=== PATIENT | female | born 1950 | race Caucasian/White ===

== ENCOUNTER 2017-04-09 06:48 | Emergency (ER) | payer MEDICARE ==
[~2017-04-09] VITALS: Ht 170.2 cm; Wt 129.7 kg
[~2017-04-09 06:48] MED LIST: ALPR0.5T PO; AMLO10TA4 PO; Aspirin PO; HYDR-971 PO; LEXAPRO10 MG PO; LIDO700A4 TD; LOSA1TAB22 PO; MELO7.5T5 PO
--- NOTE | 2017-04-09 07:13 | PHYS DOC ---
Past History Past Medical History: COPD, Hypertension Past Surgical History: Tonsillectomy Additional Past Surgical Histo: bilateral chest tubes, left wrist repair Smoking: Non-smoker Alcohol Use: None Drug Use: None Adult General Chief Complaint Chief Complaint: LACERATION/AVULSION HPI HPI This patient is a pleasant 66-year-old female with a known history of COPD who presents with a laceration to the dorsum of the left hand over the index finger MCP joint. Patient was cleaning up some glass had broken this morning was placing in the trash which picked up trash bag she actually cut herself with the glass that was in the trash bag. She has a small laceration measuring about 1 cm on the dorsum of the hand that she came in for because she could not get the bleeding to stop. She applied direct pressure but unfortunately cannot completely to subside. She denies being on any aspirin or blood thinning medication. She denies any foreign body sensation or weakness distal to the injury. She denies any loss of sensation distal to the injury patient denies any heart injury to this finger in the past. She has no weakness or locking or popping within the joint. Her immunizations are not up-to-date. Patient is right -hand dominant, this injury occurred 20 minutes prior to arrival Review of Systems Review of Systems Musculoskeletal: Positive for finger pain over the laceration itself on the dorsum of the left hand Integument: Denies rash or skin lesions [] Neurologic: Denies headache, focal weakness or sensory changes [] All other systems were reviewed and found to be within normal limits, except as documented in this note. Allergies Allergies Allergies Coded Allergies Type Severity Reaction Last Updated Verified Penicillins Allergy Intermediate rash 11/08/14 Yes Physical Exam Physical Exam Other vital signs noted on the chart patient is hypertensive Constitutional: Well developed, well nourished, no acute distress, non-toxic appearance. [] Cardiovascular:Heart rate regular rhythm, no murmur [] Lungs & Thorax: Bilateral breath sounds clear to auscultation [] Skin: Warm, dry, no erythema, no rash. [] Extremities: Small linear clean laceration noted on the dorsum of the hand over the MCP joint of the index finger it is well approximated, no active bleeding is noted. There is a small area of avulsed tissue, there is brisk capillary refill +2 distal to the injury, normal sensation to light touch and proprioception and 2. discrimination over the finger itself, good range of motion at the MCP joint with no obvious joint involvement or foreign body noted to the floor the wound. Patient has normal +2 peripheral pulses at the radial artery, patient is no locking or popping within the joint. No other injury is on the hand noted. She denies fight bite Neurologic: Alert and oriented X 3, normal motor function, normal sensory function, no focal deficits noted. [] Psychologic: Patient is mildly anxious but judgment is intact EKG EKG [] Radiology/Procedures Radiology/Procedures [] IMAGING REPORT Signed PATIENT: RIDDHI GARCIA ACCOUNT: [id number] : 1950 LOCATION: ER AGE: 66 SEX: F EXAM STATUS: REG ER ORD. PHYSICIAN: LIZETTE BUSTAMANTE MD REASON: mcp joint injury PROCEDURE: HAND LEFT 3V Left hand, 3 views, 04/09/2017: History: Laceration There are mild to moderate degenerative changes at scattered inner phalangeal and MCP joints, the first CMC joint and the radiocarpal articulation. No acute fracture or dislocation is identified. There is deformity of the distal radius compatible with an old healed fracture. IMPRESSION: No acute bony abnormality is detected. DICTATED AND SIGNED BY: VENU AMEZQUITA MD DATE: 04/09/17 0719 CC: LIZETTE BUSTAMANTE MD; VÍCTOR ALVARADO MD ~ Course & Med Decision Making Course & Med Decision Making Pertinent Labs and Imaging studies reviewed. (See chart for details) []Patient and x-ray completed her hand to ensure that no radiopaque foreign body was lodged within the tissues. That x-ray 3 view read by me demonstrated no foreign body, no subcutaneous air. Procedure note: Laceration repair noted on the dorsum of the left hand over the MCP joint not involving the joint measures 1 cm in length 1 mm in depth and width. Wound is clean is been clean with soap and water and manual scrubbing. Boostrix is been given. He had wound approximated with direct pressure and placed skin tissue adhesive over the surface without complication or excessive bleeding. Patient tolerated procedure well discharge: I've spoken with the patient and/or caregivers. I've explained the patient's condition, diagnosis and treatment plan based on information available to me at this time. I've answered the patient's and/or caregivers questions and addressed any concerns. The patient and/or caregivers have a good understanding the patient's diagnosis, condition and treatment plan as can be expected at this point. Vital signs have been stabilized. The patient's condition is stable for discharge from the emergency department. The patient will pursue further outpatient evaluation with her primary care provider or other designated consulting physician as outlined in the discharge instructions. Patient and/or caregivers are agreeable to this plan of care and follow-up instructions have been explained in detail. The patient and/or caregivers have received these instructions in written format and expressed understanding of these discharge instructions. The patient and her caregivers are aware that if any significant change in condition or worsening of symptoms should prompt him to immediately return to this of the closest emergency department. If an emergent department is not readily available I would encourage him to call 911. Dragon Disclaimer Dragon Disclaimer This electronic medical record was generated, in whole or in part, using a voice recognition dictation system. Departure Departure: Impression: Primary Impression: Laceration Disposition: 01 HOME, SELF-CARE Condition: STABLE Referrals: VÍCTOR ALVARADO MD (PCP) Patient Instructions: Tissue Adhesive Wound Care Additional Instructions: discharge: I've spoken with the patient and/or caregivers. I've explained the patient's condition, diagnosis and treatment plan based on information available to me at this time. I've answered the patient's and/or caregivers questions and addressed any concerns. The patient and/or caregivers have a good understanding the patient's diagnosis, condition and treatment plan as can be expected at this point. Vital signs have been stabilized. The patient's condition is stable for discharge from the emergency department. The patient will pursue further outpatient evaluation with her primary care provider or other designated consulting physician as outlined in the discharge instructions. Patient and/or caregivers are agreeable to this plan of care and follow-up instructions have been explained in detail. The patient and/or caregivers have received these instructions in written format and expressed understanding of these discharge instructions. The patient and her caregivers are aware that if any significant change in condition or worsening of symptoms should prompt him to immediately return to this of the closest emergency department. If an emergent department is not readily available I would encourage him to call 911. LIZETTE BUSTAMANTE MD Apr 09, 2017 07:13
--- NOTE | 2017-04-09 07:23 | RAD ---
Left hand, 3 views, 04/09/2017: History: Laceration There are mild to moderate degenerative changes at scattered inner phalangeal and MCP joints, the first CMC joint and the radiocarpal articulation. No acute fracture or dislocation is identified. There is deformity of the distal radius compatible with an old healed fracture. IMPRESSION: No acute bony abnormality is detected.
[2017-04-09] MEDS ORDERED: DIPHTH,PERTUSS(ACELL),TET TOX 0.5 ML DISP.SYRIN. VAX IM ONE (07:30)
[2017-04-09 07:42] VITALS: BP 161/85
== END 2017-04-09 07:42 | disposition home or self-care (01) ==
LOC: ER 06:48
DX: S61.412A Laceration without foreign body of left hand, initial encounter (principal); J44.9 Chronic obstructive pulmonary disease, unspecified; I10 Essential (primary) hypertension; Z88.0 Allergy status to penicillin; W25.XXXA Contact with sharp glass, initial encounter; Y93.G1 Activity, food preparation and clean up; Y99.8 Other external cause status; Y92.89 Other specified places as the place of occurrence of the external cause
CPT/HCPCS: 12001; 73130; 90471; 90715; 99284-25

== ENCOUNTER → 2017-05-05 | Outpatient (CLI) | payer MEDICARE ==
[2017-04-09 07:42] VITALS: BP 161/85
--- NOTE | 2017-05-05 08:57 | RAD ---
Examination: 3 views of the bilateral knees History: History of bilateral knee pain. Comparison: 05/02/2016 Findings: Left knee: There is moderate severe joint loss in medial compartment of the left knee. There is moderate joint space loss identified in the lateral, patellofemoral compartments the left knee. Large osteophyte formation identified in the medial, patellofemoral compartment. Small osteophyte formation in the lateral compartment Right knee: Severe joint space loss identified in the medial, lateral compartment, patellofemoral compartments the right knee with large osteophyte formation. 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 Impression: Tricompartmental degenerative changes bilateral knees, most severe in the right knee.
== END | disposition home or self-care (01) ==
LOC: DXRAD 08:14
PROVIDERS: ATTEND Physician Assistant Medical
DX: M17.0 Bilateral primary osteoarthritis of knee (principal); M25.761 Osteophyte, right knee
CPT/HCPCS: 73562

== ENCOUNTER → 2017-09-17 | Outpatient (CLI) | payer MEDICARE ==
[~2017-09-17] MED LIST changes: +BUPIVACAINE MPF 0.25% 10 ML VIAL. ONE; +IOHEXOL 300 MG/ML 50 ML VIAL. ONE; +LIDOCAINE 1% PF 30 ML VIAL. ONE; +methylPREDNISolone ACETATE 80 MG/ML VIAL. ONE
== END ==
LOC: SURG 08:22
PROVIDERS: ATTEND Anesthesiology Pain Medicine
DX: M17.11 Unilateral primary osteoarthritis, right knee (principal); I10 Essential (primary) hypertension; Z87.39 Personal history of other diseases of the musculoskeletal system and connective tissue; Z98.890 Other specified postprocedural states
CPT/HCPCS: 20610; 77002; J1040; J2001; J3490; 20611; Q9967

== ENCOUNTER → 2017-09-30 | Outpatient (CLI) | payer MEDICARE ==
[~2017-09-30] MED LIST changes: -BUPIVACAINE MPF 0.25% 10 ML VIAL. ONE; -IOHEXOL 300 MG/ML 50 ML VIAL. ONE; -LIDOCAINE 1% PF 30 ML VIAL. ONE; -methylPREDNISolone ACETATE 80 MG/ML VIAL. ONE
--- NOTE | 2017-10-01 10:46 | CARD ---
MR#: [id number] Date of Study: 09/30/2017 Ordering Physician: AMIRA YEBOAH, Referring Physician: AMIRA YEBOAH, Tech: TITO Miller APPROVED REPORT EXAM: Two-dimensional and M-mode echocardiogram with Doppler and color Doppler. Other Information Quality : Technically Difficult Technically limited study due to morbid obesity. INDICATION Dyspnea Murmur Bilateral Leg Edema 2D DIMENSIONS Left Atrium(2D)4.0 (1.6-4.0cm)IVSd1.3 (0.7-1.1cm) LVDd5.0 (3.9-5.9cm)LVOT Diameter2.1 (1.8-2.4cm) PWd1.3 (0.7-1.1cm)LVDs3.4 (2.5-4.0cm) FS (%) 32.7 %SV72.4 ml LVEF(%)60.9 (>50%) Aortic Valve AoV Peak Hayden.255.5cm/sAoV VTI51.8cm AO Peak GR.26.0mmHgLVOT Peak Hayden.88.9cm/s LVOT VTI 15.15cmAO Mean GR.17mmHg CURLY (VMAX)1.33yh9TDN (VTI)0.98cm2 Mitral Valve MV E Utkfnddk445.2cm/sMV DECEL GXEB078lm MV A Vmxcyfvj783.0cm/sE/A Ratio1.0 Tricuspid Valve TR P. Wfoudsda175ax/sTR Peak Gr.31mmHg LEFT VENTRICLE The left ventricle is normal size. There is mild concentric left ventricular hypertrophy. The left ve ntricular systolic function is normal and the ejection fraction is within normal range. The Ejection Fraction is 60-65%. There is normal LV segmental wall motion. Tissue Doppler imaging reveals mild lef t ventricular diastolic dysfunction. RIGHT VENTRICLE The right ventricle is mildly dilated. There is normal right ventricular wall thickness. The right ve ntricular systolic function is normal. ATRIA The left atrium is severely dilated. The right atrium is mildly dilated. The interatrial septum is in tact with no evidence for an atrial septal defect or patent foramen ovale as noted on 2-D or Doppler imaging. AORTIC VALVE The aortic valve is not well visualized. Doppler and Color Flow revealed trace aortic regurgitation. There is probable mild valvular aortic stenosis, due to technically limited images, cannot rule out m ore significant low gradient low flow . MITRAL VALVE Mitral annular calcification is moderate. There is no mitral valve stenosis. Doppler and Color-flow r evealed mild mitral regurgitation. TRICUSPID VALVE Doppler and Color Flow revealed mild tricuspid regurgitation. There is no tricuspid valve stenosis. PULMONIC VALVE The pulmonic valve is not well visualized. Doppler and Color Flow revealed trace pulmonic valvular re gurgitation. There is no pulmonic valvular stenosis. GREAT VESSELS The aortic root is normal in size. The pulmonary artery and branches are moderately dilated. Due to p oor image quality, the IVC could not be assessed. PERICARDIAL EFFUSION There is no evidence of significant pericardial effusion. Critical Notification Physician Notified Physician Name:XOCHITL Lanier Critical Value: No <Conclusion> The left ventricular systolic function is normal and the ejection fraction is within normal range. Th e Ejection Fraction is 60-65%. There is mild concentric left ventricular hypertrophy. There is normal LV segmental wall motion. The right ventricle is mildly dilated. The left atrium is severely dilated. There is probable mild valvular aortic stenosis, due to technically limited images, cannot rule out m ore significant low gradient low flow . The pulmonary artery and branches are moderately dilated. Consider for obesity-hypoventilation and secondary pulmonary HTN. May benefit from CT chest versus MIC. Clinical correlation recommended. Signed by : Sridhar Montano, Electronically Approved : 10/01/2017 10:45:17
== END | disposition home or self-care (01) ==
LOC: ECHO 13:09
PROVIDERS: ATTEND Physician Assistant
DX: I08.1 Rheumatic disorders of both mitral and tricuspid valves (principal); M17.0 Bilateral primary osteoarthritis of knee; E78.2 Mixed hyperlipidemia; I10 Essential (primary) hypertension; J44.9 Chronic obstructive pulmonary disease, unspecified; Z87.39 Personal history of other diseases of the musculoskeletal system and connective tissue
CPT/HCPCS: 93306

== ENCOUNTER → 2017-10-15 | Outpatient (CLI) | payer MEDICARE ==
[~2017-10-15] MED LIST changes: +BUPIVACAINE MPF 0.5% 30 ML VIAL. ONE; +IOHEXOL 300 MG/ML 50 ML VIAL. ONE; +LIDOCAINE 1% PF 30 ML VIAL. ONE; +methylPREDNISolone ACETATE 80 MG/ML VIAL. ONE
== END | disposition home or self-care (01) ==
LOC: SURG 13:26
PROVIDERS: ATTEND Anesthesiology Pain Medicine
DX: M17.12 Unilateral primary osteoarthritis, left knee (principal); Z88.0 Allergy status to penicillin; F41.0 Panic disorder [episodic paroxysmal anxiety]; F32.9 Major depressive disorder, single episode, unspecified; J44.9 Chronic obstructive pulmonary disease, unspecified; I10 Essential (primary) hypertension; E78.2 Mixed hyperlipidemia; E66.9 Obesity, unspecified; Z79.82 Long term (current) use of aspirin; Z98.890 Other specified postprocedural states; Z87.39 Personal history of other diseases of the musculoskeletal system and connective tissue; I08.1 Rheumatic disorders of both mitral and tricuspid valves; Z79.899 Other long term (current) drug therapy
CPT/HCPCS: 20610; 77002; J1040; J2001; J3490; Q9967; 20611

== ENCOUNTER 2017-11-26 07:35 | Emergency (ER) | payer MEDICARE ==
[~2017-11-26] VITALS: Ht 170.2 cm; Wt 122.5 kg
[~2017-11-26 07:35] MED LIST changes: -BUPIVACAINE MPF 0.5% 30 ML VIAL. ONE; -IOHEXOL 300 MG/ML 50 ML VIAL. ONE; -LIDOCAINE 1% PF 30 ML VIAL. ONE; -methylPREDNISolone ACETATE 80 MG/ML VIAL. ONE
--- NOTE | 2017-11-26 08:11 | PHYS DOC ---
Past History Past Medical History: COPD, Hypertension Past Surgical History: Other Additional Past Surgical Histo: bilateral chest tubes, left wrist repair Smoking: Non-smoker Alcohol Use: None Drug Use: None Adult General Chief Complaint Chief Complaint: CHEST PAIN HPI HPI 67-year-old female presents via EMS with chest pain. The patient states that she had right sided sharp chest pain that was intermittent last night. She was able to go to sleep. She woke up tonight restroom continued to have this sharp feeling. She also had some dizziness and had to hold onto furniture to go to the bathroom and back. She was able to get to the restroom and back without injury. She decided she would try to go back to sleep and see if it got better. She was able to fall asleep for a few more hours. When she woke up she had this chest pain again more central in the chest and it was persistent. She called EMS. After EMS gave her 4 baby aspirin, the pain has resolved. She denies pain at this time. The patient has had a cardiac catheter in the last 1 year that she reports was negative. She denies having any stents or other interventions. The patient admits that she has had some increased lower extremity swelling but that is not a new finding. They placed her on blood pressure medicine with hydrochlorothiazide. She has been taking her medications, but didn't take it this morning. She denies fever or chills. She denies dysuria or urinary frequency. Review of Systems Review of Systems Constitutional: Denies fever or chills [] Eyes: Denies change in visual acuity, redness, or eye pain [] HENT: Denies nasal congestion or sore throat [] Respiratory: Shortness of breath at baseline [] Cardiovascular: No additional information not addressed in HPI [] GI: Denies abdominal pain, nausea, vomiting, bloody stools or diarrhea [] : Denies dysuria or hematuria [] Musculoskeletal: Denies back pain or joint pain [] Integument: Denies rash or skin lesions [] Neurologic: Denies headache, focal weakness or sensory changes [] Endocrine: Denies polyuria or polydipsia [] All other systems were reviewed and found to be within normal limits, except as documented in this note. Current Medications Current Medications Current Medications Medications (Trade) Dose Ordered Sig/Kris Start Time Stop Time Status Last Admin Dose Admin Metoprolol Tartrate (Lopressor Vial) 5 mg 1X ONCE 11/26/17 08:00 11/26/17 08:01 Allergies Allergies Allergies Coded Allergies Type Severity Reaction Last Updated Verified Penicillins Allergy Intermediate rash 11/26/17 Yes Physical Exam Physical Exam Constitutional: Well developed, obese, well nourished, no acute distress, non- toxic appearance. [] HENT: Normocephalic, atraumatic, bilateral external ears normal, oropharynx moist, no oral exudates, nose normal. [] Eyes: PERRLA, EOMI, conjunctiva normal, no discharge. [] Neck: Normal range of motion, no tenderness, supple, no stridor. [] Cardiovascular:Heart rate regular rhythm, no murmur [] Lungs & Thorax: Bilateral breath sounds moderately to severely decreased[] Abdomen: Bowel sounds normal, soft, no tenderness, no masses, no pulsatile masses. [] Skin: Warm, dry, no erythema, no rash. [] Back: No tenderness, no CVA tenderness. [] Extremities: No tenderness, no cyanosis, no clubbing, ROM intact, 2+ non- pitting edema. [] Neurologic: Alert and oriented X 3, normal motor function, normal sensory function, no focal deficits noted. [] Psychologic: Affect normal, judgement normal, mood normal. [] Current Patient Data Vital Signs Vital Signs Date Time Temp Pulse Resp B/P (MAP) Pulse Ox O2 Delivery O2 Flow Rate FiO2 11/26/17 07:35 97.9 87 22 94 Room Air EKG EKG [] Radiology/Procedures Radiology/Procedures [] Impressions: PORTABLE CHEST 1V History: COPD, chest pain Comparison: March 10, 2015 Findings: Single view of the chest is submitted. Pericardial cardiac silhouette is stable. There is no significant pleural fluid or pneumothorax. There is relative fullness of the right hilar region in part present previously although appears somewhat increased. Impression: 1. Right hilar fullness is somewhat greater than previously for which either two-view chest follow-up or CT follow-up recommended, underlying lymphadenopathy not excluded by this radiograph. Electronically signed by: Pernell Milton MD (11/26/2017 8:26 AM) [id number] DICTATED AND SIGNED BY: PERNELL MILTON MD DATE: 11/26/17821 CC: PANDA RIZVI DO; AMIRA YEBOAH ~ CT CHEST W/CONTRAST Indication: COPD, Abnormal CXR, right hilar fullness. Technique: Postcontrast CT imaging was performed of the chest, multiplanar reconstruction images submitted. One or more of the following individualized dose reduction techniques were utilized for this examination: 1. Automated exposure control 2. Adjustment of the mA and/or kV according to patient size 3. Use of iterative reconstruction technique. Contrast: 75 cc Omnipaque 300 Comparison: Chest radiograph the same day and previous chest CT March 10, 2015 routine Findings: There is some motion degradation. Right hilar fullness on radiograph is due to the vasculature, no mass. There is mitral annular calcification. Thoracic aortic caliber is stable, ascending thoracic aorta about 3.5 cm, no intraluminal flap. Not fully evaluated, there is heterogeneous nodule of the right thyroid gland probably unchanged up to about 2.1 cm in size. There is no pleural or pericardial effusion or pneumothorax. There is mild the liver linear-appearing density of the right upper lobe likely due to fibrotic change. There is also minimal fibrotic change or atelectasis of the lingula. The major airways are patent. There are multiple old right posterior rib fractures. There is probable hepatic steatosis. There is cholelithiasis. There is no new significant lymphadenopathy of the chest. There is thoracic levoscoliosis. There is multilevel thoracic spondylosis. IMPRESSION: 1. There is no right hilar mass, radiographic findings due to the vasculature. 2. There is likely hepatic steatosis. There is cholelithiasis. 3. There is stable heterogeneous right thyroid nodule. Electronically signed by: Pernell Milton MD (11/26/2017 10:39 AM) [id number] Course & Med Decision Making Course & Med Decision Making Pertinent Labs and Imaging studies reviewed. (See chart for details) Patient's labs are unremarkable. Her troponin is negative. Her EKG does have what appear to be Q waves in leads 2 and aVF. Lead 3 there is no discharge prior to the downward deflection of the QRS. The chest x-ray was remarkable for a right hilar fullness. Follow-up CT was recommended. I have ordered a CT of the chest with contrast. The patient's CT of the chest is unremarkable. The x- ray finding appears to be vascular and not a mass. The patient is feeling better at this time. She has a negative workup. The patient had a left heart catheterization November 04, 2017 that was also unremarkable. The patient is stable for discharge at this time. [] Dragon Disclaimer Dragon Disclaimer This electronic medical record was generated, in whole or in part, using a voice recognition dictation system. Departure Departure: Referrals: AMIRA YEBOAH (PCP) PANDA RIZVI DO Nov 26, 2017 08:11
[2017-11-26 08:12] LABS: BASO % 1 % (0-3); EOS # 0.1 x10^3/uL (0.0-0.7); EOS % 1 % (0-3); HEMATOCRIT 42.4 % (36.0-47.0); HEMOGLOBIN 14.1 g/dL (12.0-15.5); LYMPH # 1.9 x10^3/uL (1.0-4.8); LYMPH % 21 % (24-48); MEAN CORPUSCULAR HEMOGLOBIN 27 pg (25-35); MEAN CORPUSCULAR HGB CONC 33 g/dL (31-37); MEAN CORPUSCULAR VOLUME 81 fL (79-100); MONO # 0.6 x10^3/uL (0.0-1.1); MONO % 6 % (0-9); NEUT # 6.5 x10^3uL (1.8-7.7); NEUT % 71 % (31-73); PLATELET COUNT 177 x10^3/uL (140-400); RED BLOOD COUNT 5.24 x10^6/uL (3.50-5.40); RED CELL DISTRIBUTION WIDTH 14.6 % (11.5-14.5); WHITE BLOOD COUNT 9.1 x10^3/uL (4.0-11.0)
--- NOTE | 2017-11-26 08:30 | RAD ---
PORTABLE CHEST 1V History: COPD, chest pain Comparison: March 10, 2015 Findings: Single view of the chest is submitted. Pericardial cardiac silhouette is stable. There is no significant pleural fluid or pneumothorax. There is relative fullness of the right hilar region in part present previously although appears somewhat increased. Impression: 1. Right hilar fullness is somewhat greater than previously for which either two-view chest follow-up or CT follow-up recommended, underlying lymphadenopathy not excluded by this radiograph. Electronically signed by: Brant Morgan MD (11/26/2017 8:26 AM) [facility]
[2017-11-26 08:38] LABS: ALBUMIN 3.1 g/dL (3.4-5.0); ALBUMIN/GLOBULIN RATIO 0.8 (1.0-1.7); CALCIUM 8.1 mg/dL (8.5-10.1); CREATININE 0.5 mg/dL (0.6-1.0); GFR 123.4; POTASSIUM 4.2 mmol/L (3.5-5.1); TOTAL BILIRUBIN 1.1 mg/dL (0.2-1.0); TOTAL PROTEIN 6.9 g/dL (6.4-8.2)
[2017-11-26] MEDS: ONDANSETRON PF 4 MG/2 ML VIAL. IV ONE (09:23)
[2017-11-26] MEDS: METOPROLOL TARTRATE 5 MG/5 ML VIAL. IV ONE (09:23)
--- NOTE | 2017-11-26 09:32 | EKG ---
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
[2017-11-26] MEDS: IOHEXOL 300 MG/ML 75 ML VIAL. IV ONE (10:00)
[2017-11-26] MEDS: IV NORMAL SALINE 1,000ML 1,000 ML IV ONE (10:36)
--- NOTE | 2017-11-26 10:43 | RAD ---
CT CHEST W/CONTRAST Indication: COPD, Abnormal CXR, right hilar fullness. Technique: Postcontrast CT imaging was performed of the chest, multiplanar reconstruction images submitted. One or more of the following individualized dose reduction techniques were utilized for this examination: 1. Automated exposure control 2. Adjustment of the mA and/or kV according to patient size 3. Use of iterative reconstruction technique. Contrast: 75 cc Omnipaque 300 Comparison: Chest radiograph the same day and previous chest CT March 10, 2015 routine Findings: There is some motion degradation. Right hilar fullness on radiograph is due to the vasculature, no mass. There is mitral annular calcification. Thoracic aortic caliber is stable, ascending thoracic aorta about 3.5 cm, no intraluminal flap. Not fully evaluated, there is heterogeneous nodule of the right thyroid gland probably unchanged up to about 2.1 cm in size. There is no pleural or pericardial effusion or pneumothorax. There is mild the liver linear-appearing density of the right upper lobe likely due to fibrotic change. There is also minimal fibrotic change or atelectasis of the lingula. The major airways are patent. There are multiple old right posterior rib fractures. There is probable hepatic steatosis. There is cholelithiasis. There is no new significant lymphadenopathy of the chest. There is thoracic levoscoliosis. There is multilevel thoracic spondylosis. IMPRESSION: 1. There is no right hilar mass, radiographic findings due to the vasculature. 2. There is likely hepatic steatosis. There is cholelithiasis. 3. There is stable heterogeneous right thyroid nodule. Electronically signed by: Brant Morgan MD (11/26/2017 10:39 AM) [id number]
[2017-11-26 11:11] VITALS: BP 153/66
== END 2017-11-26 11:35 | disposition home or self-care (01) ==
LOC: ER 07:35
DX: R07.89 Other chest pain (principal); R42 Dizziness and giddiness; E04.1 Nontoxic single thyroid nodule; K80.20 Calculus of gallbladder without cholecystitis without obstruction; J44.9 Chronic obstructive pulmonary disease, unspecified; I10 Essential (primary) hypertension; Z88.0 Allergy status to penicillin
CPT/HCPCS: 36415; 71045; 71260; 80053; 83880; 84484; 85025; 93005; 96361; 96374; 96375; 99285; J2405; J3490; Q9967; J7030

== ENCOUNTER → 2018-01-07 | Outpatient (CLI) | payer MEDICARE ==
[~2018-01-07] MED LIST changes: +BUPIVACAINE MPF 0.5% 30 ML VIAL. ONE; +LIDOCAINE 1% PF 2 ML VIAL. ONE; +methylPREDNISolone ACETATE 80 MG/ML VIAL. ONE
== END | disposition home or self-care (01) ==
LOC: SURG 08:11
PROVIDERS: ATTEND Anesthesiology Pain Medicine
DX: M17.11 Unilateral primary osteoarthritis, right knee (principal); M79.10 Myalgia, unspecified site; J44.9 Chronic obstructive pulmonary disease, unspecified; Z88.0 Allergy status to penicillin; Z91.030 Bee allergy status; Z79.82 Long term (current) use of aspirin; Z79.899 Other long term (current) drug therapy
CPT/HCPCS: 20610; J1040; J3490

== ENCOUNTER 2018-01-30 22:31 | Inpatient (IN) | payer MEDICARE ==
[~2018-01-30] VITALS: Ht 170.2 cm; Wt 122.9 kg
[~2018-01-30 22:31] MED LIST changes: -BUPIVACAINE MPF 0.5% 30 ML VIAL. ONE; +HYDR-3165 PO; -HYDR-971 PO; -LIDOCAINE 1% PF 2 ML VIAL. ONE; -methylPREDNISolone ACETATE 80 MG/ML VIAL. ONE
--- NOTE | 2018-01-30 22:45 | ED.ADGEN ---
Past History Past Medical History: COPD, Hypertension Past Surgical History: Other Additional Past Surgical Histo: bilateral chest tubes, left wrist repair Smoking: Non-smoker Alcohol Use: None Drug Use: None Adult General Chief Complaint Chief Complaint ".. I was at home and got this sharp chest pain.. here in the center of my chest..." HPI HPI Patient is a 67 year old female who presents with central sharp chest pain. Pt. does have hx prior episodes of chest pain. Has had eval. by Dr. Montano in the past. Has planned EGD for upper GI evaluation as cause of her chest pain. Pt. does have hx of HTN and follow with Dr. Polanco for care. Pt. denies any trauma, recent travel or specific ill contacts. Pt. states pain has become much more severe tonight. She states there is nothing seems to make it better. Deep breaths and coughing seem to make it worse. Review of Systems Review of Systems Constitutional: Denies fever or chills [] Eyes: Denies change in visual acuity, redness, or eye pain [] HENT: Denies nasal congestion or sore throat [] Respiratory: Denies cough or shortness of breath [] Cardiovascular: No additional information not addressed in HPI [] GI: Denies abdominal pain, nausea, vomiting, bloody stools or diarrhea [] : Denies dysuria or hematuria [] Musculoskeletal: Denies back pain or joint pain [] Integument: Denies rash or skin lesions [] Neurologic: Denies headache, focal weakness or sensory changes [] Endocrine: Denies polyuria or polydipsia [] All other systems were reviewed and found to be within normal limits, except as documented in this note. Family History Family History Hypertension Current Medications Current Medications Current Medications Medications (Trade) Dose Ordered Sig/Kris Start Time Stop Time Status Last Admin Dose Admin Aspirin (Children'S Aspirin) 81 mg DAILY 01/31/18 09:00 Enoxaparin Sodium (Lovenox 120mg Syringe) 120 mg Q12HR 01/31/18 00:30 Info (Anti-Coagulation Monitoring By Pharmacy) 1 each PRN DAILY PRN 01/31/18 00:15 Ketorolac Tromethamine (Toradol 15mg Vial) 15 mg 1X ONCE 01/30/18 23:00 01/30/18 23:01 DC 11/23/18 23:18 15 MG Lactated Ringer's 1,000 ml @ 100 mls/hr Q10H 01/30/18 23:00 01/31/18 08:59 01/30/18 23:18 100 MLS/HR Nitroglycerin (Nitro-Bid Oint) 1 inch TID 01/31/18 09:00 Ondansetron HCl (Zofran) 4 mg PRN Q4HRS PRN 01/31/18 00:00 01/31/18 23:59 Allergies Allergies Allergies Coded Allergies Type Severity Reaction Last Updated Verified Penicillins Allergy Intermediate rash 11/26/17 Yes Physical Exam Physical Exam Constitutional: Moderately acute distress, non-toxic appearance. [] HENT: Normocephalic, atraumatic, bilateral external ears normal, oropharynx moist, no oral exudates, nose normal. [] Eyes: PERRLA, EOMI, conjunctiva normal, no discharge. [] Neck: Normal range of motion, no tenderness, supple, no stridor. [] Cardiovascular:Heart rate regular rhythm, no murmur [] Lungs & Thorax: Bilateral breath sounds equal apex scattered wheezes on auscultation []CT scars. Abdomen: Bowel sounds normal, soft, no tenderness, no masses, no pulsatile masses. [Obese. Skin: Warm, dry, no erythema, no rash. [] Back: No tenderness, no CVA tenderness. [] Extremities: No tenderness, no cyanosis, no clubbing, ROM intact, leg edema. [] Scar Lt wrist. Neurologic: Alert and oriented X 3, normal motor function, normal sensory function, no focal deficits noted. [] Psychologic: Affect anxious, judgement normal, mood normal. [] Current Patient Data Vital Signs Vital Signs Date Time Temp Pulse Resp B/P (MAP) Pulse Ox O2 Delivery O2 Flow Rate FiO2 01/31/18 00:07 73 170/89 (116) 96 Room Air 01/30/18 22:44 98.1 16 Lab Results Laboratory Tests Test 01/30/18 22:48 01/30/18 23:00 Urine Collection Type Unknown Urine Color Yellow Urine Clarity Hazy Urine pH 5.0 Urine Specific [place] >=1.030 Urine Protein Neg (NEG-TRACE) Urine Glucose (UA) Neg mg/dL (NEG) Urine Ketones (Stick) Trace mg/dL (NEG) Urine Blood Neg (NEG) Urine Nitrite Neg (NEG) Urine Bilirubin Neg (NEG) Urine Urobilinogen Dipstick 0.2 mg/dL (0.2 mg/dL) Urine Leukocyte Esterase Neg (NEG) Urine RBC 0 /HPF (0-2) Urine WBC Occ /HPF (0-4) Urine Squamous Epithelial Cells Many /LPF Urine Amorphous Sediment Present /HPF Urine Bacteria Few /HPF (0-FEW) Urine Mucus Mod /LPF Urine Opiates Screen Neg (NEG) Urine Methadone Screen Neg (NEG) Urine Barbiturates Neg (NEG) Urine Phencyclidine Screen Neg (NEG) Urine Amphetamine/Methamphetamine Neg (NEG) Urine Benzodiazepines Screen Neg (NEG) Urine Cocaine Screen Neg (NEG) Urine Cannabinoids Screen Neg (NEG) Urine Ethyl Alcohol Neg (NEG) White Blood Count 11.2 x10^3/uL (4.0-11.0) H Red Blood Count 5.36 x10^6/uL (3.50-5.40) Hemoglobin 14.1 g/dL (12.0-15.5) Hematocrit 43.5 % (36.0-47.0) Mean Corpuscular Volume 81 fL (79-100) Mean Corpuscular Hemoglobin 26 pg (25-35) Mean Corpuscular Hemoglobin Concent 33 g/dL (31-37) Red Cell Distribution Width 15.3 % (11.5-14.5) H Platelet Count 170 x10^3/uL (140-400) Neutrophils (%) (Auto) 73 % (31-73) Lymphocytes (%) (Auto) 17 % (24-48) L Monocytes (%) (Auto) 8 % (0-9) Eosinophils (%) (Auto) 2 % (0-3) Basophils (%) (Auto) 0 % (0-3) Neutrophils # (Auto) 8.2 x10^3uL (1.8-7.7) H Lymphocytes # (Auto) 1.9 x10^3/uL (1.0-4.8) Monocytes # (Auto) 0.9 x10^3/uL (0.0-1.1) Eosinophils # (Auto) 0.2 x10^3/uL (0.0-0.7) Basophils # (Auto) 0.0 x10^3/uL (0.0-0.2) Prothrombin Time 9.3 SEC (9.4-11.4) L Prothrombin Time INR 0.9 (0.9-1.1) PTT 31 SEC (23-33) D-Dimer (Maranda) 0.78 mg/L (0.00-0.50) H Sodium Level 139 mmol/L (136-145) Potassium Level 3.7 mmol/L (3.5-5.1) Chloride Level 103 mmol/L (98-107) Carbon Dioxide Level 26 mmol/L (21-32) Anion Gap 10 (6-14) Blood Urea Nitrogen 15 mg/dL (7-20) Creatinine 0.6 mg/dL (0.6-1.0) Estimated GFR (Cockcroft-Gault) 100.0 Glucose Level 112 mg/dL (70-99) H Calcium Level 8.8 mg/dL (8.5-10.1) Magnesium Level 2.0 mg/dL (1.8-2.4) Total Bilirubin 0.9 mg/dL (0.2-1.0) Direct Bilirubin 0.2 mg/dL (0.0-0.2) Aspartate Amino Transferase (AST) 15 U/L (15-37) Alanine Aminotransferase (ALT) 25 U/L (14-59) Alkaline Phosphatase 117 U/L (46-116) H Creatine Kinase 49 U/L (26-192) Troponin I Quantitative < 0.017 ng/mL (0-0.055) ZM-Jul-H-Type Natriuretic Peptide 211 pg/mL (0-124) H Total Protein 7.2 g/dL (6.4-8.2) Albumin 3.4 g/dL (3.4-5.0) Lipase 80 U/L (73-393) EKG EKG My interpretation of EKG shows a sinus rhythm at 83. Left axis deviation. Some nonspecific inferior and anterior lead changes. But no findings acute STEMI with contralateral changes[] Radiology/Procedures Radiology/Procedures My interpretation of chest x-ray shows findings consistent with cardiomegaly. Some increased cephalization. And fluid in the fissure . Course & Med Decision Making Course & Med Decision Making Pertinent Labs and Imaging studies reviewed. (See chart for details). She'll be admitted to Dr. Alvarado. Consult to Dr. Montano. [] Final Impression Final Impression 1. Chest Pain 2. Accelerated HTN 3. Leukocytosis 11.2 4. Elevated D-dimer 0.78 5. Morbid Obesity and Deconditioned Dragon Disclaimer Dragon Disclaimer This electronic medical record was generated, in whole or in part, using a voice recognition dictation system. JOSE LUNA MD Jan 30, 2018 22:45
--- NOTE | 2018-01-30 22:52 | EKG ---
[address] [address] Test Date: 2018-01-30 Test Time: 22:41:32 Pat Name: RIDDHI GARCIA Department: Room: Gender: F Milling Machine Set Up Operator: : [id number] Requested By: JOSE LUNA Order Number: [id number] Reading MD: Sridhar Montano MD Measurements Intervals [place] Rate: 83 P: 41 WA: 172 QRS: -34 QRSD: 84 T: 6 QT: 378 QTc: 445 Interpretive Statements SINUS RHYTHM PRIOR INFERIOR INFARCT Electronically Signed On 02-02-2018 8:48:21 WAITER/WAITRESS INFORMAL by Sridhar Montano MD
[2018-01-30] MEDS ORDERED: IV RINGERS SOLUTION,LACTATED 1,000 ML IV SCH (23:00)
[2018-01-30] MEDS ORDERED: ASPIRIN 81 MG TAB.CHEW PO ONE (23:00)
[2018-01-30] MEDS ORDERED: KETOROLAC 15 MG/ML VIAL. IV ONE (23:00)
[2018-01-30] MEDS ORDERED: NITROGLYCERIN OINT 1 GM PACKET. TP ONE (23:00)
--- NOTE | 2018-01-30 23:05 | RAD ---
Indication:SHORT OF BREATH WITH CHEST PAIN TECHNIQUE:Portable AP chest X-ray COMPARISON:11/26/2017 FINDINGS: Patient is slightly rotated to the right side. Heart is top normal in size. Diffuse bilateral interstitial opacities are seen with preservation of pulmonary mass lesion. No pneumothorax or pleural effusion. Visualized bony thorax within normal limits. IMPRESSION: Chronic Congestive changes with mild interstitial pulmonary edema. Electronically signed by: Ho Bolivar DO (01/30/2018 11:01 PM) [facility]
[2018-01-30 23:19] LABS: BASO % 0 % (0-3); EOS # 0.2 x10^3/uL (0.0-0.7); EOS % 2 % (0-3); HEMATOCRIT 43.5 % (36.0-47.0); HEMOGLOBIN 14.1 g/dL (12.0-15.5); LYMPH # 1.9 x10^3/uL (1.0-4.8); LYMPH % 17 % (24-48); MEAN CORPUSCULAR HEMOGLOBIN 26 pg (25-35); MEAN CORPUSCULAR HGB CONC 33 g/dL (31-37); MEAN CORPUSCULAR VOLUME 81 fL (79-100); MONO # 0.9 x10^3/uL (0.0-1.1); MONO % 8 % (0-9); NEUT # 8.2 x10^3uL (1.8-7.7); NEUT % 73 % (31-73); PLATELET COUNT 170 x10^3/uL (140-400); RED BLOOD COUNT 5.36 x10^6/uL (3.50-5.40); RED CELL DISTRIBUTION WIDTH 15.3 % (11.5-14.5); WHITE BLOOD COUNT 11.2 x10^3/uL (4.0-11.0)
[2018-01-30 23:25] LABS: AMPHETAMINE/METHAMPHETAMINE NEG (NEG); BARBITURATES NEG (NEG); BENZODIAZEPINES NEG (NEG); CANNABINOIDS NEG (NEG); COCAINE NEG (NEG); METHADONE NEG (NEG); OPIATES NEG (NEG); PHENCYCLIDINE NEG (NEG)
[2018-01-30 23:38] LABS: BILIRUBIN,URINE NEG (NEG); CLARITY,URINE HAZY; COLOR,URINE YELLOW; GLUCOSE,URINE NEG (NEG)
[2018-01-30 23:39] LABS: AMORPHOUS SEDIMENT,UR PRESENT /HPF; BACTERIA,URINE FEW /HPF (0-FEW); NITRITE,URINE NEG (NEG); RBC,URINE 0 /HPF (0-2); SQUAMOUS EPITHELIAL CELL,UR MANY /LPF; UROBILINOGEN,URINE 0.2 mg/dL (0.2 mg/dL); WBC,URINE OCC /HPF (0-4)
[2018-01-30 23:39] LABS: ALBUMIN 3.4 g/dL (3.4-5.0); TOTAL PROTEIN 7.2 g/dL (6.4-8.2)
[2018-01-30 23:40] LABS: CALCIUM 8.8 mg/dL (8.5-10.1); CREATININE 0.6 mg/dL (0.6-1.0); DIRECT BILIRUBIN 0.2 mg/dL (0.0-0.2); POTASSIUM 3.7 mmol/L (3.5-5.1); TOTAL BILIRUBIN 0.9 mg/dL (0.2-1.0)
[2018-01-31] MEDS ORDERED: ONDANSETRON PF 4 MG/2 ML VIAL. IV PRN
[2018-01-31] MEDS ORDERED: ANTI-COAG MONITOR BY PHARMACY. MC PRN (00:15)
[2018-01-31] MEDS: ENOXAPARIN ** NOTE DOSE ** SYRINGE SQ SCH ×2 (00:30→09:21)
[2018-01-31 01:21] VITALS: BP 172/85
[2018-01-31] MEDS ORDERED: METO50TA29 PO (02:00)
[2018-01-31] MEDS ORDERED: TRAM50TA PO (02:00)
[2018-01-31] MEDS ORDERED: OLME40TA16 PO (02:00)
[2018-01-31] MEDS ORDERED: OXYB5TAB7 PO (02:00)
[2018-01-31] MEDS ORDERED: DICL100G18 TOP (02:03)
[2018-01-31 05:33] VITALS: BP 123/67
[2018-01-31] MEDS ORDERED: NITROGLYCERIN SUBLINGUAL 0.4 MG BOTTLE OF 25. SL ONE (06:23)
[2018-01-31] MEDS ORDERED: traMADol 50 MG TABLET PO PRN (06:30)
[2018-01-31] MEDS ORDERED: NITROGLYCERIN SUBLINGUAL 0.4 MG BOTTLE OF 25. SL PRN (06:30)
[2018-01-31 07:14] LABS: BASO # 0.3 x10^3/uL (0.0-0.2); BASO % 3 % (0-3); EOS # 0.2 x10^3/uL (0.0-0.7); EOS % 2 % (0-3); HEMATOCRIT 39.2 % (36.0-47.0); LYMPH # 2.2 x10^3/uL (1.0-4.8); LYMPH % 23 % (24-48); MEAN CORPUSCULAR HEMOGLOBIN 27 pg (25-35); MEAN CORPUSCULAR HGB CONC 33 g/dL (31-37); MEAN CORPUSCULAR VOLUME 81 fL (79-100); MONO # 0.8 x10^3/uL (0.0-1.1); MONO % 9 % (0-9); NEUT # 5.8 x10^3uL (1.8-7.7); NEUT % 63 % (31-73); PLATELET COUNT 145 x10^3/uL (140-400); RED BLOOD COUNT 4.84 x10^6/uL (3.50-5.40); WHITE BLOOD COUNT 9.3 x10^3/uL (4.0-11.0)
[2018-01-31 07:22] LABS: CALCIUM 8.2 mg/dL (8.5-10.1); CREATININE 0.5 mg/dL (0.6-1.0); GFR 123.4; POTASSIUM 3.8 mmol/L (3.5-5.1)
[2018-01-31] MEDS ORDERED: ASPIRIN 81 MG TAB.CHEW PO SCH (09:00)
[2018-01-31] MEDS: NITROGLYCERIN OINT 1 GM PACKET. TP SCH ×2 (09:00→14:00)
[2018-01-31] MEDS ORDERED: POTA10TA10 PO (10:25)
[2018-01-31] MEDS ORDERED: MECL25TA3 PO (10:25)
[2018-01-31] MEDS ORDERED: ALPR1TAB2 PO (10:25)
[2018-01-31] MEDS ORDERED: VALS1TAB22 PO (10:25)
[2018-01-31] MEDS ORDERED: CHOL100013 PO (10:25)
[2018-01-31] MEDS ORDERED: ESCITALOPRAM OX10 MG PO (10:25)
[2018-01-31] MEDS ORDERED: FURO-69 PO (10:25)
--- NOTE | 2018-01-31 11:04 | RAD ---
Bilateral Lower extremity venous Doppler. 01/31/2018 HISTORY: Bilateral lower extremity pain/swelling. COMPARISON: None. FINDINGS: Grayscale, Color and Doppler analysis of the Bilateral Lower extremity deep venous system was performed with serial graded compression and augmentation. The bilateral common femoral, femoral, and popliteal veins are widely patent with normal color Doppler imaging. Limited images of the bilateral calf veins are unremarkable. IMPRESSION: No evidence of DVT in the bilateral lower extremities. Electronically signed by: Lalo Ladd MD (01/31/2018 11:01 AM) [facility]
[2018-01-31 11:36] VITALS: BP 143/74
--- NOTE | 2018-01-31 11:48 | HP ---
ADMIT DATE: 01/31/2018 HISTORY OF PRESENT ILLNESS: The patient is a 67-year-old female patient who came to the Emergency Room complaining of a central severe retrosternal chest pain that she rated about 10/10 in severity while going to bed. She tried baby aspirin without much improvement. The pain started around 6:00 in the evening and she called ambulance around 10:00. The pain is associated with shortness of breath, but no nausea or vomiting. She said she has diarrhea as well as diaphoresis. She has tingling and numbness of both hands and feet and by the time she came to the Emergency Room, she was given sublingual nitroglycerin and the pain resolved. Her initial lab work showed that her first troponin was less than 0.017. Her EKG showed that she was in sinus rhythm with a heart rate of [address]-segment elevation or depression. She does have left axis deviation, nonspecific inferior and anterior leads changes, but no findings suggestive of ST-segment elevation myocardial infarction. The patient was admitted to rule out myocardial infarction. We will do 2 more sets of cardiac enzyme and consult the cardiology team. PAST MEDICAL HISTORY: Significant for hypertension, chronic obstructive pulmonary disease, osteoarthritis. Upon looking back into her records, she apparently has had a cardiac catheterization done on 11/04/2017, which basically showed that she has no significant coronary disease. She has normal left-sided filling pressure and left ventricular systolic function. Apparently, she was supposed to have the electrical cad designer-recommended aggressive medical treatment and weight loss reduction program. She has also had a sleep study and arrangement was made for her to have upper GI endoscopy. She has had an echocardiogram done at the same time, which showed that her left ventricular systolic function is normal with ejection fraction within normal range. Ejection fraction was 55-60%. There is no thrombus noted in the left atrial appendage, no significant valvular disease. PAST SURGICAL HISTORY: Significant for left wrist fracture, status post open reduction and internal fixation, tonsillectomy, left oophorectomy and left heart catheterization. ALLERGIES: She is allergic to PENICILLIN AND BEE STINGS. FAMILY HISTORY: She is adopted and does not know her biological parents. SOCIAL HISTORY: She is , has no children of her own. She does not smoke, drink alcohol or use illicit drugs. REVIEW OF SYSTEMS: The patient denied any blurring of vision, cataract, glaucoma or macular degeneration. Denied any earache, tinnitus or sensorineural deafness. Denied any nosebleeds, stuffy nose or postnasal drip. Denied any sore throat, sore tongue, toothache, hoarseness of voice or difficulty swallowing. Denied any hematemesis, melena or hematochezia. Denied any dysuria, frequency or hematuria. He did complain of chest pain, shortness of breath and diaphoresis. Denied any nausea or vomiting. Denied any cough, phlegm or hemoptysis. Denied any dizziness, lightheadedness, or vertigo. Did complain of tingling and numbness in both hands and feet. PHYSICAL EXAMINATION: GENERAL: On examining her, she looked well and was clearly in no apparent respiratory distress. No pallor, jaundice, cyanosis, lymphadenopathy or thyromegaly. No jugular venous distension. No limb edema. VITAL SIGNS: Her heart rate was 75, blood pressure was 123/67, temperature was 98.3, respiratory rate 20, and oxygen saturation was 92% on room air. HEENT: Showed she is normocephalic, atraumatic. NECK: Supple. HEART: Showed normal first and second heart sounds with no gallop, rub or murmur. CHEST: Clear to auscultation. No crepitation or rhonchi. ABDOMEN: Distended, soft, nontender. No guarding or rigidity. No organomegaly. All hernial orifice intact. Bowel sounds normal. NEUROLOGIC: She was awake, alert, responding appropriately. All cranial nerves intact. EXTREMITIES: She moves extremities without difficulty. She ambulates with a walker and a cane. LABORATORY DATA: On arrival to the Emergency Room showed her serum sodium was 139, potassium 3.7, chloride 103, bicarbonate 26, anion gap of 10, BUN 15, creatinine 0.6, estimated GFR was 100 mL per minute. Her glucose was 112, calcium was 8.8, magnesium 2. Total bilirubin, AST, ALT, alkaline phosphatase were normal. Her CK was 48. Troponin was less than 0.017. Her beta-natriuretic peptide was 211. Total protein was 7.2, albumin 3.4. Serum lipase was 60. Her white cell count was 11,200, hemoglobin 14, hematocrit 42, MCV was 81 and platelet count of 170,000. Her prothrombin time was 9.3, INR of 0.9, aPTT was 31 and D-dimer was 0.78. Her urinalysis was essentially unremarkable. RADIOLOGICAL DATA: She did have bilateral lower extremity venous Doppler ultrasound, which showed that there is no evidence of deep vein thrombosis in both lower extremities. Her chest x-ray showed the heart is slightly at the top normal in size. She has diffuse bilateral interstitial opacities seen with preservation of pulmonary mass lesion, no pneumothorax or pleural effusion, visualized bony thorax within normal limits. PLAN: To admit the patient to do 2 more sets of cardiac enzyme and to consult the electrical cad designer, although she has extensive workup done in October, which makes the myocardial infarction extremely unlikely. DANAY MONTENEGRO MD DR: SONY/rob JOB#: [id number] / [id number]
--- NOTE | 2018-01-31 14:20 | PDOC ---
PROVIDER NOTE PROVIDER NOTE PROVIDER NOTE Cardiology Brief Note: Well known to our service. Underwent extensive w/u in October as follows: 1. Echo - MIC - no valvular disease. Normal LV function. 2. cath - No coronary disease. Normal LVEDP On exam: VSS Tele - occassional PAT Normal heart tones Normal lung sounds Labs reviewed - Trop negative. CXR negative D -dimer elevated LE u/s negative. Impression: 1. Non-cardiac chest pain 2. HTN Plan 1. Start low dose Metoprolol and Amlodipine 2. F/u in the office prn 3. Remainder of w/u per PCP. Thanks. Pls call with questions. NAVA ONTIVEROS MD Jan 31, 2018 14:20
[2018-01-31] MEDS ORDERED: amLODIPine BESYLATE 5 MG TABLET PO ONE (14:30)
[2018-01-31] MEDS ORDERED: METOPROLOL TART IMMED RELEASE 25 MG TABLET PO ONE (14:30)
[2018-01-31 15:17] VITALS: BP 161/85
[2018-01-31] MEDS ORDERED: ENOXAPARIN 40 MG/0.4 ML SYRINGE. SQ SCH (21:00)
[2018-01-31] MEDS ORDERED: METOPROLOL TART IMMED RELEASE 25 MG TABLET PO SCH (21:00)
[2018-02-01] MEDS ORDERED: amLODIPine BESYLATE 5 MG TABLET PO SCH (09:00)
--- NOTE | 2018-02-01 16:50 | DS ---
DATE OF DISCHARGE: 01/31/2018 HOSPITAL COURSE: The patient is a 67-year-old female patient who came to the Emergency Room complaining of chest pain. She was extensively investigated in the Emergency Room. She transpired that she has had an angiogram, echocardiogram and cardiac catheterization on November 05, showed that she has no evidence of any ____. She had an echocardiogram with transesophageal echocardiogram. No valvular disease, normal left ventricular function and no coronary artery disease with normal left ventricular end-diastolic pressure. Her troponin was negative. ____ was negative. D-dimer was elevated, but her ultrasound was negative and a decision was made to basically discharge her home to continue on metoprolol and amlodipine to follow up with the Cardiology office as needed, chest pain that is noncardiac and hypertension. DANAY MONTENEGRO MD DR: SONY/rob JOB#: [id number] / [id number]
== END 2018-01-31 16:06 | disposition home or self-care (01) | DRG 392 ==
LOC: ER 22:31 → 1 SOUTH 01-31 01:09
PROVIDERS: ADMIT Internal Medicine; ATTEND Internal Medicine
DX: K21.9 Gastro-esophageal reflux disease without esophagitis (principal); G47.33 Obstructive sleep apnea (adult) (pediatric); I10 Essential (primary) hypertension; M19.90 Unspecified osteoarthritis, unspecified site; J44.9 Chronic obstructive pulmonary disease, unspecified; Z82.49 Family history of ischemic heart disease and other diseases of the circulatory system; Z90.721 Acquired absence of ovaries, unilateral
CPT/HCPCS: 36415; 71045; 80048; 80076; 80307; 81001; 82550; 83690; 83735; 83880; 84443; 84484; 85025; 85379; 85610; 85730; 93005; 93970; J1650; J1885; J7120

== ENCOUNTER 2018-06-14 12:35 | Inpatient (IN) | payer MEDICARE ==
[~2018-06-14] VITALS: Ht 170.2 cm; Wt 120.4 kg
[~2018-06-14 12:35] MED LIST changes: +ALPR1TAB2 PO; +CHOL100013 PO; +DICL100G18 TOP; +ESCITALOPRAM OX10 MG PO; +FURO-69 PO; +MECL25TA3 PO; +METO50TA29 PO; +OLME40TA16 PO; +OXYB5TAB7 PO; +POTA10TA10 PO; +TRAM50TA PO; +VALS1TAB22 PO
[2018-06-14] MEDS ORDERED: ONDANSETRON ODT 4 MG TAB.RAPDIS ONE (13:04)
[2018-06-14] MEDS ORDERED: ONDANSETRON ODT 4 MG TAB.RAPDIS PO ONE (13:15)
--- NOTE | 2018-06-14 13:39 | PHYS DOC ---
Past History Past Medical History: Anxiety, COPD, Depression, Hypertension Past Surgical History: Other Additional Past Surgical Histo: bilateral chest tubes, left wrist repair Smoking: Non-smoker Alcohol Use: None Drug Use: None Adult General Chief Complaint Chief Complaint: NAUSEA/VOMITING/DIARRHEA HPI HPI Patient is a 67-year-old female who presents with weakness, dizziness, nausea, vomiting, and headache. This started last night. Patient has had fevers and sweats. She did receive the flu vaccination this season. There is been no blood in the emesis. She reports the dizziness as a lightheadedness with standing up. Unable to get up and perform ADLs today. No diarrhea at this time. Nothing seems to make the symptoms better, worse with standing up.[] Review of Systems Review of Systems Constitutional: See history of present illness[] Eyes: Denies change in visual acuity, redness, or eye pain [] HENT: Denies nasal congestion or sore throat [] Respiratory: Denies cough or shortness of breath [] Cardiovascular: No chest pain or palpitations[] GI: See history of present illness[] : Denies dysuria or hematuria [] Musculoskeletal: Denies back pain or joint pain [] Integument: Denies rash or skin lesions [] Neurologic: Denies headache, focal weakness or sensory changes [] Endocrine: Denies polyuria or polydipsia [] All other systems were reviewed and found to be within normal limits, except as documented in this note. Current Medications Current Medications Current Medications Medications (Trade) Dose Ordered Sig/Kris Start Time Stop Time Status Last Admin Dose Admin Ondansetron HCl (Zofran Odt) 4 mg 1X ONCE 06/14/18 13:15 06/14/18 13:16 DC 06/14/18 13:10 4 MG Allergies Allergies Allergies Coded Allergies Type Severity Reaction Last Updated Verified Penicillins Allergy Intermediate rash 11/26/17 Yes Physical Exam Physical Exam Constitutional: Well developed, well nourished, mild to moderate discomfort, non -toxic appearance. [] HENT: Normocephalic, atraumatic, bilateral external ears normal, oropharynx moist, no oral exudates, nose with clear rhinorrhea. [] Eyes: PERRLA, EOMI, conjunctiva normal, no discharge. [] Neck: Normal range of motion, no tenderness, supple, no stridor. [] Cardiovascular:Heart rate regular rhythm, no murmur [] Lungs & Thorax: Bilateral breath sounds clear to auscultation [] Abdomen: Bowel sounds normal, soft, no tenderness, no masses, no pulsatile masses. [] Skin: Warm, dry, no erythema, no rash. [] Back: No tenderness, no CVA tenderness. [] Extremities: No tenderness, no cyanosis, no clubbing, ROM intact, no edema. [] Neurologic: Alert and oriented X 3, normal motor function, normal sensory function, no focal deficits noted. [] Psychologic: Affect normal, judgement normal, mood normal. [] Current Patient Data Vital Signs Vital Signs Date Time Temp Pulse Resp B/P (MAP) Pulse Ox O2 Delivery O2 Flow Rate FiO2 06/14/18 13:02 98.0 82 20 95 EKG EKG EKG shows sinus rhythm at 76 bpm, left axis at -36, QTC of 476 ms, no ST elevations. Interpreted by me at 1353. Compared with EKG of 01/30/2018, no acute changes are present.[] Radiology/Procedures Radiology/Procedures PORTABLE CHEST 1V Clinical indications: weakness with vomiting and dizziness. Findings: No acute lung infiltrate or pleural effusion or pulmonary edema or lung mass or pneumothorax is seen. The heart size, pulmonary vasculature, mediastinum and both lyndsey are stable. Impression: No acute radiographic abnormality is seen. CT HEAD WO CONTRAST Date: 06/14/2018 1:54 PM Clinical Indication: headache/dizziness, weakness with vomiting Comparison: None. Findings: Mild generalized cerebral and cerebellar volume loss. Mild nonspecific periventricular hypoattenuation, most commonly seen with chronic small vessel ischemic disease. No intra- or extra-axial mass or fluid collection. No acute hemorrhage. The ventricles are normal in size, shape, and morphology. The bañuelos-white matter junction is normal. The basilar cisterns are patent. Large left maxillary mucous retention cyst. Mild ethmoid sinus mucosal thickening.. The orbits are normal. The globes are intact. The mastoid air cells are clear. No aggressive osseous lesion or fracture. IMPRESSION: 1. No acute intracranial process. 2. Mild cerebral volume loss. Mild chronic small vessel ischemic disease. 3 Large left maxillary sinus mucus retention cyst. Mild ethmoid sinus mucosal thickening.[] Course & Med Decision Making Course & Med Decision Making Pertinent Labs and Imaging studies reviewed. (See chart for details) ED course: Patient arrived, was placed in bed, and tolerated exam well. She was transported to and from radiology with out any complications. She received judicious IV fluids which allowed her to micturate. After the return of lab and imaging studies, these were discussed with the patient who voiced understanding. All questions were answered. Consultation was made with the hospitalist service for admission and they graciously accepted. Patient was admitted in improved condition. Medical decision making: There is no evidence of intracranial mass, bleed, no flu, no pneumonia, no significant electrolyte abnormalities. Ketones are noted in urine consistent with her inability to tolerate oral intake. No evidence of urinary tract infection. No evidence of this being an acute coronary syndrome.[] Dragon Disclaimer Dragon Disclaimer This electronic medical record was generated, in whole or in part, using a voice recognition dictation system. Departure Departure: Impression: Primary Impression: Nausea and vomiting Additional Impression: Weakness Disposition: 09 ADMITTED INPATIENT Admitting Physician: Ragini Alvarado Condition: IMPROVED Referrals: AMIRA YEBOAH (PCP) Problem Qualifiers Primary Impression: Nausea and vomiting Vomiting type: unspecified Vomiting Intractability: unspecified Qualified Codes: R11.2 - Nausea with vomiting, unspecified STEFFEN RAMIREZ DO Jun 14, 2018 13:39
[2018-06-14] MEDS ORDERED: IV NORMAL SALINE 500ML 500 ML IV ONE (13:45)
[2018-06-14] MEDS ORDERED: METOCLOPRAMIDE HCL 10 MG/2 ML VIAL. IV ONE (13:45)
--- NOTE | 2018-06-14 14:25 | RAD ---
CT HEAD WO CONTRAST Date: 06/14/2018 1:54 PM Clinical Indication: headache/dizziness, weakness with vomiting Comparison: None. Findings: Mild generalized cerebral and cerebellar volume loss. Mild nonspecific periventricular hypoattenuation, most commonly seen with chronic small vessel ischemic disease. No intra- or extra-axial mass or fluid collection. No acute hemorrhage. The ventricles are normal in size, shape, and morphology. The bañuelos-white matter junction is normal. The basilar cisterns are patent. Large left maxillary mucous retention cyst. Mild ethmoid sinus mucosal thickening.. The orbits are normal. The globes are intact. The mastoid air cells are clear. No aggressive osseous lesion or fracture. IMPRESSION: 1. No acute intracranial process. 2. Mild cerebral volume loss. Mild chronic small vessel ischemic disease. 3 Large left maxillary sinus mucus retention cyst. Mild ethmoid sinus mucosal thickening. Electronically signed by: Rafa Humphrey MD (06/14/2018 2:22 PM) [facility]
[2018-06-14 14:39] LABS: BASO # 0.1 x10^3/uL (0.0-0.2); BASO % 1 % (0-3); EOS % 0 % (0-3); HEMATOCRIT 44.3 % (36.0-47.0); HEMOGLOBIN 14.7 g/dL (12.0-15.5); LYMPH # 1.1 x10^3/uL (1.0-4.8); LYMPH % 11 % (24-48); MEAN CORPUSCULAR HEMOGLOBIN 27 pg (25-35); MEAN CORPUSCULAR HGB CONC 33 g/dL (31-37); MEAN CORPUSCULAR VOLUME 80 fL (79-100); MONO # 0.4 x10^3/uL (0.0-1.1); MONO % 4 % (0-9); NEUT % 84 % (31-73); PLATELET COUNT 146 x10^3/uL (140-400); RED BLOOD COUNT 5.57 x10^6/uL (3.50-5.40); WHITE BLOOD COUNT 9.5 x10^3/uL (4.0-11.0)
--- NOTE | 2018-06-14 14:45 | RAD ---
PORTABLE CHEST 1V Clinical indications: weakness with vomiting and dizziness. Findings: No acute lung infiltrate or pleural effusion or pulmonary edema or lung mass or pneumothorax is seen. The heart size, pulmonary vasculature, mediastinum and both lyndsey are stable. Impression: No acute radiographic abnormality is seen. Electronically signed by: Jc Arce MD (06/14/2018 2:42 PM) [facility] [place]
[2018-06-14 14:59] LABS: ALBUMIN 3.7 g/dL (3.4-5.0); CALCIUM 8.8 mg/dL (8.5-10.1); CREATININE 0.5 mg/dL (0.6-1.0); GFR 123.4; MAGNESIUM 1.8 mg/dL (1.8-2.4); POTASSIUM 3.8 mmol/L (3.5-5.1); TOTAL BILIRUBIN 1.8 mg/dL (0.2-1.0); TOTAL PROTEIN 7.4 g/dL (6.4-8.2)
[2018-06-14 16:05] LABS: BACTERIA,URINE 0 /HPF (0-FEW); BILIRUBIN,URINE NEG (NEG); CLARITY,URINE CLOUDY; COLOR,URINE AMBER; GLUCOSE,URINE NEG (NEG); NITRITE,URINE NEG (NEG); RBC,URINE 0 /HPF (0-2); SQUAMOUS EPITHELIAL CELL,UR FEW /LPF; UROBILINOGEN,URINE 0.2 mg/dL (0.2 mg/dL); WBC,URINE 0 /HPF (0-4)
[2018-06-14 16:54] LABS: INFLUENZA A PATIENT NEGATIVE (NEGATIVE); INFLUENZA B PATIENT NEGATIVE (NEGATIVE)
[2018-06-14] MEDS ORDERED: ONDANSETRON PF 4 MG/2 ML VIAL. IV PRN (17:30)
[2018-06-14] MEDS ORDERED: ACETAMINOPHEN 325 MG TABLET PO PRN (17:30)
--- NOTE | 2018-06-14 18:02 | NUR ---
NSG NOTE; ADMISSION ADMIT TO ROOM 121 AT 1755 VIA CART ACCOMP BY EMS PERSONNEL C/O N/V
[2018-06-14 18:05] VITALS: BP 186/91
--- NOTE | 2018-06-14 18:13 | EKG ---
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
[2018-06-14] MEDS ORDERED: ALPRAZolam 0.5 MG TABLET PO PRN (18:45)
[2018-06-14] MEDS ORDERED: MECLIZINE 12.5 MG TABLET. PO PRN (18:45)
[2018-06-14] MEDS: IV NORMAL SALINE 1,000ML 1,000 ML IV SCH (19:27)
[2018-06-14] MEDS: LOSARTAN 50 MG TABLET. PO SCH (19:28)
[2018-06-14] MEDS: traMADol 50 MG TABLET PO PRN (19:29)
[2018-06-14] MEDS: OXYBUTYNIN CHLORIDE 5 MG TABLET PO SCH (19:39)
[2018-06-14 19:41] VITALS: BP 170/81
[2018-06-14 22:43] VITALS: BP 132/72
[2018-06-15] MEDS: IV NORMAL SALINE 1,000ML 1,000 ML IV SCH ×2 (04:04→15:30)
[2018-06-15 06:22] VITALS: BP 125/72
[2018-06-15 06:59] LABS: BASO # 0.1 x10^3/uL (0.0-0.2); BASO % 1 % (0-3); EOS # 0.2 x10^3/uL (0.0-0.7); EOS % 2 % (0-3); HEMATOCRIT 39.5 % (36.0-47.0); HEMOGLOBIN 12.9 g/dL (12.0-15.5); LYMPH % 22 % (24-48); MEAN CORPUSCULAR HEMOGLOBIN 26 pg (25-35); MEAN CORPUSCULAR HGB CONC 33 g/dL (31-37); MEAN CORPUSCULAR VOLUME 81 fL (79-100); MONO # 0.8 x10^3/uL (0.0-1.1); MONO % 8 % (0-9); NEUT # 6.2 x10^3uL (1.8-7.7); NEUT % 67 % (31-73); PLATELET COUNT 144 x10^3/uL (140-400); RED CELL DISTRIBUTION WIDTH 14.8 % (11.5-14.5); WHITE BLOOD COUNT 9.2 x10^3/uL (4.0-11.0)
[2018-06-15 07:16] LABS: ALBUMIN/GLOBULIN RATIO 0.9 (1.0-1.7); CALCIUM 8.4 mg/dL (8.5-10.1); CREATININE 0.5 mg/dL (0.6-1.0); GFR 123.4; POTASSIUM 3.6 mmol/L (3.5-5.1); TOTAL BILIRUBIN 1.7 mg/dL (0.2-1.0); TOTAL PROTEIN 6.2 g/dL (6.4-8.2)
[2018-06-15] MEDS ORDERED: MELOXICAM 7.5 MG TABLET PO PRN (09:00)
[2018-06-15] MEDS: CHOLECALCIFEROL (VITAMIN D3) 1,000 UNIT TABLET PO SCH (09:00)
[2018-06-15] MEDS: POTASSIUM CHLORIDE 10 MEQ TABLET.ER. PO SCH (09:00)
[2018-06-15] MEDS ORDERED: LOSARTAN 50 MG TABLET. PO SCH (09:00)
[2018-06-15] MEDS: CITALOPRAM 20 MG TABLET. PO SCH (09:01)
[2018-06-15] MEDS: ASPIRIN ENTERIC COATED 81 MG TABLET.DR. PO SCH (09:01)
[2018-06-15] MEDS: FUROSEMIDE 20 MG TABLET PO SCH (09:01)
[2018-06-15] MEDS: OXYBUTYNIN CHLORIDE 5 MG TABLET PO SCH ×2 (09:01→21:15)
[2018-06-15] MEDS: LOSARTAN 50 MG TABLET. PO SCH (09:01)
[2018-06-15 11:11] VITALS: BP 144/79
--- NOTE | 2018-06-15 14:21 | HP ---
ADMIT DATE: 06/14/2018 HISTORY OF PRESENT ILLNESS: This is a 67-year-old female patient who came to the Emergency Room complaining of recurrent bouts of nausea, vomiting, generalized weakness, dizziness as well as headache. According to her, this has started about in the middle of May. At that time, she thought this was a flu. She stated that she is feeling things spinning around and has been unable to get up and perform her ADLs. No diarrhea and nothing seemed to make her symptoms better and her symptoms are worse with standing up. She was extensively investigated in the Emergency Room. She had lab work, which was basically mostly unremarkable. Urinalysis was unremarkable as well as her influenza A and B were negative. Her CT scan of the head was also unremarkable except that she had large maxillary sinus mucous retention cyst, mild ethmoid sinus mucosal thickening. The patient was admitted with generalized weakness, nausea, and vomiting and also dizziness with things spinning around likely due to acute labyrinthitis. She was started on IV fluid and was admitted to continue on her current medications and continue with IV fluid. PAST MEDICAL HISTORY: Significant for hypertension, COPD, morbid obesity, obstructive sleep apnea. She also has anxiety and depression. PAST SURGICAL HISTORY: Significant for tonsillectomy, bilateral chest tube placement, and left wrist repair. She has also had left oophorectomy and left heart catheterization. ALLERGIES: She is allergic to PENICILLIN and BEE STING. FAMILY HISTORY: She is adopted, does not know her biological parents. SOCIAL HISTORY: She is , has no children of her own. She does not smoke, drink alcohol or use any illicit drugs. She is retired from [employer] where she worked for 38 years. REVIEW OF SYSTEMS: The patient denied any blurring of vision, cataract, glaucoma or macular degeneration. Denied any earache. Did complain of tinnitus or sensorineural deafness. Denied any nosebleeds, stuffy nose or postnasal drip. Denied any sore throat, sore tongue, toothache, hoarseness of voice or difficulty swallowing. Denied any hematemesis, melena or hematochezia, but did complain of recurrent bouts of nausea and vomiting, but no diarrhea. She denied any dysuria, frequency or hematuria. Denied any chest pain, shortness of breath, orthopnea or paroxysmal nocturnal dyspnea. Did complain of dizziness and things spinning around. She also did complain of tingling in both hands and feet. PHYSICAL EXAMINATION: GENERAL: On arrival to the Emergency Room, she looked well and was clearly in no apparent respiratory distress. No pallor, jaundice, cyanosis, or thyromegaly. No jugular venous distention. No limb edema. VITAL SIGNS: Her heart rate was 82, blood pressure was 199/106, temperature was 97.7, respiratory rate was 22, and oxygen saturation was 95%. HEAD, EYES, EARS, NOSE AND THROAT: Showed normocephalic, atraumatic. NECK: Supple. HEART: Showed normal first and second heart sounds with no gallop, rub or murmur. CHEST: Clear to auscultation. No crepitation or rhonchi. ABDOMEN: Distended, soft, nontender. NEUROLOGIC: She was awake, alert, responding appropriately. All cranial nerves intact. She moves extremities without difficulty. She ambulates with a walker and cane. LABORATORY DATA: Her lab work on arrival to the Emergency Room showed a serum sodium 142, potassium 3.8, chloride 106, bicarbonate 26, anion gap of 10, BUN 14, creatinine 0.5, estimated GFR was 123 mL per minute. Her glucose was 127, calcium was 8.8, magnesium was 1.8. Total bilirubin was 1.8. AST, ALT, alkaline phosphatase were normal. Her troponin I was less than 0.017. B-type natriuretic peptide was 187. Total protein was 7.4, albumin was 3.7. Her prothrombin time was 9.9, INR of 1. Urinalysis showed the urine was cloudy with a pH of 6, specific gravity of 1.025. There is small amount of protein. The urine was negative for glucose, positive for ketones, negative for blood, nitrite and leukocyte esterase. There are no rbc's, no wbc's, and no bacteria. Her influenza A and B were negative. IMPRESSION AND PLAN: In summary, this is a 67-year-old who was admitted with recurrent bouts of nausea, vomiting, generalized weakness, dizziness and lightheadedness. She thinks she feels things are spinning around such that she is unable to get up and perform her ADLs today. She was admitted and was given losartan potassium 100 mg to control her blood pressure and continued on IV fluid at 125 mL per hour. She was started on meclizine and all her other medications. We will obviously consult Dr. Hare to assist in her management. Her CT scan was unremarkable and her chest x-ray showed no acute radiographic abnormality seen. DANAY MONTENEGRO MD DR: SONY/rob JOB#: [id number] / [id number]
[2018-06-15 14:44] VITALS: BP 127/74
[2018-06-15] MEDS ORDERED: MECLIZINE 12.5 MG TABLET. PO PRN (15:45)
[2018-06-15 19:15] VITALS: BP 157/89
[2018-06-15 23:11] VITALS: BP 156/89
--- NOTE | 2018-06-16 05:08 | PN ---
DATE: 06/15/2018 SUBJECTIVE: The patient is sitting comfortably in her chair, continued to complain that things are spinning around. She has had no further episodes of nausea and vomiting. She is tolerating her liquid diet without any problem. She did work with physical therapy. PHYSICAL EXAMINATION: GENERAL: When I examined her this afternoon, she looked well and was clearly in no apparent respiratory distress. No pallor, jaundice, cyanosis, or thyromegaly. No jugular venous distension. No lower limb edema. VITAL SIGNS: Her heart rate was 78, blood pressure 144/79, temperature was 97.8, respiratory rate 20, and oxygen saturation was 92%. HEAD, EYES, EARS, NOSE AND THROAT: Showed normocephalic, atraumatic. NECK: Supple. HEART: Showed normal first and second heart sounds. No gallop, rub or murmur. CHEST: Clear to auscultation. No crepitation or rhonchi. ABDOMEN: Distended, soft, nontender. No guarding or rigidity. No organomegaly. All hernial orifice intact. Bowel sounds normal. NEUROLOGIC: She was awake, alert, responding appropriately. All her cranial nerves intact. She moves extremities without difficulty. She ambulates with a walker. Her intake over the last 24 hours was 1916, no output was recorded. LABORATORY DATA: Her lab work this morning showed that her white cell count was 9200, hemoglobin 12.3, hematocrit 39.5, MCV 81 and platelet count 244,000 with normal manual differential. Her chemistry showed a serum sodium 144, potassium 3.6, chloride 109, bicarbonate 31, anion gap of 4, BUN 14, creatinine 0.5. Estimated GFR was 123 mL per minute. Her glucose was 85, calcium was 8.4, magnesium was 1.7. Bilirubin 1.7. AST, ALT, alkaline phosphatase were normal. Total protein was 6.2, albumin 3. ASSESSMENT AND PLAN: Vertigo with nausea, vomiting and difficulty getting up and perform her ADLs. She also has tingling and numbness in both upper and lower extremities; however, no lateralizing sign. We will consult Dr. Hare and decide on further management accordingly. DANAY MONTENEGRO MD DR: SONY/rob JOB#: [id number] / [id number]
[2018-06-16 05:37] VITALS: BP 152/84
[2018-06-16] MEDS: ASPIRIN ENTERIC COATED 81 MG TABLET.DR. PO SCH (07:57)
[2018-06-16] MEDS: FUROSEMIDE 20 MG TABLET PO SCH (08:00)
[2018-06-16] MEDS: CITALOPRAM 20 MG TABLET. PO SCH (08:00)
[2018-06-16] MEDS: OXYBUTYNIN CHLORIDE 5 MG TABLET PO SCH ×2 (08:00→20:47)
[2018-06-16] MEDS: LOSARTAN 50 MG TABLET. PO SCH (08:00)
[2018-06-16] MEDS: CHOLECALCIFEROL (VITAMIN D3) 1,000 UNIT TABLET PO SCH (08:00)
[2018-06-16] MEDS: POTASSIUM CHLORIDE 10 MEQ TABLET.ER. PO SCH (08:01)
[2018-06-16] MEDS: traMADol 50 MG TABLET PO PRN (08:04)
[2018-06-16 10:24] VITALS: BP 166/82
--- NOTE | 2018-06-16 14:18 | CONS ---
DATE OF CONSULTATION: 06/15/2018 REFERRING PHYSICIAN: Dr. Alvarado. REASON FOR CONSULTATION: Nausea, vomiting and dizziness. HISTORY OF PRESENT ILLNESS: This is a 67-year-old right-handed female, who was admitted through Emergency Room after she presented with chief complaint of dizziness, described as a spinning associated with nausea and vomiting. The patient stated in the middle of May that she started having flu-like symptoms described as generalized aches and associated with intermittent nausea and vomiting. She did not see her primary care physicians. The patient was completely asymptomatic 4 days prior to this admission, but the day before admission, she started having recurrent vomiting and generalized weakness. She vomited four times. She also complains of global headaches. She denies photophobia or phonophobia. The patient also complains of chronic numbness and paresthesia of the distal upper and lower extremities. She denies any recent falls, head injuries, syncope, chest pain, shortness of breath or palpitation, dysarthria, dysphagia. In the Emergency Room, influenza A and B were negative and initial nonenhanced head CT scan revealed no acute intracranial process, but a mild cerebral atrophy with mild chronic small vessel ischemic changes along with the large left maxillary sinus mucous retention cyst. During the interview, the patient stated her dizziness has been better since admission. PAST MEDICAL HISTORY: Significant for morbid obesity, obstructive sleep apnea on CPAP, COPD, anxiety and depressions. PAST SURGICAL HISTORY: Positive for heart catheterization with no evidence of coronary artery disease, left wrist surgery, left oophorectomy, tonsillectomy, and history of bilateral chest tube placement. FAMILY HISTORY: The patient was adopted. SOCIAL HISTORY: The patient is . She denies smoking, alcohol drinking, or illicit drug use. REVIEW OF SYSTEMS: A 10-point review of system was performed as mentioned above in history of present illness. CURRENT HOME MEDICATIONS: Alprazolam, aspirin, citalopram, furosemide, losartan, oxybutynin, potassium, tramadol, and vitamin D. ALLERGIES: PENICILLIN. PHYSICAL EXAMINATION: GENERAL: Obese female, not in acute distress. VITAL SIGNS: She weighs 265 pounds, blood pressure 127/74, respiratory rate 20, pulse is 76, temperature 98, oxygen saturation 93% on room air. HEENT: Normocephalic, atraumatic, otherwise unremarkable. NECK: Supple. Negative for carotid bruit, lymphadenopathy or thyromegaly. LUNGS: Clear to A and P. CARDIOVASCULAR: Regular rate and rhythm, normal S1, S2. There is no S3, S4 or murmur. ABDOMEN: Soft. Bowel sounds positive. EXTREMITIES: Negative for cyanosis, clubbing, pitting edema. NEUROLOGICAL: 1. Mental status: The patient is alert and oriented x 3. Speech is fluent. There is no language dysfunction. Memory, judgment, and abstract thinking are normal. The patient denies hallucination or delusion. 2. CRANIAL NERVES: Visual iqbal are full. Pupils are reactive to light and accommodation. The extraocular movements are intact. There is no nystagmus. There is no facial motor or sensory deficit. Hearing is intact bilaterally. The palate is elevated symmetrically. Sternocleidomastoid muscles are powerful bilaterally. The patient shrugs her shoulders symmetrically, protrudes her tongue in the midline without fasciculation or atrophy. 3. MOTOR: No focal muscle bulk was seen. The tone is normal. The strength is 4/5 throughout. Sensory examination revealed diminished pinprick and light touch senses in patchy distributions and in the glove and stocking distributions bilaterally. Deep tendon reflexes were asymmetric and hypoactive with absent Achilles responses. Gait: The stance is steady. The patient uses a walker for ambulation. DIAGNOSTIC DATA: Head CT scan as described above in history of present illness. Chest x-ray, no evidence of acute cardiopulmonary process. LABORATORY DATA: CBC revealed white blood cells of 9.2 thousand, hemoglobin 12.9, hematocrit 39.5, and platelet count 144,000. Chemistry revealed sodium of 144, potassium 3.6, chloride 109, CO2 of 31, BUN 14, creatinine 0.5, glucose 85, and calcium 8.4. Liver enzymes are normal. Total bilirubin is 1.7. Troponin level is normal. NPB is high at 187. Urinalysis is negative for urinary tract infections. IMPRESSION: 1. Generalized weakness, probably multifactorial due to morbid obesity, obstructive sleep apnea and arthritis. 2. Nausea, vomiting and vertigo, probably due to vestibulopathy or vestibulitis. 3. Numbness and paresthesia on the distal upper and lower extremities, rule out an entrapment neuropathy versus peripheral neuropathy or radiculopathy. RECOMMENDATIONS: 1. Continue with current management initiated by Dr. Alvarado including hydration and meclizine. 2. Physical therapy evaluation. 3. We will arrange for EMG/NCS of the upper and lower extremities on an outpatient basis. M Tomi DOMINGUEZ MD DR: HUE/rob JOB#: [id number] / [id number]
--- NOTE | 2018-06-16 14:43 | PN ---
DATE: 06/16/2018 SUBJECTIVE: The patient denies any new medical or neurological complaints. She did have one spell of vertigo yesterday; however, the vertigo has improved significantly with meclizine. The patient received only one tablet of meclizine. Physical therapy started working with her. The patient denies headaches, chest pain, shortness of breath or palpitation, dysarthria or dysphagia. OBJECTIVE: GENERAL: Obese female, not in acute distress. VITAL SIGNS: Blood pressure 152/84, respiratory rate 20, pulse is 75 and regular, temperature 97.9, oxygen saturation is 95% on 2 liters by nasal cannula. HEENT: Normocephalic, atraumatic, otherwise unremarkable. NECK: Supple. Negative for carotid bruit, lymphadenopathy or thyromegaly. LUNGS: Clear to A and P. CARDIOVASCULAR: Regular rate and rhythm. Normal S1, S2. There is a 2/6 systolic murmur. ABDOMEN: Soft. Bowel sounds positive. EXTREMITIES: Negative for cyanosis, clubbing or pitting edema. NEUROLOGICAL EXAM: Mental Status: The patient is alert and oriented x 3. Speech is fluent. There is no language dysfunction. Memory, judgment, and abstract thinking are normal. The patient denies hallucination or delusion. Cranial nerves are intact. No focal motor deficit. The strength was 4/5 throughout. Sensory examination revealed diminished pinprick and light touch senses in the glove and stocking distributions bilaterally. Deep tendon reflexes were symmetric and hypoactive with absent Achilles responses. Gait: The stance is steady. The patient ambulates with using a walker. IMPRESSION: 1. Acute vertigo -- improved with meclizine; however, benign paroxysmal positional vertigo may have contributed to the current symptoms. 2. Cardiac murmur. 3. Multiple medical problems include morbid obesity, chronic obstructive pulmonary disease, obstructive sleep apnea, anxiety and depressions. Rule out peripheral neuropathy versus entrapment neuropathy in the upper and lower extremities. RECOMMENDATIONS: 1. Carotid Doppler study. 2. Physical therapy. 3. Continue with current management initiated by Dr. Alvarado. 4. Vestibular exercise. 5. We will arrange for EMG/NCS is to be done on an outpatient basis. 6. Aggressive weight loss. M Tomi DOMINGUEZ MD DR: HUE/rob JOB#: [id number] / [id number]
[2018-06-16 16:00] VITALS: BP 145/85
--- NOTE | 2018-06-16 19:04 | PN ---
DATE: 06/16/2018 SUBJECTIVE: The patient is sitting comfortably in her chair, in no apparent distress. She apparently has worked with physical therapy and does not have any dizziness today; however, she continued to have generalized weakness and deconditioning. We have discussed with her the option of going to rehab and we will consult our case finisher to see whether she qualifies go to [facility] to continue the process of rehabilitation. OBJECTIVE: GENERAL: When I examined her, she looked well and was clearly in no apparent respiratory distress. No pallor, jaundice, cyanosis, or thyromegaly. No jugular venous distension. No lower limb edema. VITAL SIGNS: Her heart rate was 84, blood pressure 166/82, temperature was 97.8, respiratory rate 20, and oxygen saturation was 92% on 2 liters of oxygen. The rest of clinical examination is stable, has not really changed. Her intake was 1960, no output was recorded. LABORATORY DATA: As of yesterday showed a serum sodium 144, potassium 103.6, chloride 109, bicarbonate 31, anion gap of 4, BUN 14, creatinine 0.5, estimated GFR was 123 mL per minute. Her white cell count was 9200, hemoglobin 13, hematocrit 39, MCV 81 and platelet count 244,000. ASSESSMENT: 1. Vertigo with nausea and vomiting and difficulty getting up with unsteady gait, has resolved. 2. Generalized weakness and deconditioning. Other problems include hypertension, chronic obstructive pulmonary disease, morbid obesity, obstructive sleep apnea as well as anxiety and depression. PLAN: To continue with meclizine. Continue with all her other medication and we will arrange for her to be admitted to a custodial facility. We will consult our case finisher to see whether she qualifies to go for further rehabilitation or custodial facility. DANAY MONTENEGRO MD DR: SONY/rob JOB#: [id number] / [id number]
[2018-06-16 19:30] VITALS: BP 141/83
[2018-06-17 00:09] VITALS: BP 125/71
[2018-06-17] MEDS: traMADol 50 MG TABLET PO PRN ×2 (01:43→08:09)
[2018-06-17 06:11] VITALS: BP 129/77
[2018-06-17 07:05] LABS: C REACTIVE PROTEIN 4.6 mg/L (0-3.3); CALCIUM 8.4 mg/dL (8.5-10.1); CREATININE 0.5 mg/dL (0.6-1.0); GFR 123.4; POTASSIUM 3.7 mmol/L (3.5-5.1)
[2018-06-17] MEDS: ASPIRIN ENTERIC COATED 81 MG TABLET.DR. PO SCH (08:04)
[2018-06-17] MEDS: FUROSEMIDE 20 MG TABLET PO SCH (08:04)
[2018-06-17] MEDS: POTASSIUM CHLORIDE 10 MEQ TABLET.ER. PO SCH (08:04)
[2018-06-17] MEDS: CITALOPRAM 20 MG TABLET. PO SCH (08:04)
[2018-06-17] MEDS: CHOLECALCIFEROL (VITAMIN D3) 1,000 UNIT TABLET PO SCH (08:04)
[2018-06-17] MEDS: OXYBUTYNIN CHLORIDE 5 MG TABLET PO SCH (08:04)
[2018-06-17 08:06] VITALS: BP 129/77
[2018-06-17] MEDS: LOSARTAN 50 MG TABLET. PO SCH (08:06)
--- NOTE | 2018-06-17 08:56 | RAD ---
Exam : Carotid Duplex with Grayscale Ultrasound and Spectral and Color Doppler Analysis 06/17/2018 8:51 AM Clinical Indications:. Episodic dizziness Comparison study: PQRS Compliance Statement - Stenosis calculations for CT, MR and conventional angiography are based upon measurement of the distal ICA diameter in accordance with the NASCET methodology. Stenosis calculations for carotid ultrasound studies are derived from validated velocity criteria which are known to correlate with the NASCET methodology. Findings: The common, internal and external carotid arteries were examined by grayscale, color and spectral Doppler ultrasound. Mild diffuse aphthous chronic vascular disease is noted with mild calcified plaque involving the bilateral carotid bulbs. No high-grade visual stenosis is seen on color Doppler imaging. Bilateral vertebral arteries demonstrate antegrade flow. The following are the velocities and ratios in the carotid arteries on both sides: RIGHT ICA PV: 114cm/sec RIGHT CCA PV: 86cm/sec RIGHT ICA ED: 32cm/sec RIGHT IC/CCPV: Less than 2 RIGHT VERTEBRAL: antegrade flow LEFT ICA PV: 108cm/sec LEFT CCA PV: 99cm/sec LEFT ICA ED: 34cm/sec LEFT IC/CCPV: Less than 2 LEFT VERTEBRAL: antegrade flow <50% ICA Stenosis: PSV < 125cm/s (EDV < 40cm/s; SVR < 2.0) 50-69% ICA Stenosis: PSV < 125-229cm/s (EDV 40-99cm/s; SVR 2.0-3.9) >70% ICA Stenosis: PSV > 230cm/s (EDV >100cm/s; SVR >4.0) Impression: Mild atherosclerotic vascular disease with less than 50% stenosis of the bilateral internal carotid arteries by ultrasound Electronically signed by: Fili Villegas MD (06/17/2018 8:53 AM) [id number]
--- NOTE | 2018-06-17 09:40 | NUR ---
NURSING NOTE DISCHARGE PT DISCHARGED TO SWING UNIT ROOM 103 AT 0940 FOR PT OT EVAL AND TREAT STRENGTHENING. WRITTEN AND VERBAL DISCHARGE INSTRUCTIONS GIVEN TO PT. FOLLOW UP INSTRUCTIONS GIVEN TO PT. JEFFERY LAGOS.
--- NOTE | 2018-06-17 13:18 | DS ---
DATE OF DISCHARGE: 06/17/2018 HOSPITAL COURSE: The patient is a 67-year-old female patient who was admitted originally on 06/15/2018 with a complaint of dizziness together with nausea, vomiting, and things spinning around and was seen by Dr. Hare. His impression probably has some form of vestibulopathy or vestibulitis, which has responded well to meclizine. She was also somewhat dehydrated and has responded well to IV fluid. She actually did well in terms of her vertigo, nausea, and vomiting, but the patient continued to have generalized weakness and marked deconditioning, and a decision was made to discharge her to swing bed to continue the process of rehabilitation. PHYSICAL EXAMINATION: GENERAL: When I saw her today, she looked well and was clearly in no apparent respiratory distress. No pallor, jaundice, cyanosis, or thyromegaly. No jugular venous distension. No lower limb edema. VITAL SIGNS: Her heart rate was 77, blood pressure 129/77, temperature was 98, respiratory rate was 18 and oxygen saturation was 95%. HEAD, EYES, EARS, NOSE, AND THROAT: Normocephalic, atraumatic. NECK: Supple. HEART: Showed normal first and second heart sounds. No gallop, rub, or murmur. CHEST: Clear to auscultation. No crepitation or rhonchi. ABDOMEN: Distended, soft, nontender. No guarding or rigidity. No organomegaly. All hernial orifices are intact. Bowel sounds normal. NEUROLOGIC: She is awake, alert, responding appropriately. All cranial nerves intact. She moves extremities without difficulty. She continues to be very weak and deconditioned; however, her intake over the last 24 hours was 2900, no output was recorded. LABORATORY DATA: Her lab work this morning showed a serum sodium 141, potassium 3.7, chloride was 103, bicarbonate 32, anion gap of 6, BUN 13, creatinine 0.5, estimated GFR was 123 mL per minute. Her glucose was 85, calcium was 8.7. Total protein 6.2, albumin 3. Her white cell count was 9200, hemoglobin 12.9, hematocrit 39, MCV 81, and platelet count of 144,000. Her sed rate was 77 mm per hour and C-reactive protein was 4.6 mg/dL. DISCHARGE MEDICATIONS: She was discharged to swing bed to continue on alprazolam 1 mg p.o. b.i.d. for anxiety and agitation, aspirin 81 mg once a day, cholecalciferol for vitamin D 1000 international unit once a day, escitalopram oxalate 10 mg once a day, furosemide 20 mg once a day, meclizine 25 mg daily p.r.n. for dizziness, meloxicam 7.5 mg once a day, oxybutynin chloride 5 mg daily, potassium chloride 10 mEq once a day, and tramadol 50 mg every 6 hours as needed. FINAL DISCHARGE DIAGNOSES: 1. Nausea, vomiting, and vertigo, resolved. 2. Generalized weakness and deconditioning for which she was switched to a swing bed. 3. Hypertension. 4. Chronic obstructive pulmonary disease. 5. Morbid obesity. 6. Obstructive sleep apnea. 7. Anxiety and depression. DANAY MONTENEGRO MD DR: SONY/rob JOB#: [id number] / [id number]
--- NOTE | 2018-06-17 20:35 | PN ---
DATE: SUBJECTIVE: The patient denies any new medical or neurological complaints. She denies dizziness, nausea, vomiting, chest pain, shortness of breath or palpitation, headaches or vertigo. The patient has been active and she ambulates yesterday with a walker without significant problems. A carotid Doppler study yesterday revealed no evidence of significant internal carotid artery stenosis, otherwise unremarkable. OBJECTIVE: GENERAL: Obese female, not in acute distress. VITAL SIGNS: Blood pressure 129/77, respiratory rate 18, pulse is 77 and regular, temperature is 98, oxygen saturation 95% on room air. HEENT: Normocephalic, atraumatic, otherwise unremarkable. NECK: Supple, negative for carotid bruit, lymphadenopathy or thyromegaly. LUNGS: Clear to A and P. CARDIOVASCULAR: Regular rate and rhythm, normal S1, S2. There is a 2/6 systolic murmur. ABDOMEN: Soft. Bowel sounds positive. EXTREMITIES: Negative for cyanosis, clubbing or pitting edema. NEUROLOGIC: 1. Mental status is normal. Cranial nerves are intact. 2. Motor Examination: No focal muscle bulk was seen. 3. The strength is 4/5 throughout. 4. Sensory examination revealed diminished pinprick and light touch senses in patchy distributions in both distal upper and lower extremities. Deep tendon reflexes were symmetric and hypoactive with absent Achilles responses. Gait: The patient ambulates with a walker. The stance is steady. IMPRESSION: 1. Vertigo -- possible paroxysmal benign positional vertigo, resolved. 2. Multiple medical problems include morbid obesity, sleep apnea, chronic obstructive pulmonary disease, anxiety, depressions, rule out peripheral neuropathy in the upper and lower extremities. RECOMMENDATIONS: 1. Continue with current management initiated by Dr. Alvarado. 2. We will arrange for EMG/NCS on an outpatient basis. M Tomi DOMINGUEZ MD DR: HUE/rob JOB#: [id number] / [id number]
== END 2018-06-17 09:41 | DRG 149 ==
LOC: ER 12:35 → 1 SOUTH 17:09
PROVIDERS: ADMIT Internal Medicine; ATTEND Internal Medicine
DX: H83.09 Labyrinthitis, unspecified ear (principal); Z68.41 Body mass index [BMI] 40.0-44.9, adult; E86.0 Dehydration; F41.9 Anxiety disorder, unspecified; F32.9 Major depressive disorder, single episode, unspecified; I10 Essential (primary) hypertension; J44.9 Chronic obstructive pulmonary disease, unspecified; E66.01 Morbid (severe) obesity due to excess calories; G47.33 Obstructive sleep apnea (adult) (pediatric); M19.90 Unspecified osteoarthritis, unspecified site; Z90.721 Acquired absence of ovaries, unilateral; Z88.0 Allergy status to penicillin; Z91.030 Bee allergy status; R20.2 Paresthesia of skin; R20.0 Anesthesia of skin
CPT/HCPCS: 36415; 70450; 71045; 80048; 80053; 81001; 83735; 83880; 84484; 85025; 85610; 85651; 86140; 87040; 87804; 93005; 93880; J2405; J2765; J7040; J8597; Q0162; 97110; 97530; 97535; J7030

== ENCOUNTER 2018-06-17 08:15 | Inpatient (IN) | payer MEDICARE ==
[~2018-06-17] VITALS: Ht 170.2 cm; Wt 118.9 kg
[2018-06-17 10:10] VITALS: BP 163/77
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
[2018-06-17] MEDS ORDERED: MECLIZINE 12.5 MG TABLET. PO PRN (10:15)
[2018-06-17] MEDS ORDERED: traMADol 50 MG TABLET PO PRN (10:15)
[2018-06-17] MEDS ORDERED: ALPRAZolam 0.5 MG TABLET PO PRN (10:15)
[2018-06-17 15:42] VITALS: BP 155/79
[2018-06-17 19:30] VITALS: BP 143/74
[2018-06-17 19:36] VITALS: BP 143/74
[2018-06-17] MEDS: OXYBUTYNIN CHLORIDE 5 MG TABLET PO SCH (20:54)
--- NOTE | 2018-06-18 00:58 | NUR ---
Swing Bed Nursing Note [facility] for [facility] given to patient. Nursing Problem: [facility] in order to return home with roommate. Cognitive/Behavioral: Pt is A/Ox3, pleasant and interactive. Pt in good spirits, sitting up in bed watching TV upon assessment. Cooperative with cares. Pain: Pt c/o left foot pain, rated 10/10. Pt attributes her pain to working with PT so much today. Given PRN tramadol per request, pt reports relief upon reassessment. Respiratory Status: Lungs CTA. Pt on RA during the day and placed on 2L via NC at [facility] for DEAN. Pt does not have her CPAP with her. Skin: Skin is dry, fragile/friable but intact. Noted 2-3+ generalized edema in BLE. Bowel/Bladder Continence: Pt is continent of B+B with occasional stress incontinence. Wears pad. Reports LBM on 06/18. ADL Functional Status: Pt is up with standby assist, utilizes walker appropriately. Pt in gown for HS. Able to eat/drink independently. Takes meds whole.
[2018-06-18 05:44] VITALS: BP 153/81
[2018-06-18] MEDS: CHOLECALCIFEROL (VITAMIN D3) 1,000 UNIT TABLET PO SCH (07:42)
[2018-06-18] MEDS: FUROSEMIDE 20 MG TABLET PO SCH (07:42)
[2018-06-18] MEDS: POTASSIUM CHLORIDE 10 MEQ TABLET.ER. PO SCH (07:42)
[2018-06-18] MEDS: OXYBUTYNIN CHLORIDE 5 MG TABLET PO SCH ×2 (07:42→20:31)
[2018-06-18] MEDS: ASPIRIN 81 MG TAB.CHEW PO SCH (07:42)
[2018-06-18] MEDS: CITALOPRAM 20 MG TABLET. PO SCH (07:42)
[2018-06-18 15:19] VITALS: BP 146/85
[2018-06-18] MEDS ORDERED: ACETAMINOPHEN 325 MG TABLET PO ONE (16:17)
[2018-06-18] MEDS: ACETAMINOPHEN 325 MG TABLET PO PRN (16:25)
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
--- NOTE | 2018-06-19 01:03 | NUR ---
Swing Bed Nursing Note Nursing Problem: [facility] for PT/OT strengthening to return home with roommate. Cognitive/Behavioral: Pt is A/Ox3, pleasant and interactive. Pt in good spirits, sitting up in bed. Cooperative with cares. Pain: Pt stated she was not having any pain. Respiratory Status: Lungs CTA. Pt on RA during the day and placed on 2L via NC at [facility] for DEAN. Pt has CPAP at home but does not have it with her. Skin: Skin is dry, intact. Noted 2+ generalized edema in BLE, non-pitting. Bowel/Bladder Continence: Pt is continent of B+B with occasional stress incontinence. Wears pad. Reports LBM on 06/18. ADL Functional Status: Pt is up with standby assist, utilizes walker appropriately. Pt changed to gown for HS. Able to eat/drink independently. Takes meds whole. Zulay Gutiérrez RN
[2018-06-19 05:48] VITALS: BP 156/84
[2018-06-19] MEDS: OXYBUTYNIN CHLORIDE 5 MG TABLET PO SCH ×2 (08:40→20:33)
[2018-06-19] MEDS: CITALOPRAM 20 MG TABLET. PO SCH (08:40)
[2018-06-19] MEDS: FUROSEMIDE 20 MG TABLET PO SCH (08:40)
[2018-06-19] MEDS: ASPIRIN 81 MG TAB.CHEW PO SCH (08:40)
[2018-06-19] MEDS: POTASSIUM CHLORIDE 10 MEQ TABLET.ER. PO SCH (08:40)
[2018-06-19] MEDS: CHOLECALCIFEROL (VITAMIN D3) 1,000 UNIT TABLET PO SCH (08:40)
[2018-06-19 15:18] VITALS: BP 148/87
[2018-06-19] MEDS: ACETAMINOPHEN 325 MG TABLET PO PRN (17:14)
--- NOTE | 2018-06-19 18:35 | NUR ---
Swing Bed Nursing Note Nursing Problem: Pt [facility] to [facility] for PT/OT strengthening to return home with roommate. Cognitive/Behavioral: Pt is A/Ox3, pleasant and interactive. Pt in good spirits, sitting up in bed. Cooperative with cares. Pain: Pt stated that she had a head ache earlier but the pain went away with the PRN dose of Tylenol that this nurse administered per order. Respiratory Status: Lungs CTA. Pt on RA during the day and placed on 2L via NC at [facility] for DEAN. Pt has CPAP at home but does not have it with her. Skin: Skin is dry, intact. Noted 2+ generalized edema in BLE, non-pitting. Bowel/Bladder Continence: Pt is continent of B+B with occasional stress incontinence. Wears pad. Reports LBM on 06/19 ADL Functional Status: Pt is up with standby assist, utilizes walker appropriately. Pt changed to gown for HS. Able to eat/drink independently. Takes meds whole.
[2018-06-19 19:05] VITALS: BP 150/83
--- NOTE | 2018-06-19 20:53 | NUR ---
Swing Bed Nursing Note Nursing Problem: Pt admitted to [facility] for PT/OT strengthening to return home with roommate. Cognitive/Behavioral: Pt is A/Ox3, pleasant and interactive. Pt in good spirits, sitting up in bed. Cooperative with cares. Pain: Pt stated she was not having any pain. Respiratory Status: Lungs CTA. Pt on RA during the day and placed on 2L via NC at [facility] for DEAN. Pt has CPAP at home but does not have it with her. Skin: Skin is dry, intact. Noted 2+ generalized edema in BLE, non-pitting. Bowel/Bladder Continence: Pt is continent of B+B with occasional stress incontinence. Wears pad. Reports LBM on 06/19. ADL Functional Status: Pt is up with standby assist, utilizes walker appropriately. Pt changed to gown for HS. Able to eat/drink independently. Takes meds whole. Elsi Reeder RN
[2018-06-20 06:07] VITALS: BP 167/77
[2018-06-20 06:41] LABS: HEMATOCRIT 43.2 % (36.0-47.0); HEMOGLOBIN 14.2 g/dL (12.0-15.5); RED BLOOD COUNT 5.4 x10^6/uL (3.50-5.40); RED CELL DISTRIBUTION WIDTH 14.9 % (11.5-14.5); WHITE BLOOD COUNT 7.6 x10^3/uL (4.0-11.0)
[2018-06-20 06:59] LABS: ALBUMIN 3.5 g/dL (3.4-5.0); CREATININE 0.5 mg/dL (0.6-1.0); GFR 123.4; POTASSIUM 3.9 mmol/L (3.5-5.1); TOTAL BILIRUBIN 1.4 mg/dL (0.2-1.0); TOTAL PROTEIN 7.1 g/dL (6.4-8.2)
[2018-06-20] MEDS: FUROSEMIDE 20 MG TABLET PO SCH (09:08)
[2018-06-20] MEDS: POTASSIUM CHLORIDE 10 MEQ TABLET.ER. PO SCH (09:08)
[2018-06-20] MEDS: METOPROLOL SUCC 24HR ER 25 MG TAB.ER.24H. PO SCH (09:08)
[2018-06-20] MEDS: OXYBUTYNIN CHLORIDE 5 MG TABLET PO SCH ×2 (09:08→21:55)
[2018-06-20] MEDS: CITALOPRAM 20 MG TABLET. PO SCH (09:08)
[2018-06-20] MEDS: MELOXICAM 7.5 MG TABLET PO PRN (09:08)
[2018-06-20] MEDS: ASPIRIN 81 MG TAB.CHEW PO SCH (09:08)
[2018-06-20] MEDS: CHOLECALCIFEROL (VITAMIN D3) 1,000 UNIT TABLET PO SCH (09:09)
[2018-06-20 15:01] VITALS: BP 122/71
[2018-06-20] MEDS: quiNINE 324 MG CAPSULE. PO SCH (21:54)
--- NOTE | 2018-06-20 22:49 | NUR ---
Swing Bed Nursing Note Nursing Problem: Pt admitted to [facility] for PT/OT strengthening to return home with roommate. Cognitive/Behavioral: Pt is A/Ox3, pleasant and interactive. Pt in good spirits, sitting up in bed. Cooperative with cares. Pain: Pt stated she was not having any pain. Respiratory Status: Lungs CTA. Pt on RA during the day and placed on 2L via NC at [facility] for DEAN. Pt has CPAP at home but does not have it with her. Skin: Skin is dry, intact. Noted 2+ generalized edema in BLE, non-pitting. Bowel/Bladder Continence: Pt is continent of B+B with occasional stress incontinence. Wears pad. Reports LBM on 06/20. ADL Functional Status: Pt is up with standby assist, utilizes walker appropriately. Pt changed to gown for HS. Able to eat/drink independently. Takes meds whole.
--- NOTE | 2018-06-21 00:22 | PN ---
DATE: SUBJECTIVE: A 67-year-old female. She is on the skilled unit and denies any nausea, vomiting, or chest discomfort. She is receiving PT, OT and the patient is making fairly good progress overall. The patient's labs have been basically stable as well as her electrolytes. The patient continues with PT and OT. OBJECTIVE: VITAL SIGNS: Blood pressure 122/70, respiratory rate 20, pulse 80, afebrile. LUNGS: Diminished, but clear. CARDIOVASCULAR: Stable. PLAN: As above. Continue with PT, OT on the skilled unit. IMPRESSION: Paroxysmal benign positional vertigo. Multiple medical problems including morbid obesity, sleep apnea, chronic obstructive lung disease, anxiety, depression, possible peripheral neuropathy. ANIRUDH WEBSTER MD DR: GRACE/rob JOB#: [id number] / [id number]
[2018-06-21 05:10] VITALS: BP 154/80
[2018-06-21] MEDS: CITALOPRAM 20 MG TABLET. PO SCH (08:29)
[2018-06-21] MEDS: CHOLECALCIFEROL (VITAMIN D3) 1,000 UNIT TABLET PO SCH (08:29)
[2018-06-21] MEDS: POTASSIUM CHLORIDE 10 MEQ TABLET.ER. PO SCH (08:29)
[2018-06-21] MEDS: FUROSEMIDE 20 MG TABLET PO SCH (08:29)
[2018-06-21] MEDS: METOPROLOL SUCC 24HR ER 25 MG TAB.ER.24H. PO SCH (08:30)
[2018-06-21] MEDS: OXYBUTYNIN CHLORIDE 5 MG TABLET PO SCH ×2 (08:30→21:26)
[2018-06-21] MEDS: ASPIRIN 81 MG TAB.CHEW PO SCH (08:30)
[2018-06-21] MEDS: MELOXICAM 7.5 MG TABLET PO PRN (08:30)
[2018-06-21 15:54] VITALS: BP 139/84
[2018-06-21 19:00] VITALS: BP 136/75
[2018-06-21] MEDS: quiNINE 324 MG CAPSULE. PO SCH (21:26)
[2018-06-22 05:00] VITALS: BP 149/82
[2018-06-22] MEDS: POTASSIUM CHLORIDE 10 MEQ TABLET.ER. PO SCH (09:09)
[2018-06-22] MEDS: CITALOPRAM 20 MG TABLET. PO SCH (09:09)
[2018-06-22] MEDS: FUROSEMIDE 20 MG TABLET PO SCH (09:09)
[2018-06-22] MEDS: OXYBUTYNIN CHLORIDE 5 MG TABLET PO SCH (09:09)
[2018-06-22] MEDS: CHOLECALCIFEROL (VITAMIN D3) 1,000 UNIT TABLET PO SCH (09:09)
[2018-06-22 09:10] VITALS: BP 149/82
[2018-06-22] MEDS: METOPROLOL SUCC 24HR ER 25 MG TAB.ER.24H. PO SCH (09:10)
[2018-06-22] MEDS: ASPIRIN 81 MG TAB.CHEW PO SCH (09:10)
[2018-06-22] MEDS ORDERED: QUIN324C PO (13:12)
[2018-06-22] MEDS ORDERED: METO-239 PO (13:14)
--- NOTE | 2018-06-22 13:25 | DISCH ---
HOME HEALTH DISCHARGE/MEDS DISCHARGE INFORMATION: Condition on Discharge: Stable CODE STATUS: Code Status: Full HOME HEALTH: Face to Face: I certify this patient is under my care and that I, or a nurse practitioner or physician's assistant professor of marine biology working with me, had a face to face encounter that meets the physician face to face encounter requirements with this patient on [Date]. Physical Therapy For: Evalulation/Treatment Occupational Therapy For: Evaluation/Treatment Home Health Aide For: Self-care POST DISCHARGE ORDERS: Activity Instructions for Disc: Resume previous activity DIET AFTER DISCHARGE: Regular CERTIFICATION STATEMENT: Certification Statement: Based on the above finding, I certify that this patient is confined to the home and needs intermittent senior living care, physical therapy and/or speech therapy, or continues to need occupational therapy.~ This patient is under my care, and I have initiated the establishment of the plan of care.~ This patient will be followed by myself or a community physician who will periodically review the plan of care. DISCHARGE MEDICATIONS: Home Meds Active Scripts [Aspirin] 81 [address]T.DR Lafleur Conflict Check, 81 MG PO DAILYWBKFT Prov:RENE SHANKAR 11/09/14 Reported Medications Escitalopram Oxalate (ESCITALOPRAM OXALATE) 10 Mg Tablet, 1 TAB PO DAILY for DEPRESSION LAST DOSE GIVEN: DATE: TIME: NEXT DOSE DUE: DATE: TIME: 01/31/18 Alprazolam (XANAX) 1 Mg Tablet, 1 TAB PO PRN BID PRN for ANXIETY / AGITATION LAST DOSE GIVEN: DATE: TIME: NEXT DOSE DUE: DATE: TIME: 01/31/18 Potassium Chloride (POTASSIUM CHLORIDE) 10 Meq Tablet.er, 10 MEQ PO DAILY for SUPPLEMENT LAST DOSE GIVEN: DATE: TIME: NEXT DOSE DUE: DATE: TIME: 01/31/18 Furosemide (LASIX) 20 Mg Tablet, 1 TAB PO DAILY for HIGH BLOOD PRESSURE LAST DOSE GIVEN: DATE: TIME: NEXT DOSE DUE: DATE: TIME: 01/31/18 Cholecalciferol (Vitamin D3) (VITAMIN D) 1,000 Unit Capsule, 1 CAP PO DAILY for SUPPLEMENT LAST DOSE GIVEN: DATE: TIME: NEXT DOSE DUE: DATE: TIME: 01/31/18 Meclizine Hcl (MECLIZINE HCL) 25 Mg Tablet, 25 MG PO DAILY PRN for DIZZINESS LAST DOSE GIVEN: DATE: TIME: NEXT DOSE DUE: DATE: TIME: 01/31/18 Tramadol Hcl (TRAMADOL HCL) 50 Mg Tablet, 1 TAB PO PRN Q6HRS PRN for PAIN LAST DOSE GIVEN: DATE: TIME: NEXT DOSE DUE: DATE: TIME: 01/31/18 Oxybutynin Chloride (OXYBUTYNIN CHLORIDE) 5 Mg Tablet, 1 TAB PO BID for BLADDER SPASMS LAST DOSE GIVEN: DATE: TIME: NEXT DOSE DUE: DATE: TIME: 01/31/18 Meloxicam (MOBIC) 7.5 Mg Tablet, 7.5 MG PO DAILY PRN for JOINT PAIN LAST DOSE GIVEN: DATE: TIME: NEXT DOSE DUE: DATE: TIME: 11/08/14 Discontinued Reported Medications Olmesartan Medoxomil (Olmesartan Medoxomil) 40 Mg Tablet, 1 TAB PO DAILY for HIGH BLOOD PRESSURE LAST DOSE GIVEN: DATE: TIME: NEXT DOSE DUE: DATE: TIME: 01/31/18 DANAY MONTENEGRO MD Jun 22, 2018 13:25
--- NOTE | 2018-06-22 14:37 | DS ---
DATE OF DISCHARGE: 06/22/2018 HOSPITAL COURSE: The patient is a 67-year-old female patient, who was originally admitted with dizziness and was diagnosed with benign positional paroxysmal vertigo that has eventually resolved. The patient, however, continued to complain of marked weakness and deconditioning and therefore, she was admitted to swing bed and she was treated with physical and occupational therapy and a decision was made to discharge her home with home health to continue the post-rehabilitation there. PHYSICAL EXAMINATION: GENERAL: When I saw her today, she looked well and was clearly in no apparent respiratory distress. No pallor, jaundice, cyanosis, or thyromegaly. No jugular venous distension. No limb edema. VITAL SIGNS: Her heart rate was 69, blood pressure 149/82, temperature was 98, respiratory rate was 18 and oxygen saturation was 95% on room air. HEAD, EYES, EARS, NOSE AND THROAT: Showed normocephalic, atraumatic. NECK: Supple. HEART: Showed normal first and second sounds. No gallop, rub or murmur. CHEST: Clear to auscultation. No crepitation or rhonchi. ABDOMEN: Distended, soft, nontender. NEUROLOGIC: She is awake, alert, responding appropriately. All cranial nerves intact. She moves extremities without difficulty. She ambulates with a walker. Her intake over the last 24 hours was 750 and no output was recorded. LABORATORY DATA: Showed a white cell count of 7600, hemoglobin 14, hematocrit 43, MCV 80 and platelet count of 158,000. Serum sodium 140, potassium 3.9, chloride 104, bicarbonate 31, anion gap of 5, BUN 10, creatinine 0.5, estimated GFR was 123 mL per minute. Her glucose was 90, calcium was 9. Total bilirubin is 1.4. AST, ALT, alkaline phosphatase were normal. Total protein was 7.1 and albumin was 3.5. FINAL DISCHARGE DIAGNOSES: Benign positional paroxysmal vertigo, resolved. The patient has multiple other medical problems including morbid obesity, obstructive sleep apnea, chronic obstructive pulmonary disease, anxiety and depression, peripheral neuropathy. DANAY MONTENEGRO MD DR: SONY/rob JOB#: [id number] / [id number]
--- NOTE | 2018-06-22 14:38 | NUR ---
Discharge Note: RIDDHI GARCIA [facility] Discharge instructions and discharge home medications reviewed with patient and and a copy given. All questions have been answered and understanding verbalized. The following instructions and handouts were given: medications, follow up instructions, prescriptions and educational handouts given. Patient discharged to home with spouse via private vehicle. Nursing Problem: [facility]/OT [facility] to return home with roommate. Cognitive/Behavioral: Pt is A/Ox3, pleasant and interactive. Pt in good spirits, sitting up in chair. Cooperative with cares. Pain: Pt stated she was not having any pain. Respiratory Status: Lungs CTA. Pt on RA during the day and placed on 2L via NC at HS for DEAN. Pt has CPAP at home but does not have it with her. Skin: Skin is dry, intact. Noted 2+ generalized edema in BLE, non-pitting. Bowel/Bladder Continence: Pt is continent of B+B with occasional stress incontinence. Wears pad. Reports LBM on 06/22. ADL Functional Status: Pt is up with standby assist, utilizes walker appropriately. Pt changed to gown for HS. Able to eat/drink independently. Takes meds whole.
== END 2018-06-22 14:35 | disposition home health service (06) | DRG 149 ==
LOC: 1 SOUTH 09:45
PROVIDERS: ADMIT Internal Medicine; ATTEND Internal Medicine
DX: H81.10 Benign paroxysmal vertigo, unspecified ear (principal); Z68.41 Body mass index [BMI] 40.0-44.9, adult; E66.01 Morbid (severe) obesity due to excess calories; F32.9 Major depressive disorder, single episode, unspecified; F41.9 Anxiety disorder, unspecified; G47.33 Obstructive sleep apnea (adult) (pediatric); G62.9 Polyneuropathy, unspecified; J44.9 Chronic obstructive pulmonary disease, unspecified
CPT/HCPCS: 36415; 80053; 85027; J8597; 97110; 97112; 97116; 97530; 97535

== ENCOUNTER → 2019-07-13 | Outpatient (CLI) | payer MEDICARE ==
[~2019-07-13] MED LIST changes: +MECL-75 PO; -MECL25TA3 PO; +METO-239 PO; +OXYB5TAB10 PO; -OXYB5TAB7 PO; +QUIN324C PO
--- NOTE | 2019-07-13 10:21 | RAD ---
MR#: [id number] Date of Study: 07/13/2019 Ordering Physician: NAVA MONTANO, Referring Physician: NAVA MONTANO, Tech: An Alejandro, Martha,[facility] APPROVED REPORT Patient Location: OUT-PATIENT Laterality:Bilateral Indications Grayscale images of the bilateral common carotid, external and internal carotid vessels reveals mild diffuse plaque without any focal obstructive lesion noted. Spectral waveforms are grossly unremarkab le. Velocities are elevated in the right internal carotid artery suggestive of moderate stenosis bas ed on velocity criteria. The left common carotid also has mildly elevated velocities suggestive of m oderate stenosis. Bilateral vertebral velocities are antegrade. Bilateral ICA to CCA ratios are unr emarkable. Risk Factors Hypertension: PAD Doppler Spectral Velocity Analysis Right Left pCCA 101/18 cm/spCCA 165/30 cm/s mCCA 136/24 cm/smCCA 130/22 cm/s dCCA 99/24 cm/sdCCA 118/20 cm/s ECA 178/24 cm/sECA 128/11 cm/s pICA 144/35 cm/spICA 91/27 cm/s Ivan 105/28 cm/smICA 88/30 cm/s dICA 118/32 cm/sdICA 108/36 cm/s Vert. 81/23 cm/sVert. 59/18 cm/s ICA/CCA 1.06ICA/CCA 0.65 Critical Notification Critical Value: No <Conclusion> 1. Moderate bilateral carotid occlusive disease without any focal significant obstruction noted. Signed by : Nava Montano, Electronically Approved : 07/13/2019 10:21:05
== END | disposition home or self-care (01) ==
LOC: US 08:36
PROVIDERS: ATTEND Internal Medicine Cardiovascular Disease
DX: I65.23 Occlusion and stenosis of bilateral carotid arteries (principal)
CPT/HCPCS: 93880

== ENCOUNTER → 2019-07-30 | Outpatient (CLI) | payer MEDICARE ==
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
== END | disposition home or self-care (01) ==
LOC: PMG 11:05
PROVIDERS: ATTEND Physician Assistant
DX: M51.37 Other intervertebral disc degeneration, lumbosacral region (principal); M48.07 Spinal stenosis, lumbosacral region; M25.78 Osteophyte, vertebrae; M47.816 Spondylosis without myelopathy or radiculopathy, lumbar region
CPT/HCPCS: 72100

== ENCOUNTER 2019-08-13 17:42 | Inpatient (IN) | payer MEDICARE ==
[~2019-08-13] VITALS: Ht 170.2 cm; Wt 112.2 kg
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
[2019-08-13] MEDS: HYDROcodon/IBUPROFEN 7.5/200MG 1 TAB TABLET PO ONE ×2 (18:00→18:35)
[2019-08-13] MEDS ORDERED: IV RINGERS SOLUTION,LACTATED 1,000 ML IV SCH (18:17)
[2019-08-13] MEDS ORDERED: ONDANSETRON PF 4 MG/2 ML VIAL. IVP ONE (18:30)
--- NOTE | 2019-08-13 18:50 | RAD ---
Exam: Left knee 4 views INDICATION: Fall TECHNIQUE: Frontal, lateral, oblique and sunrise views of the left knee. Comparisons: None FINDINGS: Severe tricompartmental osteoarthritic change. Bone mineralization is normal. No acute or healed fractures. Soft tissues are unremarkable. IMPRESSION: No acute osseous abnormality. Severe degenerative changes. Electronically signed by: Marycruz Kraft MD (08/13/2019 6:47 PM) [id number]
[2019-08-13 19:03] LABS: BASO # 0.1 x10^3/uL (0.0-0.2); BASO % 1 % (0-3); EOS % 0 % (0-3); HEMATOCRIT 41.4 % (36.0-47.0); HEMOGLOBIN 13.8 g/dL (12.0-15.5); LYMPH # 1.1 x10^3/uL (1.0-4.8); LYMPH % 8 % (24-48); MEAN CORPUSCULAR HEMOGLOBIN 28 pg (25-35); MEAN CORPUSCULAR HGB CONC 33 g/dL (31-37); MEAN CORPUSCULAR VOLUME 83 fL (79-100); MONO # 0.8 x10^3/uL (0.0-1.1); MONO % 6 % (0-9); NEUT # 11.7 x10^3uL (1.8-7.7); NEUT % 86 % (31-73); PLATELET COUNT 154 x10^3/uL (140-400); RED BLOOD COUNT 4.99 x10^6/uL (3.50-5.40); RED CELL DISTRIBUTION WIDTH 14.1 % (11.5-14.5); WHITE BLOOD COUNT 13.7 x10^3/uL (4.0-11.0)
[2019-08-13 19:10] LABS: CREATININE 0.6 mg/dL (0.6-1.0); GFR 99.7; POTASSIUM 4.3 mmol/L (3.5-5.1)
[2019-08-13] MEDS ORDERED: MORPHINE SULFATE 10 MG/ML SYRINGE. SQ ONE (19:15)
[2019-08-13 19:22] LABS: ALBUMIN 3.7 g/dL (3.4-5.0); DIRECT BILIRUBIN 0.3 mg/dL (0.0-0.2); TOTAL BILIRUBIN 1.8 mg/dL (0.2-1.0)
--- NOTE | 2019-08-13 19:27 | RAD ---
CT Head W/O Contrast: History: Reason: fall- near sycope while feeding her cat 'baby' Comparison: June 14, 2018 Axial images were obtained without contrast. There is mild diffuse atrophy. There is no mass effect, extraaxial fluid collections or hydrocephalus. There is no gross bleed. Mild, patchy periventricular and subcortical white matter hypoattenuation is seen. There is no focal loss of bañuelos-white matter distinction to suggest acute ischemia, i.e. stroke. There is a 3 cm polyp versus mucous retention cyst in the floor of the left maxillary sinus. Impression: No acute findings. End impression CT C-Spine without contrast: Clinical History: Reason: fall- near sycope while feeding her cat 'baby' / Spl. Instructions: / History: Technique: Axial helical images of the cervical spine were obtained without contrast, axial coronal and sagittal reconstruction was performed. Findings: There is no loss of vertebral body stature. There is no prevertebral soft tissue swelling. The vertebral bodies are well aligned. There is straightening of the normal cervical lordosis which can be positional or could be chronic. The C1-C2 relationship is normal. The visualized osseous structures appear normal. Evaluation of the central canal is limited without contrast. There is multiple posterior disc bulges resulting in flattening of the thecal sac. At C3-C4 and C4-C5 is complete effacement of CSF around the cord. There is mild impression on the anterior surface the cervical cord at C4-C5. At C5-C6 there is mild flattening of the cervical cord on the left to 5 mm due to large osteophytic ridge. This makes the patient susceptible possible cord contusion. There is moderate to marked narrowing of the neuroforamen bilaterally at this level. Impression: Marked degenerative changes of the cervical spine with multilevel central and neuroforaminal stenosis. No evidence of an acute fracture or malalignment. Clinical correlation is suggested. End impression PQRS Compliance Statement: One or more of the following individualized dose reduction techniques were utilized for this examination: 1. Automated exposure control 2. Adjustment of the mA and/or kV according to patient size 3. Use of iterative reconstruction technique Electronically signed by: Louis Carnes III, MD (08/13/2019 7:24 PM) [id number]
--- NOTE | 2019-08-13 19:35 | RAD ---
2 views right forearm and acute L series HISTORY: Pain status post fall Two-view right forearm: AP lateral views The visualized osseous structures appear normal. IMPRESSION: No acute findings. End impression Acute Abdominal Series: Technique: PA view of the chest and supine and upright views of the abdomen were obtained. History: Pain. Comparison: None. Findings: The heart and pulmonary vessels appear normal. There is bilateral perihilar linear opacities.. Deformity right chest wall is likely old rib fractures. There is air scattered throughout portions of the colon. There is a paucity small bowel gas. There is no free air. Impression: 1. Normal bowel gas pattern. 2. Bilateral perihilar linear opacities could be mild CHF or atypical pneumonia. Electronically signed by: Louis Carnes III, MD (08/13/2019 7:32 PM) [id number]
[2019-08-13] MEDS ORDERED: ASPIRIN 325 MG TABLET PO ONE ×2 (20:00→20:15)
[2019-08-13 20:06] LABS: BILIRUBIN,URINE NEG (NEG); CLARITY,URINE CLEAR; COLOR,URINE AMBER; GLUCOSE,URINE NEG (NEG); NITRITE,URINE NEG (NEG); RBC,URINE 0 /HPF (0-2); UROBILINOGEN,URINE 0.2 mg/dL (0.2 mg/dL)
[2019-08-13 20:07] LABS: BACTERIA,URINE FEW /HPF (0-FEW); BARBITURATES NEG (NEG); BENZODIAZEPINES NEG (NEG); CANNABINOIDS NEG (NEG); COCAINE NEG (NEG); METHADONE NEG (NEG); OPIATES NEG (NEG); PHENCYCLIDINE NEG (NEG); SQUAMOUS EPITHELIAL CELL,UR MOD /LPF
[2019-08-13 20:08] LABS: AMPHETAMINE/METHAMPHETAMINE NEG (NEG)
[2019-08-13] MEDS ORDERED: ACETAMINOPHEN 325 MG TABLET PO PRN (20:15)
[2019-08-13] MEDS: NITROGLYCERIN OINT 1 GM PACKET. TP SCH (20:17)
[2019-08-13] MEDS ORDERED: ONDANSETRON PF 4 MG/2 ML VIAL. IVP PRN (20:20)
[2019-08-13] MEDS ORDERED: ENOXAPARIN ** NOTE DOSE ** SYRINGE SQ ONE (21:00)
[2019-08-13 21:36] VITALS: BP 178/85
[2019-08-13 21:37] VITALS: BP 160/80
[2019-08-13 21:38] VITALS: BP 178/102
[2019-08-13 23:00] VITALS: BP 151/67
[2019-08-13] MEDS ORDERED: MECLIZINE 12.5 MG TABLET. PO PRN (23:00)
[2019-08-13] MEDS: traMADol 50 MG TABLET PO PRN (23:14)
[2019-08-13] MEDS: OXYBUTYNIN CHLORIDE 5 MG TABLET PO SCH (23:14)
[2019-08-14 03:21] LABS: BASO # 0.2 x10^3/uL (0.0-0.2); BASO % 1 % (0-3); EOS # 0.2 x10^3/uL (0.0-0.7); EOS % 1 % (0-3); HEMATOCRIT 38.9 % (36.0-47.0); HEMOGLOBIN 12.9 g/dL (12.0-15.5); LYMPH % 15 % (24-48); MEAN CORPUSCULAR HEMOGLOBIN 28 pg (25-35); MEAN CORPUSCULAR HGB CONC 33 g/dL (31-37); MEAN CORPUSCULAR VOLUME 83 fL (79-100); MONO % 7 % (0-9); NEUT # 10.4 x10^3uL (1.8-7.7); NEUT % 75 % (31-73); PLATELET COUNT 160 x10^3/uL (140-400); RED CELL DISTRIBUTION WIDTH 14.2 % (11.5-14.5); WHITE BLOOD COUNT 13.8 x10^3/uL (4.0-11.0)
[2019-08-14 03:35] LABS: CALCIUM 8.4 mg/dL (8.5-10.1); CREATININE 0.6 mg/dL (0.6-1.0); GFR 99.7; POTASSIUM 3.7 mmol/L (3.5-5.1)
[2019-08-14] MEDS: IPRATRPIUM/ALBUTEROL 0.5/2.5MG 3 ML NEBU. NEB SCH ×2 (03:43→11:26)
[2019-08-14 05:53] VITALS: BP 134/69
[2019-08-14] MEDS ORDERED: ASPIRIN 81 MG PO SCH (08:00)
[2019-08-14] MEDS: ASPIRIN ENTERIC COATED 81 MG TABLET.DR. PO SCH (08:47)
[2019-08-14] MEDS: CHOLECALCIFEROL (VITAMIN D3) 1,000 UNIT TABLET PO SCH (08:47)
[2019-08-14] MEDS: POTASSIUM CHLORIDE 10 MEQ TABLET.ER. PO SCH (08:48)
[2019-08-14] MEDS: METOPROLOL SUCC 24HR ER 25 MG TAB.ER.24H. PO SCH (08:48)
[2019-08-14] MEDS: OXYBUTYNIN CHLORIDE 5 MG TABLET PO SCH ×2 (08:49→21:20)
[2019-08-14] MEDS: CITALOPRAM 20 MG TABLET. PO SCH (08:49)
[2019-08-14] MEDS: NITROGLYCERIN OINT 1 GM PACKET. TP SCH ×2 (09:00→14:00)
[2019-08-14] MEDS ORDERED: ENOXAPARIN ** NOTE DOSE ** SYRINGE SQ SCH (09:00)
--- NOTE | 2019-08-14 10:18 | RAD ---
Bilateral lower extremity venous duplex Doppler ultrasound HISTORY: Bilateral leg edema. FINDINGS: No DVT evident by grayscale imaging with compressibility, patent color Doppler blood flow and augmentation of blood flow the common femoral veins, profunda femoral veins, superficial femoral veins and popliteal veins. There is limited visualization of the deep calf veins with grossly patent color Doppler blood flow the posterior tibial peroneal veins without thrombosis evident. IMPRESSION: Negative bilateral legs for DVT. Carotid artery duplex Doppler ultrasound Stenosis calculations for CT, MR, and conventional angiography are based upon measurements of the distal ICA diameter in accordance with the NASCET methodology. Stenosis calculations for carotid ultrasound studies are derived from validated velocity criteria which are known to correlate with the NASCET methodology. HISTORY: Dizziness. Syncope. Lightheaded. FINDINGS: Right carotid artery demonstrates mild echogenic nonshadowing flat plaquing at the bifurcation without significant stenosis by grayscale and color Doppler sonography with an estimated narrowing of no more than 10 percent. External carotid artery peak systolic velocity 163 cm/s without visible stenosis is may be due to mild vessel tortuosity. ICA peak systolic velocity 110 cm/s, end-diastolic velocity 20 cm/s. ICA/CC velocity ratio 1.0. Right vertebral artery antegrade blood flow. Left carotid artery demonstrates minimal subintimal hypoechoic flat soft plaque at the bifurcation without measurable stenosis by grayscale and color Doppler sonography. ICA peak systolic velocity 109 cm/s, end-diastolic velocity 24 cm/s. ICA/CC velocity ratio 1.0. Left vertebral artery antegrade blood flow. IMPRESSION: Mild plaquing of the cervical carotid arteries without evidence of significant stenosis or occlusion. Bilateral vertebral artery antegrade blood flow. Electronically signed by: Malachi Mehta MD (08/14/2019 10:15 AM) [id number]
[2019-08-14 11:33] VITALS: BP 125/71
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
[2019-08-14 15:22] VITALS: BP 129/70
[2019-08-14] MEDS ORDERED: IPRATRPIUM/ALBUTEROL 0.5/2.5MG 3 ML NEBU. NEB PRN (15:45)
[2019-08-14] MEDS ORDERED: CONTRAST GIVEN MC PRN (16:00)
[2019-08-14] MEDS ORDERED: IOHEXOL 350 MG/ML 100 ML VIAL. IV ONE (16:00)
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
--- NOTE | 2019-08-14 16:37 | RAD ---
PQRS Compliance Statement: One or more of the following individualized dose reduction techniques were utilized for this examination: 1. Automated exposure control 2. Adjustment of the mA and/or kV according to patient size 3. Use of iterative reconstruction technique CT CHEST WITH CONTRAST, PULMONARY ANGIOGRAM History: Reason: syncopal episode and elevated D Dimer / Comparison: None. Technique: Helical CT of the chest was performed after the administration of contrast. Great cc of Omnipaque 350 intravenous contrast according to PE protocol. Axial and coronal reconstructions were obtained. 3-D MIP images were constructed to better evaluate the pulmonary arteries. Findings: Pulmonary arteries are adequately opacified. There is no evidence of pulmonary embolism. The pulmonary trunk is dilated, can be seen secondary to pulmonary arterial hypertension. There is no thoracic aortic dissection. There are subcentimeter mediastinal lymph nodes. No adenopathy in the chest is seen. There is mitral annular calcification. There is left atrial enlargement. There is mild symmetrically. There is no pericardial effusion. There is no pleural effusion. The central airways are patent. There is mosaic attenuation pattern of groundglass opacities most apparent in the bilateral lower lobes. Linear opacity in the lingula and in the posterior right upper lobe is probably discoid atelectasis or scarring. There is otherwise no lung consolidation. The visualized upper abdomen is unremarkable. Degenerative spondylosis of the thoracic spine. There are old right posterior lateral rib fractures. IMPRESSION: 1. There is no CT evidence of pulmonary embolus. 2. Pulmonary trunk is dilated, can be secondary to pulmonary arterial hypertension. 3. There are basilar predominant groundglass opacities with mosaic attenuation pattern. Common etiology is small airways disease. 4. There is discoid atelectasis or scarring in the posterior right upper lobe and in the lingula. Electronically signed by: Jordy Cortez MD (08/14/2019 4:34 PM) [facility]
--- NOTE | 2019-08-14 18:42 | PN ---
DATE: 08/14/2019 SUBJECTIVE: The patient was sitting comfortably in her chair, in no apparent respiratory distress. She has continued to complain of pain in both knee joints and her back. She also apparently orthostatic. PHYSICAL EXAMINATION: GENERAL: When I examined her, she looked well and was clearly in no apparent respiratory distress. No pallor, jaundice, cyanosis or thyromegaly. No jugular venous distention. No limb edema. VITAL SIGNS: Her heart rate was 66, blood pressure was 125/71, her temperature was 98.1, respiratory rate was 20, and oxygen saturation was 92%. HEAD, EYES, EARS, NOSE AND THROAT: Showed normocephalic, atraumatic. NECK: Supple. HEART: Showed normal first and second heart sounds. No gallop or murmur. CHEST: Clear to auscultation. No crepitation or rhonchi. ABDOMEN: Distended, soft, nontender. NEUROLOGIC: She was grossly intact. Her intake over the last 24 hours and output incompletely recorded. LABORATORY DATA: Showed a white cell count of 13,800, hemoglobin 12, hematocrit 38, MCV 83, and platelet count of 160,000. Her chemistry this morning showed a serum sodium 139, potassium 3.7, chloride 102, bicarbonate 30, anion gap of 7, BUN 17, creatinine 0.6, estimated GFR was 99 mL per minute. Her glucose was 104, calcium was 8.4. She has 3 sets of cardiac enzymes, showed troponin to be 0.338, 0.357 and 0.291. Her TSH was slightly low at 0.339. Her fasting lipid profile showed serum triglycerides ____, total cholesterol 216, LDL cholesterol 130, VLDL was 10, HDL cholesterol was 76 and the ratio was 2. My plan is to arrange for her to have a CT chest angiogram. We did consult the physical and occupational therapy to evaluate and if she continued obviously to be weak she might require halfway facility for further rehabilitation. She continued to complain of pain, might have to arrange for a total body bone scan to see if there is any fracture. DANAY MONTENEGRO MD DR: SONY/rob JOB#: [id number] / [id number]
[2019-08-14 19:00] VITALS: BP 125/51
[2019-08-14] MEDS: quiNINE 324 MG CAPSULE. PO SCH ×2 (21:00)
[2019-08-14] MEDS: traMADol 50 MG TABLET PO PRN (21:39)
[2019-08-14 23:30] VITALS: BP 143/70
[2019-08-15 06:10] LABS: HEMATOCRIT 38.9 % (36.0-47.0); RED BLOOD COUNT 4.69 x10^6/uL (3.50-5.40); RED CELL DISTRIBUTION WIDTH 14.3 % (11.5-14.5); WHITE BLOOD COUNT 8.6 x10^3/uL (4.0-11.0)
[2019-08-15 06:22] VITALS: BP_SYST 140; BP_SYST 153; BP_DIAS 71; BP_DIAS 75
[2019-08-15 06:27] LABS: ALBUMIN 3.1 g/dL (3.4-5.0); ALBUMIN/GLOBULIN RATIO 0.9 (1.0-1.7); CALCIUM 8.3 mg/dL (8.5-10.1); CREATININE 0.5 mg/dL (0.6-1.0); GFR 123.1; POTASSIUM 4.2 mmol/L (3.5-5.1); TOTAL BILIRUBIN 1.1 mg/dL (0.2-1.0); TOTAL PROTEIN 6.6 g/dL (6.4-8.2)
[2019-08-15] MEDS: CHOLECALCIFEROL (VITAMIN D3) 1,000 UNIT TABLET PO SCH (08:24)
[2019-08-15] MEDS: OXYBUTYNIN CHLORIDE 5 MG TABLET PO SCH ×2 (08:24→20:03)
[2019-08-15] MEDS: CITALOPRAM 20 MG TABLET. PO SCH (08:24)
[2019-08-15] MEDS: ASPIRIN ENTERIC COATED 81 MG TABLET.DR. PO SCH (08:24)
[2019-08-15] MEDS: METOPROLOL SUCC 24HR ER 25 MG TAB.ER.24H. PO SCH (08:24)
[2019-08-15] MEDS: POTASSIUM CHLORIDE 10 MEQ TABLET.ER. PO SCH (08:24)
[2019-08-15] MEDS: ENOXAPARIN 40 MG/0.4 ML SYRINGE. SQ SCH (08:25)
--- NOTE | 2019-08-15 10:50 | PN ---
DATE: 08/15/2019 SUBJECTIVE: The patient is resting slightly propped up in bed, no apparent distress. She apparently has nausea and vomiting after she has eaten breakfast, but denied any other complaints, in particular denied any cough, phlegm. Denied any chest pain or shortness of breath. Denied any fever, chills, or rigors. PHYSICAL EXAMINATION: GENERAL: When I examined her this morning, she looked well and was clearly in no apparent respiratory distress. No pallor, jaundice, cyanosis or thyromegaly. No jugular venous distention. No limb edema. VITAL SIGNS: Her heart rate was 71, blood pressure 153/75, her temperature was 96.1, respiratory rate was 18 and oxygen saturation was 94% on 2 liters of oxygen. HEAD, EYES, EARS, NOSE AND THROAT: Showed normocephalic, atraumatic. NECK: Supple. HEART: Showed normal first and second heart sounds with no gallop, rub or murmur. CHEST: Clear to auscultation. No crepitation or rhonchi. ABDOMEN: Distended, soft, nontender. No guarding or rigidity. No organomegaly. All hernial orifice intact. Bowel sounds normal. NEUROLOGIC: She is awake, alert, responding appropriately. All cranial nerves intact. She moves extremities without difficulty. She ambulates without assistance or assistive devices. Her intake and output were incompletely recorded. LABORATORY DATA: As of this morning, her white cell count is 8600, hemoglobin 13, hematocrit 38, MCV was 83 and platelet count of 128,000. Her chemistry this morning showed a serum sodium of 138, potassium 4.2, chloride 102, bicarbonate 32, anion gap of 4, BUN 16, creatinine 0.5, estimated GFR was 123 mL per minute. Her glucose 100, calcium was 8.3. Total bilirubin was 1.1. However, AST, ALT, alkaline phosphatase were normal. Total protein was 6.6, albumin 3.1. Her prothrombin time, INR normal, aPTT was 37 and D-dimer was high at 3.57. Urinalysis was essentially unremarkable and toxic screen was negative. She did have a CT angio of the chest which showed that there is no CT evidence of pulmonary embolism; however, the pulmonary trunk is dilated, can be secondary to pulmonary arterial hypertension. There are basilar predominant ground glass opacities and with mosaic attenuation pattern, common etiology is small airways disease. There is also discoid atelectasis or scarring at the posterior right upper lobe and in the lingula. ASSESSMENT: 1. Syncope and fall without any obvious injury. 2. The patient has had elevated D-dimer; however, CT scan showed no evidence of pulmonary embolism. 3. Other medical problems include: A. Hypertension. B. Hyperlipidemia. C. Chronic obstructive pulmonary disease. D. Morbid obesity, obstructive sleep apnea. E. Anxiety and depression. 4. The CT scan revealed ground glass opacities in both lung bases and therefore, the patient was brought in with droplet precaution. We tested her for COVID-19, the result of which is still pending at the time of this dictation. DANAY MONTENEGRO MD DR: SONY/rob JOB#: [id number] / [id number]
[2019-08-15 11:00] VITALS: BP 142/73
[2019-08-15] MEDS: ONDANSETRON PF 4 MG/2 ML VIAL. IVP PRN (12:15)
[2019-08-15 15:00] VITALS: BP 137/76
[2019-08-15] MEDS: traMADol 50 MG TABLET PO PRN ×2 (15:52→20:03)
[2019-08-15] MEDS: NYSTATIN TOPICAL POWDER 15GM BOTTLE. TP SCH ×2 (17:15→20:05)
[2019-08-15 19:45] VITALS: BP 160/76
[2019-08-15] MEDS: quiNINE 324 MG CAPSULE. PO SCH (20:05)
[2019-08-15 23:26] VITALS: BP 143/57
[2019-08-16] MEDS: traMADol 50 MG TABLET PO PRN ×4 (03:16→21:30)
--- NOTE | 2019-08-16 07:14 | EKG ---
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
[2019-08-16] MEDS: ASPIRIN ENTERIC COATED 81 MG TABLET.DR. PO SCH (08:00)
[2019-08-16] MEDS: POTASSIUM CHLORIDE 10 MEQ TABLET.ER. PO SCH (08:00)
[2019-08-16] MEDS: METOPROLOL SUCC 24HR ER 25 MG TAB.ER.24H. PO SCH (08:06)
[2019-08-16] MEDS: CHOLECALCIFEROL (VITAMIN D3) 1,000 UNIT TABLET PO SCH (08:06)
[2019-08-16] MEDS: CITALOPRAM 20 MG TABLET. PO SCH (08:06)
[2019-08-16] MEDS: OXYBUTYNIN CHLORIDE 5 MG TABLET PO SCH ×2 (08:06→20:39)
[2019-08-16] MEDS: NYSTATIN TOPICAL POWDER 15GM BOTTLE. TP SCH ×2 (08:06→20:38)
[2019-08-16] MEDS: ENOXAPARIN 40 MG/0.4 ML SYRINGE. SQ SCH (08:07)
[2019-08-16 08:18] VITALS: BP 133/65
--- OUTSIDE RECORDS SUMMARY | 2019-08-16 08:26 | XMS REPORT | Patient Health Record ---
Author Author [facility] Organization [facility] Address Unknown Phone Unavailable Care Team Providers Care Horticultural Specialty Grower Name Role Phone AMIRA YEBOAH Unavailable [phone] NAVA ONTIVEROS Unavailable [phone] SIOBHAN DE LUNA Unavailable [phone] MILLI GONZALEZ Unavailable [phone] EARLE PEREZ Unavailable [phone] Rupert Welch Unavailable [phone] BEATRIZ URIARTE Unavailable [phone] PROBLEMS Type Condition ICD9-CM Code CNR84-NP Code Onset Dates Condition S tatus SNOMED Code Notes Problem Encounter for long-term (current) use of medications V58.69 Active (null) Problem Muscle cramps 729.82 Active (null) Problem URI (upper respiratory infection) 465.9 Active (null) Problem Osteoarthritis of left knee 715.96 Active (nul l) Problem Wheezing on auscultation 786.07 Active (null) Problem Peripheral arterial disease I73.9 Active 3999 19566 Problem Lipoma of arm 214.8 Active 285171538 Problem RLS (restless legs syndrome) G25.81 Active 329 48370 Problem Viral URI 465.9 Active 16638360 Problem Hypertensive crisis 401.9 Active (null) Problem Left anterior knee pain 719.46 Active (null) Problem Osteoarthritis 715.90 Active (null) Problem Medication adverse effect 995.20 Active (null) Problem Essential (primary) hypertension I10 Active 27210602 Problem Drug dependence 304.90 Active (null) Problem CAP (community acquired pneumonia) J18.9 Activ e 776601710 Problem Dyspnea R06.00 Active 066047180 Problem Thyromegaly E04.9 Active 9517331 Problem Hospital discharge follow-up Z09 Active 308 920661 Problem 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 (null) Problem Uncontrolled stage 2 hypertension 401.9 Active (null) Problem Dyspnea 786.09 Active (null) Problem Substance addiction 304.90 Active (null) Problem Chest pain 786.50 Active (null) Problem Depression, unspecified depression type F32.9 Active 65888185 Problem Primary osteoarthritis of right knee M17.11 Act lai 885776540 Problem Stress incontinence of urine N39.3 Active 222 48972 Problem Hypertension, uncontrolled I10 Active 49585 003 Problem OAB (overactive bladder) N32.81 Active 3969552 02 Problem Bilateral hand numbness R20.0 Active 59787405 4 Problem Primary osteoarthritis of both knees M17.0 Act lai 996845844 Problem Bronchitis J40 Active 94821970 Problem Osteoarthritis of left knee M17.9 Active 2398 37560 Problem URI (upper respiratory infection) J06.9 Active 08570361 Problem COPD (chronic obstructive pulmonary disease) J44.9 Active 68893483 Problem Aortic stenosis I35.0 Active 94783292 Problem Median neuropathy G56.10 Active 349109023 Problem Hypertensive urgency I16.0 Active 416212909 Problem Urinary incontinence, unspecified type R32 A ctive 648956957 Problem Diastolic CHF I50.30 Active 447345833 Problem Fall due to stumbling E885.9 Active 302223775 Problem HTN (hypertension) I10 Active 33428491 Problem Elevated BP 796.2 Active 53161110 Problem Carotid atherosclerosis I65.29 Active 27456845 4 Problem Hypertension 401.9 Active 38516080 Problem Aortic stenosis Q25.3 Active 232140721 Problem Depression with anxiety 300.4 Active 73477772 6 Problem Gait instability R26.81 Active 849320427 Problem HTN (hypertension) I10 Active 73999336 Problem MDD (major depressive disorder), recurrent episode, mild F33.0 Active 324875910 Problem Neuropathy of right foot G57.91 Active 2692822 00 Problem Morbid obesity E66.01 Active 863524719 Problem BMI 38.0-38.9,adult Z68.38 Active 037126497 Problem Urinary incontinence R32 Active 820904635 Problem Anxiety F41.9 Active 46027272 Problem Afib I48.91 Active 71389662 Problem Screening V82.9 Active 174939987 Problem CAD (coronary artery disease) I25.10 Active 53 386978 Problem MDD (major depressive disorder), recurrent episode, modera te F33.1 Active 856173705 Problem Neuropathy of left foot G57.92 Active 44700018 9090753 Problem Morbid obesity with BMI of 45.0-49.9, adult 278.01 Active 087705359 ALLERGIES Allergen (clinical drug ingredient) Drug/Non Drug Allergy do cumented on EMR Reaction Allergy Type Onset Date Status penicillin Unknown Drug Allergy Active ENCOUNTERS from 1950 to 2019-08-16 Encounter Location Date Provider Diagnosis [facility] [address] [place] [address] Oct, [place]AH [facility] [place] [facility] [address] [place] [address] Sep, NAVA ONTIVEROS [facility] [place] [facility] [address] [place] [address] July, AMIRA YEBOAH Radicular pain of right lowe r extremity M54.10 ; BMI 38.0- 38.9,adult Z68.38 ; Radicular pain of left lower extremity M54.10 ; Neuropathy of right foot G57.91 ; Neuropathy of left foot G57.92 ; CAD (coronary artery disease) I25.10 ; HTN (hypertension) I10 ; Urinary incontinence R32 ; RLS (restless legs syndrome) G25.81 ; OAB (overactive bladder) N32.81 ; Lumbar back pain M54.5 ; Morbid obesity E66.01 and MDD (major depressive disorder), recurrent episode, moderate F33.1 [facility] [address] [place], [place] [phone] Jun, NAVA ONTIVEROS [facility] [place] [facility] [address] [place] [address] Feb, AMIRA YEBOAH Myalgia M79.10 ; HTN (hypert ension) I10 ; Anxiety F41.9 ; Morbid obesity E66.01 ; OAB (overactive bladder) N32.81 ; Diastolic CHF I50.30 ; MDD (major depressive disorder), recurrent episode, mild F33.0 and RLS (restless legs syndrome) G25.81 [facility] [address] [place] [address] Feb, AMIRA YEBOAH RLS (restless legs syndrome) G25.81 [facility] [address] [place] [address] Feb, AMIRALINDSEY YEBOAH HTN (hypertension) I10 ; Anx iety F41.9 ; Morbid obesity E66.01 ; OAB (overactive bladder) N32.81 ; Diastolic CHF I50.30 ; MDD (major depressive disorder), recurrent episode, mild F33.0 and RLS (restless legs syndrome) G25.81 [facility] [address] [place] [address] Feb, AMIRALINDSEY YEBOAH [facility] [address] [place] [address] Nov, AMIRALINDSEY YEBOAH HTN (hypertension) I10 ; Anx iety F41.9 ; Morbid obesity E66.01 ; OAB (overactive bladder) N32.81 ; Thoracic back pain M54.6 and Diastolic CHF I50.30 [facility] [address] [place] [address] Aug, AMIRALINDSEY YEBOAH HTN (hypertension) I10 ; Rig ht shoulder pain M25.511 ; Anxiety F41.9 ; Morbid obesity E66.01 and OAB (overactive bladder) N32.81 [facility] [address] [place] [address] Aug, AMIRALINDSEY YEBOAH Anxiety F41.9 [facility] [address] [place] [address] July, AMIRALINDSEY YEBOAH Dysuria R30.0 [facility] [address] [place] [address] July, AMIRALINDSEY YEBOAH [facility] [address] [place] [address] July, MILLI GONZALEZ Suture check Z48.89 [facility] [address] [place] [address] July, AMIRA EDILIA Sebaceous cyst L72.3 ; Hyper tension I10 ; Dysuria R30.0 ; OAB (overactive bladder) N32.81 ; Urinary frequency R35.0 ; Morbid obesity E66.01 ; Primary osteoarthritis of right knee M17.11 and Osteoarthritis of left knee M17.9 [facility] [address] [place] [address] July, AMIRA EDILIA Sebaceous cyst L72.3 and Hyp ertension I10 [facility] [address] [place] [address] July, AMIRA YEBOAH Diastolic CHF I50.30 [facility] [address] [place] [address] July, NAVA CEDILLOPATI Diastolic CHF I50.30 ; Morbi d obesity E66.01 ; HTN (hypertension) I10 and Peripheral arterial disease I73.9 [facility] [address] [place] [address] July, AMIRA EDILIA [facility] [address] [place] [address] July, AMIRA EDILIA URI (upper respiratory infec tion) J06.9 ; Hypertension I10 ; COPD (chronic obstructive pulmonary disease) J44.9 ; OAB (overactive bladder) N32.81 ; Sebaceous cyst L72.3 and Gait instability R26.81 [facility] [address] [place] [address] Jun, AMIRA EDILIA [facility] [address] [place] [address] Jun, AMIRA EDILIA [facility] [address] [place] [address] Jun, AMIRA EDILIA [facility] [address] [place], [place] [phone] Jun, NAVA ONTIVEROS [facility] [address] [place] [address] Jun, AMIRA YEBOAH COPD (chronic obstructive pu lmonary disease) J44.9 [facility] [address] [place] [address] Jun, AMIRA YEBOAH [facility] [address] [place] [address] Jun, AMIRA YEBOAH BPV (benign positional verti go) H81.10 ; Hypertension I10 ; COPD (chronic obstructive pulmonary disease) J44.9 ; Aortic stenosis I35.0 ; Morbid obesity E66.01 ; LVH (left ventricular hypertrophy) I51.7 ; Hospital discharge follow-up Z09 ; OAB (overactive bladder) N32.81 ; Anxiety F41.9 ; MARCO ANTONIO (generalized anxiety disorder) F41.1 ; RLS (restless legs syndrome) G25.81 ; Sebaceous cyst L72.3 ; Carotid atherosclerosis I65.29 and Pneumococcal vaccination administered at current visit Z23 [facility] [address] [place] [address] Jun, AMIRA YEBOAH [facility] [address] [place] [address] Jun, AMIRA YEBOAH [facility] [address] [place] [address] Jun, AMIRA YEBOAH [facility] [address] [place] [address] Mar, AMIRA YEBOAH [facility] [address] [place] [address] Feb, NAVA ONTIVEROS Aortic stenosis Q25.3 ; Martinez tolic CHF I50.30 ; Morbid obesity E66.01 and HTN (hypertension) I10 [facility] [address] [place] [address] Feb, AMIRA YEBOAH Obstructive sleep apnea G47. 33 ; Hypertension I10 ; Aortic stenosis I35.0 ; SOB (shortness of breath) R06.02 ; Hospital discharge follow-up Z09 ; Radicular pain in left arm M79.2 and Radicular pain in right arm M79.2 [facility] [address] [place] [address] Feb, AMIRA EDILIA [facility] [address] [place] [address] Jan, AMIRA EDILIA [facility] [address] [facility] [address] [place] [phone] Dec, NAVA ONTIVEROS [facility] [address] [place] [address] Dec, MILLI LISA Immunization due Z23 [facility] [address] [place] [address] Nov, AMIRA YEBOAH Urinary incontinence R32 [facility] [address] [place] [address] Nov, AMIRA YEBOAH Vertigo R42 ; Dizziness R42 ; HTN (hypertension) I10 ; Chest pain R07.9 and Urinary incontinence R32 [facility] [address] [place] [address] Nov, AMIRA EDILIA [facility] [address] [facility] [address] [place] [phone] Nov, NAVA ONTIVEROS [facility] [address] [place] [address] Oct, AMIRA YEBOAH Hypertensive urgency I16.0 ; Aortic stenosis I35.0 ; Morbid obesity E66.01 ; LVH (left ventricular hypertrophy) I51.7 ; Urinary incontinence, unspecified type R32 and Nontraumatic hematoma of soft tissue M79.81 [facility] [address] [place], [place] [phone] Oct, NAVA ONTIVEROS Aortic stenosis I35. 0 [facility] [address] [place] [phone] Oct, NAVA ONTIVEROS Aortic stenosis I35. 0 [facility] [address] [place] [phone] Oct, NAVA ONTIVEROS [facility] [address] [place] [phone] Oct, NAVA ONTIVEROS [facility] [address] [place] [address] Oct, NAVA ONTIVEROS Dyspnea R06.00 [facility] [address] [place] [address] Oct, AMIRA EDILIA Aortic stenosis I35.0 ; Peda l edema R60.0 ; Hypertension I10 ; Heart murmur R01.1 ; Dyspnea R06.00 ; Morbid obesity E66.01 ; LVH (left ventricular hypertrophy) I51.7 ; Median neuropathy G56.10 ; COPD (chronic obstructive pulmonary disease) J44.9 and Anxiety F41.9 [facility] [address] [place] [address] Sep, AMIRA EDILIA Pedal edema R60.0 ; Hyperten karsten I10 ; Heart murmur R01.1 ; Dyspnea R06.00 ; Morbid obesity E66.01 and Urinary incontinence R32 [facility] [address] [place] [address] Jun, MILLI GONZALEZ COPD (chronic obstructive pu lmonary disease) J44.9 ; OAB (overactive bladder) N32.81 and Primary osteoarthritis of right knee M17.11 [facility] [address] [place] [address] Apr, MILLI GONZALEZ Hypertension, uncontrolled I 10 ; Primary osteoarthritis of right knee M17.11 ; Bilateral hand numbness R20.0 and OAB (overactive bladder) N32.81 [facility] [address] [place], [place] [id number] Apr, EARLE PEREZ knee pain, right M25 .561 and Primary osteoarthritis of both knees M17.0 [facility] [address] [place], [place] [phone] Apr, MILLI GONZALEZ [facility] [place] [address] [place] [address] Mar, MILLI GONZALEZ Hypertension, uncontrolled I 10 ; COPD (chronic obstructive pulmonary disease) J44.9 ; Primary osteoarthritis of right knee M17.11 ; MARCO ANTONIO (generalized anxiety disorder) F41.1 ; MDD (major depressive disorder) F32.9 ; OAB (overactive bladder) N32.81 ; Pedal edema R60.0 and SOB (shortness of breath) R06.02 [facility] [address] [place] [address] Sep, AMIRA YEBOAH Hypertension, uncontrolled I 10 ; COPD (chronic obstructive pulmonary disease) J44.9 ; Primary osteoarthritis of right knee M17.11 ; MARCO ANTONIO (generalized anxiety disorder) F41.1 ; MDD (major depressive disorder) F32.9 ; OAB (overactive bladder) N32.81 and Pedal edema R60.0 [facility] [address] [place] [address] July, MILLI GONZALEZ [facility] [address] [place] [address] Jun, MILLI GONZALEZ Dysuria R30.0 ; COPD (chroni c obstructive pulmonary disease) J44.9 ; Hypertension I10 ; Stress incontinence of urine N39.3 ; Depression, unspecified depression type F32.9 and Primary osteoarthritis of right knee M17.11 [facility] [address] [place] [address] Oct, MILLI GONZALEZ [facility] [address] [place] [address] Oct, MILLI GONZALEZ URI (upper respiratory infec tion) J06.9 ; COPD (chronic obstructive pulmonary disease) J44.9 and Bronchitis J40 [facility] [address] [place] [address] Oct, zzzPATREVOR zfredrickMARTIS Right knee pain M25.561 ; Hy pertensive chronic kidney disease with stage 1 through stage 4 chronic kidney disease, or unspecified chronic kidney disease I12.9 and MARCO ANTONIO (generalized anxiety disorder) F41.1 [facility] [address] [place] [address] Aug, zzzPAUL zzzMARTIS Fatigue R53.83 ; Status post fine needle aspiration Z98.89 ; Follicular adenoma of thyroid gland D34 ; Hypertensive crisis I10 ; Paresthesia R20.2 ; Vitamin D deficiency E55.9 and History of prediabetes Z87.898 [facility] [address] [place] [phone] July, BEATRIZ URIARTE Thyroid mass E07.9 [facility] [address] [facility] [address] [place] [phone] Jun, BEATRIZ URIARTE Thyroid mass E07.9 [facility] [address] [place] [phone] Jun, BEATRIZ URIARTE Thyroid mass E07.9 [facility] [address] [place] [address] Jun, zzzPAUL zzzMARTIS [facility] [address] [place] [address] Jun, zzzPAUL zzzMARTIS [facility] [address] [place] [address] May, zzzPAUL zzzMARTIS [facility] [address] [place] [address] May, zzzPAUL zzzMARTIS [facility] [address] [place] [address] May, zzzPAUL zzzMARTIS MDD (major depressive disord er) F32.9 ; Restrictive lung disease J98.4 ; Hypertension I10 and Thyromegaly E04.9 [facility] [address] [place] [address] Apr, zzzPAUL zzzMARTIS [facility] [address] [place] [address] Apr, zzzPAUL zzzMARTIS [facility] [address] [place] [address] Apr, zzzPAUL zzzMARTIS [facility] [address] [place] [address] Apr, zzzPAUL zzzMARTIS [facility] [address] [place] [address] Apr, zzzPATREVOR katzMARTIS Hypertension I10 ; Osteoarth ritis of left knee M17.9 and Thyromegaly E04.9 [facility] [address] [place] [address] Mar, zJean-Pierre AbarcaTIS Hypertensive crisis I10 and Vitamin D deficiency E55.9 [facility] [address] [place] [address] Mar, Rupert Welch Hospital discharge follow-up Z09 and CAP (community acquired pneumonia) J18.9 [facility] [address] [place] [address] Feb, zzzPAUL zzzMARTIS [facility] [address] [place] [address] Feb, zzzPAUL zzzMARTIS [facility] [address] [place] [address] Feb, zzzPAUL zzzMARTIS [facility] [address] [place] [address] Feb, zJean-Pierre AbarcaTIS Dyspnea R06.00 and Essential (primary) hypertension I10 [facility] [address] [place] [address] Dec, Rupert mccallumChristopheTIS [facility] [address] [place] [address] Nov, Rupert Welch Uncontrolled stage 2 hyperte nsion 401.9 ; Depression with anxiety 300.4 ; Hyperlipidemia LDL goal <100 272.4 ; Morbid obesity with BMI of 45.0-49.9, adult 278.01 and Hospital discharge follow-up V67.59 [facility] [address] [place] [address] Oct, Rupert Welch Depression with anxiety 300. 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 4 ; Uncontrolled stage 2 hypertension 401.9 ; Osteoarthritis of left knee 715.96 and Wheezing on auscultation 786.07 [facility] [address] [place] [address] July, Rupert Welch URI (upper respiratory infec tion) 465.9 ; Muscle cramps 729.82 ; Encounter for long-term (current) use of medications V58.69 and Osteoarthritis 715.90 [facility] [address] [place] [address] Jun, Rupert AbarcaTIS [facility] [address] [place] [address] May, Rupert Welch Depression with anxiety 300. 4 [facility] [address] [place] [address] May, zJean-Pierre katzMARTIS Hypertension 401.9 ; Morbid obesity with BMI of 45.0- 49.9, adult 278.01 ; Left anterior knee pain 719.46 ; Medication adverse effect 995.20 and Lipoma of arm 214.8 [facility] [address] [place] [address] Apr, zfredrickPATREVOR katzMARTIS Hypertensive crisis 401.9 ; Depression with anxiety 300.4 ; Morbid obesity with BMI of 45.0-49.9, adult 278.01 and Left anterior knee pain 719.46 [facility] [address] [place] [address] Jan, zzzPATREVOR zfredrickMARTIS Hypertension 401.9 ; Depress ion with anxiety 300.4 and Morbid obesity with BMI of 45.0-49.9, adult 278.01 [facility] [address] [place] [address] Dec, zfredrickPATREVOR zfredrickMARTIS [facility] [address] [place] [address] Dec, zfredrickPATREVOR zfredrickMARTIS Morbid obesity with BMI of 4 5.0-49.9, adult 278.01 ; Hypertension 401.9 ; Depression with anxiety 300.4 ; Lipoma of arm 214.8 and Viral URI 465.9 [facility] [address] [place] [address] Nov, zzzPAUL zzzMARTIS Hypertension 401.9 ; Depress ion with anxiety 300.4 and Morbid obesity with BMI of 45.0-49.9, adult 278.01 [facility] [address] [place] [address] Nov, zzzPAUL zzzMARTIS Hypertension 401.9 ; Depress ion with anxiety 300.4 and Morbid obesity with BMI of 45.0-49.9, adult 278.01 [facility] [address] [place] [address] 08 Nov, 2013 Rupert Welch Fall due to stumbling E885.9 ; Elevated BP 796.2 ; Morbid obesity with BMI of 45.0-49.9, adult 278.01 and Screening V82.9 IMMUNIZATIONS Vaccine Route Administration Date Status Kenalog 40mg Unknown August 06, 2014 Pending Prevnar IM Intramuscular June 24, 2018 Administered Fluad 65 years and older IM Intramuscular Dec 27, 2017 Admini stered Kenalog 40mg IM Intramuscular Apr 11, 2015 Administered zzzAluria IM Intramuscular Dec 09, 2014 Administered SOCIAL HISTORY Tobacco Use: Social History Observation Description Date Details (start date - stop date) Never Smoker Sex Assigned At : Social History Observation Description Sex Assigned At Unknown Tobacco Questionnaire: Question Answer Notes Are you a: never smoker Alcohol Screening SF: Question Answer Notes How often did you have a drink containing alcohol in t he past year? never (0 points) REASON FOR REFERRAL from 1950 to 2019-08-16 Reason CCD Referring Provider First Name BRYAN Referring Provider Last Name KATHIE Referring Provider Specialty Neurology Referring Provider email [email or web address] Referred Provider N/A, [email or web address] VITAL SIGNS from 1950 to 2019-08-16 Height 67 in July, Weight 248.0 lbs July, BMI 38.84 kg/m2 July, Temperature 99.1 degrees Fahrenheit July, Oximetry 98 % July, Blood pressure systolic 141 mm Hg July, Blood pressure diastolic 68 mm Hg July, MEDICATIONS Medication SIG (Take, Route, Frequency, Duration) Start Date En d Date Status oxybutynin 5 mg 1 tab(s) orally bid for 30 day(s) Active Aspirin Low Dose 81 mg 1 tab(s) orally once a day Active Cymbalta 60 mg 1 cap(s) orally once a day for 90 day(s) Active ibuprofen 400 mg 1 tab(s) orally q 8hr prn Active Benicar 40 mg TAKE 1 TABLET BY MOUTH ONCE DAILY orally once a day for 90 day(s) Active Requip 1 mg 1 tab(s) orally 3 times a day for 30 day(s) Active Albuterol Nebulized 2.5mg 3ml 0.083 solution 1/2-1 neb ule via nebulizer every 4- 6 hours as needed for wheezing, cough Ac tive Metoprolol Succinate ER 25 mg 1 tab(s) orally once a day for 90 day (s) Active PROCEDURES from 1950 to 2019-08-16 Procedure Date Ordered Result Body Site Right and Left Heart Cath with Coronaries 2017-10-22 N/A Right and Left Heart Cath with Coronaries 2017-11-04 result document attached REMOVAL OF SUTURES 2018-07-31 N/A RESULTS Component Value Reference Range COMPREHENSIVE METABOLIC PANEL Reviewed date:08/03/2019 14:01:23 Interpretation: Performing Lab:[facility] JESUS TODD, [facility], [place], [address] Mk Dodson D.O., MPH, ,[place] [address] GLUCOSE 97 65-139 UREA NITROGEN (BUN) 16 7-25 CREATININE 0.71 0.50-0.99 eGFR NON-AFR. EQUATORIAL GUINEAN 88 > OR = 60 eGFR 102 > OR = 60 BUN/CREATININE RATIO NOT APPLICABLE 6-22 SODIUM 143 135-146 POTASSIUM 4.4 3.5-5.3 CHLORIDE 106 98-110 CARBON DIOXIDE 28 20-32 CALCIUM 9.1 8.6-10.4 PROTEIN, TOTAL 6.6 6.1-8.1 ALBUMIN 4.0 3.6-5.1 GLOBULIN 2.6 1.9-3.7 ALBUMIN/GLOBULIN RATIO 1.5 1.0-2.5 BILIRUBIN, TOTAL 1.0 0.2-1.2 ALKALINE PHOSPHATASE 104 37-153 AST 13 10-35 ALT 14 6-29 B TYPE NATRIURETIC PEPTIDE (BNP) Reviewed date:08/03/2019 14:01:23 Interpretation: Performing Lab:[facility] JESUS TODD, [facility], [address] [place], [address] Mk Dodson D.O., MPH, ,[place] [address] B TYPE NATRIURETIC PEPTIDE (BNP) 94 <100 MAGNESIUM Reviewed date:08/03/2019 14:01:23 Interpretation: Performing Lab:[place], [facility], [address] [place], [address] Mk Dodson D.O., MPH, ,[place] [address] MAGNESIUM 1.9 1.5-2.5 CBC (INCLUDES DIFF/PLT) Reviewed date:08/03/2019 14:01:23 Interpretation: Performing Lab:[place], [facility], [address] [place], [address] Mk Dodson D.O., MPH, ,[place] [address] WHITE BLOOD CELL COUNT 10.9 3.8-10.8 RED BLOOD CELL COUNT 5.04 3.80-5.10 HEMOGLOBIN 13.6 11.7-15.5 HEMATOCRIT 42.6 35.0-45.0 MCV 84.5 80.0-100.0 MCH 27.0 27.0-33.0 MCHC 31.9 32.0-36.0 RDW 12.9 11.0-15.0 PLATELET COUNT 205 140-400 MPV 12.0 7.5-12.5 ABSOLUTE NEUTROPHILS 7663 [phone] ABSOLUTE LYMPHOCYTES [phone] ABSOLUTE MONOCYTES 883 200-950 ABSOLUTE EOSINOPHILS 185 15-500 ABSOLUTE BASOPHILS 33 0-200 NEUTROPHILS 70.3 LYMPHOCYTES 19.6 MONOCYTES 8.1 EOSINOPHILS 1.7 BASOPHILS 0.3 VITAMIN B12/FOLATE, SERUM PANEL Reviewed date:08/03/2019 14:01:23 Interpretation: Performing Lab:[place], [facility], [address] [place], [address] Mk Dodson D.O., MPH, ,[place] [address] VITAMIN B12 [phone] FOLATE, SERUM 5.5 LIPID PANEL Reviewed date:08/03/2019 14:01:23 Interpretation: Performing Lab:[place], [facility], [address] [place], [address] Mk Dodson D.O., MPH, ,[place] [address] CHOLESTEROL, TOTAL 198 <200 HDL CHOLESTEROL 60 > OR = 50 TRIGLYCERIDES 160 <150 LDL-CHOLESTEROL 110 CHOL/HDLC RATIO 3.3 <5.0 NON HDL CHOLESTEROL 138 <130 D-DIMER, QUANTITATIVE Reviewed date:08/03/2019 14:01:23 Interpretation: Performing Lab:[place], [facility], [address] [place], [address] Mk Dodson D.O., MPH, ,[place] [address] D-DIMER, QUANTITATIVE 0.65 <0.50 TSH+FREE T4 Reviewed date:08/03/2019 14:01:23 Interpretation: Performing Lab:[place], [facility], [address] [place], [address] Mk Dodson D.O., MPH, ,[place] [address] TSH 0.17 0.40-4.50 T4, FREE 0.9 0.8-1.8 Lumbar 2-3 VWS Reviewed date:07/30/2019 13:48:36 Interpretation: Performing Lab:[facility], ,[place] [address] REASON FOR VISIT 3 MONTH FOLLOW UP, fu after testing, rx [facility] [place] 90 day, 1 yr w/ carotid/echo, 1 year carotid/echo, Auth- echo/carotid, 5.5.2019, check up, One-month follow up, pain all over, Requip, been out of medicine for over a month refills to [facility], needs to change Cyalta cant afford, Medication, 3 month follow up, me d refill Xanax, rx refills to [facility], FU 6MTH, Suture removal, cyst on breanne k removal, loraine cyst removal back, Lab, moved up , Bumps on back, sinus, Headache , left earache, PA Spiriva, Med list, PA Stiolto Respimat , TCM [facility] Admitted: -06/22/18, TCM, TCM, Follow up , Follow up, error, fu , TCM [facility] D/C 01/31/18 Short of breath, chest pain, TCM Discharge, TCM, FYI, fu with sleep study, Flu s hot, Blood pressure check was in ER today has appt for ER f/u tomorrow morning, Pt is confused about which medication she should be taking , Er Discharge, Sleep study, Rt wrist red from IV on Friday procedure with Dr. Ontiveros, Pt stopped Valsartan 2 weeks ago , MIC, RIGHT AND LEFT HEART CATH AND MIC, Home sleep study referral, *MIC @ [email or web address] & Heart [email or web address], REF EDILIA AORTIC STENOSIS , F/U echo results , Rx refill Lasix, Potassium and Xanax , Change Diovan , Swelling of feet x 1 week , f/u, follow up, FU ortho appointment, Bilat knee pain patient has had x rays done , F/U, start vit d, follow up, Right knee pain, med refill elevated bp, F/U,flu shot, BP FU/Swelling in feet, BP and feet swelling, Pt reports she is out of numerous medications for > 1.5 weeks., Med check, BP check , Head congestion, Blood pressure, Med refill, F/U, med refill HTN, fu from bx of thyroid, consult-thyroid, swelling of her feet often and feels like she can not get full, refer to gen. surg., thyroid BX, discuss thyroid uptake scan , wrong order? , F/U, appt at [facility], Out of network, One-week FU, high BP, hospital follow-up, pneumonia, regarding Ct chest , bad cold/ chest pain, Follow up , 1 month follow-up, FU hospital, blood pressure check, recheck B/P, fu, BP, trouble breathing, Coughing when lying supine onset two weeks, Reports fall on Friday,08/03/14 hit head on cabinet states due to weakness, bad cough/cold, check up, follow-up/left message for pt, escitalopram RF , med ck , BP follow up , fu, follow up on BP, med refills, 1 mo fu, 2 week follow up, Blood pressure Checked, Establish care had a fall MEDICAL (GENERAL) HISTORY Type Description Date Medical History hypertension Medical History obesity Medical History COPD Medical History anxiety Surgical History stomach surgery Surgical History wrist surgery Hospitalization History see surgeries above Hospitalization History Fall 01/2015 Hospitalization History Sick/SOB 03/2015 Hospitalization History [facility] ER laceration/avulsion 03/22/17 Hospitalization History [facility] ER chest pain Hospitalization History [facility] chest pain 01/31/18 Hospitalization History [facility] dizziness, n/v 06/14-06/17/18 Goals Section No Information Health Concerns No Information MEDICAL EQUIPMENT No Information MENTAL STATUS No Information FUNCTIONAL STATUS No Information ASSESSMENTS Encounter Date Diagnosis Notes Feb, Anxiety (ICD-10 - F41.9) July, HTN (hypertension) (ICD-10 - I10) Nov, Morbid obesity (ICD-10 - E66.01) Feb, Morbid obesity (ICD-10 - E66.01) July, Radicular pain of left lower extremity ( ICD-10 - M54.10) July, MDD (major depressive disord er), recurrent episode, moderate (ICD- 10 - F33.1) Aug, Anxiety (ICD-10 - F41.9) July, HTN (hypertension) (ICD-10 - I10) July, MDD (major depressive disord er), recurrent episode, moderate (ICD- 10 - F33.1) July, Dysuria (ICD-10 - R30.0) Jun, Pneumococcal vaccination adm inistered at current visit (ICD-10 - Z23) July, Radicular pain of left lower extremity ( ICD-10 - M54.10) Nov, Screening (ICD9-CM - V82.9) Dec, Lipoma of arm (ICD9-CM - 214.8) Nov, Morbid obesity with BMI of 45.0-49.9, ad ult (ICD9-CM - 278.01) May, Thyromegaly (ICD-10 - E04.9) Aug, Left anterior knee pain (ICD9-CM - 719.4 6) Oct, Chest pain (ICD9-CM - 786.50) July, Osteoarthritis (ICD9-CM - 715.90) July, Wheezing on auscultation (ICD9-CM - 786. 07) 27 Apr, 2014 Left anterior knee pain (ICD9-CM - 719.4 6) May, Medication adverse effect (ICD9-CM - 995 .20) Feb, Obstructive sleep apnea (ICD-10 - G47.33 ) Jun, Stress incontinence of urine (ICD-10 - N 39.3) Feb, Aortic stenosis (ICD-10 - Q25.3) Sep, MARCO ANTONIO (generalized anxiety disorder) (ICD- 10 - F41.1) Aug, Hypertensive crisis (ICD-10 - I10) Oct, COPD (chronic obstructive pulmonary dise ase) (ICD-10 - J44.9) Jun, Anxiety (ICD-10 - F41.9) Feb, RLS (restless legs syndrome) (ICD-10 - G 25.81) July, Urinary incontinence (ICD-10 - R32) July, Osteoarthritis of left knee (ICD-10 - M1 7.9) July, HTN (hypertension) (ICD-10 - I10) Oct, Median neuropathy (ICD-10 - G56.10) Jun, OAB (overactive bladder) (ICD-10 - N32.8 1) July, Urinary incontinence (ICD-10 - R32) July, RLS (restless legs syndrome) (ICD-10 - G 25.81) Oct, Anxiety (ICD-10 - F41.9) Jun, Sebaceous cyst (ICD-10 - L72.3) July, Lumbar back pain (ICD-10 - M54.5) July, OAB (overactive bladder) (ICD-10 - N32.8 1) July, Lumbar back pain (ICD-10 - M54.5) July, OAB (overactive bladder) (ICD-10 - N32.8 1) Jun, RLS (restless legs syndrome) (ICD-10 - G 25.81) Jun, MARCO ANTONIO (generalized anxiety disorder) (ICD- 10 - F41.1) July, RLS (restless legs syndrome) (ICD-10 - G 25.81) July, Morbid obesity (ICD-10 - E66.01) Jun, Carotid atherosclerosis (ICD-10 - I65.29 ) July, COPD (chronic obstructive pulmonary dise ase) (ICD-10 - J44.9) July, Morbid obesity (ICD-10 - E66.01) July, Muscle cramps (ICD9-CM - 729.82) Jun, Depression, unspecified depression type (ICD-10 - F32.9) July, Uncontrolled stage 2 hypertension (ICD9- CM - 401.9) Nov, Vertigo (ICD-10 - R42) Apr, Depression with anxiety (ICD9-CM - 300.4 ) Nov, Hospital discharge follow-up (ICD9-CM - V67.59) Oct, Hypertensive urgency (ICD-10 - I16.0) May, Morbid obesity with BMI of 45.0-49.9, ad ult (ICD9-CM - 278.01) Aug, Paresthesia (ICD-10 - R20.2) Dec, Immunization due (ICD-10 - Z23) Dec, Hypertension (ICD9-CM - 401.9) May, Lipoma of arm (ICD9-CM - 214.8) Nov, Urinary incontinence (ICD-10 - R32) Jan, Depression with anxiety (ICD9-CM - 300.4 ) Oct, Dyspnea (ICD9-CM - 786.09) Sep, Pedal edema (ICD-10 - R60.0) Feb, Essential (primary) hypertension (ICD-10 - I10) Sep, Morbid obesity (ICD-10 - E66.01) Jun, COPD (chronic obstructive pulmonary dise ase) (ICD-10 - J44.9) Mar, CAP (community acquired pneumonia) (ICD- 10 - J18.9) Oct, Dyspnea (ICD-10 - R06.00) Oct, Dyspnea (ICD-10 - R06.00) Oct, Hypertension (ICD9-CM - 401.9) Apr, MDD (major depressive disorder) (ICD-10 - F32.9) Oct, Aortic stenosis (ICD-10 - I35.0) Nov, Depression with anxiety (ICD9-CM - 300.4 ) Apr, Morbid obesity (ICD-10 - E66.01) Sep, MDD (major depressive disorder) (ICD-10 - F32.9) Aug, Substance addiction (ICD9-CM - 304.90) Mar, MDD (major depressive disorder) (ICD-10 - F32.9) Apr, Hypertension, uncontrolled (ICD-10 - I10 ) Apr, knee pain, right (ICD-10 - M25.561) Apr, Hypertension (ICD-10 - I10) Aug, Status post fine needle aspiration (ICD- 10 - Z98.89) Sep, Hypertension, uncontrolled (ICD-10 - I10 ) May, Restrictive lung disease (ICD-10 - J98.4 ) Feb, Hospital discharge follow-up (ICD-10 - Z 09) Jun, Dysuria (ICD-10 - R30.0) Jun, Thyroid mass (ICD-10 - E07.9) Jun, Morbid obesity (ICD-10 - E66.01) Apr, Hypertension, uncontrolled (ICD-10 - I10 ) Mar, Vitamin D deficiency (ICD-10 - E55.9) Oct, Urinary incontinence, unspecified type ( ICD-10 - R32) Mar, Hypertension, uncontrolled (ICD-10 - I10 ) Apr, Osteoarthritis of left knee (ICD-10 - M1 7.9) Nov, Urinary incontinence (ICD-10 - R32) Oct, Right knee pain (ICD-10 - M25.561) Mar, COPD (chronic obstructive pulmonary dise ase) (ICD-10 - J44.9) Feb, Diastolic CHF (ICD-10 - I50.30) Aug, Fatigue (ICD-10 - R53.83) Apr, COPD (chronic obstructive pulmonary dise ase) (ICD-10 - J44.9) Feb, OAB (overactive bladder) (ICD-10 - N32.8 1) Oct, URI (upper respiratory infection) (ICD-1 0 - J06.9) Jun, COPD (chronic obstructive pulmonary dise ase) (ICD-10 - J44.9) Aug, OAB (overactive bladder) (ICD-10 - N32.8 1) Oct, Right knee pain (ICD-10 - M25.561) Sep, COPD (chronic obstructive pulmonary dise ase) (ICD-10 - J44.9) Nov, Thoracic back pain (ICD-10 - M54.6) Oct, Hypertensive chronic kidney disease with stage 1 through stage 4 chronic kidney disease, or unspecified chronic kidney disease (ICD-10 - I12.9) July, Urinary frequency (ICD-10 - R35.0) Oct, COPD (chronic obstructive pulmonary dise ase) (ICD-10 - J44.9) July, Neuropathy of left foot (ICD-10 - G57.92 ) July, Thyroid mass (ICD-10 - E07.9) July, Sebaceous cyst (ICD-10 - L72.3) Jun, Thyroid mass (ICD-10 - E07.9) July, Sebaceous cyst (ICD-10 - L72.3) Oct, LVH (left ventricular hypertrophy) (ICD- 10 - I51.7) May, MDD (major depressive disorder) (ICD-10 - F32.9) July, Suture check (ICD-10 - Z48.89) July, Diastolic CHF (ICD-10 - I50.30) Sep, Dyspnea (ICD-10 - R06.00) July, Sebaceous cyst (ICD-10 - L72.3) Oct, Heart murmur (ICD-10 - R01.1) Mar, Hospital discharge follow-up (ICD-10 - Z 09) July, URI (upper respiratory infection) (ICD-1 0 - J06.9) Apr, Dyspnea (ICD-10 - R06.00) Feb, Dyspnea (ICD-10 - R06.00) July, Diastolic CHF (ICD-10 - I50.30) Apr, OAB (overactive bladder) (ICD-10 - N32.8 1) Apr, Hypertension (ICD-10 - I10) Jun, BPV (benign positional vertigo) (ICD-10 - H81.10) Mar, MARCO ANTONIO (generalized anxiety disorder) (ICD- 10 - F41.1) Mar, Hypertensive crisis (ICD-10 - I10) Jun, COPD (chronic obstructive pulmonary dise ase) (ICD-10 - J44.9) Apr, MARCO ANTONIO (generalized anxiety disorder) (ICD- 10 - F41.1) Aug, Hypertensive crisis (ICD9-CM - 401.9) July, Dysuria (ICD-10 - R30.0) Feb, HTN (hypertension) (ICD-10 - I10) July, Depression with anxiety (ICD9-CM - 300.4 ) July, Radicular pain of right lower extremity (ICD-10 - M54.10) Jun, Aortic stenosis (ICD-10 - I35.0) Nov, Uncontrolled stage 2 hypertension (ICD9- CM - 401.9) Nov, Chest pain (ICD-10 - R07.9) Oct, Depression with anxiety (ICD9-CM - 300.4 ) July, Dysuria (ICD-10 - R30.0) Feb, SOB (shortness of breath) (ICD-10 - R06. 02) May, Depression with anxiety (ICD9-CM - 300.4 ) July, CAD (coronary artery disease) (ICD-10 - I25.10) May, Hypertension (ICD9-CM - 401.9) Feb, RLS (restless legs syndrome) (ICD-10 - G 25.81) Aug, Morbid obesity (ICD-10 - E66.01) July, URI (upper respiratory infection) (ICD9- CM - 465.9) Feb, Myalgia (ICD-10 - M79.10) Nov, OAB (overactive bladder) (ICD-10 - N32.8 1) Dec, Morbid obesity with BMI of 45.0-49.9, ad ult (ICD9-CM - 278.01) Nov, HTN (hypertension) (ICD-10 - I10) July, OAB (overactive bladder) (ICD-10 - N32.8 1) Nov, Hypertension (ICD9-CM - 401.9) Feb, HTN (hypertension) (ICD-10 - I10) July, Neuropathy of right foot (ICD-10 - G57.9 1) Apr, Hypertensive crisis (ICD9-CM - 401.9) Aug, Anxiety (ICD-10 - F41.9) July, OAB (overactive bladder) (ICD-10 - N32.8 1) Jan, Hypertension (ICD9-CM - 401.9) Aug, HTN (hypertension) (ICD-10 - I10) July, Peripheral arterial disease (ICD-10 - I7 3.9) Nov, Depression with anxiety (ICD9-CM - 300.4 ) July, Neuropathy of right foot (ICD-10 - G57.9 1) 24 Nov, 2013 Depression with anxiety (ICD9-CM - 300.4 ) Dec, Viral URI (ICD9-CM - 465.9) Nov, Hypertension (ICD9-CM - 401.9) July, Radicular pain of right lower extremity (ICD-10 - M54.10) Feb, Morbid obesity (ICD-10 - E66.01) 08 Nov, 2013 Fall due to stumbling (ICD9-CM - E885.9) Nov, Elevated BP (ICD9-CM - 796.2) July, Carotid atherosclerosis (ICD-10 - I65.29 ) Feb, OAB (overactive bladder) (ICD-10 - N32.8 1) July, BMI 38.0-38.9,adult (ICD-10 - Z68.38) Apr, Pedal edema (ICD-10 - R60.0) 08 Nov, 2013 Morbid obesity with BMI of 45.0-49.9, ad ult (ICD9-CM - 278.01) Oct, LVH (left ventricular hypertrophy) (ICD- 10 - I51.7) 10 Nov, 2013 Morbid obesity with BMI of 45.0-49.9, ad ult (ICD9-CM - 278.01) Feb, Radicular pain in right arm (ICD-10 - M7 9.2) July, Osteoarthritis of left knee (ICD9-CM - 7 15.96) Mar, SOB (shortness of breath) (ICD-10 - R06. 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 02) May, Left anterior knee pain (ICD9-CM - 719.4 6) Feb, MDD (major depressive disord er), recurrent episode, mild (ICD-10 - F33.0) July, Encounter for long-term (cur rent) use of medications (ICD9-CM - V58.69) July, HTN (hypertension) (ICD-10 - I10) Jan, Morbid obesity with BMI of 45.0-49.9, ad ult (ICD9-CM - 278.01) July, Afib (ICD-10 - I48.91) Apr, Morbid obesity with BMI of 45.0-49.9, ad ult (ICD9-CM - 278.01) Feb, RLS (restless legs syndrome) (ICD-10 - G 25.81) Nov, Morbid obesity with BMI of 45.0-49.9, ad ult (ICD9-CM - 278.01) Jun, Hospital discharge follow-up (ICD-10 - Z 09) Dec, Depression with anxiety (ICD9-CM - 300.4 ) July, Primary osteoarthritis of right knee (IC D-10 - M17.11) Oct, Drug dependence (ICD9-CM - 304.90) Nov, Hyperlipidemia LDL goal <100 (ICD9-CM - 272.4) Apr, Thyromegaly (ICD-10 - E04.9) Mar, Primary osteoarthritis of right knee (IC D-10 - M17.11) Apr, Primary osteoarthritis of right knee (IC D-10 - M17.11) Jun, Hypertension (ICD-10 - I10) Sep, Primary osteoarthritis of right knee (IC D-10 - M17.11) Oct, MARCO ANTONIO (generalized anxiety disorder) (ICD- 10 - F41.1) Oct, Bronchitis (ICD-10 - J40) May, Hypertension (ICD-10 - I10) Aug, Follicular adenoma of thyroid gland (ICD -10 - D34) Jun, OAB (overactive bladder) (ICD-10 - N32.8 1) Aug, Vitamin D deficiency (ICD-10 - E55.9) Sep, Hypertension (ICD-10 - I10) Apr, Primary osteoarthritis of both knees (IC D-10 - M17.0) July, Neuropathy of left foot (ICD-10 - G57.92 ) Apr, Primary osteoarthritis of right knee (IC D-10 - M17.11) Oct, Osteoarthritis (ICD9-CM - 715.90) Feb, Hypertension (ICD-10 - I10) Oct, Nontraumatic hematoma of soft tissue (IC D-10 - M79.81) Feb, Diastolic CHF (ICD-10 - I50.30) Feb, Radicular pain in left arm (ICD-10 - M79 .2) Oct, Aortic stenosis (ICD-10 - I35.0) Sep, Urinary incontinence (ICD-10 - R32) Nov, Dizziness (ICD-10 - R42) Oct, Morbid obesity (ICD-10 - E66.01) Oct, Aortic stenosis (ICD-10 - I35.0) Mar, OAB (overactive bladder) (ICD-10 - N32.8 1) Oct, Aortic stenosis (ICD-10 - I35.0) Apr, OAB (overactive bladder) (ICD-10 - N32.8 1) Jun, Primary osteoarthritis of right knee (IC D-10 - M17.11) Oct, Pedal edema (ICD-10 - R60.0) Sep, OAB (overactive bladder) (ICD-10 - N32.8 1) July, Morbid obesity (ICD-10 - E66.01) Jun, Hypertension (ICD-10 - I10) Jun, LVH (left ventricular hypertrophy) (ICD- 10 - I51.7) July, Hypertension (ICD-10 - I10) July, Gait instability (ICD-10 - R26.81) July, Morbid obesity (ICD-10 - E66.01) Feb, HTN (hypertension) (ICD-10 - I10) Sep, Pedal edema (ICD-10 - R60.0) July, Afib (ICD-10 - I48.91) Mar, Pedal edema (ICD-10 - R60.0) Nov, Anxiety (ICD-10 - F41.9) July, CAD (coronary artery disease) (ICD-10 - I25.10) Feb, Anxiety (ICD-10 - F41.9) Aug, History of prediabetes (ICD-10 - Z87.898 ) July, BMI 38.0-38.9,adult (ICD-10 - Z68.38) Feb, MDD (major depressive disord er), recurrent episode, mild (ICD-10 - F33.0) Aug, Right shoulder pain (ICD-10 - M25.511) Feb, Diastolic CHF (ICD-10 - I50.30) July, Hypertension (ICD-10 - I10) July, CAD (coronary artery disease) (ICD-10 - I25.10) July, Hypertension (ICD-10 - I10) Nov, Diastolic CHF (ICD-10 - I50.30) Apr, Bilateral hand numbness (ICD-10 - R20.0) Jun, Primary osteoarthritis of right knee (IC D-10 - M17.11) Apr, Heart murmur (ICD-10 - R01.1) Jun, COPD (chronic obstructive pulmonary dise ase) (ICD-10 - J44.9) Feb, Aortic stenosis (ICD-10 - I35.0) Feb, Morbid obesity (ICD-10 - E66.01) Oct, Morbid obesity (ICD-10 - E66.01) Nov, HTN (hypertension) (ICD-10 - I10) Sep, Heart murmur (ICD-10 - R01.1) Oct, Hypertension (ICD-10 - I10) PLAN OF TREATMENT Medication Medication Name Sig Start Date Stop Date Cymbalta 60 mg 1 cap(s) orally once a day for 90 day(s) Benicar 40 mg TAKE 1 TABLET BY MOUTH ONCE DAILY orally once a day for 90 day(s) Metoprolol Succinate ER 25 mg 1 tab(s) orally once a day for 90 day(s) Treatment Notes Assessment Notes Clinical Notes Hospital discharge follow-up Stable. Reviewed ER recor ds and notes and CT scan myself. Dyspnea Acute on chronic. PFT showed a restrict pattern, however auscultation was clear with some reduced inspiration due to body habitus. At this point will get a CT of chest to evaluate for fibrosis and or bronchiestasis and or other masses. Hypertension Improved. Continue meds and follow up. Hypertensive crisis Uncontrolled. Pt has a histo ry of elevated BP. She is asymptomatic. Follow up in 1 week and consider hydralazine Fatigue Chronic. MDD (major depressive disorder) Stabe. Hypertension, uncontrolled BP is very high but she has been out of her medication for awhile. I'm going to put her on Diovan instead of losartan for a little stronger control. She had been on amlodipine before but says it was [place] ing her lightheaded. We will need to monitor BP closely. She is supposed to f/u with [facility] in December. Her labs were done in June and are doing okay. Right knee pain Acute on chronic.Significant osteoarthrits with joint space narrowing. Has spurring and no disclocation. Significant joint space loss between patella. Will refer to ortho and did discuss joint replacement as a final resolution. COPD (chronic obstructive pulmonary disease) Stiolto n ot covered but was put on Incruse. Helping so far.She is also seeing Dr Floyd for pulmonology. COPD (chronic obstructive pulmonary disease) Cannot to lerate Symbicort, so I changed her to trial of Stiolto and counseled on how to use it. Morbid obesity She has cut out and been able to lose a little weight. Anxiety Talked over the phone with h er counselor Dr Saadia Vaughn. Told me about some OCD and hoarding issues. Going to do a trial of Cymbalta initially to add on to her Xanax and see how she does.Not due to fill Xanax before 09/07. Screening Will discuss colonoscopy, fl u vaccine, pneumococcal vaccine at next visit. Pt received her tetanus in 11/2013 due to fall with skin abrasion. Urinary incontinence, unspecified type We took her off of the diuretic due to incontinence issues already she is having. Anxiety Cymbalta is more affordable now with [place]. Paresthesia Acute. Uncontrolled stage 2 hypertension Uncontrolled. Pt is out of her meds and will resend to her pharmacy. Will follow up on 2D echo results. She had a cardiology visit end of this month. Follow up after that visit. Left anterior knee pain New. Will get XR to evaluate joint space and OA. Will start mobic once daily to help with symptoms. Will also get CBC to rule out infectious process. Depression with anxiety Stable. Refilled meds. Lipoma of arm Stable. Follow up if worseni ng pain, tenderness, or increasing size. Urinary incontinence Myrbetriq caused side effect s including facial swelling. We will try low dose Vesicare initially and see how she does. We can do a higher dose if needed but watching side effects first. Lipoma of arm Chronic. Pt has noticed it h as increased in size but non tender. I told her that options include watchful waiting and then general surgery consult. She did not want surgery and will follow clinically. Viral URI Improving. Keep hydrated and continue with B complex with Vit C supplements. Hospital discharge follow-up New. Reviewed all records and CT of her chest with pt. Pending is 2D echo results from one night inpt stay at [facility] Dyspnea Acute. Pt is 96% on RA. OAB (overactive bladder) Says she is doing better lately. Neuropathy of right foot Labs and xrays initially. OAB (overactive bladder) Says she is doing better lately. Hypertension BP is doing better on Diovan but still a little borderline. I may add on a beta caitie but will see what cardiology says. Drug dependence Chronic. 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 Pt has 24 cans of coca cola at least 2 times a week. She can go through caffeine withdrawal when she stops drinking it. I told her to come down slowly and not abruptly stop her consumption. Thyromegaly Acute Hyperlipidemia LDL goal <100 Stable. Check labs Follicular adenoma of thyroid gland New. LVH (left ventricular hypertrophy) Heart cath with Dr Hurtado turned out okay this week. Hypertension Improving. Stress incontinence of urine Samples were given to her to see if any improvement, if no improvement we'll consider further evaluation through urologist, Dr. Sherwood Primary osteoarthritis of right knee She has been gett ing injections from [facility] [place]. OAB (overactive bladder) She is on oxybutynin twice d aily. We could consider trying to change to something else if affordable MARCO ANTONIO (generalized anxiety disorder) Stable. Chest pain One episode but cleared now. Chest pain Acute. Questionable AVL issu es, will send to the ER. Called and spoke to ER physician at [facility]. Chest pain rule out DC. Copy of EKG sent with pt. Left anterior knee pain Improving. Hypertensive crisis Uncontrolled. Morbid obesity with BMI of 45.0-49.9, adult Chronic. Aortic stenosis Has f/u with Dr Hurtado 03/04. She has had thorough workup on her heart recently including echo and cath and arteriogram with pretty good results. Wheezing on auscultation New and mild. Will use inhaler PRN HTN (hypertension) BP is doing better right now but we need to monitor that closely. Medication adverse effect New. Pt had a mail order req uest for allopurinol. She has not had a history of gout. She is on hyzaar and HCTZ can increase serum uric acid. Will check levels. Encounter for long-term (current) use of medications N ew. Pt is on HCTZ and has potential for increase serum calcium. This can affect Vit D homeostasis. Will check serum levels. Left anterior knee pain Stable today. I offered her steroid injection and she will think about it. Continued mobic HTN (hypertension) BP is better on medication now. Anxiety Cymbalta is too expensive, s o I'm trying Effexor. If she cannot afford that, she is to let me know and I can try perhaps Lexapro. Morbid obesity with BMI of 45.0-49.9, adult Pt has mad e dietary changes and congratulated her on this and encouraged her to continue Morbid obesity with BMI of 45.0-49.9, adult Poor diet. Will screen pt and discussed at length about nutrition and walk daily 30 minutes. Depression with anxiety Stable. Morbid obesity with BMI of 45.0-49.9, adult Congratula varun pt on dietary modifications and weight loss of 2 lbs. Continue with walking daily and encouraged to keep going. Median neuropathy She does not want surgery bu t both wrists bother her. Setting her up with bilateral wrist splints for treatment initially. Morbid obesity with BMI of 45.0-49.9, adult Chronic an d worsening. Discussed diet and nutrition and cutting back on her soda intake. Morbid obesity with BMI of 45.0-49.9, adult Steadily i mproving. Continue with diet and nutrition. Discussed root vegetables are good as pt likes turnips. Continue to read labels. Congratulated on not having any soda. Pedal edema Going to see if getting back on HCTZ will help as well as getting BP under control but she will need to f/u if getting better. Pedal edema Going to see if getting back on HCTZ will help as well as getting BP under control but she will need to f/u if getting better. Primary osteoarthritis of right knee I gave her a pres cription for ibuprofen low-dose that she can take a also gave her an order for aquatic therapy through physical therapy with [facility]. Hospital discharge follow-up Medications were reviewed today and adjusted for simplicity for her. She had quite a bit of questions on them. Diastolic CHF Sees Dr Hurtado. Gait instability Using a cane in OV. She has a walker at home but it does not fit in her trunk. Wrote her an order for a fold-up walker that she can take places with her as she is a fall risk. Osteoarthritis of left knee Acute on chronic. Written consent obtained. All risk and benefit discussed. Pt placed in supine position. Skin prep with betadine x 1 and alcohol swab x 3. Using 10 cc syringe with 4 cc of 2% xylocaine and kenalog 40 mg/mL, total of 5 cc, injected using posteriolateral approach. Pt tolerated procedure well, no complications. No bleeding and bandaid applied. Pt ambulated on her own and did well. History of prediabetes Chronic. Last A1C was [address] Hurtado. Radicular pain in left arm Mentioned this in the hospi jose alberto. Suspect nerve versus anxiety in this case. Can do further testing if this persists. Right shoulder pain Strained right pectoral musc le from fall on Friday. Going to monitor this and see how she does but if not improving/healing, then consider PT and/or imaging. Hypertension Metoprolol was decreased in the hospital previously. Getting BP checked by Home Health currently. Anxiety She is doing well with the add-on of Cym jeanne. Hypertension BP is doing better on Diovan but still a little borderline. I may add on a beta caitie pending echo. Dizziness Cardiac workup and chest was okay in ER today as above. Pedal edema Suspect fluid retention. Limit sodium in take. Hypertension Metoprolol was decreased in the hospital and I refilled that today. Nontraumatic hematoma of soft tissue She has some brui sing from the IV and heart cath but it all appears to be healing okay. Reassurance and discussed s/s to watch for with this. Hypertension BP has been elevated. May ne ed a slight bump in dose if that keeps up but it is better than it was. Urinary incontinence Oxybutynin made her sick to her stomach. Myrbetriq made her swell.I may look at trying Vesicare on her but will wait on labs and current symptoms. Hypertension Metoprolol was decreased in the hospital previously. Getting BP checked by Home Health currently. Hypertension Metoprolol was decreased in the hospital previously. Getting BP checked by Home Health currently. OAB (overactive bladder) Still issues with incontinen ce but medication is only going to help so much. Diastolic CHF Sees Dr Hurtado. Vitamin D deficiency Chronic. Osteoarthritis Stable. Duexis started and sent via [employer]. Urinary frequency UA was checked to rule out infection tod ay Sebaceous cyst 2 of these noted on her back and not bothersome, so I recommended leaving alone. If they bother her at any point, then we can set up for excision.She is still complaining of them, so we can set up for excision. Thoracic back pain Discussed setting her up wit h physical therapy for range of motion exercises. She wants to work on it on her own with the exercises she was given first. We can try that initially but consider PT if not improving. OAB (overactive bladder) Still having incontinence. C hanging her medication to higher dose and XR to see if it helps a little more. Hypertensive chronic kidney disease with stage 1 through stage 4 chronic kidney disease, or unspecified chronic kidney disease Chronic. Stop CCB due to dizziness and continue hyzaar. Status post fine needle aspiration Stable. COPD (chronic obstructive pulmonary disease) Refilled med for her nebulizer. She says she has her other inhalers. COPD (chronic obstructive pulmonary disease) Refilled med for her nebulizer. She says she has her other inhalers. Essential (primary) hypertension Acute. Uncontrolled. repeat BP by me was elevated but better than initial. She had calmed down in the office. She was worked up with her breathing and PFT that was done. Depression with anxiety Stable, refilled meds. Vitamin D deficiency Chronic. Pt needs to be on her Vit D3 5 000 IU daily CAP (community acquired pneumonia) Stable. Continue wi th levaquin X 10 days and prednisone. Restrictive lung disease Stable. Reviewed PFT done in 2014. Osteoarthritis of left knee Acute on chronic. Verbal c onsent obtained. All risk and benefit discussed today. Pt placed in supine position and left knee suprapatella edge identified. Skin prepped with alcohol swab x 2. Using 10 cc syringe, a total of 5 cc injected containing 4cc of 2% xylocaine and kenalog 40 mg/mL. Pt tolerated well and no bleeding. She could ambulate out of the clinic. No issues and bandaid applied. Muscle cramps New. Will check labs Fall due to stumbling Stable. Pt is advised to use her cane and watch her steps. Avoid falls as he already has had trauma to her pelvis. Morbid obesity with BMI of 45.0-49.9, adult Chronic. A dvised to cut back her soda and sugar intake. Weather is getting warmer and she can exercise and walk more Hypertension Stable. Repeat BP was 183/78 . Will add losartan to BP medications. I have reviewed all prior labs drawn and discussed with the pt. Substance addiction New. Pt admits to consuming 24 cans of coca cola on some days. In a week she may do this 2-3 times. We discussed the dangers of this, including sugar spikes, adverse affects with phosphoric acid on calcium and risk for osteoporosis, dental concerns and diabetes and weight gain. Hypertension Elevated. Pt was not complia nt with all medication. I wrote down all the meds I want her to be on. She will take all her meds to the pharmacy and get them all. Recheck BP next week. Uncontrolled stage 2 hypertension Uncontrolled. She ra n out of her meds for the past week due to finances and will pick it up this Friday. Follow up in 1 week. Morbid obesity with BMI of 45.0-49.9, adult Discussed continuing diet and exercise and encouraged her. She has lost 10 lbs since last visit. Hypertension Improving. Pt is asymptomati c. Continue hyzaar and amlodipine. Follow up in a month. Hypertension Stable. Refilled meds. Hypertensive crisis Elevated. Pt is out of her m eds since February. Repeat BP was not as good done after visit. Refilled meds, increased dose of hyzaar and follow up in 2-3 days. Hypertension Better control. Continue meds Depression with anxiety New. Will start lexapro and PRN xanax. Follow up in 2 weeks. Discussed coping mechanisms Hypertension Elevated. I told her to writ e down her values daily and follow up in 4 weeks. If her BP is elevated systolic 160 on 2 occasions then see me. I stopped her losartan and HCTZ and combined them both. Depression with anxiety Improving. Continue with med ication and walking and diet changes. Depression with anxiety Worsening. Refill meds. Depression with anxiety Stable. Continue daily lexap ro and PRN xanax. She has plenty of xanax left. Carotid atherosclerosis She asked about this and I r ecommended she discuss with her cardio, Dr Hurtado, to see if there is anything they would recommend with that at 50% blockage. Could do statin and/or Repatha but I will leave that up to him. Sebaceous cyst 2 of these noted on her back and not bothersome, so I recommended leaving alone. If they bother her at any point, then we can set up for excision. Pneumococcal vaccination administered at current visit Prevnar 13 done today and consider doing -23 in 1-2 years. order written for shingles vaccination for her to be able to receive at the pharmacy. Anxiety Her last Rx of Xanax was fro m Dr Laws, so she has not had it in awhile. She has had more anxiety lately, so I refilled that for her today. Anxiety Refilled her Xanax which she takes only prn and hasn't had in awhile. Lumbar back pain Xrays due to radicular pain. RLS (restless legs syndrome) Dr Alvarado Rx'd her quinine for this and is getting 324mg Rx filled as long as pharmacy fills it.She asked for alternatives and I wrote for Requip to try initially. URI (upper respiratory infection) New. Will treat with antibiotics given her duration of symptoms. Depression with anxiety Stable. Refilled meds and in crease to 1 mg qhs. She has a lot of stress recently and see how she does on these meds. Likely anxiety causing systemic manifestations with her SOB and panic episodes. Hypertensive crisis Acute on chronic. Clonidine 0.1 mg given in the office. Repeat BP after 30 minutes was 145/88. Pt was asymptomatic and felt good and ambulated out of the office on her own. Will see her back in 2 weeks. COPD (chronic obstructive pulmonary disease) She asked about a handicap form and I filled that out for her today. Urinary incontinence She is still having incontin ence regularly. Not sure that the oxybutynin is helping. She is going to try stopping to see if that changes at all. HTN (hypertension) BP is borderline. Monitor that. Sebaceous cyst These sebaceous cysts have b een bothering her. We set up for excision on the top one today as described. this 2 sutures from the lower excision were removed today without difficulty as well.Applied a Betadine to the area on the sebaceous cyst with Betadine solution and used a 27-gauge needle to inject a total of 8 mL of 1% lidocaine around the site and numb it. Further cleanse area with iodine. To remove the cyst I used a 4 mm punch biopsy to make a hole and was able to obtain the cyst pocket from that site and remove it. It was a little more difficult than the previous cyst on the lower back last week but were able to remove all of the material and most of the cyst pocket. It did start to bleed so we had to stop and suture it up.. She tolerated the procedure well and then I used 2 4-0 Prolene sutures to bring the site to close. The area clean and dry and change the bandage with Neosporin regularly by her home health aide. Follow-up in one week for suture removal. Myalgia She doesn't feel good and is achey all over. This is in part due to stress. Samples of muscle relaxer (Lorzone) given today to see if that helps. She also has some leftover IBU she has been taking. HTN (hypertension) BP is high today but she has been without her medication. 2 clonidine 0.1mg tabs given in office to lower. Refills today but she cannot afford them until she gets her social security check in 2 weeks. I gave her samples of Jamey to take 40/10 daily until then. Elevated BP Elevated BP. Will start HCTZ 25 mg daily and adjust accordingly. Discussed sodium reduction and change in diet.Tried to recheck BP but cuff was too small over pts arm. Pt will return in 2-3 days for recheck of BP in the office. Radicular pain of right lower extremity Bilateral leg pain. Workup starting with lumbar xrays and labs. I suspect nerve pain with this. Diastolic CHF Check routine labs as noted above. Continue current medical therapy for hypertension. She was told when she went to the hospital recently for some dizziness that she had some carotid occlusive disease. We will obtain a routine carotid Doppler prior to her next visit. URI (upper respiratory infection) Probable virus but s tarted Zpak. Counseled on viruses and watch for any worsening symptoms with her COPD. Sebaceous cyst These sebaceous cysts have b een bothering her especially on the lower 1. We set up for excision on the bottom one today with the plan of removing the upper 1 perhaps in a week when we will remove her stitches from today.is to the area on the lower sebaceous cyst with Betadine solution and used a 27-gauge needle to inject a total of 8 mL of 1% lidocaine around the site and numb it. Further cleanse area with iodine. 2 remove the cyst I used a 4 mm punch biopsy to make a hole and was able to obtain the entire cyst pocket from that site and remove it completely. She tolerated the procedure well and then I used 2 4-0 Prolene sutures to bring the site to close. The area clean and dry and change the bandage with Neosporin regularly by her home health aide. Follow-up in one week for suture removal and we can remove the second cyst at that time if needed. Diastolic CHF Ordered by Dr Ontiveros. dj Dyspnea -Her blood pressure has been elevated. Her differential diagnosis for her dyspnea is broad including obesity, diastolic heart failure as well as uncontrolled hypertension. Her aortic valve was not well-visualized previously and we will obtain an echocardiogram (transesophageal) for better delineation. We will also obtain a right left heart catheter for further evaluation. Aortic stenosis May need a little more alicia p on this with her symptoms, which include dyspnea and occasional dizziness and edema. Setting her up with Dr Hurtado for cardiac evaluation. BNP was okay but the Lasix seemed to help with her pedal edema. I went ahead and refilled that for now and told her to take it prn for now and not necessarily daily. Vertigo Having vertigo but ER workup on heart and chest was normal. Starting Antivert but if not improving, we may need to sent to ENT for evaluation. She had stress testing and workup with Dr Hurtado on heart in October and everything was okay. They have her getting set up for sleep study with Dr Gama. Hypertensive urgency BP is very high today after stopping valsartan due to recall. Gave her 3 clonidine 0.1mg tabs today for rapid BP lowering and starting Benicar and metoprolol daily. Monitor BP closely. Aortic stenosis -No significant valvular dis ease by cath/echo in 10/2017- Currently with HTN, it is unclear to me if she is taking her meds.-She had a normal LVEDP in october. Continue low dose diuretic prn for LE edema.-Supportive care with weight loss. Obstructive sleep apnea Recent sleep study positive and she got set up with CPap just last night. Dr Floyd set up with this and she has a f/u with him later as well. BPV (benign positional vertigo) Main reason for her ho spitalization was the vertigo which is better now. Refilled her Antivert to have on hand. Hypertension, uncontrolled BP is very high but she has been out of her medication for awhile. I'm going to put her on Diovan instead of losartan for a little stronger control. She had been on amlodipine before but says it was [place] ing her lightheaded. We will need to monitor BP closely. She is supposed to f/u with Milli in December. Her labs were done in June and are doing okay. Pedal edema Suspect fluid retention. Colon it sodium intake and checking labs including BNP. She has heart murmur and I'm ordering echocardiogram for evaluation. I placed her on Lasix 20mg daily with K-Dur 10meq daily just for 10 days initially for the time being. We will monitor that. knee pain, right I did discuss with the patie nt that we could try a series of 3 shots, she has tried cortisone and this did not help her out long enough in the past. I did discuss with her the importance of weight loss as her current BMI precludes arthroplasty. Treatment Notes Test Name Order Date US Carotid doppler, bilateral 2019-08-16 Referrals Referral Date Details 2015-06-20 2015-06-20, please call pt t o set up appt for Right thyroid lobe BX, Beatriz Uriarte 2015-06-29 2015-06-29, ultrasound-guide d fine-needle aspiration right lower pole thyroid nodule, Surgical Orders Right OA and joint replaceme nt evaluation, EARLE PEREZ, [address], [place], [phone], need eval and treatment of r ight knee pain and swelling--acute on chronic--need [facility], [facility] 2017-05-05 2017-05-05, need appt in [facility]--she was seeing Dr. Grider with Jean--ortho MINDY, Earle Rafael, [address], [place], [phone], 2017-07-23 2017-07-23, BILATERAL KNEE P AIN/[facility] , Bakari Simpson pt already has appt for mid July but may need xrays sent over--knee pain and need injection|faxed 07/02/17/09-11-17|Pt did not make appt, Bakari Simpson 2017-10-22 2017-10-22, eval and treat, NAVA ONTIVEROS, [address], [place], [phone], sleep study, Tim Herrera CCD CCD Next Appt Details Provider Name:NAVA ONTIVEROS, 202 01:00:00 PM, [address], [address], [place], [address], Provider Name:AMIRA YEBOAH, 2019-11-03 09:00:00 AM, [address], [address], [place], [address], Insurance Providers Payer Name Payer Address Payer Phone Insured Name Patient Relati onship to Insured Coverage Start Date Coverage End Date Medicare [place] [employer] [address] [facility] [id number] Michaela Hurd 2016 [employer] Medicare [address] [facility] [phone] Michaela Villanueva"
--- NOTE | 2019-08-16 08:37 | PDOC ---
MELINDA CROWLEY PROTOCOL MANAGER 08/16/19 0837: CARDIO Progress Notes Date & Time Date of Service DATE: 08/16/19 TIME: 08:32 Time of Evaluation 08:32 Subjective Notes No chest pain, dizziness, or sOA Vitals Vitals Vital Signs Date Time Temp Pulse Resp B/P (MAP) Pulse Ox O2 Delivery O2 Flow Rate FiO2 08/16/19 08:18 97.1 69 18 133/65 (87) 93 Room Air 08/16/19 04:22 2.0 Weight Weight [ ] Input and Output I.O. Intake and Output 08/16/19 07:00 Intake Total 200 ml Balance 200 ml Intake Oral 200 ml # Voids 2 Laboratory Labs Laboratory Tests Test 08/15/19 05:55 White Blood Count 8.6 x10^3/uL (4.0-11.0) Red Blood Count 4.69 x10^6/uL (3.50-5.40) Hemoglobin 13.0 g/dL (12.0-15.5) Hematocrit 38.9 % (36.0-47.0) Mean Corpuscular Volume 83 fL (79-100) Mean Corpuscular Hemoglobin 28 pg (25-35) Mean Corpuscular Hemoglobin Concent 33 g/dL (31-37) Red Cell Distribution Width 14.3 % (11.5-14.5) Platelet Count 128 x10^3/uL (140-400) Sodium Level 138 mmol/L (136-145) Potassium Level 4.2 mmol/L (3.5-5.1) Chloride Level 102 mmol/L (98-107) Carbon Dioxide Level 32 mmol/L (21-32) Anion Gap 4 (6-14) Blood Urea Nitrogen 16 mg/dL (7-20) Creatinine 0.5 mg/dL (0.6-1.0) Estimated GFR (Cockcroft-Gault) 123.1 BUN/Creatinine Ratio 32 (6-20) Glucose Level 100 mg/dL (70-99) Calcium Level 8.3 mg/dL (8.5-10.1) Total Bilirubin 1.1 mg/dL (0.2-1.0) Aspartate Amino Transf (AST/SGOT) 17 U/L (15-37) Alanine Aminotransferase (ALT/SGPT) 20 U/L (14-59) Alkaline Phosphatase 96 U/L (46-116) Total Protein 6.6 g/dL (6.4-8.2) Albumin 3.1 g/dL (3.4-5.0) Albumin/Globulin Ratio 0.9 (1.0-1.7) Physical Exams HEENT: Neck Supple W Full Motion Chest: Symmetric Lungs: Clear to Auscultation Heart: S1S2, RRR, no jug vein distention Abdomen: Soft N/T Neurology: alert, oriented, follow commands Assessment Assessment 1. Dizziness, near syncope. Carotid US without significant disease. Tele noted with intermittent brief burst of AFIB vs SVT. Otherwise, maintaining SR. 2. Mild troponin elevation; peak 0.338. Most probably type II, demand ischemia. CP free. Cath 10/2017 without obstructive disease 3. Accelerated hypertension; now controlled 4. Hyperlipidemia 5. Elevated d-dimer; CTA negative for PE. LE US negative for DVT 6. COPD, 7. DEAN, obesity Recommendations Will arrange outpatient event monitor and followup. KATE HAWKINS MD 08/17/19 1740: CARDIO Progress Notes Assessment Assessment Patient seen and examined on 08/16/19. Agree with our nurse practitioners assessment and plan. Dizziness, near syncope. Carotid US without significant disease. Tele noted with intermittent brief burst of AFIB vs SVT. Otherwise, maintaining SR. Will check an outpatient monitor. Mild troponin elevation; peak 0.338. Most probably type II, demand ischemia. CP free. Cath 10/2017 without obstructive disease Accelerated hypertension; now controlled Elevated d-dimer; CTA negative for PE. LE US negative for DVT MELINDA CROWLEY APRN Aug 16, 2019 08:37 KATE HAWKINS MD Aug 17, 2019 17:40
[2019-08-16 10:31] VITALS: BP 152/62
[2019-08-16 15:38] VITALS: BP 150/73
[2019-08-16 19:15] VITALS: BP 141/67
--- NOTE | 2019-08-16 20:07 | PN ---
DATE: 08/16/2019 SUBJECTIVE: The patient is resting, slightly propped up in bed, in no apparent distress, continued to complain of pain in both lower extremities and her right upper extremity after she has fallen. She is now also having difficulty walking, but denied any cough, phlegm. Denied any chills, rigors, or fever. Denied any shortness of breath. OBJECTIVE: GENERAL: When I examined her this afternoon, she looked well and was clearly in no apparent respiratory distress. No pallor, jaundice, cyanosis, or thyromegaly. No jugular venous distension. No lower limb edema. VITAL SIGNS: Her heart rate was 66, blood pressure was 152/62, temperature was 98.2, respiratory rate was 16, and oxygen saturation was 92%. HEAD, EYES, EARS, NOSE AND THROAT: Showed normocephalic, atraumatic. NECK: Supple. CARDIAC: Normal first and second heart sounds. No gallop or murmur. CHEST: Clear to auscultation. No crepitation or rhonchi. ABDOMEN: Distended, soft, nontender. NEUROLOGIC: She was awake, alert, responding appropriately. All cranial nerves intact. She moves extremities without difficulty, although she has difficulty walking, pain, mostly in both knee joint. She has obvious bruises on her right wrist joint and also around her left knee joint. Her intake over the last 24 hours and output are incompletely recorded. LABORATORY DATA: As of yesterday, her serum sodium was 138, potassium 4.2, chloride 102, bicarbonate 32, anion gap of 4, BUN 16, and creatinine 0.5. White cell count was 8600, hemoglobin 13, hematocrit 39, MCV 83, and platelet count of 128,000. D-dimer was high at 3.57. Her hepatitis serology was nonreactive. Her COVID test is still pending at the time of this dictation. Her CT angio of the chest showed that she has no CT evidence of pulmonary embolism; however, she has bibasilar predominant ground glass opacities with mosaic attenuation pattern, etiology of small airway disease. PLAN: To await for the COVID-19 test. I will arrange for her to have a total body bone scan given her worsening pain, bruises that became more apparent now. If she is negative, obviously and the bone scan was nonrevealing, she will need to be discharged with her to a [place] [facility] facility or swing bed to continue the process of rehabilitation, to which the patient is agreeable. DANAY MONTENEGRO MD DR: SONY/rbo JOB#: [id number] / [id number]
[2019-08-16] MEDS: quiNINE 324 MG CAPSULE. PO SCH (20:38)
[2019-08-16 23:22] VITALS: BP 153/65
[2019-08-17 06:18] VITALS: BP 162/83
[2019-08-17] MEDS: OXYBUTYNIN CHLORIDE 5 MG TABLET PO SCH ×2 (08:34→22:23)
[2019-08-17] MEDS: CITALOPRAM 20 MG TABLET. PO SCH (08:34)
[2019-08-17] MEDS: POTASSIUM CHLORIDE 10 MEQ TABLET.ER. PO SCH (08:34)
[2019-08-17] MEDS: CHOLECALCIFEROL (VITAMIN D3) 1,000 UNIT TABLET PO SCH (08:34)
[2019-08-17] MEDS: ENOXAPARIN 40 MG/0.4 ML SYRINGE. SQ SCH (08:35)
[2019-08-17] MEDS: ASPIRIN ENTERIC COATED 81 MG TABLET.DR. PO SCH (08:35)
[2019-08-17] MEDS: METOPROLOL SUCC 24HR ER 25 MG TAB.ER.24H. PO SCH (08:35)
[2019-08-17] MEDS: NYSTATIN TOPICAL POWDER 15GM BOTTLE. TP SCH ×2 (08:35→22:23)
--- NOTE | 2019-08-17 08:55 | PDOC ---
MELINDA CROWLEY APRN 08/17/19 0855: CARDIO Progress Notes Date & Time Date of Service DATE: 08/17/19 TIME: 08:51 Time of Evaluation 08:51 Subjective Notes No chest pain, dizziness, diaphoresis, nausea/vomiting Vitals Vitals Vital Signs Date Time Temp Pulse Resp B/P (MAP) Pulse Ox O2 Delivery O2 Flow Rate FiO2 08/17/19 08:35 68 162/83 08/17/19 06:18 97.5 20 96 Room Air 08/16/19 22:30 2.0 Weight Weight [ ] Input and Output I.O. Intake and Output 08/17/19 07:00 Intake Total 600 ml Balance 600 ml Intake Oral 600 ml # Voids 1 Physical Exams HEENT: Neck Supple W Full Motion Chest: Symmetric Lungs: Clear to Auscultation Heart: S1S2, RRR, no jug vein distention Abdomen: Soft N/T Extremities: No Edema Neurology: alert, oriented, follow commands Assessment Assessment 1. Dizziness, near syncope. resolved. Carotid US without significant disease. Orthos negative. Tele noted with intermittent brief burst of AFIB vs SVT. Otherwise, maintaining SR. 2. Mild troponin elevation; peak 0.338. Most probably type II, demand ischemia. CP free. Cath 10/2017 without obstructive disease 3. Accelerated hypertension; now controlled 4. Hyperlipidemia 5. Elevated d-dimer; CTA negative for PE. LE US negative for DVT 6. COPD, 7. DEAN, obesity Recommendations Echo to assess LV systolic function Outpatient event monitor ASA therapy Continue metoprolol for rate control Supportive care Okay to transfer to rehab from a CV standpoint. Follow up with Dr. Montano September 21 at 1:00pm. GRACIE KING MD 08/17/19 1459: CARDIO Progress Notes Assessment Assessment Patient seen and examined. Agree with TERRAZZO WORKER's assessment and plan. Slight troponin elevation probably demand ischemia. Telemetry with few brief episodes of AF noted Agree with ischemic evaluation and event monitor as an outpatient MELINDA CROWLEY APRN Aug 17, 2019 08:55 GRACIE KING MD Aug 17, 2019 14:59
[2019-08-17 11:00] VITALS: BP 141/73
--- NOTE | 2019-08-17 14:59 | RAD ---
Nuclear medicine whole body bone scan History: fall with pain and bruises in multiple sites Comparison: CT chest with contrast August 14, 2019. CT head and cervical spine without contrast, August 13, 2019. Left knee, 4 views, August 13, 2019. Technique: Examination performed after intravenous administration of 25 mCi Technetium 99m MDP. Images of the whole body were obtained in the anterior and posterior projections after routine delay. Findings: There is left convexity thoracolumbar scoliosis. Tracer uptake in the spine is moderately heterogeneous. There is increased tracer uptake along the inner curvature of the scoliosis, on CT endplate sclerosis and spurring is noted likely accounting for the increased uptake. Tracer uptake in ribs is symmetric. Tracer in urinary bladder obscures the pubic rami in the lower sacrum. Tracer uptake in pelvic bones is symmetric. There is increased periarticular tracer uptake of the knees. The left knee tracer uptake is likely degenerative in correlation with radiographs. The right knee uptake may be degenerative or posttraumatic. Tracer uptake of the bilateral feet is nonspecific. Tracer distribution in the soft tissues appears physiologic. IMPRESSION: Tracer uptake of the right knee may be degenerative or posttraumatic. Correlate to whether there is any localized pain. If so, consider dedicated radiographs. Electronically signed by: Jordy Cortez MD (08/17/2019 2:56 PM) [facility]
[2019-08-17 15:00] VITALS: BP 141/59
--- NOTE | 2019-08-17 17:20 | PN ---
DATE: 08/17/2019 SUBJECTIVE: The patient is resting slightly propped up in bed, in no apparent respiratory distress. She is awake, alert, apparently had multiple episodes of nausea and vomiting. She also continued to be weak. She did walk for about 20 feet with physical therapy and she got tired. PHYSICAL EXAMINATION: GENERAL: When I examined her this afternoon, she looked well and was clearly in no apparent respiratory distress. No pallor, jaundice, cyanosis or thyromegaly. No jugular venous distention. No limb edema. VITAL SIGNS: Her heart rate was 65, blood pressure was 141/73, temperature was 97, respiratory rate 22, and oxygen saturation was 92% on room air. HEAD, EYES, EARS, NOSE AND THROAT: Showed normocephalic, atraumatic. NECK: Supple. HEART: Showed normal first and second heart sounds. No gallop or murmur. CHEST: Clear to auscultation. No crepitation or rhonchi. ABDOMEN: Distended, soft, nontender. NEUROLOGIC: She is awake, alert, responding appropriately. All cranial nerves are intact. She moves extremities without difficulty. She ambulates with a walker. Her intake ____. LABORATORY DATA: Her white cell count was 8600, hemoglobin 13, hematocrit 39, MCV 83, and platelet count of 128,000. Serum sodium 138, potassium 4.2, chloride 102, bicarbonate 32, anion gap of 4, BUN 16, creatinine 0.5, estimated GFR was ____ mL per minute. Her glucose 100, calcium was 8.3. Total bilirubin is 1.1. AST, ALT, alkaline phosphatase were normal. Total protein 6.6, albumin 3.1. Her COVID-19 by PCR was negative. ASSESSMENT: 1. Dizziness and near syncope, resolved. Her bilateral carotid ultrasound was negative and no hemodynamically significant internal carotid artery stenosis. There is no evidence of postural hypotension. Telemetry showed brief bursts of AFib versus SVT, mild troponin elevation, likely type 2 demand ischemia. 2. Accelerated hypertension, much better controlled. 3. Hyperlipidemia. 4. Elevated D-dimer; however, CT angio was negative for PE and bilateral lower extremity Doppler ultrasound was negative for DVT, COPD, obstructive sleep apnea and marked morbid obesity, pain in both knee joint and upper extremity for which we did a bone scan, the result of which is still pending at the time of this dictation. Patient will be discharged either today or tomorrow as she is accepted at [facility]. DANAY MONTENEGRO MD DR: SONY/rob JOB#: [id number] / [id number]
[2019-08-17 18:57] VITALS: BP 133/87
[2019-08-17] MEDS: quiNINE 324 MG CAPSULE. PO SCH (21:00)
[2019-08-17] MEDS: ACETAMINOPHEN 325 MG TABLET PO PRN (22:23)
[2019-08-17 22:26] VITALS: BP 161/71
[2019-08-17] MEDS: ONDANSETRON PF 4 MG/2 ML VIAL. IVP PRN (22:50)
[2019-08-18 05:26] VITALS: BP 179/81
--- NOTE | 2019-08-18 08:00 | PDOC ---
MELINDA CROWLEY APRN 08/18/19 0800: CARDIO Progress Notes Date & Time Date of Service DATE: 08/18/19 TIME: 07:54 Time of Evaluation 07:54 Subjective Notes No chest pain, dizziness, diaphoresis, or SOA Vitals Vitals Vital Signs Date Time Temp Pulse Resp B/P (MAP) Pulse Ox O2 Delivery O2 Flow Rate FiO2 08/18/19 05:26 97.4 71 18 179/81 (113) 94 Nasal Cannula 2.0 Weight Weight [ ] Input and Output I.O. Intake and Output 08/18/19 07:00 Intake Total 600 ml Balance 600 ml Intake Oral 600 ml # Voids 9 Physical Exams HEENT: Neck Supple W Full Motion Chest: Symmetric Lungs: Clear to Auscultation Heart: S1S2, RRR, no jug vein distention Abdomen: Soft N/T Extremities: No Edema Neurology: alert, oriented, follow commands Assessment Assessment 1. Dizziness, near syncope. resolved. Carotid US without significant disease. Orthos negative. Tele noted with intermittent brief burst of probable AFIB. Otherwise, maintaining SR. 2. Mild troponin elevation; peak 0.338. Most probably type II, demand ischemia. CP free. Cath 10/2017 without obstructive disease 3. Accelerated hypertension; now controlled 4. Hyperlipidemia; LDL 130 5. Elevated d-dimer; CTA negative for PE. LE US negative for DVT 6. COPD, 7. DEAN, obesity Recommendations Outpatient event monitor arranged to assess AF burden, guide therapy Outpatient ischemic evaluation being arranged ASA therapy Statin Metoprolol for rate control Supportive care Okay to discharge from a CV standpoint Follow up with Dr. Montano as scheduled NAVA MONTANO MD 08/18/19 4437: CARDIO Progress Notes Plan Plan Patient seen and examined. Agree with above nurse practitioner note. No acute cardiovascular issues ongoing. Okay to discharge home with close follow-up in our office. Echocardiogram reviewed. No acute pathology noted. MELINDA CROWLEY APRN Aug 18, 2019 08:00 NAVA MONTANO MD Aug 18, 2019 17:37
[2019-08-18] MEDS: CHOLECALCIFEROL (VITAMIN D3) 1,000 UNIT TABLET PO SCH (08:11)
[2019-08-18] MEDS: NYSTATIN TOPICAL POWDER 15GM BOTTLE. TP SCH ×2 (08:12→21:00)
[2019-08-18] MEDS: ASPIRIN ENTERIC COATED 81 MG TABLET.DR. PO SCH (08:12)
[2019-08-18] MEDS: ENOXAPARIN 40 MG/0.4 ML SYRINGE. SQ SCH (08:12)
[2019-08-18] MEDS: OXYBUTYNIN CHLORIDE 5 MG TABLET PO SCH ×2 (08:12→21:03)
[2019-08-18] MEDS: POTASSIUM CHLORIDE 10 MEQ TABLET.ER. PO SCH (08:12)
[2019-08-18] MEDS: METOPROLOL SUCC 24HR ER 25 MG TAB.ER.24H. PO SCH (08:12)
[2019-08-18] MEDS: CITALOPRAM 20 MG TABLET. PO SCH (08:12)
[2019-08-18 09:55] VITALS: BP_SYST 121; BP_SYST 128; BP_DIAS 41; BP_DIAS 67
[2019-08-18 09:56] VITALS: BP 123/72
[2019-08-18] MEDS: DOCUSATE SODIUM 100 MG CAPSULE PO SCH (11:12)
--- NOTE | 2019-08-18 11:23 | PN ---
DATE: 08/18/2019 ATTENDING PHYSICIAN: Dr. Alvarado. SUBJECTIVE: Bilateral knee pain. No further dizziness. She walked for about 20 feet, but she got tired. OBJECTIVE FINDINGS: VITAL SIGNS: Her blood pressure today is 161/71, her temperature is 97.4 degrees Fahrenheit, pulse 71 and regular, oxygen saturation 94% on room air. HEENT: Head is without trauma. Pupils are reactive. Sclerae nonicteric. Oropharynx is clear. NECK: Supple, no bruits. LUNGS: Clear. CARDIOVASCULAR: Showed regular heart tones. No gallops. Peripheral pulses are palpable and full. ABDOMEN: Obese, protuberant. No organomegaly. Bowel sounds are hypoactive. EXTREMITIES: Show degenerative arthritis both knees, no effusion. Limited range of motion of both knees. NEUROLOGIC: Focally intact. ASSESSMENT: 1. A 68-year-old female with a near syncopal event, dizziness has resolved. 2. Accelerated hypertension. 3. Hyperlipidemia. 4. Elevated D-dimer, but negative CT angiogram. 5. Degenerative arthritis. PLAN: 1. She has been accepted for [facility] for continued convalescence. 2. Pain meds p.r.n. 3. Recs per Cardiology. They will set up a 14-day event monitor for her to go home with. She will be discharged later today if a bed is available. DREW NEGRON MD DR: LELE/rob JOB#: [id number] / [id number]
[2019-08-18 16:07] VITALS: BP 137/96
--- NOTE | 2019-08-18 16:56 | CARD ---
MR#: [id number] Date of Study: 08/18/2019 Ordering Physician: MELINDA CROWLEY, Referring Physician: MELINDA CROWLEY, Tech: Tracey Garcia APPROVED REPORT EXAM: Two-dimensional and M-mode echocardiogram with Doppler and color Doppler. Other Information Quality : AverageHR: 66bpm Technically limited study due to body habitus and COPD INDICATION Dyspnea Syncope Elevated Troponin 2D DIMENSIONS Left Atrium(2D)4.4 (1.6-4.0cm)IVSd1.5 (0.7-1.1cm) Aortic Root(2D)3.1 (2.0-3.7cm)LVDd5.5 (3.9-5.9cm) LVOT Diameter2.0 (1.8-2.4cm)PWd1.2 (0.7-1.1cm) LVDs3.6 (2.5-4.0cm)FS (%) 33.6 % SV89.7 mlLVEF(%)61.9 (>50%) Aortic Valve AoV Peak Hayden.254.4cm/sAoV VTI51.7cm AO Peak GR.25.9mmHgAO Mean GR.14mmHg Mitral Valve MV E Fslkjhdg148.8cm/sMV E Peak Gr.6mmHg MV DECEL [id number] A Pkjgdmpz021.5cm/s MV E Mean Gr.3mmHgE/A Ratio0.9 Pulmonary Valve PV Peak Sajuvbrs812.6cm/sPV Peak Grad.4mmHg Tricuspid Valve TR P. Sxxkheed624mz/sRAP MTTRAYAO5lfLc TR Peak Gr.40bzDaZDLA82pfLm Pulmonary Vein S1 Ceopibju55.8cm/sD2 Qrmgxmgh50.8cm/s LEFT VENTRICLE The left ventricle is normal size. There is moderate concentric left ventricular hypertrophy. The lef t ventricular systolic function is normal. The Ejection Fraction is 5-60%. There is normal LV segment al wall motion. Transmitral Doppler flow pattern is Grade I-abnormal relaxation pattern. RIGHT VENTRICLE The right ventricle is normal size. There is normal right ventricular wall thickness. The right ventr icular systolic function is normal. ATRIA The left atrium is moderately dilated. The right atrium is borderline dilated. The interatrial septum is intact with no evidence for an atrial septal defect or patent foramen ovale as noted on 2-D or Do ppler imaging. AORTIC VALVE The aortic valve appeaars bicuspid. Doppler and Color Flow revealed trace aortic regurgitation. Mild aortic stenosis. Calculated aortic valve maximum pressure gradient is 26 mmHg and mean pressure gradi ent of 13 mmHg. MITRAL VALVE The mitral valve is normal in structure and function. There is no evidence of mitral valve prolapse. There is no mitral valve stenosis. Mitral valve mean gradient of 3.31 mmHg. Doppler and Color-flow re vealed trace mitral regurgitation. TRICUSPID VALVE The tricuspid valve is normal in structure and function. Doppler and Color Flow revealed trace to mil d tricuspid regurgitation with an estimated PAP of 43 mmHg. There is no tricuspid valve stenosis. PULMONIC VALVE The pulmonic valve is not well visualized. Doppler and Color Flow revealed trace pulmonic valvular re gurgitation. GREAT VESSELS The aortic root is normal in size. The ascending aorta is Mildly dilated. The IVC is normal in size a nd collapses >50% with inspiration. PERICARDIAL EFFUSION There is no evidence of significant pericardial effusion. Critical Notification Critical Value: No <Conclusion> The left ventricular systolic function is normal. The Ejection Fraction is 5-60%. There is normal LV segmental wall motion. Transmitral Doppler flow pattern is Grade I-abnormal relaxation pattern. The left atrium is moderately dilated. Aortic valve appeaars bicuspid. There is mild aortic stenosis. Trace aortic regurgitation. Trace mitral regurgitation. Trace to mild tricuspid regurgitation with an estimated PAP of 43 mmHg. There is no evidence of significant pericardial effusion. Signed by : Nino Basurto, Electronically Approved : 08/18/2019 16:56:27
[2019-08-18] MEDS: ACETAMINOPHEN 325 MG TABLET PO PRN (18:34)
[2019-08-18 20:59] VITALS: BP 150/58
[2019-08-18] MEDS ORDERED: ATORVASTATIN CALCIUM 20 MG TABLET PO SCH (21:00)
[2019-08-18] MEDS: quiNINE 324 MG CAPSULE. PO SCH (21:03)
[2019-08-19 05:42] VITALS: BP 164/69
--- NOTE | 2019-08-19 08:18 | PDOC ---
CARDIO Progress Notes Date & Time Date of Service DATE: 08/19/19 TIME: 08:17 Time of Evaluation 08:17 Subjective Notes No chest pain, dizziness, diaphoresis, SOA Vitals Vitals Vital Signs Date Time Temp Pulse Resp B/P (MAP) Pulse Ox O2 Delivery O2 Flow Rate FiO2 08/19/19 05:42 97.6 65 20 164/69 (100) 96 Nasal Cannula 2.0 Weight Weight [ ] Input and Output I.O. Intake and Output 08/19/19 07:00 Intake Total 1320 ml Balance 1320 ml Intake Oral 1320 ml # Voids 6 # Bowel Movements 3 Physical Exams HEENT: Neck Supple W Full Motion Chest: Symmetric Lungs: Clear to Auscultation Heart: S1S2, RRR, no jug vein distention Abdomen: Soft N/T Extremities: No Edema Neurology: alert, oriented, follow commands Assessment Assessment 1. Dizziness, near syncope. resolved. Carotid US without significant disease. Orthos negative. Tele noted with intermittent brief burst of probable AFIB. Otherwise, maintaining SR. 2. Mild troponin elevation; peak 0.338. Most probably type II, demand ischemia. CP free. Cath 10/2017 without obstructive disease. Echo with preserved LV systolic function 3. Accelerated hypertension; now controlled 4. Hyperlipidemia; LDL 130 5. Elevated d-dimer; CTA negative for PE. LE US negative for DVT 6. COPD, 7. DEAN, obesity Recommendations Outpatient event monitor arranged to assess AF burden, guide therapy Outpatient ischemic evaluation arranged ASA therapy Statin Metoprolol for rate control Supportive care Okay to discharge from a CV standpoint Follow up with Dr. Montano as scheduled MELINDA CROWLEY APRN Aug 19, 2019 08:18
[2019-08-19] MEDS ORDERED: GLYCERIN ADULT 1 SUPP.RECT. PR ONE (08:45)
[2019-08-19] MEDS: DOCUSATE SODIUM 100 MG CAPSULE PO SCH (08:49)
[2019-08-19] MEDS: CHOLECALCIFEROL (VITAMIN D3) 1,000 UNIT TABLET PO SCH (08:49)
[2019-08-19] MEDS: ACETAMINOPHEN 325 MG TABLET PO PRN (08:49)
[2019-08-19] MEDS: OXYBUTYNIN CHLORIDE 5 MG TABLET PO SCH (08:49)
[2019-08-19] MEDS: METOPROLOL SUCC 24HR ER 25 MG TAB.ER.24H. PO SCH (08:50)
[2019-08-19] MEDS: ENOXAPARIN 40 MG/0.4 ML SYRINGE. SQ SCH (08:50)
[2019-08-19] MEDS: NYSTATIN TOPICAL POWDER 15GM BOTTLE. TP SCH (08:50)
[2019-08-19] MEDS: CITALOPRAM 20 MG TABLET. PO SCH (08:50)
[2019-08-19] MEDS: ASPIRIN ENTERIC COATED 81 MG TABLET.DR. PO SCH (08:50)
[2019-08-19] MEDS: POTASSIUM CHLORIDE 10 MEQ TABLET.ER. PO SCH (08:50)
--- NOTE | 2019-08-19 10:29 | DS ---
DATE OF DISCHARGE: 08/19/2019 ATTENDING PHYSICIAN: Dr. Alvarado. FINAL DISCHARGE DIAGNOSES: 1. Falls and multiple contusions, fracture is ruled out. 2. Near syncopal episode. 3. Slight elevation of troponin levels. 4. Essential hypertension. 5. Hyperlipidemia. 6. Chronic obstructive pulmonary disease. 7. Morbid obesity. 8. Sleep apnea. 9. Anxiety with depression. HISTORY OF PRESENT ILLNESS: This 68-year-old female was admitted from the ED after fell hitting her right wrist and left knee. No fractures identified. She felt dizzy, had a near syncopal episode. She was admitted for further treatment and evaluation. PHYSICAL EXAMINATION: Please see the dictated note. PERTINENT LABORATORY AND X-RAY STUDIES: Multiple imaging studies done on admission included x-ray of the right knee. Head and cervical spine CT. Acute abdomen series. Forearm series. Doppler studies. CT of the chest and bone scan. The CT of the chest showed no evidence of pulmonary embolus, bibasilar ground glass opacity with mosaic attenuation commonly seen in small airway disease. Because of the appearance, she had a COVID-19 coronavirus swab which was reported as negative. Other plain films demonstrated no acute fractures on this admission. Her hemoglobin was maintained at 13.0 g/dL with a white count of 8600. Electrolytes were within normal range. BUN was 16, creatinine 0.5 mg percent. Cardiac enzymes showed a slight elevation at 0.35 and this was attributed to stress demand from the fall. She had a Cardiology evaluation. Please refer to their recommendation on the chart. COURSE IN THE HOSPITAL: The patient did well. Diet was advanced. Home meds were continued. Pain was managed and she denies any further issues. Cardiology recommendation is on the chart. She initially wanted to go to [facility] to get stronger when they could not take her, she changed her mind and wanted to go home. Therefore, on the fifth hospital day, she was discharged home. There are no changes on her medication. She will continue her scheduled vitamin D3, citalopram, metoprolol, oxybutynin, potassium, quinidine, Ultram p.r.n., baby aspirin 1 daily. She was discharged then from our hospital in stable condition with explicit instructions and followup care. TOTAL DISCHARGE TIME SPENT: 39 minutes. DREW NEGRON MD DR: LELE/rob JOB#: [id number] / [id number] DANAY Mejia MD
[2019-08-19 10:47] VITALS: BP 143/59
[2019-08-19] MEDS ORDERED: ONDANSETRON ODT 4 MG TAB.RAPDIS PO PRN (13:00)
== END 2019-08-19 15:20 | disposition home health service (06) | DRG 74 ==
LOC: ER 17:42 → 1 SOUTH 20:04
PROVIDERS: ADMIT Internal Medicine; ATTEND Internal Medicine
DX: G90.8 Other disorders of autonomic nervous system (principal); E11.9 Type 2 diabetes mellitus without complications; E66.01 Morbid (severe) obesity due to excess calories; E78.5 Hyperlipidemia, unspecified; F32.9 Major depressive disorder, single episode, unspecified; F41.9 Anxiety disorder, unspecified; D72.829 Elevated white blood cell count, unspecified; G47.33 Obstructive sleep apnea (adult) (pediatric); R11.2 Nausea with vomiting, unspecified; I10 Essential (primary) hypertension; J44.9 Chronic obstructive pulmonary disease, unspecified; K21.9 Gastro-esophageal reflux disease without esophagitis; M19.90 Unspecified osteoarthritis, unspecified site; M79.7 Fibromyalgia; R79.89 Other specified abnormal findings of blood chemistry; M25.561 Pain in right knee; M25.562 Pain in left knee; S83.92XA Sprain of unspecified site of left knee, initial encounter; W18.30XA Fall on same level, unspecified, initial encounter; G89.29 Other chronic pain; Y93.89 Activity, other specified; Y92.89 Other specified places as the place of occurrence of the external cause; Y99.8 Other external cause status; Z68.38 Body mass index [BMI] 38.0-38.9, adult; Z82.49 Family history of ischemic heart disease and other diseases of the circulatory system; Z87.828 Personal history of other (healed) physical injury and trauma; Z79.899 Other long term (current) drug therapy; Z79.82 Long term (current) use of aspirin; Z88.0 Allergy status to penicillin; Z03.818 Encounter for observation for suspected exposure to other biological agents ruled out
CPT/HCPCS: 36415; 70450; 71275; 72125; 73090; 73564; 74022; 78306; 80048; 80053; 80061; 80076; 80307; 81001; 82550; 83690; 83735; 83880; 84443; 84484; 85025; 85027; 85379; 85610; 85730; 86705; 86709; 86803; 87340; 93005; 93306; 93880; 93970; 96361; 96372; 96374; A9503; J1650; J2405; J7120; Q0162; Q9967; 97110; 97530; 99285-25

== ENCOUNTER 2020-01-13 08:42 | Inpatient (IN) | payer MEDICARE ==
[~2020-01-13] VITALS: Ht 170.2 cm; Wt 112.9 kg
--- NOTE | 2020-01-13 09:13 | PHYS DOC ---
Past History Past Medical History: Anxiety, Arthritis, Arrhythmia, COPD, Depression, Fibromyalgia, Hypertension, Other Additional Past Medical Histor: chronic pain Past Surgical History: Other Additional Past Surgical Histo: bilateral chest tubes, left wrist repair, shoulder Lt. , heart cath +/- 5y Smoking: Non-smoker Alcohol Use: None Drug Use: None General Adult EDM: Chief Complaint: MECHANICAL FALL HPI: HPI: Patient is a 69-year-old female with a history of fibromyalgia, anxiety, arrhythmia, COPD, and a loop recorder in place, who presents to the ED per EMS after a fall. Patient states she felt dizzy and had a ground level fall at 0600 where she fell onto her knees and then onto the ground. She has been having chronic dizzy spells and is currently being followed by Dr. Montano (Cardiology). Dizziness described as the room spinning. Denies any LOC, or head trauma. Currently complains of neck and hip pain. Denies any SOB or chest pain. Reports LLQ pain and some nausea. Reports cough. Denies known exposure to COVI D19. Review of Systems: Review of Systems: Constitutional: Denies fever or chills Eyes: Denies redness or eye pain HENT: Denies nasal congestion or sore throat Respiratory: Denies shortness of breath; reports cough Cardiovascular: Denies chest pain or palpitations GI: Denies vomiting; reports abdominal pain and nausea : Denies dysuria or hematuria Musculoskeletal: Reports neck pain, hip pain. Integument: Denies rash or skin lesions Neurologic: Reports dizziness; Denies headache, focal weakness or sensory changes Complete systems were reviewed and found to be within normal limits, except as documented in this note. Allergies: Allergies: Allergies Coded Allergies Type Severity Reaction Last Updated Verified Penicillins Allergy Intermediate rash 01/13/20 Yes Physical Exam: PE: Constitutional: Well developed, obese, anxious, non-toxic appearance, poor hygiene HENT: Normocephalic, atraumatic Eyes: PERRL, EOMI, conjunctiva normal, no discharge Neck: C collar in place, no midline cervical tenderness, supple Lungs & Thorax: No respiratory distress, equal chest rise and fall Abdomen: Soft, obese, LLQ tenderness Skin: Warm, dry, no erythema, no rash Back: No thoracic or lumbar midline tenderness, no CVA tenderness Extremities: No deformity in lower extremity, ROM intact, 1+ BLE edema Neurologic: Alert and oriented X 3, normal motor function, normal sensory function, no focal deficits noted, CN II-XII intact Psychologic: Affect anxious, judgment normal Current Patient Data: Vital Signs: Vital Signs Date Time Temp Pulse Resp B/P (MAP) Pulse Ox O2 Delivery O2 Flow Rate FiO2 01/13/20 08:45 97.7 72 20 150/65 (93) 96 Room Air EKG: EKG: EKG @ 0918, sinus rhythm at 73 BPM, no ST elevation, baseline artifact, VA 162 ms, QRS 88ms, QTc 471 ms Radiology/Procedures: Radiology/Procedures: PROCEDURE: CT CHEST ABD PELVIS W/CONTRAST EXAM: Chest, abdomen and pelvis CT with intravenous contrast. HISTORY: Cough and pain. TECHNIQUE: Computed tomographic images of the chest, abdomen and pelvis were obtained following the administration of intravenous contrast. Multiplanar reformatting was performed. *One or more of the following individualized dose reduction techniques were utilized for this examination: 1. Automated exposure control. 2. Adjustment of the mA and/or kV according to patient size. 3. Use of iterative reconstruction technique. COMPARISON: 11/26/2017. FINDINGS: Chest: The heart is mildly enlarged. There is dense calcification of the mitral valve annulus. The aorta is normal in caliber. There are nonspecific mediastinal and hilar lymph nodes. There is no pneumothorax or pleural effusion. There is basilar atelectasis and pleural parenchymal scarring. There is linear opacity within the right upper lobe which extends to the horizontal fissure, likely due to scarring. There is a former nodule within the right lung apex. There is a calcified granuloma within the left upper lobe. There is mild bilateral lower lobe predominant air trapping. There is a cardiac event monitor within the left chest wall. There is a masslike density with possible associated architectural distortion within the lateral right breast and there is right breast skin thickening and nipple retraction. There is a nodule within the right axillary tail likely due to a enlarged lymph node. There is a small hiatal hernia. There are degenerative changes throughout the spine. There are few benign bone islands. Abdomen and pelvis: There is a small hiatal hernia. There is mild hepatosplenomegaly. There is cholelithiasis. The pancreas is unremarkable. There is slight adrenal gland thickening. There is a small simple appearing posterior left renal cyst. There is no appendicitis. There is no bowel obstruction. There is a tiny focus of fatty stranding and calcification within the left ventral peritoneum, possibly due to prior fat infarction. There are multiple uterine fibroids containing calcifications due to internal degeneration. There is coarse calcific lesion within the left adnexa. No adnexal mass is seen. The aorta is normal in caliber. There is no lymphadenopathy. There is no suspicious osseous lesion. There are degenerative changes throughout the spine. IMPRESSION: 1. No convincing acute abdominal or pelvic finding. 2. Mild lower lobe predominant air trapping superimposed on atelectasis and suspected chronic interstitial changes. There is no consolidated infiltrate. 3. 4 mm right apical pulmonary nodule, new compared to the prior study. Follow-up can be performed in one year if there are risk factors for pulmonary neoplasm. 4. Cholelithiasis. 5. Multiple uterine fibroids. 6. Masslike nodule with possible associated architectural distortion within the right breast and right breast skin thickening and nipple retraction. Correlate with mammography and breast sonography findings. Electronically signed by: Linette Hammer MD (01/13/2020 12:56 PM) [id number] PROCEDURE: CT HEAD AND CERVICAL SPINE WO CT HEAD AND CERVICAL SPINE WO Date: 01/13/2020 9:08 AM Clinical Indication: dizziness, pain behind left ear, pain Comparison: 08/13/2019. Technique: 5 mm axial tomographic images were obtained of the head without contrast. These were viewed on brain and bone windows. CT imaging of the cervical spine was performed without contrast. Coronal and sagittal reformatted images were performed. One or more of the following dose reduction techniques were utilized: Automated exposure control (AEC), Adjustment of mA and/or kV according to patient size, Use of iterative reconstruction technique such as ASiR, CT scan done according to ALARA and image gently/image wisely HEAD FINDINGS: Moderate nonspecific periventricular hypoattenuation is most consistent with chronic small vessel ischemic disease. No intra- or extra-axial mass or fluid collection. No acute hemorrhage. The ventricles are normal in size, shape, and morphology. The bañuelos-white matter junction is normal. The basilar cisterns are patent. Left maxillary sinus mucus retention cyst. The visualized portions of the orbits and globes are normal. The mastoid air cells are clear. No aggressive osseous lesion or fracture. CERVICAL SPINE FINDINGS: The cervical spine is normally aligned. No acute fracture. No aggressive lytic or blastic osseous lesion. Mild to moderate multilevel degenerative disc height loss. Multilevel spinal canal stenosis, worst and moderate to severe C5-6 due to a prominent disc osteophyte complex. Multilevel mild and moderate neuroforaminal narrowing. Right thyroid 2.3 cm nodule. No cervical lymphadenopathy. The visualized aerodigestive tract is unremarkable. The visualized lung apices are clear. IMPRESSION: 1. No acute intracranial process. 2. No acute osseous abnormality of the cervical spine. 3. Right thyroid 2.3 cm nodule could be further evaluated with nonemergent ultrasound, if not performed previously. Electronically signed by: Brant Whitney MD (01/13/2020 10:07 AM) [id number] Course & Med Decision Making: Course & Med Decision Making Pertinent Labs and Imaging studies reviewed. (See chart for details) Pt is a 69 y/o female who presents to the ED with neck pain after a fall ground ground level. NIHSS 0. Hx of chronic dizziness for which patient is on loop recorder and follows with Dr. Montano (cardiology). Patient complained of neck and hip pain. Limbs intact without deformity. Pain on palpation of LLQ. Patient also reports cough. Labs obtained and posted to chart. WBC elevated. SIRS criteria not met. Troponin WNL. Tbili also elevated with other LFTs WNL. UA without signs of infection. CT head/cervical spine without acute process with exception to incidental thyroid nodule. C-collar cleared. CT chest/abd/pelvis with concern for mass noted in right breast. Additional incidental nodule to lung. Patient reports she is weak and afraid of "dying" alone at home. Concern she would be unsafe discharge. Patient requiring admission for further evaluation and treatment. Discussed with Dr. Alvarado (hospitalist) who is in agreement with admit. Discussed findings and plan with patient, who acknowledges understanding and agreement. Radha Disclaimer: Radha Disclaimer: This electronic medical record was generated, in whole or in part, using a voice recognition dictation system. Departure Departure: Impression: Primary Impression: Near syncope Additional Impressions: Breast mass, right Pulmonary nodule Thyroid nodule Leukocytosis Qualified Codes: D72.829 - Elevated white blood cell count, unspecified Hyperbilirubinemia Disposition: ADMITTED INPT THIS HOSP Admitting Physician: Ragini Alvarado Condition: STABLE Referrals: AMIRA YEBOAH (PCP) NIHSS - ED NIH Stroke Scale: NIH Stroke Scale Response (Comments) Value Level of Consciousness: 0 Alert/Responsive 0 LOC Questions: 0 Answers both correctly 0 Best Gaze: 0 Normal 0 Visual: 0 No visual loss 0 Facial Palsy: 0 Normal, symmetrical 0 Motor - Right Arm 0 No drift 0 Motor - Left Leg 0 No drift 0 Motor: Right Leg 0 No drift 0 Limb Ataxia: 0 Absent 0 Sensory: 0 No loss 0 Best Language: 0 Normal 0 Dysathria: 0 Normal 0 Extinction and Inattention: 0 Normal 0 Total 0 COLBY,VANE Perry DO Jan 13, 2020 09:13
[2020-01-13] MEDS ORDERED: KETOROLAC 15 MG/ML VIAL. IVP ONE (09:15)
[2020-01-13] MEDS ORDERED: IV NORMAL SALINE 1,000ML 1,000 ML IV ONE (09:15)
--- NOTE | 2020-01-13 09:32 | EKG ---
[address] [address] Test Date: 2020-01-13 Test Time: 09:18:45 Pat Name: RIDDHI GARCIA Department: Room: Gender: F Project Development Director: CATARINA : 1950 Requested By: VANE COLBY Order Number: [id number] Reading MD: Measurements Intervals [place] Rate: 73 P: 90 CA: 162 QRS: -56 QRSD: 88 T: 23 QT: 424 QTc: 471 Interpretive Statements SINUS RHYTHM ABNORMAL LEFT AXIS DEVIATION R-S TRANSITION ZONE IN V LEADS DISPLACED TO THE LEFT QRS(T) CONTOUR ABNORMALITY CONSISTENT WITH INFERIOR INFARCT PROBABLY OLD ABNORMAL ECG RI6.02 No previous ECG available for comparison
--- NOTE | 2020-01-13 10:11 | RAD ---
CT HEAD AND CERVICAL SPINE WO Date: 01/13/2020 9:08 AM Clinical Indication: dizziness, pain behind left ear, pain Comparison: 08/13/2019. Technique: 5 mm axial tomographic images were obtained of the head without contrast. These were viewed on brain and bone windows. CT imaging of the cervical spine was performed without contrast. Coronal and sagittal reformatted images were performed. One or more of the following dose reduction techniques were utilized: Automated exposure control (AEC), Adjustment of mA and/or kV according to patient size, Use of iterative reconstruction technique such as ASiR, CT scan done according to ALARA and image gently/image wisely HEAD FINDINGS: Moderate nonspecific periventricular hypoattenuation is most consistent with chronic small vessel ischemic disease. No intra- or extra-axial mass or fluid collection. No acute hemorrhage. The ventricles are normal in size, shape, and morphology. The bañuelos-white matter junction is normal. The basilar cisterns are patent. Left maxillary sinus mucus retention cyst. The visualized portions of the orbits and globes are normal. The mastoid air cells are clear. No aggressive osseous lesion or fracture. CERVICAL SPINE FINDINGS: The cervical spine is normally aligned. No acute fracture. No aggressive lytic or blastic osseous lesion. Mild to moderate multilevel degenerative disc height loss. Multilevel spinal canal stenosis, worst and moderate to severe C5-6 due to a prominent disc osteophyte complex. Multilevel mild and moderate neuroforaminal narrowing. Right thyroid 2.3 cm nodule. No cervical lymphadenopathy. The visualized aerodigestive tract is unremarkable. The visualized lung apices are clear. IMPRESSION: 1. No acute intracranial process. 2. No acute osseous abnormality of the cervical spine. 3. Right thyroid 2.3 cm nodule could be further evaluated with nonemergent ultrasound, if not performed previously. Electronically signed by: Brant Whitney MD (01/13/2020 10:07 AM) [id number]
[2020-01-13 10:30] LABS: CALCIUM 10.2 mg/dL (8.5-10.1); CREATININE 0.7 mg/dL (0.6-1.0); GFR 83.2; POTASSIUM 4.4 mmol/L (3.5-5.1)
[2020-01-13 10:45] LABS: ALBUMIN 3.8 g/dL (3.4-5.0); ALBUMIN/GLOBULIN RATIO 0.9 (1.0-1.7); MAGNESIUM 2.5 mg/dL (1.8-2.4); TOTAL PROTEIN 7.9 g/dL (6.4-8.2)
[2020-01-13 11:16] LABS: BASO # 0.1 x10^3/uL (0.0-0.2); BASO % 1 % (0-3); EOS # 0.1 x10^3/uL (0.0-0.7); EOS % 0 % (0-3); HEMATOCRIT 45.7 % (36.0-47.0); HEMOGLOBIN 14.8 g/dL (12.0-15.5); LYMPH # 1.2 x10^3/uL (1.0-4.8); LYMPH % 7 % (24-48); MEAN CORPUSCULAR HEMOGLOBIN 27 pg (25-35); MEAN CORPUSCULAR HGB CONC 33 g/dL (31-37); MEAN CORPUSCULAR VOLUME 82 fL (79-100); MONO # 1.2 x10^3/uL (0.0-1.1); MONO % 6 % (0-9); NEUT # 16.4 x10^3uL (1.8-7.7); NEUT % 86 % (31-73); PLATELET COUNT 167 x10^3/uL (140-400)
[2020-01-13 11:53] LABS: % BANDS 1 % (0-9); % LYMPHS 4 % (24-48); % MONOS 6 % (0-10); % SEGS 89 % (35-66)
[2020-01-13 11:54] LABS: PLT ESTIMATE ADEQUATE (ADEQUATE)
[2020-01-13] MEDS ORDERED: IOHEXOL 300 MG/ML 75 ML VIAL. IV ONE (12:00)
[2020-01-13] MEDS ORDERED: ONDANSETRON PF 4 MG/2 ML VIAL. IVP ONE (12:00)
[2020-01-13] MEDS ORDERED: CONTRAST GIVEN. MC PRN (12:15)
--- NOTE | 2020-01-13 12:59 | RAD ---
EXAM: Chest, abdomen and pelvis CT with intravenous contrast. HISTORY: Cough and pain. TECHNIQUE: Computed tomographic images of the chest, abdomen and pelvis were obtained following the administration of intravenous contrast. Multiplanar reformatting was performed. *One or more of the following individualized dose reduction techniques were utilized for this examination: 1. Automated exposure control. 2. Adjustment of the mA and/or kV according to patient size. 3. Use of iterative reconstruction technique. COMPARISON: 11/26/2017. FINDINGS: Chest: The heart is mildly enlarged. There is dense calcification of the mitral valve annulus. The aorta is normal in caliber. There are nonspecific mediastinal and hilar lymph nodes. There is no pneumothorax or pleural effusion. There is basilar atelectasis and pleural parenchymal scarring. There is linear opacity within the right upper lobe which extends to the horizontal fissure, likely due to scarring. There is a former nodule within the right lung apex. There is a calcified granuloma within the left upper lobe. There is mild bilateral lower lobe predominant air trapping. There is a cardiac event monitor within the left chest wall. There is a masslike density with possible associated architectural distortion within the lateral right breast and there is right breast skin thickening and nipple retraction. There is a nodule within the right axillary tail likely due to a enlarged lymph node. There is a small hiatal hernia. There are degenerative changes throughout the spine. There are few benign bone islands. Abdomen and pelvis: There is a small hiatal hernia. There is mild hepatosplenomegaly. There is cholelithiasis. The pancreas is unremarkable. There is slight adrenal gland thickening. There is a small simple appearing posterior left renal cyst. There is no appendicitis. There is no bowel obstruction. There is a tiny focus of fatty stranding and calcification within the left ventral peritoneum, possibly due to prior fat infarction. There are multiple uterine fibroids containing calcifications due to internal degeneration. There is coarse calcific lesion within the left adnexa. No adnexal mass is seen. The aorta is normal in caliber. There is no lymphadenopathy. There is no suspicious osseous lesion. There are degenerative changes throughout the spine. IMPRESSION: 1. No convincing acute abdominal or pelvic finding. 2. Mild lower lobe predominant air trapping superimposed on atelectasis and suspected chronic interstitial changes. There is no consolidated infiltrate. 3. 4 mm right apical pulmonary nodule, new compared to the prior study. Follow-up can be performed in one year if there are risk factors for pulmonary neoplasm. 4. Cholelithiasis. 5. Multiple uterine fibroids. 6. Masslike nodule with possible associated architectural distortion within the right breast and right breast skin thickening and nipple retraction. Correlate with mammography and breast sonography findings. Electronically signed by: Linette Hammer MD (01/13/2020 12:56 PM) [id number]
[2020-01-13 15:18] LABS: BILIRUBIN,URINE NEG (NEG); CLARITY,URINE CLEAR; COLOR,URINE YELLOW; GLUCOSE,URINE NEG (NEG)
[2020-01-13 15:19] LABS: BACTERIA,URINE 0 /HPF (0-FEW); NITRITE,URINE NEG (NEG); RBC,URINE 0 /HPF (0-2); WBC,URINE RARE /HPF (0-4)
[2020-01-13 18:08] VITALS: BP 120/56
--- NOTE | 2020-01-13 18:10 | NUR ---
Michaela Hurd a 69yo female was admitted to ICU-2, telemetry, Dr. Alvarado, Dx: Syncope, breast mass, s/p fall, dizziness. Patient was transported to unit via EMS, accompanied by Patricia GIL (ER). Patient was soaked in urine upon arrival, patient was cleaned up, pictures were taken of her buttocks and front genital area, patient has raised red splotches. Patient states they were caused by a muscle relaxant she had taken. Patient's appearance is unkept, staff found onion peels matted in her hair, clothes had the smell of cat urine on them. Patient was connected to monitors, settled into bed. Patient was given written copies of hospital and unit policies and procedures. Admission process will be completed by oncoming shift.
[2020-01-13 23:23] VITALS: BP 120/63
[2020-01-14] VITALS (7 sets, daily range): BP systolic 90–128; BP diastolic 47–84
--- NOTE | 2020-01-14 05:42 | NUR ---
Shift Note: Pt is a/o x4, anxious, VSS, no c/o of n/v at this time, pt is c/o burning pain in bilateral LE from the rash that sometimes feels numb as well (adv pt that when dr rounds he will evaluate her legs and prescribe the appropriate pain medication, pt agrees), pt incontinent of urine (briefs change multiple times), pt very worried about her cat and her apartment (pt states she has a neighbor that is not nice and causes her concern), adv pt we consulted CM to discuss possible placement in assisted living per pt request and that she can discuss how she is feeling about her cat and apartment with her as well (pt agrees).
[2020-01-14] MEDS: ONDANSETRON PF 4 MG/2 ML VIAL. IVP PRN ×2 (09:36→13:16)
--- NOTE | 2020-01-14 17:22 | PDOC2 ---
CONSULT DOS: DATE: 01/14/20 TIME: 17:16 Reason for Consult: Dizziness Referring Physician: Dr. Alvarado Chief Complaint Dizziness and a fall Source: Chart review, Patient Problem List Problems Medical Problems: (1) Breast mass, right Status: Acute (2) Hyperbilirubinemia Status: Acute (3) Leukocytosis Status: Acute (4) Near syncope Status: Acute (5) Pulmonary nodule Status: Acute (6) Thyroid nodule Status: Acute History of Present Illness The patient is a 69-year-old female with reported an episode of dizziness as above with a fall initially to her knees and then to the ground. Work-up as above has included a CT head scan that showed no acute intracranial processes. Patient also being evaluated for some left lower quadrant pain. She has a extensive medical history including chronic pain and fibromyalgia as well as anxiety. She is followed by Dr. Montano for episodes of dizziness. In fact she was seen by Dr. Montano within the last week. Her implanted monitor has shown no significant arrhythmias. She has no ventricular arrhythmias, atrial fibrillation or pauses. She was continued on her baseline medications. Today she is feeling better. She still appears quite anxious. Cardiovascular: HTN, Other (Recurrent dizziness.) GI: GERD Psych: Anxiety Past Surgical History: Other (Shoulder surgery, left wrist repair.) Family History: Hypertension Smoke: No ALCOHOL: none Current Medications Current Medications Sodium Chloride 1,000 ml @ 1,000 mls/hr 1X ONCE IV Last administered on 01/13/20at 09:57; Start 01/13/20 at 09:15; Stop 01/13/20 at 10:14; Status DC Ketorolac Tromethamine (Toradol 15mg Vial) 10 mg 1X ONCE IVP Last administered on 01/13/20at 09:15; Start 01/13/20 at 09:15; Stop 01/13/20 at 09:16; Status DC Ondansetron HCl (Zofran) 4 mg 1X ONCE IVP Last administered on 01/13/20at 12:05; Start 01/13/20 at 12:00; Stop 01/13/20 at 12:01; Status DC Iohexol (Omnipaque 300 Mg/ml) 75 ml 1X ONCE IV Last administered on 01/13/20at 12:00; Start 01/13/20 at 12:00; Stop 01/13/20 at 12:01; Status DC Info (Do NOT chart on this entry -- for MONITORING) 1 each PRN DAILY PRN MC SEE COMMENTS; Start 01/13/20 at 12:15; Stop 01/15/20 at 12:14 Ondansetron HCl (Zofran) 4 mg PRN Q4HRS PRN IVP NAUSEA/VOMITING Last administered on 01/14/20at 13:16; Start 01/13/20 at 16:00; Stop 01/14/20 at 15:59; Status DC Active Scripts Active Metoprolol Succinate ( Xl ) (Metoprolol Succinate) 25 Mg Tab.er.24h 1 Tab PO DAILY Quinine Sulfate 324 Mg Capsule 324 Mg PO QHS 30 Days [Aspirin] 81 MG Tablet.dr 81 Mg PO DAILYWBKFT Reported Escitalopram Oxalate 10 Mg Tablet 1 Tab PO DAILY LAST DOSE GIVEN: DATE: TIME: NEXT DOSE DUE: DATE: TIME: Potassium Chloride 10 Meq Tablet.er 10 Meq PO DAILY LAST DOSE GIVEN: DATE: TIME: NEXT DOSE DUE: DATE: TIME: Vitamin D (Cholecalciferol (Vitamin D3)) 1,000 Unit Capsule 1 Cap PO DAILY LAST DOSE GIVEN: DATE: TIME: NEXT DOSE DUE: DATE: TIME: Tramadol Hcl (Tramadol HCl) 50 Mg Tablet 1 Tab PO PRN Q6HRS PRN LAST DOSE GIVEN: DATE: TIME: NEXT DOSE DUE: DATE: TIME: Oxybutynin Chloride 5 Mg Tablet 1 Tab PO BID LAST DOSE GIVEN: DATE: TIME: NEXT DOSE DUE: DATE: TIME: Allergies: Coded Allergies: Penicillins (Verified Allergy, Intermediate, rash, 01/13/20) cyclobenzaprine (Verified Allergy, Mild, rash, 01/13/20) General: YES: Fatigue Cardiovascular: yes: Lt [place] General: No acute distress HEENT: Atraumatic Lungs: Clear to auscultation Heart: Regular rate Abdomen: Normal bowel sounds VITALS Vital Signs Date Time Temp Pulse Resp B/P (MAP) Pulse Ox O2 Delivery O2 Flow Rate FiO2 01/14/20 17:02 115/47 (69) 01/14/20 13:08 98.6 80 18 93 01/14/20 12:21 Room Air Labs Laboratory Tests Test 01/13/20 09:50 01/13/20 14:20 White Blood Count 19.0 x10^3/uL (4.0-11.0) Red Blood Count 5.60 x10^6/uL (3.50-5.40) Hemoglobin 14.8 g/dL (12.0-15.5) Hematocrit 45.7 % (36.0-47.0) Mean Corpuscular Volume 82 fL (79-100) Mean Corpuscular Hemoglobin 27 pg (25-35) Mean Corpuscular Hemoglobin Concent 33 g/dL (31-37) Red Cell Distribution Width 15.0 % (11.5-14.5) Platelet Count 167 x10^3/uL (140-400) Neutrophils (%) (Auto) 86 % (31-73) Lymphocytes (%) (Auto) 7 % (24-48) Monocytes (%) (Auto) 6 % (0-9) Eosinophils (%) (Auto) 0 % (0-3) Basophils (%) (Auto) 1 % (0-3) Neutrophils # (Auto) 16.4 x10^3uL (1.8-7.7) Lymphocytes # (Auto) 1.2 x10^3/uL (1.0-4.8) Monocytes # (Auto) 1.2 x10^3/uL (0.0-1.1) Eosinophils # (Auto) 0.1 x10^3/uL (0.0-0.7) Basophils # (Auto) 0.1 x10^3/uL (0.0-0.2) Segmented Neutrophils % 89 % (35-66) Band Neutrophils % 1 % (0-9) Lymphocytes % 4 % (24-48) Monocytes % 6 % (0-10) Platelet Estimate Adequate (ADEQUATE) Prothrombin Time 10.7 SEC (9.4-11.4) Prothromb Time International Ratio 1.0 (0.9-1.1) Activated Partial Thromboplast Time 40 SEC (23-33) Sodium Level 137 mmol/L (136-145) Potassium Level 4.4 mmol/L (3.5-5.1) Chloride Level 100 mmol/L (98-107) Carbon Dioxide Level 26 mmol/L (21-32) Anion Gap 11 (6-14) Blood Urea Nitrogen 28 mg/dL (7-20) Creatinine 0.7 mg/dL (0.6-1.0) Estimated GFR (Cockcroft-Gault) 83.2 BUN/Creatinine Ratio 40 (6-20) Glucose Level 117 mg/dL (70-99) Calcium Level 10.2 mg/dL (8.5-10.1) Magnesium Level 2.5 mg/dL (1.8-2.4) Total Bilirubin 3.0 mg/dL (0.2-1.0) Aspartate Amino Transf (AST/SGOT) 37 U/L (15-37) Alanine Aminotransferase (ALT/SGPT) 33 U/L (14-59) Alkaline Phosphatase 98 U/L (46-116) Creatine Kinase 512 U/L (26-192) Creatine Kinase MB (Mass) 4.5 ng/mL (0.0-3.6) Creatine Kinase MB Relative Index 0.9 % (0-4) Troponin I Quantitative < 0.017 ng/mL (0-0.055) Total Protein 7.9 g/dL (6.4-8.2) Albumin 3.8 g/dL (3.4-5.0) Albumin/Globulin Ratio 0.9 (1.0-1.7) Urine Collection Type U cath Urine Color Yellow Urine Clarity Clear Urine pH 5.0 Urine Specific [place] 1.015 Urine Protein 30 mg/dl (NEG-TRACE) Urine Glucose (UA) Neg mg/dL (NEG) Urine Ketones (Stick) 15 mg/dL (NEG) Urine Blood Trace (NEG) Urine Nitrite Neg (NEG) Urine Bilirubin Neg (NEG) Urine Urobilinogen Dipstick 1.0 mg/dL (0.2 mg/dL) Urine Leukocyte Esterase Neg (NEG) Urine RBC 0 /HPF (0-2) Urine WBC Rare /HPF (0-4) Urine Squamous Epithelial Cells None /LPF Urine Bacteria 0 /HPF (0-FEW) Images CT head scan with no acute processes. Assessment/Plan 1. Recurrent episodes of dizziness. Patient is status post a fall as noted above. CT head scan shows no acute processes. Patient has been followed in the office for dizziness and was seen within the last week. Outpatient monitoring has shown no significant arrhythmias as outlined above. Rhythm has been stable in the hospital. At this time we will continue present medications and monitor overnight. 2. Hypertension. Blood pressure is under better control. We will continue to monitor. 3. Anxiety. Significant anxiety continues. 4. Chronic pain with fibromyalgia. Continuing present treatment. 5. COPD. Continue present treatments. Thank you for allowing us to participate in the care of your patient. KATE HAWKINS MD Jan 14, 2020 17:22
[2020-01-14] MEDS ORDERED: predniSONE 20 MG TABLET PO ONE (17:30)
[2020-01-14] MEDS ORDERED: ONDANSETRON PF 4 MG/2 ML VIAL. IVP PRN (17:30)
[2020-01-14] MEDS: IV NORMAL SALINE 1,000ML 1,000 ML IV SCH (17:33)
--- NOTE | 2020-01-14 17:54 | HP ---
ADMIT DATE: 01/13/2020 HISTORY OF PRESENT ILLNESS: The patient is a 69-year-old female patient who came to the Emergency Room with complaint of fall. She was brought by the emergency medical service personnel. She stated that she felt dizzy and had a ground level fall at around 6:00 in the evening yesterday when she fell onto her knees and then onto the ground. She has been having chronic dizzy spells and is currently being followed by Dr. Montano. Apparently, she has a loop recorder implanted on 10/26/2019. She describes her dizziness as the room spinning. Denied any loss of consciousness or head trauma. Her main complaint was pain in her neck and hip area. She denied any shortness of breath or chest pain. Reported left lower quadrant pain and some nausea. She denied any known exposure to coronavirus. She was extensively investigated in the Emergency Room including an EKG, which showed that she was in sinus rhythm at 73 beats per minute with no ST segment elevation. Her CT scan of the chest, abdomen and pelvis with intravenous contrast basically showed that the patient has no convincing acute abdominal or pelvic finding, mild lower lobe predominant air trapping superimposed atelectasis or superimposed chronic interstitial changes. There is no consolidative infiltrate. She has 4 mm right apical pulmonary nodule, now new compared to prior study. Followup can be performed in 1 year if there are risk factors for pulmonary neoplasm. She has cholelithiasis, multiple uterine fibroids, a mass-like nodule with possible associated architectural distortion within the right breast and right breast skin thickening and nipple retraction; correlate with breast sonography. The CT scan of the head and cervical spine showed no acute intracranial process. No acute osseous abnormality of the cervical spine. She has right thyroid, 2-3 cm nodule could be further evaluated with an emergent ultrasound, if not performed previously. The patient was admitted with near-syncope, right breast mass, pulmonary nodule, thyroid nodule, leukocytosis and hyperbilirubinemia. She was admitted for further evaluation and obviously to consult the Cardiology as well as Physical and Occupational Therapy. PAST MEDICAL HISTORY: Significant for hypertension, hyperlipidemia, chronic obstructive pulmonary disease, morbid obesity, obstructive sleep apnea, anxiety and depression. PAST SURGICAL HISTORY: Significant for bilateral chest tube placement, left wrist repair, left shoulder surgery, and heart catheterization. ALLERGIES: She is allergic to PENICILLIN. She is also allergic to BEE STING. FAMILY HISTORY: She is adopted and does not know her biological parents. SOCIAL HISTORY: She is , has no children of her own. She does not smoke, drink alcohol or use any recreational drugs. She is retired from [employer] after working there for almost 38 years. MEDICATIONS: She is currently on following medications: She is on quinine sulfate 325 mg at bedtime for muscle spasm, metoprolol succinate 25 mg once a day, tramadol 50 mg every 6 hours, escitalopram oxalate 10 mg once a day, potassium chloride 10 mEq once a day, oxybutynin chloride 5 mg twice a day, cholecalciferol vitamin D3 2000 units once a day and aspirin 81 mg once a day. PHYSICAL EXAMINATION: GENERAL: On arrival to the Emergency Room, she looked well and was clearly in no apparent respiratory distress. No pallor, jaundice, cyanosis or thyromegaly. No jugular venous distention or limb edema. VITAL SIGNS: Her heart rate was 72, blood pressure was 150/65, temperature was 97.7, respiratory rate 20, and oxygen saturation was 96%. HEAD, EYES, EARS, NOSE AND THROAT: Normocephalic, atraumatic. NECK: Supple. HEART: Showed normal first and second heart sounds. No gallop or murmur. CHEST: Clear to auscultation. No crepitation or rhonchi. ABDOMEN: Distended, soft, nontender. NEUROLOGIC: She is awake, alert, responding appropriately. All cranial nerves intact. EXTREMITIES: She moves extremities without difficulty; however, she has a skin rash mostly on both lower extremities and lower back; she attributes to Flexeril. LABORATORY WORK: Showed a white cell count of 19,000, hemoglobin 14.8, hematocrit 45, MCV was 82 and platelet count of 167,000. Her chemistry showed a serum sodium 137, potassium 4.4, chloride 100, bicarbonate 26, anion gap of 11, BUN 28, creatinine 0.7, estimated GFR was 83 mL per minute. Her glucose 117, calcium was 7.2, magnesium was 2.5. Total bilirubin 0.3; however, AST, ALT, alkaline phosphatase were normal. CK was 512 and total protein 7.9 and albumin was 3.8. Her prothrombin time and INR are normal, aPTT was prolonged. The urinalysis was essentially unremarkable. Her CT scan of the chest showed the heart is mildly enlarged. There is dense calcification of the mitral valve annulus. The aorta is normal in caliber. There are nonspecific mediastinal and hilar lymph nodes. There is no pneumothorax or pleural effusion. There is basilar atelectasis and pleural parenchymal scarring. There is linear opacity within the right upper lobe, which extends to the horizontal fissure, likely due to scarring. There is a former nodule within the right lung apex. There is a calcified granuloma within the left upper lobe. There is mild bilateral lower lobe predominantly air trapping. There is a cardiac event monitor within the left chest wall. There is a mass-like density with possible associated architectural distortion within the lateral right breast and there is right breast skin thickening and nipple retraction. There is a nodule within the right axillary tail, likely due to enlarged lymph nodes. There is a small hiatal hernia. There are degenerative changes throughout the spine. There are few benign bone islands. The patient was admitted for observation and to consult the legal arbitrator and physical and occupational therapist. DANAY MONTENEGRO MD DR: SONY/rob JOB#: [id number] / [id number]
[2020-01-14 20:18] LABS: HEMATOCRIT 40.3 % (36.0-47.0); HEMOGLOBIN 13.1 g/dL (12.0-15.5); RED BLOOD COUNT 4.95 x10^6/uL (3.50-5.40); RED CELL DISTRIBUTION WIDTH 15.3 % (11.5-14.5); WHITE BLOOD COUNT 10.3 x10^3/uL (4.0-11.0)
[2020-01-14 20:25] LABS: ALBUMIN/GLOBULIN RATIO 0.9 (1.0-1.7); CALCIUM 8.5 mg/dL (8.5-10.1); CREATININE 1.1 mg/dL (0.6-1.0); GFR 49.4; POTASSIUM 3.7 mmol/L (3.5-5.1); TOTAL BILIRUBIN 1.1 mg/dL (0.2-1.0); TOTAL PROTEIN 6.5 g/dL (6.4-8.2)
[2020-01-14] MEDS: OXYBUTYNIN CHLORIDE 5 MG TABLET PO SCH (20:52)
[2020-01-14] MEDS: MEROPENEM 1 GM in IV NORMAL SALINE 100ML 100 ML IV SCH (21:55)
[2020-01-15] MEDS: IV NORMAL SALINE 1,000ML 1,000 ML IV SCH ×2 (03:57→17:00)
[2020-01-15 04:43] VITALS: BP 140/60
[2020-01-15] MEDS: MEROPENEM 1 GM in IV NORMAL SALINE 100ML 100 ML IV SCH ×3 (06:28→22:28)
[2020-01-15] MEDS: LACTOBACILLUS RHAMNOSUS GG 1 CAPSULE. PO SCH ×2 (09:25→21:05)
[2020-01-15] MEDS: OXYBUTYNIN CHLORIDE 5 MG TABLET PO SCH ×2 (09:25→21:05)
[2020-01-15] MEDS: METOPROLOL SUCC 24HR ER 25 MG TAB.ER.24H. PO SCH (09:25)
[2020-01-15] MEDS: methylPREDNISolone 4 MG TABLET. PO SCH (09:27)
[2020-01-15] MEDS ORDERED: IV NORMAL SALINE 1,000ML 1,000 ML IV ONE (10:45)
[2020-01-15 12:00] VITALS: BP 137/60
[2020-01-15 15:00] VITALS: BP 140/60
[2020-01-15 17:00] VITALS: BP 141/74
[2020-01-15] MEDS: ACETAMINOPHEN 500 MG TABLET PO PRN (21:05)
[2020-01-15 21:53] VITALS: BP 143/74
[2020-01-16] MEDS: IV NORMAL SALINE 1,000ML 1,000 ML IV SCH ×3 (01:00→16:30)
[2020-01-16] MEDS: ACETAMINOPHEN 500 MG TABLET PO PRN (04:21)
[2020-01-16] MEDS: MEROPENEM 1 GM in IV NORMAL SALINE 100ML 100 ML IV SCH ×3 (05:42→21:04)
[2020-01-16 06:09] VITALS: BP 150/72
--- NOTE | 2020-01-16 07:10 | PN ---
DATE: 01/15/2020 SUBJECTIVE: The patient is resting, slightly propped up in bed, in no apparent distress. She is complaining of abdominal pain, mostly in the right lower quadrant; however, she denied any nausea or vomiting. She has tolerated her breakfast without any difficulty. The rash on her legs has much improved. She is afebrile and her white cell count came down from 19,000-10,000. However, I am unable to find any obvious site of infection. The CT scan of the chest, abdomen and pelvis revealed that the patient has a mass-like density with possible associated architectural distortion within the lateral right breast and there is right breast skin thickening and nipple retraction. There is a nodule within the right axillary tail that likely be enlarged lymph node; however, I do not see any evidence of any cellulitis or mastitis. OBJECTIVE: GENERAL: When I examined her, she was somewhat pale, no jaundice, cyanosis, or thyromegaly. No jugular venous distension. No limb edema. VITAL SIGNS: Her heart rate was 85, blood pressure was 141/62, temperature was 98.6, respiratory rate was 16, and oxygen saturation was 95% on 2 liters of oxygen. HEENT: Showed normocephalic, atraumatic. NECK: Supple. HEART: Showed normal first and second heart sounds. No gallop, rub or murmur. CHEST: Clear to auscultation. No crepitation or rhonchi. ABDOMEN: Distended, soft. Some tenderness mostly in the right lower quadrant and there is no guarding or rigidity. No organomegaly. All hernial orifice intact. Bowel sounds normal. NEUROLOGIC: She was awake, alert, responding appropriately. All cranial nerves intact. She moves all extremities without difficulty. Examination of the skin showed no evidence of any cellulitis. She does have a maculopapular rash on the medial aspect of both thighs and on the gluteal areas that actually is resolving. Her intake was 1100, no output was recorded. LABORATORY DATA: Her lab work this morning showed her white cell count is down to 10,300; hemoglobin 13; hematocrit 40; MCV 81 and platelet count of 165,000. Her chemistry showed a serum sodium of 135, potassium 3.7, chloride 102, bicarbonate 25, anion gap of 8, BUN 43, creatinine 1.1, estimated GFR was 49 mL per minute. Her glucose 142, calcium was 8.5. Her total bilirubin is down to 1.1. AST, ALT, alkaline phosphatase were all normal. Her total protein was 6.5, albumin 3. Her prothrombin time, INR and aPTT are all normal. Urinalysis was essentially unremarkable. ASSESSMENT: 1. The patient was admitted with syncope and fall. Apparently, she has an event monitor; however, according to Dr. Dubois, outpatient monitoring has shown no significant arrhythmias. Her rhythm has been stable in the hospital. 2. Other problem is obviously anxiety. 3. Hypertension. 4. Chronic pain with fibromyalgia. 5. Chronic obstructive pulmonary disease. 6. Possible mass in the right breast with distortion of the skin and ____ and also possible lymph node, the right axillary tail. She has also slightly deranged kidney function. Surprisingly, her BUN and creatinine has risen from 28-43 and from 0.7 to 1.1. She is not on any medications that are nephrotoxic. Her BUN has risen probably because of steroids for her pruritic skin rash. I will give her a bolus of IV fluid and adjust perhaps a dose of meropenem and repeat her labs tomorrow. I will also get the physical and occupational therapy. I discussed with the patient that she needs to have an outpatient mammogram and perhaps an ultrasound of her right breast and surgical consult. DANAY MONTENEGRO MD DR: SONY/rob JOB#: [id number] / [id number]
[2020-01-16 07:57] LABS: ALBUMIN 2.9 g/dL (3.4-5.0); ALBUMIN/GLOBULIN RATIO 0.9 (1.0-1.7); CALCIUM 8.1 mg/dL (8.5-10.1); CREATININE 0.8 mg/dL (0.6-1.0); GFR 71.3; TOTAL BILIRUBIN 0.7 mg/dL (0.2-1.0); TOTAL PROTEIN 6.1 g/dL (6.4-8.2)
[2020-01-16 08:05] LABS: HEMATOCRIT 37.9 % (36.0-47.0); HEMOGLOBIN 12.1 g/dL (12.0-15.5); RED BLOOD COUNT 4.65 x10^6/uL (3.50-5.40); RED CELL DISTRIBUTION WIDTH 14.6 % (11.5-14.5); WHITE BLOOD COUNT 7.5 x10^3/uL (4.0-11.0)
[2020-01-16] MEDS: METOPROLOL SUCC 24HR ER 25 MG TAB.ER.24H. PO SCH (08:51)
[2020-01-16] MEDS: LACTOBACILLUS RHAMNOSUS GG 1 CAPSULE. PO SCH ×2 (08:51→21:01)
[2020-01-16] MEDS: methylPREDNISolone 4 MG TABLET. PO SCH (08:51)
[2020-01-16] MEDS: OXYBUTYNIN CHLORIDE 5 MG TABLET PO SCH ×2 (08:51→21:01)
[2020-01-16 10:44] VITALS: BP 136/61
--- NOTE | 2020-01-16 10:54 | NUR ---
NURSING NOTE THIS NURSE AT NURSE STATION, VEHICLE FARE COLLECTOR SHOWS TACHYCARDIA OF 150'S. PT NURSE IN ANOTHER ROOM. THIS NURSE ASSESSED PT, PT NAUSEATED, SITTING UP IN BED. PHONED DR MONTENEGRO, ORDER FOR EKG, CONSULT CARDIOLOGY, GIVE IV DIGOXIN 500 MCG X1 DOSE NOW, GIVE ZOFRAN. PT DID GET HER DAILY MORNING METOPROLOL DOSE THIS AM. PT NURSE NOW AT NURSE STATION, ORDERS PLACED AND PT NURSE NOTIFIED. JEFFERY LAGOS.
[2020-01-16] MEDS ORDERED: DIGOXIN IV 500 MCG/2 ML AMPUL. IV ONE (11:00)
--- NOTE | 2020-01-16 11:00 | NUR ---
PT CONTINUES TO BE TACHYCARDIC AT THIS TIME. CALL PLACED TO CARDIOLOGY FOR MANAGEMENT OF PT CARE. NO RETURN PHONE CALL AT THIS TIME AND WILL GIVE DIGOXIN.
--- NOTE | 2020-01-16 11:15 | NUR ---
PT CONTINUES TO BE TACHY WITH NO RETURN PHONE CALL FROM CARDIOLOGY. PT IS SOB AND STATES SHE FEELS A "FLUTTER IN HER CHEST" AND "I DO NOT FEEL WELL. I FEEL LIKE POOP" CALL PLACED TO CARDIOLOGY AGAIN AND DR. MONTENEGRO TO LET HIM KNOW THAT THEY DID NOT CALL BACK AND THAT PT REMAINS TACHY. ORDERS FOR A BOLUS OF CARDIZEM; AND A CARDIZEM DRIP OBTAINED. WILL CTM.
[2020-01-16] MEDS ORDERED: dilTIAZem VIAL 125 MG in IV NORMAL SALINE 100ML 100 ML IV PRN (11:30)
[2020-01-16] MEDS ORDERED: dilTIAZem 25 MG/5 ML VIAL IVP ONE (11:30)
[2020-01-16 11:42] VITALS: BP 118/70
--- NOTE | 2020-01-16 12:00 | NUR ---
PT HEART RATE HAS DECREASED AND APPEARS TO BE IN AFIB WITH A RATE OF 95-110 BPM. WILL CTM AND ASSESS NEEDED.
--- NOTE | 2020-01-16 13:00 | NUR ---
DR. ONTIVEROS AT BEDSIDE WITH NEW ORDERS FOR PATIENT. WILL CTM.
--- NOTE | 2020-01-16 13:20 | PDOC ---
PROVIDER NOTE PROVIDER NOTE PROVIDER NOTE Cardiology progress note: S: No acute events this morning. Overnight had afib with RVR. O: She is anxious Irregular heart tones. Trace edema. Labs/tele reviewed. Impression: 1. Chronic diastolic HF due to morbid obesity 2. PAF 3. HTN 4. DLP Recs: 1. Will start Metoprolol 50mg p.o bid. 2. Start Eliquis 5mg p.o bid 3. Start amiodarone 200mg p.o bid x 7 days and then 200mg daily 4. Will consider outpt CVN if still in afib, she is very anxious and prefers conservative mgmt. 5. Her loop recorder will allow us to determine afib burden as well. 5. Dizziness appears to be partially related to afib episodes. Thanks. Justification of Admission: Justification of Admission: Justification of Admission Dx: N/A NAVA ONTIVEROS MD Jan 16, 2020 13:20
[2020-01-16] MEDS ORDERED: METOPROLOL TART IMMED RELEASE 25 MG TABLET. PO ONE (13:30)
[2020-01-16] MEDS ORDERED: AMIODARONE 150 MG in IV DEXTROSE 5% 100 ML IVP ONE (13:30)
[2020-01-16 15:31] VITALS: BP 134/78
--- NOTE | 2020-01-16 16:29 | EKG ---
[address] [address] Test Date: 2020-01-16 Test Time: 11:04:32 Pat Name: RIDDHI GARCIA Department: Room: 113 A Gender: F [employer]: : 1950 Requested By: DANAY MONTENEGRO Order Number: [id number] Reading MD: Measurements Intervals [place] Rate: 140 P: ND: QRS: -59 QRSD: 82 T: 8 QT: 306 QTc: 471 Interpretive Statements IRREGULAR RHYTHM, NO P-WAVE FOUND ABNORMAL LEFT AXIS DEVIATION R-S TRANSITION ZONE IN V LEADS DISPLACED TO THE LEFT QRS(T) CONTOUR ABNORMALITY CONSIDER ANTEROSEPTAL MYOCARDIAL DAMAGE CONSISTENT WITH INFERIOR INFARCT AGE UNDETERMINED ABNORMAL ECG RI6.01 No previous ECG available for comparison
[2020-01-16 19:17] VITALS: BP 113/65
[2020-01-16] MEDS: AMIODARONE HCL 200 MG TABLET. PO SCH (21:02)
[2020-01-16] MEDS: METOPROLOL TART IMMED RELEASE 50 MG TABLET PO SCH (21:04)
[2020-01-16] MEDS: APIXABAN 5 MG TABLET. PO SCH (21:04)
[2020-01-16 23:12] VITALS: BP 120/69
--- NOTE | 2020-01-17 00:36 | PN ---
DATE: 01/16/2020 SUBJECTIVE: The patient is resting, slightly propped up in bed with multiple complaints. She apparently was doing well until around 10:45 when she went into atrial fibrillation with rapid ventricular response. She was given 500 mcg of digoxin without improvement and was given a bolus of Cardizem and her heart rate came down from 140-150 down to 90. When I saw her this morning, she was complaining again of pain in her left neck and also abdominal pain, also complaining of tingling and numbness in both feet and also loss of sensation in the medial aspect of the left leg. PHYSICAL EXAMINATION: GENERAL: When I examined her, she was pale, no jaundice, cyanosis or thyromegaly. No jugular venous distention. No lower limb edema. Her heart rate was 75, blood pressure was 136/61, temperature was 98.4, respiratory rate was 20, and oxygen saturation was 95%. HEAD, EYES, EARS, NOSE, AND THROAT: Showed normocephalic, atraumatic. NECK: Supple. HEART: Showed normal first and second heart sounds. No gallop, rub or murmur. CHEST: Showed central trachea, equal bilateral expansion, air entry, vesicular sounds. No crepitation or rhonchi. ABDOMEN: Slightly distended, soft, nontender. No guarding or rigidity. No organomegaly. All hernial orifice intact. Bowel sounds normal. NEUROLOGIC: She is awake, alert, responding appropriately. All cranial nerves are intact. She moves extremities without difficulty. The patient has not been able to walk and only she gets out of the bed to bedside commode. Her intake over the last 24 hours was 600, output 250. LABORATORY DATA: Her lab work this morning showed serum sodium 139, potassium 4, chloride 106, bicarbonate 25, anion gap of 8, BUN 21, creatinine 0.8, estimated GFR was 71 mL per minute. Her glucose was 96, calcium was 8.1, magnesium 2. Total bilirubin, AST, ALT, alkaline phosphatase were normal. Total protein 6.1. Albumin was 2.9. Her white cell count is down to 7500, hemoglobin 12, hematocrit 38, MCV 82, and platelet count of 137,000. ASSESSMENT AND PLAN: This is a 69-year-old female patient who was admitted with: 1. Weakness, syncope and fall. She apparently had an event monitor; however, according to Dr. McSweyn the patient's outpatient monitoring has shown no significant arrhythmia. The patient went into atrial fibrillation with rapid ventricular response, treated with digoxin and bolus of Cardizem and she is back down to a heart rate of about 90-95, but she continues to be in atrial fibrillation. 2. Hypertension. 3. Chronic pain and fibromyalgia. 4. Chronic obstructive pulmonary disease. 5. Possible mass in her right breast with distortion of the skin and possible lymph node in the right axillary area. 6. Acute kidney injury, resolving. Her creatinine went up to 1.1 and now today is 0.8. My plan is obviously to continue with current plan and management. Continue with tapering course of steroids for her pruritic skin rash. Continue with metoprolol. She might have to increase the dose. Continue with metoprolol and IV fluid. I would probably order ____ given abdominal pain, the finding of a breast mass, axillary lymph nodes and there is also a tiny focus fatty stranding and calcification within the left ____ peritoneum, possibly due to prior fat infarction. I will also do a 24-hour bone scan to see if there is any evidence of metastatic disease given multiple complaints of different places. DANAY MONTENEGRO MD DR: SONY/rob JOB#: [id number] / [id number]
[2020-01-17] MEDS: ACETAMINOPHEN 500 MG TABLET PO PRN ×2 (01:51→22:12)
--- NOTE | 2020-01-17 04:09 | NUR ---
Nursing note: Pt AF on tele with rate between 80-115. Pt had no reports of fluttering feeling, did c/o low back pain (tylenol given per orders) and numbness in LLE. Up x2 with walker and gait belt to commode.
[2020-01-17] MEDS: MEROPENEM 1 GM in IV NORMAL SALINE 100ML 100 ML IV SCH ×3 (05:03→20:20)
[2020-01-17 05:37] VITALS: BP 153/79
[2020-01-17 06:49] LABS: C REACTIVE PROTEIN 5.6 mg/L (0-3.3); CALCIUM 8.1 mg/dL (8.5-10.1); CREATININE 0.7 mg/dL (0.6-1.0); GFR 83.2; POTASSIUM 3.8 mmol/L (3.5-5.1)
[2020-01-17] MEDS: LACTOBACILLUS RHAMNOSUS GG 1 CAPSULE. PO SCH ×2 (07:56→20:19)
[2020-01-17] MEDS: METOPROLOL SUCC 24HR ER 25 MG TAB.ER.24H. PO SCH (07:57)
[2020-01-17] MEDS: methylPREDNISolone 4 MG TABLET. PO SCH (07:58)
[2020-01-17] MEDS: APIXABAN 5 MG TABLET. PO SCH ×2 (07:58→20:19)
[2020-01-17] MEDS: OXYBUTYNIN CHLORIDE 5 MG TABLET PO SCH ×2 (07:58→20:20)
[2020-01-17] MEDS: AMIODARONE HCL 200 MG TABLET. PO SCH (07:59)
--- NOTE | 2020-01-17 08:19 | PDOC ---
CARDIO Progress Notes Date & Time Date of Service DATE: 01/17/20 TIME: 08:15 Time of Evaluation 08:15 Subjective Notes No chest pain, dizziness, SOA. C/o palpitations with minimal exertion. Vitals Vitals Vital Signs Date Time Temp Pulse Resp B/P (MAP) Pulse Ox O2 Delivery O2 Flow Rate FiO2 01/17/20 07:59 104 153/79 01/17/20 05:37 98.1 14 92 01/16/20 23:12 Nasal Cannula 2.0 Weight Weight [ ] Input and Output I.O. Intake and Output 01/17/20 07:00 Intake Total 2423 ml Balance 2423 ml Intake Oral 1320 ml IV Total 1103 ml # Voids 7 # Bowel Movements 1 Laboratory Labs Laboratory Tests Test 01/16/20 07:00 01/17/20 05:58 White Blood Count 7.5 x10^3/uL (4.0-11.0) Red Blood Count 4.65 x10^6/uL (3.50-5.40) Hemoglobin 12.1 g/dL (12.0-15.5) Hematocrit 37.9 % (36.0-47.0) Mean Corpuscular Volume 82 fL (79-100) Mean Corpuscular Hemoglobin 26 pg (25-35) Mean Corpuscular Hemoglobin Concent 32 g/dL (31-37) Red Cell Distribution Width 14.6 % (11.5-14.5) Platelet Count 137 x10^3/uL (140-400) Sodium Level 139 mmol/L (136-145) 140 mmol/L (136-145) Potassium Level 4.0 mmol/L (3.5-5.1) 3.8 mmol/L (3.5-5.1) Chloride Level 106 mmol/L (98-107) 106 mmol/L (98-107) Carbon Dioxide Level 25 mmol/L (21-32) 27 mmol/L (21-32) Anion Gap 8 (6-14) 7 (6-14) Blood Urea Nitrogen 21 mg/dL (7-20) 14 mg/dL (7-20) Creatinine 0.8 mg/dL (0.6-1.0) 0.7 mg/dL (0.6-1.0) Estimated GFR (Cockcroft-Gault) 71.3 83.2 BUN/Creatinine Ratio 26 (6-20) Glucose Level 96 mg/dL (70-99) 93 mg/dL (70-99) Calcium Level 8.1 mg/dL (8.5-10.1) 8.1 mg/dL (8.5-10.1) Magnesium Level 2.0 mg/dL (1.8-2.4) Total Bilirubin 0.7 mg/dL (0.2-1.0) Aspartate Amino Transf (AST/SGOT) 15 U/L (15-37) Alanine Aminotransferase (ALT/SGPT) 23 U/L (14-59) Alkaline Phosphatase 69 U/L (46-116) Total Protein 6.1 g/dL (6.4-8.2) Albumin 2.9 g/dL (3.4-5.0) Albumin/Globulin Ratio 0.9 (1.0-1.7) C-Reactive Protein 5.6 mg/L (0-3.3) Physical Exams HEENT: Neck Supple W Full Motion Chest: Symmetric Lungs: Clear to Auscultation Heart: RRR, irregularly irregular (AFIB ) Abdomen: Soft N/T Extremities: No Edema Neurology: alert, oriented, follow commands, other (anxious ) Assessment Assessment 1. Weakness, dizziness, fall 2. Chronic diastolic HF; clinically compensated due to 3. PAFIB with RVR; rate mildly elevated this am 4. Hypertension; controlled 5. Hyperlipidemia 6. Chronic pain and fibromyalgia. 7. Anxiety 8. Morbid obesity Recommendations Increase metoprolol to 50mg BID. (Toprol 25mg given this am. Will give metoprolol tartrate 25mg x1 now and begin 50mg BID this evening) Amiodarone added; Will go ahead and load with IV Amiodarone gtt per protocol as rate remains uncontrolled despite increased metoprolol and does of IV Dig. Device interrogation Eliquis for stroke prophylaxis Consider outpatient CV if she remains in AFIB. Supportive care Consider rehab upon discharge MELINDA CROWLEY APRN Jan 17, 2020 08:19
[2020-01-17] MEDS ORDERED: METOPROLOL TART IMMED RELEASE 25 MG TABLET. PO ONE (08:45)
[2020-01-17] MEDS: METOPROLOL TART IMMED RELEASE 50 MG TABLET PO SCH ×2 (10:16→20:20)
[2020-01-17] MEDS ORDERED: DIGOXIN IV 500 MCG/2 ML AMPUL. IV ONE (11:15)
[2020-01-17 11:52] VITALS: BP 116/76
--- NOTE | 2020-01-17 13:17 | PN ---
DATE: 01/17/2020 SUBJECTIVE: The patient is sitting comfortably in her chair, in no apparent distress. She continued to complain of weakness, difficulty walking and numbness in her left lower extremity in particular. Her skin rash is fading slowly. Her white cell count is coming down nicely from 19,000 to 7500, however, her urine and blood culture are still pending at the time of this dictation. PHYSICAL EXAMINATION: GENERAL: When I examined her this afternoon, she looked well with no pallor, jaundice, cyanosis or thyromegaly. No jugular venous distention. No limb edema. VITAL SIGNS: Her heart rate was 92, blood pressure 153/79, temperature was 98.1, respiratory rate was 14 and oxygen saturation was 96% on room air. HEAD, EYES, EARS, NOSE AND THROAT: Showed normocephalic, atraumatic. NECK: Supple. HEART: Showed normal first and second heart sounds. No gallop, rub or murmur. CHEST: Clear to auscultation. No crepitation or rhonchi. ABDOMEN: Distended, soft, nontender. No guarding or rigidity. No organomegaly. All hernial orifice intact. Bowel sounds normal. NEUROLOGIC: She is awake, alert, responding appropriately. All cranial nerves are intact. She moves extremities without difficulty. She ambulates with a walker. She continued to complain of numbness in her left lower extremity. Her intake over the last 24 hours was 1416, no output was recorded. LABORATORY DATA: Her lab work this morning showed a white cell count 7500, hemoglobin 12, hematocrit 38, MCV 82, and a platelet count of 137,000. Her chemistry this morning showed a serum sodium of 140, potassium 3.8, chloride 106, bicarbonate 27, anion gap of 7, BUN 14, creatinine 0.7, estimated GFR was 83 mL per minute. Her glucose was 93, calcium was 8.5. C-reactive protein was 5.6 mg/dL. Her prothrombin time and INR normal, aPTT are slightly elevated at 40. Her coronavirus by PCR was not detectable. Urinalysis was unremarkable. ASSESSMENT: 1. Weakness, syncope and fall. She apparently had an event monitor; however, according to Dr. Dubois the patient's outpatient monitoring has shown no significant arrhythmia. The patient went into atrial fibrillation with rapid ventricular response, treated with digoxin and a bolus of Cardizem and went back to sinus rhythm with a heart rate of 90-95. This morning, she went again into atrial fibrillation with rapid ventricular response for which she received digoxin too. She is now on amiodarone and metoprolol. 2. Hypertension. 3. Chronic pain and fibromyalgia. 4. Chronic obstructive pulmonary disease. 5. Possible mass in her right breast with distortion of the skin and possible lymph node in the right axillary area. 6. Acute kidney injury, resolving. Her creatinine went up to 1.5 and today down to 0.8. 7. Given the fact that the patient has back pain and tingling and numbness in the left side, she has a mass in her right breast. I did order a total body bone scan. PLAN: To continue with apixaban for stroke prevention. Continue with amiodarone and metoprolol to control the heart rate. Continue with steroids for itching, meropenem for infection as she is allergic to PENICILLIN. Continue with physical and occupational therapy. I spoke with our social media community manager and the plan was for her to be transferred to a [facility] facility to continue with the process of rehabilitation. DANAY MONTENEGRO MD DR: SONY/rob JOB#: [id number] / [id number]
[2020-01-17] MEDS: AMIODARONE 450 MG in IV DEXTROSE 5% 250 ML IV PRN ×2 (13:48→22:10)
[2020-01-17 16:24] VITALS: BP 151/90
--- NOTE | 2020-01-17 16:28 | RAD ---
History: Breast mass with multiple areas of pain Comparison: CT abdomen with IV contrast 01/13/2020 Procedure: 20.1 mCI of Tc 99m MDP was injected intravenously and delayed scintigraphic images were obtained of the skeletal system. Findings: Physiologic activity in the axial and appendicular skeleton is present with additional foci of uptake in the bilateral knees compatible with degenerative change. There is also activity in the pelvis compatible with extravasated contrast from the urinary bladder into the perineum. No abnormal uptake suspicious for bony metastatic disease. Impression: 1. Degenerative changes in the joints most notably in the knees bilaterally. Otherwise negative bone scan with no findings suspicious for osseous metastatic disease. Electronically signed by: Perez Hdez MD (01/17/2020 4:25 PM) [id number]
[2020-01-17 18:44] VITALS: BP 184/77
--- NOTE | 2020-01-17 20:05 | NUR ---
PT sad today. PT expects to go home with home health and does not want to go to a facility. PT is able to verbalize understanding of poc. PT started on Amio gtt today per cardiology order. PT still have contact dermatitis with excoriation on shama area and legs. Pretty BUSCH
[2020-01-17 23:26] VITALS: BP 141/85
[2020-01-18] MEDS: MEROPENEM 1 GM in IV NORMAL SALINE 100ML 100 ML IV SCH ×3 (04:55→20:38)
[2020-01-18 06:36] VITALS: BP 150/82
--- NOTE | 2020-01-18 07:49 | PDOC ---
CARDIO Progress Notes Date & Time Date of Service DATE: 01/18/20 TIME: 07:38 Time of Evaluation 07:38 Subjective Notes No chest pain, palpitations, dizziness, or nausea/vomiting Vitals Vitals Vital Signs Date Time Temp Pulse Resp B/P (MAP) Pulse Ox O2 Delivery O2 Flow Rate FiO2 01/18/20 06:36 98.1 66 20 150/82 (104) 93 Room Air 01/16/20 23:12 2.0 Weight Weight [ ] Input and Output I.O. Intake and Output 01/18/20 07:00 Intake Total 1950 ml Balance 1950 ml Intake Oral 1400 ml IV Total 550 ml # Voids 5 # Bowel Movements 1 Laboratory Labs Laboratory Tests Test 01/17/20 05:58 Sodium Level 140 mmol/L (136-145) Potassium Level 3.8 mmol/L (3.5-5.1) Chloride Level 106 mmol/L (98-107) Carbon Dioxide Level 27 mmol/L (21-32) Anion Gap 7 (6-14) Blood Urea Nitrogen 14 mg/dL (7-20) Creatinine 0.7 mg/dL (0.6-1.0) Estimated GFR (Cockcroft-Gault) 83.2 Glucose Level 93 mg/dL (70-99) Calcium Level 8.1 mg/dL (8.5-10.1) C-Reactive Protein 5.6 mg/L (0-3.3) Thyroid Stimulating Hormone (TSH) 0.427 uIU/mL (0.358-3.740) Physical Exams HEENT: Neck Supple W Full Motion Chest: Symmetric Lungs: Clear to Auscultation Heart: RRR, irregularly irregular (AFIB ) Abdomen: Soft N/T Extremities: No Edema Neurology: alert, oriented, follow commands Assessment Assessment 1. Dizziness, fall; Device download 01/12/20 without any significant arrhythmias. 2. PAFIB; rate now controlled with Amiodarone gtt 3. Chronic diastolic CHF; compensated 4. Hypertension; controlled 5. Hyperlipidemia 6. Chronic pain, Fibromyalgia 7. Anxiety 8. Morbid obesity Recommendations Continue metoprolol for rate control Start Amiodarone 200mg daily when gtt complete Eliquis for stroke prophylaxis Consider outpatient CV if she remains in AFIB. Supportive care Consider rehab upon discharge MELINDA CROWLEY APRN Jan 18, 2020 07:49
[2020-01-18] MEDS: LACTOBACILLUS RHAMNOSUS GG 1 CAPSULE. PO SCH ×2 (08:29→20:37)
[2020-01-18] MEDS: APIXABAN 5 MG TABLET. PO SCH ×2 (08:29→20:38)
[2020-01-18] MEDS: methylPREDNISolone 4 MG TABLET. PO SCH (08:29)
[2020-01-18] MEDS: ACETAMINOPHEN 500 MG TABLET PO PRN ×2 (08:29→20:38)
[2020-01-18] MEDS: OXYBUTYNIN CHLORIDE 5 MG TABLET PO SCH ×2 (08:29→20:38)
[2020-01-18] MEDS: METOPROLOL TART IMMED RELEASE 50 MG TABLET PO SCH ×2 (08:30→20:38)
[2020-01-18 11:00] VITALS: BP 153/80
[2020-01-18] MEDS: AMIODARONE HCL 200 MG TABLET. PO SCH (14:44)
[2020-01-18 15:11] VITALS: BP 157/84
[2020-01-18 18:48] VITALS: BP 162/84
[2020-01-18] MEDS: diphenhydrAMINE HCL 25 MG CAPSULE PO PRN (20:38)
--- NOTE | 2020-01-18 21:21 | PN ---
DATE: 01/18/2020 SUBJECTIVE: The patient is resting, slightly propped up in bed, in no apparent respiratory distress. She is awake, alert and stated generally, she is much better. She continued to have atrial fibrillation with rapid ventricular response, particularly on exertion. She is now on amiodarone drip. She will be switched to oral amiodarone. This evening when she had had a total body bone scan, it was unremarkable and showed basically degenerative changes in the joints, most notably in the knees bilaterally; however, otherwise, negative bone scan with no finding suspicious for osseous metastatic disease. PHYSICAL EXAMINATION: GENERAL: When I examined her, she looked well and was clearly in no apparent respiratory distress. No pallor, jaundice, cyanosis or thyromegaly. No jugular venous distention. No limb edema. VITAL SIGNS: Her heart rate was 66, blood pressure 150/82, temperature was 98.1, respiratory rate was 20, and her oxygen saturation was 93% on room air. HEAD, EYES, EARS, NOSE AND THROAT: Normocephalic, atraumatic. NECK: Supple. CARDIAC: Normal first and second heart sounds. No gallop, rub or murmur. CHEST: Clear to auscultation. No crepitation or rhonchi. ABDOMEN: Distended, soft, nontender. NEUROLOGIC: She is awake, alert, responding appropriately. All cranial nerves intact. She moves extremities without difficulty. She ambulates with a walker. Her intake over the last 24 hours was 2500, no output was recorded. LABORATORY DATA: As of yesterday, her white cell count was 7500, hemoglobin 12, hematocrit 38, MCV 82, platelet count of 137,000. His serum sodium 140, potassium 3.8, chloride 106, bicarbonate 27, anion gap of 7, BUN 14, creatinine 0.7, estimated GFR was 83 mL per minute, glucose 93, calcium was 8.1. His total protein was 5.6. TSH was 0.427. ASSESSMENT: 1. Weakness, syncope and fall. The patient apparently went into atrial fibrillation with rapid ventricular response, treated with digoxin and Cardizem, and now she is on amiodarone drip. 2. Hypertension. 3. Chronic pain and fibromyalgia. 4. Chronic obstructive pulmonary disease. 5. Possible mass in her right breast with distortion of the skin and possible lymph node in the right axillary area. 6. Acute kidney injury, resolving. Her creatinine came down from 1.5 to 0.8. 7. Back pain, tingling and numbness in her left; however, her total body bone scan was unremarkable. PLAN: To continue with amiodarone drip and switched to amiodarone by mouth. Continue with apixaban for stroke prevention. She is now on metoprolol 50 mg twice a day, amiodarone 200 mg twice a day. Continue with meropenem, although so far, all his cultures are negative. If the patient's heart rate is much better controlled tomorrow on amiodarone and metoprolol, the patient can be discharge to [facility] to continue the process of rehabilitation. She should obviously have mammogram for the mass in her right breast as soon as she get discharged from [facility]. SHE IS ALLERGIC TO PENICILLIN and she did respond to antibiotic. She could be switched to perhaps Levaquin or ciprofloxacin to complete the course of treatment. DANAY MONTENEGRO MD DR: SONY/rob JOB#: [id number] / [id number]
[2020-01-18 23:00] VITALS: BP 152/86
[2020-01-19] MEDS: MEROPENEM 1 GM in IV NORMAL SALINE 100ML 100 ML IV SCH ×3 (05:12→21:07)
--- NOTE | 2020-01-19 05:26 | NUR ---
Shift Note: Pt is a/ox4, sad/tearful and worried for her cat at home while she is at rehab, VSS, no c/o n/v at this time, pt continues to have generalized aches and pains, pt continues to be incontinent of urine and requires a great deal of encouragement to get up and move around.
[2020-01-19 06:16] LABS: HEMATOCRIT 40.6 % (36.0-47.0); RED BLOOD COUNT 4.96 x10^6/uL (3.50-5.40); RED CELL DISTRIBUTION WIDTH 14.9 % (11.5-14.5); WHITE BLOOD COUNT 10.9 x10^3/uL (4.0-11.0)
[2020-01-19 06:22] LABS: ALBUMIN/GLOBULIN RATIO 0.9 (1.0-1.7); CALCIUM 8.2 mg/dL (8.5-10.1); CREATININE 0.6 mg/dL (0.6-1.0); GFR 99.4; POTASSIUM 3.7 mmol/L (3.5-5.1); TOTAL BILIRUBIN 0.9 mg/dL (0.2-1.0); TOTAL PROTEIN 6.2 g/dL (6.4-8.2)
--- NOTE | 2020-01-19 07:49 | PDOC ---
MELINDA CROWLEY [employer] ASSEMBLER 01/19/20 0749: CARDIO Progress Notes Date & Time Date of Service DATE: 01/19/20 TIME: 07:48 Time of Evaluation 07:48 Subjective Notes No chest pain, palpitations, dizziness, diaphoresis or SOA. Vitals Vitals Vital Signs Date Time Temp Pulse Resp B/P (MAP) Pulse Ox O2 Delivery O2 Flow Rate FiO2 01/18/20 23:00 98.0 71 19 152/86 (108) 92 Room Air 01/16/20 23:12 2.0 Weight Weight [ ] Input and Output I.O. Intake and Output 01/19/20 07:00 Intake Total 1140 ml Balance 1140 ml Intake Oral 940 ml IV Total 200 ml # Voids 8 Laboratory Labs Laboratory Tests Test 01/19/20 05:55 White Blood Count 10.9 x10^3/uL (4.0-11.0) Red Blood Count 4.96 x10^6/uL (3.50-5.40) Hemoglobin 13.0 g/dL (12.0-15.5) Hematocrit 40.6 % (36.0-47.0) Mean Corpuscular Volume 82 fL (79-100) Mean Corpuscular Hemoglobin 26 pg (25-35) Mean Corpuscular Hemoglobin Concent 32 g/dL (31-37) Red Cell Distribution Width 14.9 % (11.5-14.5) Platelet Count 174 x10^3/uL (140-400) Sodium Level 138 mmol/L (136-145) Potassium Level 3.7 mmol/L (3.5-5.1) Chloride Level 103 mmol/L (98-107) Carbon Dioxide Level 28 mmol/L (21-32) Anion Gap 7 (6-14) Blood Urea Nitrogen 14 mg/dL (7-20) Creatinine 0.6 mg/dL (0.6-1.0) Estimated GFR (Cockcroft-Gault) 99.4 BUN/Creatinine Ratio 23 (6-20) Glucose Level 97 mg/dL (70-99) Calcium Level 8.2 mg/dL (8.5-10.1) Total Bilirubin 0.9 mg/dL (0.2-1.0) Aspartate Amino Transf (AST/SGOT) 15 U/L (15-37) Alanine Aminotransferase (ALT/SGPT) 31 U/L (14-59) Alkaline Phosphatase 73 U/L (46-116) Total Protein 6.2 g/dL (6.4-8.2) Albumin 3.0 g/dL (3.4-5.0) Albumin/Globulin Ratio 0.9 (1.0-1.7) Physical Exams HEENT: Neck Supple W Full Motion Chest: Symmetric Lungs: Clear to Auscultation Heart: RRR, irregularly irregular (AFIB rate near 100) Abdomen: Soft N/T Extremities: No Edema Neurology: alert, oriented, follow commands Assessment Assessment 1. Dizziness, fall; Device download 01/12/20 without any significant arrhythmias. Patient reports fall occurred 01/10 2. PAFIB; rate better controlled, but remains intermittently elevated. Recent echo with preserved LV systolic function and stress test without evidence of ischemia 3. Chronic diastolic CHF; compensated 4. Hypertension; controlled 5. Hyperlipidemia 6. Chronic pain, Fibromyalgia 7. Anxiety 8. Morbid obesity Recommendations Continue metoprolol; will increase for better rate control Amiodarone 200mg daily Eliquis for stroke prophylaxis Outpatient CV if she remains in AFIB. Consider outpatient referral for [facility] given h/o dizziness, fall Supportive care Plan for rehab upon discharge Follow up in our office with Dr. Montano as scheduled. NAVA MONTANO MD 01/19/20 2312: CARDIO Progress Notes Plan Plan Pt. seen and examined. Agree with above HANDKERCHIEF CUTTER note. Supportive care. MELINDA CROWLEY APRN Jan 19, 2020 07:49 NAVA MONTANO MD Jan 19, 2020 23:12
[2020-01-19] MEDS ORDERED: METOPROLOL TART IMMED RELEASE 50 MG TABLET PO ONE (08:15)
[2020-01-19] MEDS: AMIODARONE HCL 200 MG TABLET. PO SCH (08:45)
[2020-01-19] MEDS: LACTOBACILLUS RHAMNOSUS GG 1 CAPSULE. PO SCH ×2 (08:45→21:06)
[2020-01-19] MEDS: APIXABAN 5 MG TABLET. PO SCH ×2 (08:45→21:05)
[2020-01-19] MEDS: OXYBUTYNIN CHLORIDE 5 MG TABLET PO SCH ×2 (08:45→21:05)
[2020-01-19] MEDS: METOPROLOL TART IMMED RELEASE 50 MG TABLET PO SCH ×2 (08:46→21:06)
[2020-01-19 09:00] VITALS: BP 147/87
[2020-01-19] MEDS: methylPREDNISolone 4 MG TABLET. PO SCH (09:50)
[2020-01-19] MEDS ORDERED: DULO60CA6 PO (10:06)
[2020-01-19] MEDS: DULoxetine HCL 60 MG CAPSULE.DR PO SCH (11:02)
[2020-01-19 13:10] VITALS: BP 116/64
--- NOTE | 2020-01-19 18:38 | NUR ---
pt had good day. pt A&Ox4, sometimes tearful and misses her cat Glenys that is at home. Pt on board with POC to d/t to [facility] tomorrow and did see Dr. Montano and was happy about that. He is comfortable with signing off on her and expecting to see her on 02/24 for scheduled appointment.
[2020-01-19 19:00] VITALS: BP 143/93
[2020-01-19] MEDS: ACETAMINOPHEN 500 MG TABLET PO PRN (21:06)
[2020-01-19] MEDS: diphenhydrAMINE HCL 25 MG CAPSULE PO PRN (21:06)
--- NOTE | 2020-01-20 00:29 | PN ---
DATE: 01/19/2020 ATTENDING PHYSICIAN: Dr. Alvarado. SUBJECTIVE: The patient is doing better. She is up in a chair. She still has some pedal edema. Her heart rate is permanently irregular, ventricular rate is between 90 and 120 this morning. She had been switched to amiodarone orally yesterday. OBJECTIVE FINDINGS: VITAL SIGNS: Heart rate still fluctuates, it is a variable rate between 90 and 120 beats per minute, irregularly irregular, blood pressure is 147/87 mmHg, temperature 97.0 degrees Fahrenheit, oxygen saturation 96% on room air. HEENT: Head is without trauma. Pupils are reactive. Sclerae nonicteric. Oropharynx is clear. NECK: Supple, no bruits. LUNGS: Otherwise clear. CARDIOVASCULAR: Showed distant heart tones, tachycardic rhythm, irregularly irregular. No obvious gallops. Peripheral pulses are palpable and full. ABDOMEN: Obese, protuberant. No organomegaly. Bowel sounds were hypoactive. EXTREMITIES: Showed significant degenerative arthritis of both knees. There is 2+ pitting edema extending up to her knees. SKIN: Warm and dry. NEUROLOGIC: Focally intact. No deficits. PERTINENT LABORATORY DATA: Today, her hemoglobin is 13.0 g/dL with white count of 10,900. Electrolytes are within range. Creatinine is 0.6 mg/dL, potassium 3.7 mEq per liter. ASSESSMENT: 1. A 69-year-old female with weakness and syncope, improved. 2. Permanent atrial fibrillation with rapid ventricular rate. 3. Essential hypertension. 4. Chronic pain and fibromyalgia. 5. Chronic obstructive pulmonary disease by history. 6. Acute kidney injury, resolving. 7. Chronic pedal edema due to excess fluid intake. PLAN: 1. Continue amiodarone per Cardiology. 2. Beta blockade in addition. 3. She requested her Cymbalta be restarted. 4. Tentative discharge plans to rehab tomorrow. DREW NEGRON MD DR: LELE/rob JOB#: [id number] / [id number]
[2020-01-20] MEDS: MEROPENEM 1 GM in IV NORMAL SALINE 100ML 100 ML IV SCH (05:02)
[2020-01-20] MEDS: ACETAMINOPHEN 500 MG TABLET PO PRN ×2 (06:41→12:31)
[2020-01-20 07:00] VITALS: BP 139/88
[2020-01-20] MEDS: LACTOBACILLUS RHAMNOSUS GG 1 CAPSULE. PO SCH (09:19)
[2020-01-20] MEDS: DULoxetine HCL 60 MG CAPSULE.DR PO SCH (09:19)
[2020-01-20] MEDS: methylPREDNISolone 4 MG TABLET. PO SCH (09:19)
[2020-01-20] MEDS: AMIODARONE HCL 200 MG TABLET. PO SCH (09:19)
[2020-01-20] MEDS: OXYBUTYNIN CHLORIDE 5 MG TABLET PO SCH (09:19)
[2020-01-20] MEDS: APIXABAN 5 MG TABLET. PO SCH (09:19)
[2020-01-20] MEDS: METOPROLOL TART IMMED RELEASE 50 MG TABLET PO SCH (09:20)
[2020-01-20 11:00] VITALS: BP 152/92
--- NOTE | 2020-01-20 13:20 | NUR ---
Pt remains a/ox4, accepted the need for rehab, tearful at times. Vital signs stable, can stand and pivot to commode. Pt says, "left knee feels weak, like the knee is going to give out". Awaiting insurance approval for bed at [facility], pt updated on status.
--- NOTE | 2020-01-20 16:00 | NUR ---
F/U appt made with Dr Montano, 03/01 at 1445, notified JEFFERY Valenzuela at [facility] of appt.
--- NOTE | 2020-01-20 16:56 | NUR ---
Pt discharged via wheelchair van, a/ox4, seemed happy about progressing to rehab, all belongings with pt, report given to JEFFERY Valenzuela
--- NOTE | 2020-01-20 20:23 | DS ---
DATE OF DISCHARGE: 01/20/2020 ATTENDING PHYSICIAN: Dr. Alvarado. FINAL DISCHARGE DIAGNOSES: 1. Near syncope with weakness and frequent falls. 2. Permanent atrial fibrillation with rapid ventricular rate. 3. Essential hypertension. 4. Chronic pain syndrome and fibromyalgia. 5. Chronic obstructive pulmonary disease. 6. Acute kidney injury, resolving. 7. Chronic pedal edema. HISTORY AND PHYSICAL: The patient is a 69-year-old female with multiple medical and social issues, admitted with weakness and frequent falls. She also was found to be in atrial fibrillation. PHYSICAL EXAMINATION: Please see the dictated note. PERTINENT LABORATORY AND X-RAY STUDIES: She had a CT of the head, which showed no obvious intracranial process. Her right thyroid showed a nodule, which can be monitored as an outpatient. Her chest CT and abdomen CT showed no convincing acute abdominal or pelvic findings, some atelectasis. A 4 mm pulmonary nodule, multiple uterine fibroids and cholelithiasis. Bone scan showed degenerative changes mostly in the knees. Otherwise, no suspicions for osseous metastatic disease. Her hemoglobin on admission was 14.8 g/dL, white count was 19,000 and repeated 4 days later was down to 7500. Chemistry panel were fairly unremarkable. She had a normal BUN and creatinine of 0.6 respectively and 14 mg/dL. Electrolytes within normal range. Cardiac enzymes were negative for coronary ischemia. TSH was 0.42, which is within normal range. COURSE IN THE HOSPITAL: The patient was admitted. She was seen by Cardiology for consultation. She had rapid atrial fibrillation, which is permanent. Eliquis was started as well as amiodarone loading and then oral dosage. She did well on beta blockade was continued. Diet was advanced. Physical therapy saw the patient. Their recommendations are on the chart. She was agreeable to go to inpatient rehab at one of the local facilities. Arrangements were then made on the seventh hospital day for her to go to [facility] Her discharge meds include amiodarone 200 mg p.o. daily, Eliquis 5 mg b.i.d., Cymbalta 60 mg daily, lactobacillus, metoprolol 100 mg b.i.d., ondansetron p.r.n., oxybutynin b.i.d., Benadryl p.r.n. Her prognosis is guarded, but she was agreeable. She was discharged then from our hospital in stable condition with explicit instructions and followup care. Total discharge time 41 minutes. DREW NEGRON MD DR: LELE/rob JOB#: [id number] / [id number] DANAY Mejia MD, JAROD PA
== END 2020-01-20 16:58 | DRG 314 ==
LOC: ER 08:42 → ICU 15:45 → ER 17:35 → 1 SOUTH 01-15 18:20 → ICU 01-18 18:45
PROVIDERS: ADMIT Internal Medicine; ATTEND Internal Medicine
DX: I95.9 Hypotension, unspecified (principal); N17.0 Acute kidney failure with tubular necrosis; I48.21 Permanent atrial fibrillation; I50.32 Chronic diastolic (congestive) heart failure; J98.11 Atelectasis; D25.9 Leiomyoma of uterus, unspecified; D72.829 Elevated white blood cell count, unspecified; E04.1 Nontoxic single thyroid nodule; E66.01 Morbid (severe) obesity due to excess calories; E78.5 Hyperlipidemia, unspecified; F41.9 Anxiety disorder, unspecified; G89.4 Chronic pain syndrome; I11.0 Hypertensive heart disease with heart failure; J44.9 Chronic obstructive pulmonary disease, unspecified; K21.9 Gastro-esophageal reflux disease without esophagitis; K80.20 Calculus of gallbladder without cholecystitis without obstruction; L29.9 Pruritus, unspecified; M79.7 Fibromyalgia; N63.10 Unspecified lump in the right breast, unspecified quadrant; R29.6 Repeated falls; Z79.01 Long term (current) use of anticoagulants; Z79.899 Other long term (current) drug therapy; Z82.49 Family history of ischemic heart disease and other diseases of the circulatory system; F32.9 Major depressive disorder, single episode, unspecified; G47.33 Obstructive sleep apnea (adult) (pediatric); M19.90 Unspecified osteoarthritis, unspecified site; Z20.828 Contact with and (suspected) exposure to other viral communicable diseases; Z88.0 Allergy status to penicillin; Z88.8 Allergy status to other drugs, medicaments and biological substances; Z68.39 Body mass index [BMI] 39.0-39.9, adult
CPT/HCPCS: 36415; 70450; 71260; 72125; 74177; 78306; 80048; 80053; 81001; 82553; 83735; 84443; 84484; 85007; 85025; 85027; 85610; 85730; 86140; 93005; 96361; 96374; A9503; J0282; J1160; J1885; J2185; J2405; J3490; J7509; J7512; Q0163; Q9967; U0003; 97110; 97116; 97530; 97535; 99285-25; J7030

== ENCOUNTER 2020-02-13 16:11 | Emergency (ER) | payer MEDICARE ==
[~2020-02-13] VITALS: Ht 170.2 cm; Wt 112.9 kg
[~2020-02-13 16:11] MED LIST changes: +DULO60CA6 PO
--- NOTE | 2020-02-13 16:28 | PHYS DOC ---
Past History Past Medical History: Anxiety, Arthritis, Arrhythmia, COPD, Depression, Fibromyalgia, Hypertension, Other Additional Past Medical Histor: chronic pain (CARMELLA COBOS DO) Past Surgical History: Other Additional Past Surgical Histo: bilateral chest tubes, left wrist repair, shoulder Lt. , heart cath +/- 5y (CARMELLA COBOS DO) Smoking: Non-smoker Alcohol Use: None Drug Use: None (CARMELLA COBOS DO) Adult General Chief Complaint Chief Complaint: SHORTNESS OF BREATH HPI HPI Patient is a 69-year-old female who presents via EMS from senior care for shortness of breath. Patient has had 48 hours of progressive worsening shortness of breath. Sitting upright makes better, laying flat and activity make worse. Patient denies being in any pain, specifically no chest pain, no abdominal pain, no UTI-like symptoms. Denies any fever or productive cough, states does admit she has been diaphoretic, has had increased weight gain, and increased lower extremity edema bilaterally. longterm reports no known Covid positive patients in the facility. Given increased work of breathing, EMS was called for evaluation. On arrival, patient was found tachycardic and hypoxic in the 70s on room air. Patient with no history of requiring supplemental oxygen required 4 L oxygen via nasal cannula and route to keep O2 saturations greater than 90%. Of note, patient was admitted to our facility 1 month ago and negative for Covid, she states she was tested within the past 72 hours and was negative. Her last echocardiogram was performed August 2019 and grossly unremarkable, EF 50 to 60% with grade 1 diastolic dysfunction only (CARMELLA COBOS DO) Review of Systems Review of Systems Fourteen body systems of review of systems have been reviewed. See HPI for pertinent positives and negative responses, other almanzar all other systems are negative, non-pertinent or non-contributory (CARMELLA COBOS DO) Current Medications Current Medications Current Medications Medications (Trade) Dose Ordered Sig/Kris Start Time Stop Time Status Last Admin Dose Admin Aspirin (Aspirin Chewable) 162 mg 1X ONCE 02/13/20 16:30 02/13/20 16:31 UNV (CARMELLA COBOS DO) Allergies Allergies Allergies Coded Allergies Type Severity Reaction Last Updated Verified Penicillins Allergy Intermediate rash 01/13/20 Yes cyclobenzaprine Allergy Mild rash 01/13/20 Yes (CARMELLA COBOS DO) Physical Exam Physical Exam Constitutional: Well developed, well nourished, no acute distress, non-toxic appearance. HENT: Normocephalic, atraumatic, bilateral external ears normal, oropharynx moist, no oral exudates, nose normal. Eyes: PERRLA, EOMI, conjunctiva normal, no discharge. Neck: Normal range of motion, no tenderness, supple, no stridor. Cardiovascular: Heart rate regular, sinus rhythm, no murmurs rubs or gallops Lungs & Thorax: Bilateral breath sounds clear to auscultation Abdomen: Bowel sounds normal, soft, no tenderness, no masses, no pulsatile masses. Nonsurgical abdomen, no peritoneal signs Skin: Warm, dry, no erythema, no rash. Back: No tenderness, no CVA tenderness. Extremities: No tenderness, no cyanosis, no clubbing, ROM intact, no edema. Neurologic: Alert and oriented X 3, grossly normal motor & sensory function, no focal deficits noted. Psychologic: Affect normal, judgement normal, mood normal. (CARMELLA COBOS DO) Current Patient Data Vital Signs Vital Signs Date Time Temp Pulse Resp B/P (MAP) Pulse Ox O2 Delivery O2 Flow Rate FiO2 02/13/20 17:30 14 26 97/69 (78) 92 BiPAP/CPAP 02/13/20 17:04 3.0 02/13/20 16:30 98.4 Lab Results Laboratory Tests Test 02/13/20 16:27 02/13/20 16:35 White Blood Count 15.9 x10^3/uL (4.0-11.0) Red Blood Count 5.32 x10^6/uL (3.50-5.40) Hemoglobin 14.0 g/dL (12.0-15.5) Hematocrit 44.6 % (36.0-47.0) Mean Corpuscular Volume 84 fL (79-100) Mean Corpuscular Hemoglobin 26 pg (25-35) Mean Corpuscular Hemoglobin Concent 31 g/dL (31-37) Red Cell Distribution Width 16.4 % (11.5-14.5) Platelet Count 210 x10^3/uL (140-400) Neutrophils (%) (Auto) 81 % (31-73) Lymphocytes (%) (Auto) 11 % (24-48) Monocytes (%) (Auto) 7 % (0-9) Eosinophils (%) (Auto) 0 % (0-3) Basophils (%) (Auto) 1 % (0-3) Neutrophils # (Auto) 12.8 x10^3uL (1.8-7.7) Lymphocytes # (Auto) 1.8 x10^3/uL (1.0-4.8) Monocytes # (Auto) 1.1 x10^3/uL (0.0-1.1) Eosinophils # (Auto) 0.0 x10^3/uL (0.0-0.7) Basophils # (Auto) 0.1 x10^3/uL (0.0-0.2) Sodium Level 139 mmol/L (136-145) Potassium Level 5.8 mmol/L (3.5-5.1) Chloride Level 102 mmol/L (98-107) Carbon Dioxide Level 25 mmol/L (21-32) Anion Gap 12 (6-14) Blood Urea Nitrogen 21 mg/dL (7-20) Creatinine 1.1 mg/dL (0.6-1.0) Estimated GFR (Cockcroft-Gault) 49.4 BUN/Creatinine Ratio 19 (6-20) Glucose Level 157 mg/dL (70-99) Lactic Acid Level 5.3 mmol/L (0.4-2.0) Calcium Level 9.1 mg/dL (8.5-10.1) Total Bilirubin 2.4 mg/dL (0.2-1.0) Aspartate Amino Transf (AST/SGOT) 468 U/L (15-37) Alanine Aminotransferase (ALT/SGPT) 490 U/L (14-59) Alkaline Phosphatase 89 U/L (46-116) Troponin I Quantitative 0.296 ng/mL (0-0.055) EO-Urj-O-Type Natriuretic Peptide 89259 pg/mL (0-124) Total Protein 7.0 g/dL (6.4-8.2) Albumin 3.3 g/dL (3.4-5.0) Albumin/Globulin Ratio 0.9 (1.0-1.7) Bedside Venous pH 7.31 (7.32-7.42) Bedside Venous pCO2 54 mmHg (41-51) Bedside Venous pO2 18 mmHg (20-40) Venous Blood HCO3 27 mmol/L (24-28) POC Venous O2 Saturation (Yeimi) 22 % Bedside FiO2 28 (CARMELLA COBOS DO) EKG EKG EKG ordered and interpreted by myself at 1626 hrs. as atrial fibrillation with a rapid ventricular rate of 130 bpm, prolonged QTC at 487, left axis deviation, no acute ischemic findings, no STEMI (CARMELLA COBOS DO) Radiology/Procedures Radiology/Procedures PORTABLE CHEST 1V Clinical History: Reason: shob / Spl. Instructions: / History: Technique: AP view of the chest was obtained at 02/13/2020 4:20 PM. Comparison: August 13, 2019. Findings: The heart is borderline enlarged. There is low lung volumes causing crowding of pulmonary vasculature. There is vague patchy opacity in the right upper lung in the left lung base and obscuration left hemidiaphragm. Impression: 1. Borderline cardiomegaly. 2. Mild bilateral infiltrates suggesting atypical pneumonia. Electronically signed by: Louis Carnes III, MD (02/13/2020 4:48 PM) [facility] (CARMELLA COBOS DO) Heart Score HEART Score for Chest Pain: HEART Score for Chest Pain Response (Comments) Value History Moderately Suspicious 1 ECG Nonspecific Repolarizatio 1 Age > 65 2 Risk Factors >3 Risk Factors or Hx CAD 2 Troponin < Normal Limit 0 Total 6 Risk Factors: Risk Factors: DM, Current or recent (<one month) smoker, HTN, HLP, family history of CAD, obesity. Risk Scores: Risk Factors: DM, Current or recent (<one month) smoker, HTN, HLP, family history of CAD, obesity. (CARMELLA COBOS DO) Course & Med Decision Making Course & Med Decision Making Airway patent, patient in respiratory distress, tachycardic, tachypneic and hypoxic on room air Comprehensive history and physical examination performed, subsequent diagnostic work-up ensued IV access obtained. Patient clinically volume overloaded likely causing atrial fibrillation with RVR on arrival. X1 sublingual nitro administered with subsequent BiPAP administration with mild improvement in symptoms Pertinent Labs and Imaging studies reviewed. (See chart for details) Clinical picture concerning for atrial fibrillation with RVR causing type II NSTEMI and subsequent respiratory failure with hypoxia and hypercarbia Cardiology services at [facility] contacted and case discussed, they recommended 500 mcg IV digoxin and transfer to their facility for pacemaker evaluation and further intervention as indicated. No anticoagulation indicated as patient already on Eliquis daily Dr. Alvarado contacted and ultimately accepted patient under his care at [facility] I updated patient on proposed plan of care and she was amenable for transfer. All questions and concerns addressed prior to my shift ending. Comprehensive signout given to Dr. Ordonez who will be assuming care of patient while in ER until her transfer to [facility] Please defer to this note if any further medical activity/intervention occurs prior to ER departure (CARMELLA COBOS DO) Dragon Disclaimer Dragon Disclaimer This electronic medical record was generated, in whole or in part, using a voice recognition dictation system. (CARMELLA COBOS DO) Departure Departure: Impression: Primary Impression: Atrial fibrillation with rapid ventricular response Additional Impressions: Acute respiratory failure with hypoxia and hypercarbia NSTEMI (non-ST elevated myocardial infarction) Disposition: 02 DC/TRF OTHER SHORT TERM HOS ([facility]) Admitting Physician: Ragini Alvarado (CARMELLA COBOS DO) Condition: STABLE Referrals: AMIRA YEBOAH (PCP) Problem Qualifiers CARMELLA COBOS DO Feb 13, 2020 16:28 JOSE ORDONEZ MD Feb 14, 2020 07:08
[2020-02-13] MEDS ORDERED: ASPIRIN CHEWABLE 81 MG TABLET. PO ONE (16:30)
[2020-02-13] MEDS ORDERED: NITROGLYCERIN SUBLINGUAL 0.4 MG BOTTLE OF 25. SL ONE (16:44)
[2020-02-13] MEDS ORDERED: FUROSEMIDE 40 MG/4 ML VIAL ONE (16:44)
[2020-02-13] MEDS ORDERED: FUROSEMIDE 40 MG/4 ML VIAL IVP ONE (16:45)
[2020-02-13] MEDS ORDERED: NITROGLYCERIN SUBLINGUAL 0.4 MG BOTTLE OF 25. SL PRN (16:45)
[2020-02-13 16:48] LABS: BASO # 0.1 x10^3/uL (0.0-0.2); BASO % 1 % (0-3); EOS % 0 % (0-3); HEMATOCRIT 44.6 % (36.0-47.0); LYMPH # 1.8 x10^3/uL (1.0-4.8); LYMPH % 11 % (24-48); MEAN CORPUSCULAR HEMOGLOBIN 26 pg (25-35); MEAN CORPUSCULAR HGB CONC 31 g/dL (31-37); MEAN CORPUSCULAR VOLUME 84 fL (79-100); MONO # 1.1 x10^3/uL (0.0-1.1); MONO % 7 % (0-9); NEUT # 12.8 x10^3uL (1.8-7.7); NEUT % 81 % (31-73); PLATELET COUNT 210 x10^3/uL (140-400); RED BLOOD COUNT 5.32 x10^6/uL (3.50-5.40); RED CELL DISTRIBUTION WIDTH 16.4 % (11.5-14.5); WHITE BLOOD COUNT 15.9 x10^3/uL (4.0-11.0)
--- NOTE | 2020-02-13 16:51 | RAD ---
PORTABLE CHEST 1V Clinical History: Reason: shob / Spl. Instructions: / History: Technique: AP view of the chest was obtained at 02/13/2020 4:20 PM. Comparison: August 13, 2019. Findings: The heart is borderline enlarged. There is low lung volumes causing crowding of pulmonary vasculature. There is vague patchy opacity in the right upper lung in the left lung base and obscuration left hemidiaphragm. Impression: 1. Borderline cardiomegaly. 2. Mild bilateral infiltrates suggesting atypical pneumonia. Electronically signed by: Loius Carnes III, MD (02/13/2020 4:48 PM) [facility]
[2020-02-13 17:00] LABS: CALCIUM 9.1 mg/dL (8.5-10.1); CREATININE 1.1 mg/dL (0.6-1.0); GFR 49.4; POTASSIUM 5.8 mmol/L (3.5-5.1)
[2020-02-13] MEDS ORDERED: INSULIN REGULAR 100 UNIT/ML 3ML VIAL. IV ONE (17:15)
[2020-02-13] MEDS ORDERED: CALCIUM GLUCONATE 1,000 MG/10 ML VIAL IV ONE (17:15)
[2020-02-13] MEDS ORDERED: DEXTROSE 50% 25 GM / 50ML DISP.SYRIN. IV ONE (17:15)
[2020-02-13 17:16] LABS: ALBUMIN 3.3 g/dL (3.4-5.0); ALBUMIN/GLOBULIN RATIO 0.9 (1.0-1.7); TOTAL BILIRUBIN 2.4 mg/dL (0.2-1.0)
[2020-02-13] MEDS ORDERED: dilTIAZem 25 MG/5 ML VIAL IVP ONE ×2 (17:30→17:31)
[2020-02-13] MEDS ORDERED: DIGOXIN IV 500 MCG/2 ML AMPUL. IV ONE (17:30)
[2020-02-13 18:40] LABS: CLARITY,URINE HAZY; COLOR,URINE AMBER; GLUCOSE,URINE 100 mg/dL (NEG)
[2020-02-13 18:41] LABS: AMORPHOUS SEDIMENT,UR PRESENT /HPF; BACTERIA,URINE FEW /HPF (0-FEW); BILIRUBIN,URINE SMALL (NEG); NITRITE,URINE NEG (NEG); RBC,URINE OCC /HPF (0-2); SQUAMOUS EPITHELIAL CELL,UR MANY /LPF; WBC,URINE 0 /HPF (0-4)
[2020-02-13 18:58] LABS: INFLUENZA A PATIENT NEGATIVE (NEGATIVE); INFLUENZA B PATIENT NEGATIVE (NEGATIVE)
[2020-02-13 19:09] VITALS: BP 121/62
[2020-02-13 23:38] LABS: % LYMPHS 10 % (24-48); % MONOS 5 % (0-10); % SEGS 85 % (35-66); PLT ESTIMATE ADEQUATE (ADEQUATE)
--- NOTE | 2020-02-14 08:37 | EKG ---
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
== END 2020-02-13 20:32 | disposition short-term general hospital (02) ==
LOC: ER 16:11
DX: I21.4 Non-ST elevation (NSTEMI) myocardial infarction (principal); J96.01 Acute respiratory failure with hypoxia; J96.02 Acute respiratory failure with hypercapnia; I48.20 Chronic atrial fibrillation, unspecified; F41.9 Anxiety disorder, unspecified; M19.90 Unspecified osteoarthritis, unspecified site; J44.9 Chronic obstructive pulmonary disease, unspecified; M79.7 Fibromyalgia; I10 Essential (primary) hypertension; G89.29 Other chronic pain; Z20.828 Contact with and (suspected) exposure to other viral communicable diseases; Z88.0 Allergy status to penicillin; Z88.8 Allergy status to other drugs, medicaments and biological substances
CPT/HCPCS: 36415; 51702; 71045; 80053; 81001; 82803; 83605; 83880; 84145; 84484; 85007; 85025; 87040; 87804; 93005; 94660; 96374; 96375; 99285; C9803; J1160; J1815; U0003

== ENCOUNTER 2020-02-29 10:36 | Inpatient (IN) | payer MEDICARE ==
[2020-02-29] VITALS (7 sets, daily range): BP systolic 67–152; BP diastolic 41–87
[~2020-02-29] VITALS: Ht 170.2 cm; Wt 125.8 kg
--- NOTE | 2020-02-29 10:58 | PHYS DOC ---
Past History Past Medical History: Anxiety, Arthritis, Arrhythmia, COPD, Depression, Fibromyalgia, Hypertension, Other Additional Past Medical Histor: chronic pain Past Surgical History: Other Additional Past Surgical Histo: bilateral chest tubes, left wrist repair, shoulder Lt. , heart cath +/- 5y Smoking: Non-smoker Alcohol Use: None Drug Use: None Adult General HPI HPI Patient is a 69-year-old female who presents via EMS for shortness of breath. Patient comes from custodial, states she has had approximately 3 days of worsening shortness of breath, nonproductive cough, worsened ability to lay flat and lower extremity edema. Nothing known makes better, laying flat and physical exertion make worse. Patient denies being in any pain just states she cannot catch her breath. States her custodial physician recently started her on Medrol Dosepak 3 days ago in addition to increasing home Lasix for worsening lower extremity edema. Patient was found by facility staff to have pulse ox saturation in the 60s on room air which is unusual for her, EMS was subsequently called and found patient to be tachycardic with ventricular rate approximately 130s and hypoxic in the 80s on room air. This resolved with administration of supplemental oxygen. Patient was ultimately transferred to our facility for evaluation. On arrival, patient denies any fever, states she has been self quarantined as it is custodial policy whenever tenants leave facility they are to be placed on 14-day quarantine from others. States she recently finished 10-day course of antibiotics for UTI within the past week, it is unknown what antibiotic was used. States she has been compliant with all medications Review of Systems Review of Systems Fourteen body systems of review of systems have been reviewed. See HPI for pertinent positives and negative responses, other almanzar all other systems are negative, non-pertinent or non-contributory Current Medications Current Medications Current Medications Medications (Trade) Dose Ordered Sig/Kris Start Time Stop Time Status Last Admin Dose Admin Aspirin (Blayne Aspirin) 325 mg 1X ONCE 02/29/20 11:00 02/29/20 11:01 UNV Allergies Allergies Allergies Coded Allergies Type Severity Reaction Last Updated Verified Penicillins Allergy Intermediate rash 01/13/20 Yes cyclobenzaprine Allergy Mild rash 01/13/20 Yes Physical Exam Physical Exam Constitutional: Pt is oriented to person, place, and time. Pt appears well-developed and well- nourished, anxious and diaphoretic on arrival HEENT: Head: Normocephalic and atraumatic. External ears unremarkable, no blanchard sign Conjunctivae and EOM are normal. Pupils are equal, round, and reactive to light. Oropharynx is clear and moist. No hematomas or lacerations or abrasions to face or scalp OP clear, no blood, no malocclusion, dentition intact Nares clear, no nasal septal hematoma Midface stable Neck: C-spine midline nontender, no step-offs Cardiovascular: Irregular rhythm, tachycardic ventricular rate, no rubs or gallops Pulmonary/Chest: Increased effort of breathing, Rales present in bilateral lower lobes, no wheezing, respiratory distress present, accessory muscle use in neck and abdomen noted Abdominal: Soft. Bowel sounds are normal. Pt exhibits no distension. There is no tenderness . Musculoskeletal: No bony tenderness to extremities, no deformities, full ROM extremities Chest wall stable Pelvis stable and non-tender No vertebral TTP and spine without stepoffs Neurological: Pt is alert and oriented to person, place, and time. Moving all extremities willfully, able to wiggle all fingers and toes Alert and oriented x 3 Sensation grossly intact Skin: Skin is warm and dry. No abrasions, no lacerations Psychiatric: Behavior is appropriate for situation Current Patient Data Vital Signs Vital Signs Date Time Temp Pulse Resp B/P (MAP) Pulse Ox O2 Delivery O2 Flow Rate FiO2 02/29/20 10:36 97.8 124 40 73/50 (58) 97 NonRebreather Mask 15.0 Lab Results Laboratory Tests Test 02/29/20 10:50 02/29/20 11:35 White Blood Count 19.3 x10^3/uL (4.0-11.0) Red Blood Count 5.04 x10^6/uL (3.50-5.40) Hemoglobin 13.0 g/dL (12.0-15.5) Hematocrit 42.7 % (36.0-47.0) Mean Corpuscular Volume 85 fL (79-100) Mean Corpuscular Hemoglobin 26 pg (25-35) Mean Corpuscular Hemoglobin Concent 31 g/dL (31-37) Red Cell Distribution Width 16.4 % (11.5-14.5) Platelet Count 260 x10^3/uL (140-400) Neutrophils (%) (Auto) 81 % (31-73) Lymphocytes (%) (Auto) 10 % (24-48) Monocytes (%) (Auto) 9 % (0-9) Eosinophils (%) (Auto) 0 % (0-3) Basophils (%) (Auto) 1 % (0-3) Neutrophils # (Auto) 15.5 x10^3uL (1.8-7.7) Lymphocytes # (Auto) 1.9 x10^3/uL (1.0-4.8) Monocytes # (Auto) 1.7 x10^3/uL (0.0-1.1) Eosinophils # (Auto) 0.0 x10^3/uL (0.0-0.7) Basophils # (Auto) 0.1 x10^3/uL (0.0-0.2) Segmented Neutrophils % 80 % (35-66) Band Neutrophils % 1 % (0-9) Lymphocytes % 11 % (24-48) Monocytes % 7 % (0-10) Basophils % 1 % (0-3) Toxic Granulation Slight Toxic Vacuolation Slight Dohle Bodies Present Platelet Estimate Adequate (ADEQUATE) Large Platelets Occ Polychromasia Present Ovalocytes Occ Prothrombin Time 11.4 SEC (9.4-11.4) Prothromb Time International Ratio 1.1 (0.9-1.1) Activated Partial Thromboplast Time 35 SEC (23-33) Sodium Level 142 mmol/L (136-145) Potassium Level 4.5 mmol/L (3.5-5.1) Chloride Level 103 mmol/L (98-107) Carbon Dioxide Level 34 mmol/L (21-32) Anion Gap 5 (6-14) Blood Urea Nitrogen 21 mg/dL (7-20) Creatinine 0.7 mg/dL (0.6-1.0) Estimated GFR (Cockcroft-Gault) 83.2 BUN/Creatinine Ratio 30 (6-20) Glucose Level 153 mg/dL (70-99) Lactic Acid Level 2.6 mmol/L (0.4-2.0) Calcium Level 9.2 mg/dL (8.5-10.1) Magnesium Level 2.0 mg/dL (1.8-2.4) Total Bilirubin 1.3 mg/dL (0.2-1.0) Aspartate Amino Transf (AST/SGOT) 19 U/L (15-37) Alanine Aminotransferase (ALT/SGPT) 67 U/L (14-59) Alkaline Phosphatase 94 U/L (46-116) Troponin I Quantitative < 0.017 ng/mL (0-0.055) SV-Xqv-Y-Type Natriuretic Peptide 7883 pg/mL (0-124) Total Protein 7.5 g/dL (6.4-8.2) Albumin 3.6 g/dL (3.4-5.0) Albumin/Globulin Ratio 0.9 (1.0-1.7) Urine Collection Type U cath Urine Color Neema Urine Clarity Hazy Urine pH 5.0 Urine Specific Drums >=1.030 Urine Protein 100 mg/dl (NEG-TRACE) Urine Glucose (UA) Neg mg/dL (NEG) Urine Ketones (Stick) Neg mg/dL (NEG) Urine Blood Trace (NEG) Urine Nitrite Neg (NEG) Urine Bilirubin Neg (NEG) Urine Urobilinogen Dipstick 1.0 mg/dL (0.2 mg/dL) Urine Leukocyte Esterase Neg (NEG) Urine RBC 3-5 /HPF (0-2) Urine WBC 1-4 /HPF (0-4) Urine Squamous Epithelial Cells Mod /LPF Urine Amorphous Sediment Present /HPF Urine Bacteria Few /HPF (0-FEW) Urine Hyaline Casts Few /HPF Urine Granular Casts Occ /HPF Urine Mucus Mod /LPF EKG EKG EKG ordered and interpreted by myself at 1150 hrs. as atrial fibrillation with a ventricular rate of 150 bpm, QTC 451, no other interval abnormalities, left axis deviation, no obvious ischemic findings, no STEMI Radiology/Procedures Radiology/Procedures INDICATION: Shortness of breath COMPARISON: 02/13/2020 TECHNIQUE: Portable frontal view of the chest is provided. FINDINGS: The cardiomediastinal silhouette is enlarged, stable. Small bilateral pleural effusions adjacent compressive atelectasis versus infiltrate appears similar. Moderate to advanced pulmonary vascular congestion. Right suprahilar consolidative change may represent alveolar edema or prominent right paratracheal stripe from fluid overload state. No suspicious osseous abnormality. IMPRESSION: Aeration of the lungs appears similar to the prior examination. Electronically signed by: Karmen Whitman MD (02/29/2020 11:55 AM) [facility] Heart Score HEART Score for Chest Pain: HEART Score for Chest Pain Response (Comments) Value History Slighlty/Non-Suspicious 0 ECG Nonspecific Repolarizatio 1 Age > 65 2 Risk Factors >3 Risk Factors or Hx CAD 2 Troponin < Normal Limit 0 Total 5 Risk Factors: Risk Factors: DM, Current or recent (<one month) smoker, HTN, HLP, family history of CAD, obesity. Risk Scores: Risk Factors: DM, Current or recent (<one month) smoker, HTN, HLP, family histo ry of CAD, obesity. Course & Med Decision Making Course & Med Decision Making Pertinent Labs and Imaging studies reviewed. (See chart for details) Discussed most likely diagnosis of acute on chronic respiratory failure sec ondary to fluid overload. White count elevated likely due to current Medrol Dosepak use, she has no infectious symptoms, no known COVID-19 contact and has been quarantined, low concern for infectious process X2 peripheral IVs established. 80 mg IV Lasix, 325 mg aspirin and x1 sublingual nitro administered. Patient subsequently put on BiPAP for positive pressure with improvement in respiratory symptoms and hemodynamic status Nonetheless, ER intervention did not improve patient's clinical presentation satisfactorily for safe discharge back to custodial, she will need admission. Dr. Alvarado contacted and case discussed, he agreed to admission under his care at [facility] I updated patient on proposed plan of care and she was amenable. All questions and concerns addressed prior to transport to [facility] for admission Critical Care Time This patient required critical care. Due to the fact that the patient required a significant amount of one on one physician - patient contact time, ordering and review of studies, arranging urgent treatment with development of a management plan, evaluation of patients response to treatment with frequent reassessments, and discussions with other providers this patient required critical care time in excess of 30 minutes. Critical care time was indicated due to the inherent instability and/or potential for instability in this patient. The critical care time that is allocated to this patient is above and beyond any time spent on any other billable procedures performed on this patient. Dragon Disclaimer Dragon Disclaimer This electronic medical record was generated, in whole or in part, using a voice recognition dictation system. Departure Departure: Impression: Primary Impression: Acute and chronic respiratory failure Additional Impressions: Acute exacerbation of congestive heart failure Atrial fibrillation with rapid ventricular response Disposition: ADMITTED INPT THIS HOSP Admitting Physician: Ragini Alvarado Condition: STABLE Referrals: AMIRA YEBOAH (PCP) Problem Qualifiers CARMELLA COBOS DO Feb 29, 2020 10:58
[2020-02-29] MEDS ORDERED: ASPIRIN 325 MG TABLET PO ONE (11:00)
[2020-02-29 11:14] LABS: BASO # 0.1 x10^3/uL (0.0-0.2); BASO % 1 % (0-3); EOS % 0 % (0-3); HEMATOCRIT 42.7 % (36.0-47.0); LYMPH # 1.9 x10^3/uL (1.0-4.8); LYMPH % 10 % (24-48); MEAN CORPUSCULAR HEMOGLOBIN 26 pg (25-35); MEAN CORPUSCULAR HGB CONC 31 g/dL (31-37); MEAN CORPUSCULAR VOLUME 85 fL (79-100); MONO # 1.7 x10^3/uL (0.0-1.1); MONO % 9 % (0-9); NEUT # 15.5 x10^3uL (1.8-7.7); NEUT % 81 % (31-73); PLATELET COUNT 260 x10^3/uL (140-400); RED BLOOD COUNT 5.04 x10^6/uL (3.50-5.40); RED CELL DISTRIBUTION WIDTH 16.4 % (11.5-14.5); WHITE BLOOD COUNT 19.3 x10^3/uL (4.0-11.0)
[2020-02-29 11:24] LABS: CALCIUM 9.2 mg/dL (8.5-10.1); CREATININE 0.7 mg/dL (0.6-1.0); GFR 83.2; POTASSIUM 4.5 mmol/L (3.5-5.1)
[2020-02-29] MEDS ORDERED: FUROSEMIDE 40 MG/4 ML VIAL ONE (11:24)
[2020-02-29] MEDS ORDERED: FUROSEMIDE 100 MG/10 ML VIAL IVP ONE (11:30)
[2020-02-29 11:37] LABS: ALBUMIN 3.6 g/dL (3.4-5.0); ALBUMIN/GLOBULIN RATIO 0.9 (1.0-1.7); TOTAL BILIRUBIN 1.3 mg/dL (0.2-1.0); TOTAL PROTEIN 7.5 g/dL (6.4-8.2)
--- NOTE | 2020-02-29 11:57 | RAD ---
XR CHEST 1V 02/29/2020 10:54 AM INDICATION: Shortness of breath COMPARISON: 02/13/2020 TECHNIQUE: Portable frontal view of the chest is provided. FINDINGS: The cardiomediastinal silhouette is enlarged, stable. Small bilateral pleural effusions adjacent comp ressive atelectasis versus infiltrate appears similar. Moderate to advanced pulmonary vascular congestion. Right suprahilar consolidative change may represe nt alveolar edema or prominent right paratracheal stripe from fluid overload state. No suspicious osseous abnormality. IMPRESSION: Aeration of the lungs appears similar to the prior examination. Electronically signed by: Karmen Whitman MD (02/29/2020 11:55 AM) [facility]
--- NOTE | 2020-02-29 12:07 | EKG ---
[address] [address] Test Date: 2020-02-29 Test Time: 11:46:15 Pat Name: RIDDHI GARCIA Department: Room: Gender: F Thoracic Medicine Physician: : 1950 Requested By: CARMELLA COBOS Order Number: [id number] Reading MD: Sridhar Montano MD Measurements Intervals [place] Rate: 150 P: FL: QRS: -43 QRSD: 90 T: 115 QT: 284 QTc: 451 Interpretive Statements ATRIAL FIBRILLATION WITH RVR Electronically Signed On 02-29-2020 16:31:01 FIRE EXTINGUISHER INSTALLER by Sridhar Montano MD
[2020-02-29] MEDS ORDERED: NITROGLYCERIN SUBLINGUAL 0.4 MG BOTTLE OF 25. SL PRN ×2 (12:30→13:00)
[2020-02-29 12:34] LABS: BACTERIA,URINE FEW /HPF (0-FEW); BILIRUBIN,URINE NEG (NEG); CLARITY,URINE HAZY; COLOR,URINE AMBER; GLUCOSE,URINE NEG (NEG); NITRITE,URINE NEG (NEG)
[2020-02-29 12:35] LABS: AMORPHOUS SEDIMENT,UR PRESENT /HPF; GRANULAR CASTS,URINE OCC /HPF; HYALINE CASTS, URINE FEW /HPF; SQUAMOUS EPITHELIAL CELL,UR MOD /LPF
[2020-02-29 12:42] LABS: % BANDS 1 % (0-9); % BASOS 1 % (0-3); % LYMPHS 11 % (24-48); % MONOS 7 % (0-10); % SEGS 80 % (35-66); PLT ESTIMATE ADEQUATE (ADEQUATE); POLYCHROMASIA PRESENT
[2020-02-29 12:43] LABS: OVALOCYTES OCC; TOXIC GRANULATION SLIGHT
[2020-02-29 12:44] LABS: TOXIC VACUOLATION SLIGHT
[2020-02-29] MEDS ORDERED: DIGOXIN IV 500 MCG/2 ML AMPUL. ONE (16:00)
[2020-02-29] MEDS ORDERED: DIGOXIN IV 500 MCG/2 ML AMPUL. IV ONE ×2 (16:00→19:45)
--- NOTE | 2020-02-29 16:40 | PDOC ---
PROVIDER NOTE PROVIDER NOTE PROVIDER NOTE CARDIOLOGY CONSULTATION NOTE: CC: JENNIFER HPI: Michaela is a pleasant 69-year-old woman who is well-known to our service who presents to the hospital in the setting of progressive dyspnea. It appears that she has had worsening dyspnea at her senior living facility. There is low suspicion for coronavirus. She was recently discharged after treatment for diastolic heart failure and UTI. She denies any syncope or chest pain. In the ER she was noted to be tachycardic with hypertensive blood pressures above 200. She was initiated on BiPAP therapy and had improvement. She has been admitted for further evaluation and treatment. Past medical history: 1. Diastolic heart failure 2. Morbid obesity 3. Hypertension 4. Dyslipidemia 5. Anxiety Allergies: Penicillin, cyclobenzaprine Social history patient is currently residing in a senior living. She denies any alcohol, tobacco or illicit drug use. Family history is noncontributory Review of systems are negative unless otherwise mentioned above in HPI. Physical examination She is in moderate distress related to her anxiety and respiratory failure Head and neck exams otherwise unremarkable Irregular heart tones Trace lower extremity edema Large protuberant abdomen No rashes on the skin. Diagnostic studies: Chest x-ray, labs reviewed. Echocardiogram and myocardial perfusion study from August 2019 were unremarkable Impression: 1. Acute on chronic diastolic heart failure likely related to atrial fibrillation with a rapid ventricular response 2. A. fib with RVR 3. Multiple other comorbidities as noted above Recommendations: 1. Start amiodarone drip, continue beta-caitie therapy for heart rate control. Continue Eliquis. 2. Diuresis with intravenous Lasix. Monitor closely for improvement and if she has persistent dyspnea and heart failure symptoms could consider cardioversion otherwise plan for outpatient cardioversion. Supportive care. Thank you for this consultation. Justification of Admission: Justification of Admission: Justification of Admission Dx: N/A NAVA ONTIVEROS MD Feb 29, 2020 16:40
[2020-02-29] MEDS ORDERED: DULO60CA98 PO (17:06)
[2020-02-29] MEDS ORDERED: METOPROLOL TARTRATE 5 MG/5 ML VIAL. IV ONE (17:15)
[2020-02-29] MEDS ORDERED: AMIODARONE 150 MG in IV DEXTROSE 5% 100 ML IVP ONE (17:30)
[2020-02-29] MEDS ORDERED: AMIODARONE 450 MG in IV DEXTROSE 5% 250 ML IV ONE (17:40)
[2020-02-29] MEDS ORDERED: METO100T7 PO (18:49)
[2020-02-29] MEDS ORDERED: DRON400T PO (18:49)
[2020-02-29] MEDS ORDERED: FURO-68 PO (18:49)
[2020-02-29] MEDS ORDERED: LEVO25TA55 PO (18:49)
[2020-02-29] MEDS ORDERED: APIX5TAB3 PO (18:49)
[2020-02-29] MEDS ORDERED: LACT1CAP2 PO (18:49)
--- NOTE | 2020-02-29 19:23 | HP ---
ADMIT DATE: 02/29/2020 HISTORY OF PRESENT ILLNESS: The patient is a 69-year-old female patient, [place] [facility] [place] to the Emergency Room by EMS for shortness of breath. She stated that she had approximately 3 days of worsening shortness of breath and nonproductive cough, worsened ability to lay flat, and lower extremity edema. Nothing known makes her better. Lying flat and physical exertion makes it worse. The patient denies being in any pain. She states that she cannot catch her breath. States that her [facility] physician recently started her on Medrol Dosepak 3 days ago in addition to increasing her home Lasix for worsening lower extremity edema. The patient was found by facility staff to have pulse oximetry down to saturations in the 60s on room air, which is unusual for her. EMS was subsequently called and found the patient to be tachypneic, tachycardic with a ventricular rate of approximately 130s, hypoxic in the 80s on room air. This resolved with administration of supplemental oxygen. The patient was ultimately transferred to Emergency Room of [facility]. The patient denied any fever. States that she has been self-quarantined, as it is a [facility] policy whenever tenants leave facility, they have to be placed in a 14-day quarantined from others. She states she has finished a 10-day course of antibiotic for UTI within the past week. She actually was admitted to [facility] for exactly similar complaint, and at that time, she was started on amiodarone; however, her liver enzymes have dramatically increased, and in consultation with the Cardiology team, she was switched to Multaq. In any case, the patient was extensively investigated in the Emergency Room and she obviously was tachycardic and had had an EKG, which showed that she was in atrial fibrillation with rapid ventricular response with a heart rate of 150 beats per minute. Corrected QT interval of 145 milliseconds with no other interval abnormalities. Her chest x-ray showed the patient's cardiomediastinal silhouette is enlarged but stable, small bilateral pleural effusion, adjacent compression atelectasis versus infiltrate, appears similar. Moderate to advanced pulmonary vascular congestion, right suprahilar consolidative changes noticed that represents alveolar edema, prominent right paratracheal stripe from fluid overload. No suspicious osseous abnormality. The patient was given 80 mg of Lasix, 325 mg aspirin, and 1 sublingual nitroglycerin, and she was started on BiPAP machine and was admitted to the ICU for further evaluation and treatment with diagnoses of acute on chronic respiratory failure, acute exacerbation of congestive heart failure, and atrial fibrillation with rapid ventricular response. PAST MEDICAL HISTORY: Significant for hypertension, hyperlipidemia, chronic obstructive pulmonary disease, morbid obesity, and obstructive sleep apnea. She is also known to have atrial fibrillation, has had also anxiety and depression. In fact, she was admitted to [facility] on 02/14/2020 and was discharged on 02/16/2020 with again paroxysmal atrial fibrillation with rapid ventricular response in sinus rhythm. At that time, her amiodarone showed severe thyrotoxicosis and deranged liver enzyme, and therefore, she was switched to Multaq for rhythm maintenance and was continued on Eliquis for stroke prevention. In fact, at that time, her liver enzymes have dramatically risen with total bilirubin 1.7, AST was 1064, ALT was 2124. Her TSH was undetectable and was less than 0.007. Her total T4 was high at 14. Free T4 was high at 2.74. PAST SURGICAL HISTORY: Significant for bilateral chest tube placement, left wrist repair, left shoulder surgery, and heart catheterization. ALLERGIES: SHE IS ALLERGIC TO PENICILLIN. SHE IS ALSO ALLERGIC TO BEE STINGS. FAMILY HISTORY: She is adopted, but does not know her biological parents. SOCIAL HISTORY: She is , has no children of her own. She does not smoke, drink alcohol or use recreational drugs. She is retired from [employer] after working there for almost 38 years. [place] [facility] [place]S: [place] [facility] [place] Multaq 400 mg twice a day, ondansetron 4 mg every 4 hours as needed for nausea and vomiting, oxybutynin chloride 5 mg twice a day, metoprolol tartrate, Lopressor 100 mg twice a day, duloxetine for Cymbalta 1 capsule once a day, diphenhydramine 25 mg 1 tablet every 6 hours as needed for itching, apixaban 5 mg twice a day, lactobacillus acidophilus 1 capsule once a day, acetaminophen 500 mg every 6 hours, potassium chloride 10 mEq once a day. She is on furosemide 20 mg once a day, ascorbic acid 1000 mg once a day, ergocalciferol for vitamin D2 50,000 units once a week, albuterol sulfate 1 puff every 4 hours as needed, albuterol sulfate by nebulizer 2.5 mg/3 mL every 4 hours as needed. She is on Symbicort 160/4.5 mcg 2 puffs twice a day. She was on valsartan-hydrochlorothiazide for Diovan/hydrochlorothiazide 320/25 one tablet once a day, escitalopram oxalate 10 mg once a day, vitamin B complex 1 tablet once a day, aspirin 81 mg once a day. Her amiodarone at that time was discontinued and her levothyroxine was cut down from 125 to 75 mcg. We discontinued her naproxen, and she was also on vitamin D 5000 units that was discontinued. PHYSICAL EXAMINATION: GENERAL: On arrival to the Emergency Room today, she was clearly very tachypneic, hypoxic, but there was no pallor, jaundice or cyanosis. No lymphadenopathy, no thyromegaly. No jugular venous distention, but mild bilateral lower limb edema. VITAL SIGNS: Her heart rate was 140, blood pressure was 203/104, temperature 97.8, respiratory rate was 40, and oxygen saturation was 97% on 15 liters by nonrebreather mask. HEAD, EYES, EARS, NOSE, AND THROAT: Showed normocephalic, atraumatic. NECK: Supple. HEART: Normal first and second heart sounds. No gallop or murmur. CHEST: Shows central trachea, equal bilateral expansion, air entry, vesicular sounds with bilateral basal crepitations. No rhonchi. ABDOMEN: Markedly distended, soft, nontender. NEUROLOGIC: She was grossly intact. LABORATORY DATA: Her lab work on arrival to the Emergency Room showed a white cell count of 19,300, hemoglobin 13, hematocrit 42, MCV 85, and platelet count of 260,000 with a manual differential showed 81% polymorphs, 10% lymphocytes, and 9% monocytes. Her chemistry showed a serum sodium 142, potassium 4.5, chloride 103, bicarbonate 34, anion gap of 5, BUN 21, creatinine 0.7, estimated GFR was 83 mL per minute. Her glucose was 153, calcium was 9.2, magnesium 2. Total bilirubin, AST, ALT, and alkaline phosphatase were normal. Beta natriuretic peptide was 7883. Total protein was 7.5, albumin was 3.6. Her prothrombin time and INR were normal, aPTT was slightly elevated at 35. Urinalysis showed the urine was kathleen, hazy with a pH of 5, specific gravity of more than 1.030, with a large amount of protein. The urine was negative for glucose, ketones, trace amount of blood, negative for nitrite and leukocyte esterase. There were 3-5 rbc's, 1-4 wbc's, and very few bacteria. Her chest x-ray showed the cardiomediastinal silhouette is nonenlarged, stable, small bilateral pleural effusion; adjacent compression atelectasis versus infiltrate appears similar. Moderate to advanced pulmonary vascular congestion, right suprahilar consolidative changes, may represent alveolar edema with prominent right paratracheal stripe from fluid overload state. No suspicious osseous abnormality. ASSESSMENT AND PLAN: In summary, this is a 69-year-old female patient who was admitted with acute on chronic diastolic heart failure related to atrial fibrillation with rapid ventricular response and acute hypoxic respiratory failure. She has multiple other medical problems including hypertension, hyperlipidemia, chronic obstructive pulmonary disease, morbid obesity, obstructive sleep apnea as well as anxiety and depression. The patient was treated with IV Lasix and has very good urine output of almost 2000 by the time I saw her in the ICU. I will repeat all her lab work tomorrow including her liver enzymes and thyroid function, as she did become thyrotoxic before with very undetectable TSH as well as markedly deranged liver enzymes for which we stopped the amiodarone and switched her to Multaq. DANAY MONTENEGRO MD DR: SONY/rob JOB#: [id number] / [id number]
[2020-02-29 19:48] LABS: BGAS PH 7.4 (7.35-7.45)
[2020-03-01] MEDS ORDERED: AMIODARONE HCL 200 MG TABLET. PO SCH (09:00)
== END 2020-02-29 22:05 | disposition short-term general hospital (02) | DRG 291 ==
LOC: ER 10:36 → ICU 12:45 → ER 14:10
PROVIDERS: ADMIT Internal Medicine; ATTEND Internal Medicine
PROC: 5A09357 Assistance with Respiratory Ventilation, Less than 24 Consecutive Hours, Continuous Positive Airway Pressure (ICD-10-PCS; principal; 2020-02-29)
DX: I11.0 Hypertensive heart disease with heart failure (principal); J96.21 Acute and chronic respiratory failure with hypoxia; E66.01 Morbid (severe) obesity due to excess calories; I50.33 Acute on chronic diastolic (congestive) heart failure; E78.5 Hyperlipidemia, unspecified; F32.9 Major depressive disorder, single episode, unspecified; F41.9 Anxiety disorder, unspecified; G47.33 Obstructive sleep apnea (adult) (pediatric); I48.91 Unspecified atrial fibrillation; J44.9 Chronic obstructive pulmonary disease, unspecified; M79.7 Fibromyalgia; G89.29 Other chronic pain; M19.90 Unspecified osteoarthritis, unspecified site; Z20.828 Contact with and (suspected) exposure to other viral communicable diseases
CPT/HCPCS: 36415; 51702; 71045; 80053; 81001; 82803; 82947; 83605; 83735; 83880; 84484; 85007; 85025; 85610; 85730; 87040; 93005; 94660; 96374; 99291; J0282; J1160; J3490; U0003

== ENCOUNTER 2020-03-08 20:09 | Inpatient (IN) | payer MEDICARE ==
[~2020-03-08] VITALS: Ht 170.2 cm; Wt 115.3 kg
[~2020-03-08 20:09] MED LIST changes: +APIX5TAB3 PO; +DRON400T PO; +DULO60CA98 PO; +FURO-68 PO; +LACT1CAP2 PO; +LEVO25TA55 PO; +METO100T7 PO
[2020-03-08] MEDS ORDERED: ASPIRIN CHEWABLE 81 MG TABLET. PO ONE (20:15)
[2020-03-08] MEDS ORDERED: NITROGLYCERIN SUBLINGUAL 0.4 MG BOTTLE OF 25. SL PRN (20:15)
--- NOTE | 2020-03-08 20:19 | PHYS DOC ---
Past History Past Medical History: Anxiety, Arthritis, Arrhythmia, COPD, Depression, Fibromyalgia, Hypertension, Other Additional Past Medical Histor: chronic pain Past Surgical History: Other Additional Past Surgical Histo: bilateral chest tubes, left wrist repair, shoulder Lt. , heart cath +/- 5y Smoking: Non-smoker Alcohol Use: None Drug Use: None Adult General Chief Complaint Chief Complaint: DYSPNEA/RESPIRATOY DISTRESS HPI HPI Patient is a 69-year-old female who presents via EMS from detention for hypoxia. Patient was recently discharged yesterday from [facility] for acute exacerbation of CHF. Patient was reportedly found hypoxic with decreased mentation, 60% on 2 L nasal cannula by staff prompting them to call EMS. On arrival, patient had oxygen increased to 4 L via nasal cannula with minimal improvement in oxygenation. Patient put on nonrebreather at 15 L with immediate resolution of patient's hypoxia and transported to our ER for evaluation. On arrival, patient reports ongoing shortness of breath. No major changes, trauma, ingestions, sick exposures or other known provocation factors since hospital discharge earlier today Review of Systems Review of Systems Fourteen body systems of review of systems have been reviewed. See HPI for pertinent positives and negative responses, other almanzar all other systems are negative, non-pertinent or non-contributory Allergies Allergies Allergies Coded Allergies Type Severity Reaction Last Updated Verified Penicillins Allergy Intermediate rash 01/13/20 Yes cyclobenzaprine Allergy Mild rash 01/13/20 Yes Physical Exam Physical Exam Constitutional: Well developed, well nourished, moderate respiratory distressed, appears tired, speaking single words only due to ongoing dyspnea HENT: Normocephalic, atraumatic, bilateral external ears normal, oropharynx dry, no oral exudates, nose normal. Eyes: PERRLA, EOMI, conjunctiva normal, no discharge. Neck: Normal range of motion, no tenderness, supple, no stridor. Cardiovascular: Heart rate regular, sinus rhythm, no murmurs rubs or gallops Lungs & Thorax: Moderate respiratory distress, accessory muscle usage noted in abdomen and neck, increased work of breathing, appears tired, decreased breath sounds in bilateral lobes with rales appreciated in bilateral lower lobes Abdomen: Bowel sounds normal, soft, no tenderness, no masses, no pulsatile masses. Nonsurgical abdomen, no peritoneal signs Skin: Warm, dry, no erythema, no rash. Back: No tenderness, no CVA tenderness. Extremities: No tenderness, no cyanosis, no clubbing, ROM intact, no edema. Neurologic: Alert and oriented X 3, grossly normal motor & sensory function, no focal deficits noted. Psychologic: Unable to fully assess given respiratory distress Current Patient Data Vital Signs Vital Signs Date Time Temp Pulse Resp B/P (MAP) Pulse Ox O2 Delivery O2 Flow Rate FiO2 03/09/20 00:23 99.3 03/08/20 23:27 100.9 102 15 155/94 (114) 95 BiPAP/CPAP 03/08/20 23:20 Bi-pap 03/08/20 23:14 96 BiPAP/CPAP 03/08/20 23:06 98.4 95 20 145/83 (103) 95 BiPAP/CPAP 03/08/20 22:10 102 16 138/85 (102) 95 BiPAP/CPAP 03/08/20 21:43 96 BiPAP/CPAP 03/08/20 21:04 110 149/78 03/08/20 20:18 98.1 16 147/78 (101) 98 NonRebreather Mask 15.0 Lab Results Laboratory Tests Test 03/08/20 20:29 03/08/20 21:15 03/08/20 21:35 Blood Gas pH 7.39 Blood Gas PCO2 71 mmHg Blood Gas PO2 58 mmHg Blood Gas HCO3 44 mmol/L Arterial Bld O2 Saturation (Calc) 88 % FiO2 40 % White Blood Count 9.0 x10^3/uL Red Blood Count 4.78 x10^6/uL Hemoglobin 12.4 g/dL Hematocrit 39.8 % Mean Corpuscular Volume 83 fL Mean Corpuscular Hemoglobin 26 pg Mean Corpuscular Hemoglobin Concent 31 g/dL Red Cell Distribution Width 16.4 % Platelet Count 133 x10^3/uL Neutrophils (%) (Auto) 80 % Lymphocytes (%) (Auto) 12 % Monocytes (%) (Auto) 7 % Eosinophils (%) (Auto) 0 % Basophils (%) (Auto) 1 % Neutrophils # (Auto) 7.2 x10^3uL Lymphocytes # (Auto) 1.1 x10^3/uL Monocytes # (Auto) 0.6 x10^3/uL Eosinophils # (Auto) 0.0 x10^3/uL Basophils # (Auto) 0.1 x10^3/uL Sodium Level 138 mmol/L Potassium Level 4.5 mmol/L Chloride Level 96 mmol/L Carbon Dioxide Level 40 mmol/L Anion Gap 2 Blood Urea Nitrogen 26 mg/dL Creatinine 0.7 mg/dL Estimated GFR (Cockcroft-Gault) 83.2 BUN/Creatinine Ratio 37 Glucose Level 159 mg/dL Calcium Level 9.3 mg/dL Total Bilirubin 2.0 mg/dL Aspartate Amino Transf (AST/SGOT) 21 U/L Alanine Aminotransferase (ALT/SGPT) 30 U/L Alkaline Phosphatase 79 U/L Troponin I Quantitative 0.019 ng/mL CL-Uhu-G-Type Natriuretic Peptide 7156 pg/mL Total Protein 6.8 g/dL Albumin 3.2 g/dL Albumin/Globulin Ratio 0.9 Lactic Acid Level 1.5 mmol/L Current Medications Medications (Trade) Dose Ordered Sig/Kris Route PRN Reason Start Time Stop Time Status Last Admin Dose Admin Aspirin (Aspirin Chewable) 324 mg 1X ONCE PO 03/08/20 20:15 03/08/20 20:21 DC 03/08/20 21:03 Nitroglycerin (Nitrostat) 0.4 mg PRN Q5MIN PRN SL CP RATING > 1/10 03/08/20 20:15 03/09/20 20:14 03/08/20 21:04 Furosemide (Lasix) 100 mg 1X ONCE IVP 03/08/20 20:45 03/08/20 21:33 DC 03/08/20 21:31 EKG EKG EKG ordered and interpreted by myself at 2035 hrs. as atrial fibrillation with a ventricular rate of 111 bpm, prolonged SD at 208, no other abnormal intervals, left axis deviation, T wave inversions noted in leads I, no STEMI This EKG was compared to most recent EKG performed in our ER on February 29, 2020, there are newly found T wave inversions noted in leads I as noted above without any other obvious abnormalities Radiology/Procedures Radiology/Procedures Exam: Chest one view INDICATION: Shortness of breath TECHNIQUE: Frontal view of the chest Comparisons: 02/29/2020 FINDINGS: The cardiomediastinal silhouette and pulmonary vessels are within normal limits. Patchy airspace disease in the right mid and lower lung. No pleural effusion. IMPRESSION: Patchy airspace disease in the right mid and lower lung may be infectious or inflammatory in etiology. Electronically signed by: Marycruz Kraft MD (03/08/2020 9:05 PM) [facility] Heart Score HEART Score for Chest Pain: HEART Score for Chest Pain Response (Comments) Value History Slighlty/Non-Suspicious 0 Age > 65 2 Risk Factors >3 Risk Factors or Hx CAD 2 Total 4 Risk Factors: Risk Factors: DM, Current or recent (<one month) smoker, HTN, HLP, family history of CAD, obesity. Risk Scores: Risk Factors: DM, Current or recent (<one month) smoker, HTN, HLP, family history of CAD, obesity. Course & Med Decision Making Course & Med Decision Making Pertinent Labs and Imaging studies reviewed. (See chart for details) Discussed with patient most likely diagnosis of acute on chronic respiratory failure. Patient's presenting symptoms likely due to CO2 retention. I suspect this might be due to obesity hypoventilation syndrome? Patient responded with ER intervention, she was escalated from nonrebreather to positive pressure ventilation with improvement in overall mentation and respiratory status. She does not have 1 of these devices at her detention and so is unfit for discharge home at present I discussed case with on-call hospitalist who agreed need for admission for continued medical care and respiratory observation and management as indicated. I am not concerned for any infectious etiology right now I updated patient on proposed plan of care to admit her for ongoing positive pressure ventilation and respiratory management, she was amenable. All questions and concerns addressed prior to ER transport to [facility] for admission Critical Care Time This patient required critical care. Due to the fact that the patient required a significant amount of one on one physician - patient contact time, ordering and review of studies, arranging urgent treatment with development of a management plan, evaluation of patients response to treatment with frequent reassessments, and discussions with other providers this patient required critical care time in excess of 30 minutes. Critical care time was indicated due to the inherent instability and/or potential for instability in this patient. The critical care time that is allocated to this patient is above and beyond any time spent on any other billable procedures performed on this patient. Dragon Disclaimer Dragon Disclaimer This electronic medical record was generated, in whole or in part, using a voice recognition dictation system. Departure Departure: Impression: Primary Impression: Acute on chronic respiratory failure with hypoxia and hypercapnia Additional Impression: Atrial fibrillation with rapid ventricular response Disposition: ADMITTED INPT THIS HOSP Admitting Physician: Ragini Alvarado Condition: IMPROVED Referrals: AMIRA YEBOAH (PCP) Problem Qualifiers CARMELLA COBOS DO Mar 08, 2020 20:19
[2020-03-08] MEDS ORDERED: FUROSEMIDE 100 MG/10 ML VIAL IVP ONE (20:45)
--- NOTE | 2020-03-08 21:08 | RAD ---
Exam: Chest one view INDICATION: Shortness of breath TECHNIQUE: Frontal view of the chest Comparisons: 02/29/2020 FINDINGS: The cardiomediastinal silhouette and pulmonary vessels are within normal limits. Patchy airspace disease in the right mid and lower lung. No pleural effusion. IMPRESSION: Patchy airspace disease in the right mid and lower lung may be infectious or inflammatory in etiology . Electronically signed by: Marycruz Kraft MD (03/08/2020 9:05 PM) DON
[2020-03-08 21:36] LABS: BASO # 0.1 x10^3/uL (0.0-0.2); BASO % 1 % (0-3); EOS % 0 % (0-3); HEMATOCRIT 39.8 % (36.0-47.0); HEMOGLOBIN 12.4 g/dL (12.0-15.5); LYMPH # 1.1 x10^3/uL (1.0-4.8); LYMPH % 12 % (24-48); MEAN CORPUSCULAR HEMOGLOBIN 26 pg (25-35); MEAN CORPUSCULAR HGB CONC 31 g/dL (31-37); MEAN CORPUSCULAR VOLUME 83 fL (79-100); MONO # 0.6 x10^3/uL (0.0-1.1); MONO % 7 % (0-9); NEUT # 7.2 x10^3uL (1.8-7.7); NEUT % 80 % (31-73); PLATELET COUNT 133 x10^3/uL (140-400); RED BLOOD COUNT 4.78 x10^6/uL (3.50-5.40); RED CELL DISTRIBUTION WIDTH 16.4 % (11.5-14.5)
[2020-03-08 21:44] LABS: CALCIUM 9.3 mg/dL (8.5-10.1); CREATININE 0.7 mg/dL (0.6-1.0); GFR 83.2; POTASSIUM 4.5 mmol/L (3.5-5.1)
[2020-03-08 21:56] LABS: ALBUMIN 3.2 g/dL (3.4-5.0); ALBUMIN/GLOBULIN RATIO 0.9 (1.0-1.7); TOTAL PROTEIN 6.8 g/dL (6.4-8.2)
[2020-03-08 22:09] LABS: BGAS PH 7.39 (7.35-7.45)
--- NOTE | 2020-03-08 22:33 | EKG ---
[address] [address] Test Date: 2020-03-08 Test Time: 20:29:50 Pat Name: RIDDHI GARCIA Department: Room: Gender: F Software Architect: JANNA : [id number] Requested By: CARMELLA COBOS Order Number: [id number] Reading MD: Measurements Intervals [place] Rate: 111 P: 0 DC: 208 QRS: -42 QRSD: 94 T: 136 QT: 312 QTc: 427 Interpretive Statements SINUS TACHYCARDIA ATRIAL PREMATURE COMPLEX(ES) PROLONGED DC INTERVAL ABNORMAL LEFT AXIS DEVIATION R-S TRANSITION ZONE IN V LEADS DISPLACED TO THE LEFT S1,S2,S3 PATTERN LEFT ANTERIOR FASCICULAR BLOCK LVH WITH REPOLARIZATION ABNORMALITY ABNORMAL ECG RI6.02 No previous ECG available for comparison
--- NOTE | 2020-03-08 23:15 | NUR ---
Admission Note: Pt transported via EMS from ED to ICU 5, pt transferred from cart to bed with 4 person assist, pt is lethargic but opens eyes to her name and knows she is in the hospital, VSS (pt on non rebreather at 15 Liters during transport w/oxygen at 100%), pt put on Bipap by RT w/oxygen sat at 96%, pt incontinent/cleaned/brief applied. skilled nursing called to fax history and medication list as pt is answering minimal questions. Attempted to orient pt to room but pt too lethargic, close monitoring of patient until she is more awake, will continue to monitor.
[2020-03-08 23:27] VITALS: BP 155/94
[2020-03-09] VITALS (13 sets, daily range): BP systolic 96–140; BP diastolic 55–80
[2020-03-09] MEDS ORDERED: METH4TAB7 PO (00:45)
[2020-03-09] MEDS ORDERED: POTA10TA5 PO (00:45)
[2020-03-09] MEDS ORDERED: IPRA0.2S5 NEB (00:45)
[2020-03-09] MEDS ORDERED: ACET500T68 PO (00:45)
[2020-03-09] MEDS ORDERED: ONDA4TAB7 PO (00:45)
[2020-03-09] MEDS ORDERED: DIGO250T PO (00:45)
[2020-03-09] MEDS ORDERED: DIPH25TA26 PO (00:45)
[2020-03-09] MEDS ORDERED: CITA20TA6 PO (00:45)
--- NOTE | 2020-03-09 06:28 | NUR ---
Shift Note: Pt a/o x3 (? on situation), VSS (pt continues to be on BIPAP, ABG to be drawn at 0800 to evaluate progress), no c/o pain or n/v at this time, pt continues to be incontinent of bowel and bladder, home medications entered but need to be reconciled.
[2020-03-09 07:01] LABS: BASO % 1 % (0-3); EOS # 0.1 x10^3/uL (0.0-0.7); EOS % 1 % (0-3); HEMATOCRIT 34.7 % (36.0-47.0); HEMOGLOBIN 10.9 g/dL (12.0-15.5); LYMPH # 1.7 x10^3/uL (1.0-4.8); LYMPH % 26 % (24-48); MEAN CORPUSCULAR HEMOGLOBIN 26 pg (25-35); MEAN CORPUSCULAR HGB CONC 32 g/dL (31-37); MEAN CORPUSCULAR VOLUME 82 fL (79-100); MONO # 0.8 x10^3/uL (0.0-1.1); MONO % 13 % (0-9); NEUT # 3.9 x10^3uL (1.8-7.7); NEUT % 60 % (31-73); PLATELET COUNT 118 x10^3/uL (140-400); RED BLOOD COUNT 4.21 x10^6/uL (3.50-5.40); WHITE BLOOD COUNT 6.6 x10^3/uL (4.0-11.0)
[2020-03-09 07:09] LABS: ALBUMIN 2.7 g/dL (3.4-5.0); ALBUMIN/GLOBULIN RATIO 0.8 (1.0-1.7); CALCIUM 8.2 mg/dL (8.5-10.1); CREATININE 0.4 mg/dL (0.6-1.0); GFR 158.7; POTASSIUM 3.7 mmol/L (3.5-5.1); TOTAL BILIRUBIN 1.6 mg/dL (0.2-1.0); TOTAL PROTEIN 6.1 g/dL (6.4-8.2)
[2020-03-09 08:07] LABS: BGAS PH 7.42 (7.35-7.45)
[2020-03-09 08:39] LABS: % EOS 4 % (0-5); % LYMPHS 25 % (24-48); % MONOS 13 % (0-10); % SEGS 58 % (35-66)
[2020-03-09 08:40] LABS: PLT ESTIMATE ADEQUATE (ADEQUATE)
[2020-03-09 08:41] LABS: OVALOCYTES OCC; POLYCHROMASIA SLIGHT
[2020-03-09 08:42] LABS: ANISOCYTOSIS SLIGHT; TEAR DROP CELLS OCC
[2020-03-09] MEDS ORDERED: HEPARIN PF 500 UNIT/5 ML DISP.SYRIN. ONE (11:43)
[2020-03-09 12:13] LABS: FECAL OB PT POSITIVE (NEG)
--- NOTE | 2020-03-09 12:59 | NUR ---
Discharge Note: RIDDHI GARCIA Discharge instructions and discharge home medications reviewed with Patient and a copy given. All questions have been answered and understanding verbalized. The following instructions and handouts were given: New medication information handouts Discontinued lines and drains: Peripheral IV line discontinued. No complications. Patient was discharged to home left the unit via ambulation with all personal belongings escorted by this RN patient was transported home by in private vehicle. Addendum: 03/09/20 at 1322 by TRACEY MONTE RN Disregard this note this was an error in charting. Charted on wrong patient.
[2020-03-09] MEDS ORDERED: ACETAMINOPHEN 500 MG TABLET PO PRN (13:00)
[2020-03-09] MEDS ORDERED: ONDANSETRON ODT 4 MG TAB.RAPDIS PO PRN (13:30)
[2020-03-09] MEDS: CITALOPRAM 20 MG TABLET. PO SCH (13:43)
[2020-03-09] MEDS: APIXABAN 5 MG TABLET. PO SCH ×2 (13:43→20:18)
[2020-03-09] MEDS: OXYBUTYNIN CHLORIDE 5 MG TABLET PO SCH ×2 (13:45→20:18)
[2020-03-09] MEDS: CHOLECALCIFEROL (VITAMIN D3) 1,000 UNIT TABLET PO SCH (13:45)
[2020-03-09] MEDS: POTASSIUM CHLORIDE 10 MEQ TABLET.ER. PO SCH (13:45)
[2020-03-09] MEDS: FUROSEMIDE 40 MG TABLET PO SCH (13:45)
[2020-03-09] MEDS: METOPROLOL TART IMMED RELEASE 50 MG TABLET PO SCH ×2 (13:46→20:18)
[2020-03-09] MEDS: DIGOXIN 125 MCG TABLET PO SCH (13:46)
--- NOTE | 2020-03-09 18:19 | HP ---
ADMIT DATE: 03/08/2020 HISTORY OF PRESENT ILLNESS: The patient is a 69-year-old female patient who was actually discharged yesterday from [facility] after an extended stay there for atrial fibrillation with rapid ventricular response. She also has diagnosed with [id number] diastolic congestive heart failure and chronic obstructive pulmonary disease exacerbation. The patient has been admitted before multiple times and was treated initially with amiodarone; however, she became thyrotoxic and developed transaminitis, was switched to Multaq; however, that was not therapeutic and she continued to have episodes of paroxysmal tachycardia with rapid ventricular response. Her amiodarone level was checked to see if it is low, Tikosyn can be tried; however, her amiodarone level was high yesterday and therefore, the patient was started on digoxin and the dose was increased to 250 mcg daily and in fact, yesterday she was doing very well. In fact, when I discharged her, she was on room air. Her oxygen saturation was 93% and was discharged back to [facility] to continue on all her medications that include digoxin to control the heart rate and apixaban for stroke prevention as well as Lasix 40 mg once a day together with albuterol and Atrovent, metoprolol tartrate 100 mg twice a day as well as duloxetine 60 mg once a day. Apparently, she was brought today by emergency medical service personnel from skilled nursing for hypoxia. The patient was reportedly found to be hypoxic with an oxygen saturation of 60% on 2 liters of oxygen by nasal cannula. By staff, she was also found to be lethargic and prompting them to call the EMS. On arrival, the patient's oxygen was increased to 4 liters by nasal cannula with minimal improvement in her oxygenation. The patient put on nonrebreather mask at 15 liters with immediate resolution of the patient's hypoxia and was transported to the Emergency Room of [facility]. On arrival, the patient reports ongoing shortness of breath, but no major changes, trauma, ingestion or sick exposure or other provocation factors. Since hospital discharge, she was extensively investigated in the Emergency Room and in fact has had lab work done, which showed that her white cell count was normal. Her chemistry was also unremarkable. Her blood gases showed a pH of 7.39, pCO2 of 71, pO2 of 58, bicarbonate 44, and oxygen saturation was 88% on FiO2 of 40%. Had had a chest x-ray, which basically showed the cardiomediastinal silhouette and pulmonary vessels are within normal limits, patchy airspace disease in the right mid and lower lung. No pleural effusion. The patient was admitted with acute hypoxic hypercapnic respiratory failure, atrial fibrillation with rapid ventricular response. She was treated with IV Lasix and aspirin and heparin and was continued on all her other medications, admitted to the ICU on BiPAP machine. PAST MEDICAL HISTORY: Significant for hypertension, hyperlipidemia, chronic obstructive pulmonary disease, morbid obesity, obstructive sleep apnea, recurrent episode of paroxysmal atrial fibrillation with rapid ventricular response, acute on chronic diastolic congestive heart failure. 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 PAST SURGICAL HISTORY: Significant for bilateral chest tube placement, left wrist repair, left shoulder surgery, and heart catheterization. ALLERGIES: SHE IS ALLERGIC TO PENICILLIN [employer] STINGS. FAMILY HISTORY: She is adopted and does not know her biological parents. SOCIAL HISTORY: She is . She has no children of her own. She does not smoke, drink alcohol or use any recreational drugs. She is retired from [employer] after working there for almost 38 years. [place] [facility] [place] actually discharged from [facility] yesterday on furosemide 40 mg once a day, digoxin 250 mcg once a day, albuterol and Atrovent by nebulizer 4 times a day, potassium chloride 10 mEq once a day, citalopram hydrobromide 20 mg once a day, metoprolol tartrate 100 mg twice a day, duloxetine 60 mg once a day, lactobacillus rhamnosus 1 capsule once a day, oxybutynin chloride 5 mg twice a day, apixaban 5 mg twice a day and acetaminophen 650 mg every 4 hours as needed. REVIEW OF SYSTEMS: As per history of present illness. PHYSICAL EXAMINATION: GENERAL: On arrival to the Emergency Room, the patient was well-developed, well-nourished, in moderate respiratory distress, was able to speak only single words due to ongoing dyspnea. There is no pallor, jaundice, cyanosis or thyromegaly. No jugular venous distention. No lower limb edema. VITAL SIGNS: Her heart rate on arrival was 110, irregularly irregular; blood pressure was 149/78, her temperature was 98.1, respiratory rate was 16, and oxygen saturation was 96% on BiPAP machine. Her initial oxygen saturation was only 60% on 2 liters of oxygen. HEAD, EYES, EARS, NOSE AND THROAT: Showed normocephalic, atraumatic. NECK: Supple. HEART: Showed normal first and second heart sounds. No gallop, rub or murmur. CHEST: Showed the patient was in moderate respiratory distress with accessory muscle usage noted in the abdomen and neck, increased work of breathing and appeared tired, decreased breath sounds in bilateral lobes with rales appreciated in bilateral lower lobes. ABDOMEN: Distended, soft, nontender. NEUROLOGIC: She was alert and oriented x 3 without any obvious motor or sensory deficit. EXTREMITIES: Showed no clubbing, cyanosis or edema. LABORATORY WORK: Her lab work on admission showed a white cell count of 9000, hemoglobin 12.4, hematocrit 39, MCV 83, and platelet count of 133,000. Her initial blood gases showed a pH of 7.39, pCO2 of 71, pO2 of 58, bicarbonate was 44 and oxygen saturation was 88% on FiO2 of 40%. Her chemistry showed a serum sodium of 138, potassium 4.5, chloride 96, bicarbonate 40, anion gap of 2, BUN 26, creatinine was 0.7, estimated GFR was 83 mL per minute. Her glucose was 159. Her lactic acid was only 1.5, calcium was 9.3, magnesium 2. Total bilirubin, AST, ALT, alkaline phosphatase were normal. Her beta natriuretic peptide was 7156. Total protein 6.8, albumin was 3.2. Her chest x-ray showed the cardiomediastinal silhouette and pulmonary vessels are within normal limits, patchy airspace disease in the right mid and lower lung. No pleural effusion. ASSESSMENT AND PLAN: The patient was admitted with [id number] hypoxic hypercapnic respiratory failure, atrial fibrillation with rapid ventricular response. Other medical problems include chronic obstructive pulmonary disease, hypertension, hyperlipidemia, morbid obesity, obstructive sleep apnea, and thyrotoxicosis. DANAY MONTENEGRO MD DR: SONY/rob JOB#: [id number] / [id number]
[2020-03-09] MEDS ORDERED: DRONEDARONE HCL 400 MG TABLET PO SCH (21:00)
[2020-03-10] VITALS (14 sets, daily range): BP systolic 90–142; BP diastolic 51–76
--- NOTE | 2020-03-10 00:51 | PN ---
DATE: 03/09/2020 SUBJECTIVE: The patient is resting, slightly propped up in bed, in no apparent respiratory distress. She is maintaining her oxygen saturation at 96% on 3.5 liters of oxygen by nasal cannula. She denied any chest pain. PHYSICAL EXAMINATION: GENERAL: When I examined her this afternoon, she looked well and was clearly in no apparent respiratory distress. She was pale, no jaundice, cyanosis or thyromegaly. No jugular venous distention. No limb edema. VITAL SIGNS: Her heart rate was 89, blood pressure was 130/72, temperature was 99, respiratory rate was 26 and oxygen saturation was 97%. HEAD, EYES, EARS, NOSE AND THROAT: Showed normocephalic, atraumatic. NECK: Supple. HEART: Normal first and second heart sounds. No gallop or murmur. CHEST: Clear to auscultation. No crepitation or rhonchi. ABDOMEN: Distended, soft, nontender. NEUROLOGIC: She is definitely awake, alert, responding appropriately. All cranial nerves intact. She moves extremities without difficulty although she is mostly bedbound. Her intake over the last 24 hours and output were incompletely recorded. LABORATORY DATA: Her lab work this morning showed her white cell count was 6600, hemoglobin 10.9, hematocrit 34.7, MCV 82 and platelet count of 118,000. Her chemistry this morning showed a serum sodium 139, potassium 3.7, chloride 99, bicarbonate 40, anion gap of 8, BUN 24, creatinine 0.4, estimated GFR was 158 mL per minute. Her glucose was 99. Her calcium was 8.2. Total bilirubin is 1.6. AST, ALT, alkaline phosphatase were normal. Total protein was 6.1 and albumin was 2.7. Her troponin was slightly elevated at 0.019 and 0.027. ASSESSMENT: 1. Acute on chronic hypoxic hypercapnic respiratory failure. 2. Atrial fibrillation with rapid ventricular response and now is rate controlled on metoprolol and digoxin. She is on apixaban for stroke prevention. She has chronic obstructive pulmonary disease, morbid obesity, obstructive sleep apnea, hypertension, and hyperlipidemia. She is also thyrotoxic. PLAN: To continue with all her medications. Continue with BiPAP machine. However, director social welfare is working to improve her for Trelegy or BiPAP machine for use at the __ alf facility. DANAY MONTENEGRO MD DR: Reggie JOB#: [id number] / [id number]
[2020-03-10 05:34] LABS: BGAS PH 7.42 (7.35-7.45)
--- NOTE | 2020-03-10 05:57 | NUR ---
Shift Note: Pt a/o x4, VSS (pt on bipap during HS, tolerated well), no c/o pain or n/v during night, pt able to sleep for several hours, pt continues to be incontinent of urine, pt states "I am excited to go home, I love it there".
[2020-03-10 06:38] LABS: HEMATOCRIT 33.4 % (36.0-47.0); HEMOGLOBIN 10.8 g/dL (12.0-15.5); RED BLOOD COUNT 4.13 x10^6/uL (3.50-5.40); RED CELL DISTRIBUTION WIDTH 15.7 % (11.5-14.5); WHITE BLOOD COUNT 5.5 x10^3/uL (4.0-11.0)
[2020-03-10 06:53] LABS: ALBUMIN 2.6 g/dL (3.4-5.0); ALBUMIN/GLOBULIN RATIO 0.8 (1.0-1.7); CALCIUM 8.4 mg/dL (8.5-10.1); CREATININE 0.4 mg/dL (0.6-1.0); GFR 158.7; POTASSIUM 3.5 mmol/L (3.5-5.1); TOTAL BILIRUBIN 1.3 mg/dL (0.2-1.0); TOTAL PROTEIN 5.9 g/dL (6.4-8.2)
[2020-03-10] MEDS: FUROSEMIDE 40 MG TABLET PO SCH (08:52)
[2020-03-10] MEDS: OXYBUTYNIN CHLORIDE 5 MG TABLET PO SCH (08:52)
[2020-03-10] MEDS: CHOLECALCIFEROL (VITAMIN D3) 1,000 UNIT TABLET PO SCH (08:52)
[2020-03-10] MEDS: CITALOPRAM 20 MG TABLET. PO SCH (08:52)
[2020-03-10] MEDS: POTASSIUM CHLORIDE 10 MEQ TABLET.ER. PO SCH (08:52)
[2020-03-10] MEDS: APIXABAN 5 MG TABLET. PO SCH (08:52)
[2020-03-10] MEDS: METOPROLOL TART IMMED RELEASE 50 MG TABLET PO SCH (08:53)
[2020-03-10] MEDS: DIGOXIN 125 MCG TABLET PO SCH (08:53)
[2020-03-10] MEDS ORDERED: LACTOBACILLUS RHAMNOSUS GG 1 CAPSULE. PO SCH (09:00)
[2020-03-10] MEDS ORDERED: DULoxetine HCL 60 MG CAPSULE.DR PO SCH (09:00)
--- NOTE | 2020-03-10 13:18 | DISCH ---
DISCHARGE ORDERS DISCHARGE DATE: Mar 10, 2020 FINAL DIAGNOSIS a/c diastolic chf a/c hypercapnic respiratory failure atrial fibrillation with RVR MORBID OBESITY DEAN CONDITION AT DISCHARGE: Stable Code Status: Full SNF STAY <30 DAYS: Yes POST DISCHARGE ORDERS: ACTIVITY ORDERS: Activity as tolerated WEIGHT BEARING STATUS: As tolerated DIET AFTER DISCHARGE: Cardiac WOUND/INCISION CARE: No wound care needed CHECKS AFTER DISCHARGE: CHECKS AFTER DISCHARGE: Check blood press - daily, Check your Temp as needed TREATMENT/EQUIPMENT ORDERS: ADAPTIVE EQUIPMENT NEEDED: None DISCHARGE MEDICATIONS: Home Meds Reported Medications Ondansetron Hcl (ZOFRAN) 4 Mg Tablet, 4 MG PO PRN Q4HRS PRN for NAUSEA, TAB 03/09/20 Potassium Chloride (KLOR-CON 10) 10 Meq Tablet.er, 10 MEQ PO DAILY for supplement, TAB.SR 03/09/20 Diphenhydramine Hcl (DIPHENHYDRAMINE HCL) 25 Mg Tablet, 25 MG PO PRN Q6HRS PRN for itching, TAB 03/09/20 Digoxin (DIGOXIN) 250 Mcg Tablet, 250 MCG PO DAILY for AFIB/HEART FAILURE, TAB 03/09/20 Ipratropium [place] (IPRATROPIUM BROMIDE) 0.2 Mg/1 Ml Solution, 1 VIAL NEB QID for DEAN, #300 ML 3 Refills 03/09/20 Citalopram Hydrobromide (CITALOPRAM HBR) 20 Mg Tablet, 20 MG PO DAILY for anxiety, TAB 03/09/20 Acetaminophen (ACETAMINOPHEN) 500 Mg Tablet, 1000 MG PO PRN Q8HRS PRN for pain or elevated temp, TAB 03/09/20 Metoprolol Tartrate (METOPROLOL TARTRATE) 100 Mg Tablet, 1 TAB PO BID for HTN, #60 TAB 5 Refills 02/29/20 Furosemide (LASIX) 40 Mg Tablet, 1 TAB PO DAILY for CHF for 30 Days, #30 TAB 0 Refills 02/29/20 Apixaban (ELIQUIS) 5 Mg Tablet, 5 MG PO BID for afib, TAB 02/29/20 Lactobacillus Acidophilus (ACIDOPHILUS) 1 Each Capsule, 1 CAP PO DAILY for health maintenance for 14 Days, #14 CAP 0 Refills 02/29/20 Duloxetine Hcl (CYMBALTA) 60 Mg Capsule.dr, 1 CAP PO DAILY for nerve pain, #90 CAP 3 Refills 01/19/20 Cholecalciferol (Vitamin D3) (VITAMIN D) 1,000 Unit Capsule, 5000 UNIT PO DAILY for SUPPLEMENT LAST DOSE GIVEN: DATE: TIME: NEXT DOSE DUE: DATE: TIME: 01/31/18 Oxybutynin Chloride (OXYBUTYNIN CHLORIDE) 5 Mg Tablet, 1 TAB PO BID for BLADDER SPASMS LAST DOSE GIVEN: DATE: TIME: NEXT DOSE DUE: DATE: TIME: 01/31/18 Discontinued Reported Medications Methylprednisolone (METHYLPREDNISOLONE) 4 Mg Tablet, 4 MG PO DAILY for congestion, TAB 03/09/20 Dronedarone Hcl (MULTAQ) 400 Mg Tablet, 1 TAB PO BID for afib, #180 TAB 1 Refill 02/29/20 Levothyroxine Sodium (SYNTHROID) 25 Mcg Tablet, 1 TAB PO DAILY for thyroid, #30 TAB 5 Refills 02/29/20 DANAY MONTENEGRO MD Mar 10, 2020 13:18
--- NOTE | 2020-03-10 13:20 | NUR ---
Discharge Note: RIDDHI GARCIA Discharge instructions and discharge home medications reviewed with JEFFERY Ferrer at [facility] in [place]. All questions have been answered and understanding verbalized. IV discontinued on discharge. 3L of oxygen NC is required for discharge and EMS and other facility made aware. Spoke with Carissa GIL at other facility about BiPAP machine being received at facility and stated that they will transport BiPAP there. Informed RN about the need for BiPAP at night and 3L NC continuously throughout the day. VSS at the time of discharge and pt is A&Ox4. [facility]. Pt did not come to hospital with belongings. Lottie GIL
--- NOTE | 2020-03-10 15:11 | DS ---
DATE OF DISCHARGE: 03/10/2020 HOSPITAL COURSE: The patient is a 69-year-old female patient who was admitted to [facility] on the same day, she was discharged from [facility]. She apparently was discharged from there without oxygen and she became extremely hypoxic, lethargic and was diagnosed with [id number] hypoxic hypercapnic respiratory failure and was admitted to the ICU. She was continued on all her medications and she did actually very well. PHYSICAL EXAMINATION: GENERAL: When I saw her this afternoon, she was resting, slightly propped up in bed, in no apparent respiratory distress. There was no pallor, jaundice, cyanosis or thyromegaly. No jugular venous distention. No lower limb edema. VITAL SIGNS: Her heart rate was 77, blood pressure was 142/68, temperature was 98.2, respiratory rate was 24, and oxygen saturation was 97% on 3 liters of oxygen. HEAD, EYES, EARS, NOSE AND THROAT: Showed normocephalic, atraumatic. NECK: Supple. HEART: Showed normal first and second heart sounds. No gallop, rub or murmur. CHEST: Clear to auscultation. No crepitation or rhonchi. ABDOMEN: Distended, soft, nontender. NEUROLOGIC: She is grossly intact, although she is mostly bedbound, chair bound. Her intake was 1215, output was recorded. LABORATORY DATA: As of this morning, her white cell count was 5500, hemoglobin 11, hematocrit 33, MCV 81 and platelet count 96,000. Her chemistry showed a serum sodium 139, potassium 3.5, chloride 100, bicarbonate 40, anion gap of 1, BUN 20, creatinine 0.4. Estimated GFR was 158 mL per minute. Her glucose was 93, calcium was 8.4. Total bilirubin was 1.3. AST, ALT, alkaline phosphatase were normal. Total protein was 5.9, albumin 2.6. Her TSH continues to be undetectable, it is less than 0.007. Her blood gases this morning showed a pH of 7.42, pCO2 of 69, pO2 of 61, bicarbonate of 45 and oxygen saturation was 90% on FiO2 of 40%. DISCHARGE MEDICATIONS: She was discharged back [place] [facility] [place] to continue on lactobacillus rhamnosus 1 capsule daily, duloxetine 60 mg once a day, ondansetron 4 mg every 4 hours, digoxin 250 mcg once a day, potassium chloride 10 mEq once a day, metoprolol tartrate 100 mg twice a day, vitamin D 5000 units once a day, oxybutynin 5 mg twice a day, furosemide 40 mg daily, citalopram hydrobromide 20 mg once a day, apixaban 5 mg twice a day, and Tylenol 1000 mg every 8 hours as needed. FINAL DISCHARGE DIAGNOSES: 1. Acute on chronic hypoxic hypercapnic respiratory failure, much improved. She will be discharged on 3 liters oxygen by nasal cannula daytime and she should be on BiPAP machine at nighttime. 2. Acute on chronic diastolic congestive heart failure, clinically well compensated. 3. Atrial fibrillation with rapid ventricular response, rate controlled, well anticoagulated. She is on metoprolol and digoxin for rate control and apixaban for stroke prevention. 4. Chronic obstructive pulmonary disease. 5. Morbid obesity, obstructive sleep apnea. 6. Hypertension. 7. Hyperlipidemia. 8. She continues to be clinically thyrotoxic. Her TSH continued to be undetectable without discontinued her levothyroxine, Multaq and amiodarone. DANAY MONTENEGRO MD DR: SONY/rob JOB#: [id number] / [id number]
--- NOTE | 2020-03-11 15:44 | NUR ---
Dr. Alvarado here for rounds and informed of blood culture results.
== END 2020-03-10 13:20 | DRG 189 ==
LOC: ER 20:09 → ICU 22:00
PROVIDERS: ADMIT Internal Medicine; ATTEND Internal Medicine
PROC: 5A09357 Assistance with Respiratory Ventilation, Less than 24 Consecutive Hours, Continuous Positive Airway Pressure (ICD-10-PCS; principal; 2020-03-08)
PROC: 5A09357 Assistance with Respiratory Ventilation, Less than 24 Consecutive Hours, Continuous Positive Airway Pressure (ICD-10-PCS; 2020-03-09)
DX: J96.21 Acute and chronic respiratory failure with hypoxia (principal); I50.33 Acute on chronic diastolic (congestive) heart failure; J44.1 Chronic obstructive pulmonary disease with (acute) exacerbation; I11.0 Hypertensive heart disease with heart failure; J96.22 Acute and chronic respiratory failure with hypercapnia; E05.90 Thyrotoxicosis, unspecified without thyrotoxic crisis or storm; E66.01 Morbid (severe) obesity due to excess calories; E78.5 Hyperlipidemia, unspecified; G47.33 Obstructive sleep apnea (adult) (pediatric); I48.0 Paroxysmal atrial fibrillation; M79.7 Fibromyalgia; Z79.01 Long term (current) use of anticoagulants; Z79.899 Other long term (current) drug therapy; F32.9 Major depressive disorder, single episode, unspecified; F41.9 Anxiety disorder, unspecified; G89.29 Other chronic pain; M19.90 Unspecified osteoarthritis, unspecified site; Z88.0 Allergy status to penicillin; Z88.8 Allergy status to other drugs, medicaments and biological substances; Z74.01 Bed confinement status
CPT/HCPCS: 36415; 36600; 71045; 80053; 82274; 82550; 82803; 83605; 83880; 84443; 84484; 85007; 85025; 85027; 87040; 87205; 93005; 94660; 96374; 97110; 97530; 99291-25